=== PATIENT | male | born 1955 | race Caucasian/White ===

== ENCOUNTER 2017-05-22 14:57 | Inpatient (IN) | payer OTHER ==
[~2017-05-22] VITALS: Ht 175.3 cm; Wt 79.2 kg
[2017-05-22] VITALS (12 sets, daily range): BP systolic 89–168; BP diastolic 60–101
[2017-05-22] MEDS ORDERED: RT-ALBUTEROL/IPRATROPIUM 3 ML (DUONEB) VIAL ONE ×2 (15:07→19:25)
[2017-05-22] MEDS ORDERED: NO MEDS (15:20)
[2017-05-22 15:33] LABS: BASOPHILS # (AUTO) 0.1 10^3/uL (0.0-0.1); BASOPHILS % (AUTO) 2 % (0-10); EOSINOPHILS # (AUTO) 0.5 10^3/uL (0.0-0.3); EOSINOPHILS % (AUTO) 5 % (0-10); LYMPHOCYTES # (AUTO) 2.2 X 10^3 (1.0-4.0); LYMPHOCYTES % (AUTO) 24 % (12-44); MEAN CORPUSCULAR HEMOGLOBIN 33 PG (25-34); MEAN CORPUSCULAR HGB CONC 35 G/DL (32-36); MEAN CORPUSCULAR VOLUME 95 FL (80-99); MONOCYTES # (AUTO) 0.6 X 10^3 (0.0-1.0); MONOCYTES % (AUTO) 7 % (0-12); NEUTROPHILS # (AUTO) 5.6 X 10^3 (1.8-7.8); NEUTROPHILS % (AUTO) 63 % (42-75); PLATELET COUNT 305 10^3/uL (130-400); RED CELL DISTRIBUTION WIDTH 12.1 % (10.0-14.5)
--- NOTE | 2017-05-22 15:35 | ED Respiratory ---
General Stated Complaint: SOA Source: patient, family Exam Limitations: no limitations History of Present Illness Time seen by provider: 14:20 Initial Comments The patient presents at the immediate emergency room this afternoon at the insistence of his . He has been experiencing increasing dyspnea over the past several months. He has a remote history of smoking. He reports that he coughs up evil-appearing phlegm but no blood. He has not had fever, chills, sweats. 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 He gives no history of chest pain or palpitations. He has not been able to lie down to sleep for some time. He also reports that he has to stop to rest when walking from house to car or from bedroom to bathroom. Timing/Duration: changing over time Associated Symptoms: cough, shortness of breath, wheezing Allergies and Home Medications Allergies Coded Allergies: No Known Drug Allergies (Unverified , 05/22/17) Home Medications [No Meds] , (Reported) Constitutional: see HPI EENTM: no symptoms reported Respiratory: see HPI, cough, dyspnea on exertion, orthopnea, phlegm, short of breath, wheezing Cardiovascular: no symptoms reported Gastrointestinal: no symptoms reported Genitourinary: no symptoms reported Musculoskeletal: muscle weakness Skin: no symptoms reported Psychiatric/Neurological: No Symptoms Reported Hematologic/Lymphatic: No Symptoms Reported Immunological/Allergic: no symptoms reported Past Ryaqppx-Txatil-Jkdrnc Hx Patient Social History Recent Foreign Travel: No Contact w/Someone Who Travel: No Physical Exam Vital Signs Vital Sign - Last 12Hours 05/22/17 15:02 Temp 98.3 Pulse 98 Resp 28 B/P (MAP) 143/90 Pulse Ox 94 O2 Delivery Nasal Cannula O2 Flow Rate 4.00 Capillary Refill : General Appearance: moderate distress Eyes: Bilateral Eye Normal Inspection HEENT: normal ENT inspection Neck: full range of motion Respiratory: decreased breath sounds, accessory muscle use, wheezing, expiration (prolonged expiratory phase) Cardiovascular: normal peripheral pulses, regular rate, rhythm, no edema, no gallop, no JVD, no murmur Gastrointestinal: normal bowel sounds, non tender, soft, no organomegaly, no pulsatile mass Extremities: normal range of motion, non-tender, normal inspection, no pedal edema, no calf tenderness, normal capillary refill, pelvis stable 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, no motor/sensory deficits, alert, normal mood/affect, oriented x 3 Skin: normal color, warm/dry, cyanosis, cool, diaphoresis, damp Lymphatic: no adenopathy, axilla node tender (R), axilla node tender (L), inguinal node tender (R), inguinal node tender (L) Progress/Results/Core Measures Results/Orders Lab Results Laboratory Tests Test 05/22/17 15:25 Range/Units White Blood Count 9.0 4.3-11.0 10^3/uL Red Blood Count 4.50 4.35-5.85 10^6/uL Hemoglobin 14.9 13.3-17.7 G/DL Hematocrit 43 40-54 % Mean Corpuscular Volume 95 80-99 FL Mean Corpuscular Hemoglobin 33 25-34 PG Mean Corpuscular Hemoglobin Concent 35 32-36 G/DL Red Cell Distribution Width 12.1 10.0-14.5 % Platelet Count 305 130-400 10^3/uL Mean Platelet Volume 8.0 7.4-10.4 FL Neutrophils (%) (Auto) 63 42-75 % Lymphocytes (%) (Auto) 24 12-44 % Monocytes (%) (Auto) 7 0-12 % Eosinophils (%) (Auto) 5 0-10 % Basophils (%) (Auto) 2 0-10 % Neutrophils # (Auto) 5.6 1.8-7.8 X 10^3 Lymphocytes # (Auto) 2.2 1.0-4.0 X 10^3 Monocytes # (Auto) 0.6 0.0-1.0 X 10^3 Eosinophils # (Auto) 0.5 H 0.0-0.3 10^3/uL Basophils # (Auto) 0.1 0.0-0.1 10^3/uL Sodium Level 120 *L 135-145 MMOL/L Potassium Level 4.8 3.6-5.0 MMOL/L Chloride Level 82 L 98-107 MMOL/L Carbon Dioxide Level 29 21-32 MMOL/L Anion Gap 9 5-14 MMOL/L Blood Urea Nitrogen 4 L 7-18 MG/DL Creatinine 0.67 0.60-1.30 MG/DL Estimat Glomerular Filtration Rate > 60 BUN/Creatinine Ratio 6 Glucose Level 112 H 70-105 MG/DL Calcium Level 9.1 8.5-10.1 MG/DL Total Bilirubin 0.7 0.1-1.0 MG/DL Aspartate Amino Transf (AST/SGOT) 19 5-34 U/L Alanine Aminotransferase (ALT/SGPT) 14 0-55 U/L Alkaline Phosphatase 86 40-136 U/L Troponin I < 0.30 <0.30 NG/ML Total Protein 7.2 6.4-8.2 GM/DL Albumin 4.4 3.2-4.5 GM/DL My Orders Orders - NAZ RIVERA MD Albuterol/Ipra Inhalation Soln (Duoneb I (05/22/17 15:07) Cbc With Automated Diff (05/22/17 15:17) Comprehensive Metabolic Panel (05/22/17 15:17) Troponin I (05/22/17 15:17) Ua Culture If Indicated (05/22/17 15:17) Ekg Tracing (05/22/17 15:17) Chest 1 View, Ap/Pa Only (05/22/17 15:17) Albuterol/Ipra Inhalation Soln (Duoneb I (05/22/17 15:45) Svn Sm Volume Nebulizer Rt-Rfs (05/22/17 15:36) Medications Given in ED Current Medications Medications Dose Ordered Sig/Blanca Route Start Time Stop Time Status Last Admin Dose Admin Albuterol/ Ipratropium 3 ml STK-MED ONCE .ROUTE 05/22/17 15:07 05/22/17 15:14 DC 05/22/17 15:17 3 ML Vital Signs/I&O Vital Sign - Last 12Hours 05/22/17 05/22/17 15:02 15:17 Temp 98.3 Pulse 98 Resp 28 B/P (MAP) 143/90 Pulse Ox 94 O2 Delivery Nasal Cannula O2 Flow Rate 4.00 2.50 Departure Communication Progress Notes Laboratory returned and the sodium is noted be 120. Chest x-ray shows no pneumonia or lesions. [address] Madison and the patient will be admitted Impression Impression: Primary Impression: severe hypoxia Additional Impression: hyponatremia Disposition: ADMITTED INPATIENT Condition: Improved Admissions Decision to Admit Reason: Admit from ER (General) Decision to Admit/Date: May 22, 2017 Time/Decision to Admit Time: 17:05 Departure-Patient Inst. Referrals: NO,LOCAL PHYSICIAN (PCP/Family) Primary Care Physician NAZ RIVERA MD May 22, 2017 15:35
[2017-05-22] MEDS ORDERED: RT-ALBUTEROL/IPRATROPIUM 3 ML (DUONEB) VIAL INH ONE (15:45)
[2017-05-22 15:49] LABS: ALANINE AMINOTRANSFERASE 14 U/L (0-55); ALBUMIN 4.4 GM/DL (3.2-4.5); ANION GAP 9 MMOL/L (5-14); ASPARTATE AMINO TRANSFERASE 19 U/L (5-34); BILIRUBIN,TOTAL 0.7 MG/DL (0.1-1.0); BLOOD UREA NITROGEN 4 MG/DL (7-18); BUN/CREATININE RATIO 6; CALCIUM 9.1 MG/DL (8.5-10.1); CARBON DIOXIDE 29 MMOL/L (21-32); CHLORIDE 82 MMOL/L (98-107); CREATININE SERUM 0.67 MG/DL (0.60-1.30); GFR ESTIMATED > 60; GLUCOSE 112 MG/DL (70-105); POTASSIUM 4.8 MMOL/L (3.6-5.0); TOTAL PROTEIN 7.2 GM/DL (6.4-8.2)
--- NOTE | 2017-05-22 15:49 | Diagnostic Imaging Report ---
INDICATION: Dyspnea. Portable upright view of the chest is obtained. No previous studies available at this time for comparison. Heart size is at the upper limits normal. There is bilateral air trapping with scattered punctate calcifications likely due to granulomatous residua. No pneumothorax or focal consolidation is identified. There is no evidence of significant pleural fluid. IMPRESSION: Emphysema and granulomatous residua in the lungs. No acute abnormalities identified. Dictated by: Dictated on workstation # [id number]
[2017-05-22 15:53] LABS: SODIUM 120 MMOL/L (135-145)
[2017-05-22 15:55] LABS: TROPONIN I < 0.30 NG/ML (<0.30)
[2017-05-22 17:22] LABS: BILIRUBIN,URINE NEGATIVE (NEGATIVE); KETONES,URINE NEGATIVE (NEGATIVE); LEUKOCYTE ESTERASE ,URINE NEGATIVE (NEGATIVE); NITRITE,URINE NEGATIVE (NEGATIVE); PH,URINE 5 (5-9); PROTEIN,URINE NEGATIVE (NEGATIVE); UROBILINOGEN,URINE NORMAL (NORMAL)
[2017-05-22 17:35] LABS: WBC,URINE RARE /HPF
[2017-05-22] MEDS: NS IV 1000 ML 1,000 ML IV SCH (19:50)
[2017-05-22 20:55] LABS: BILIRUBIN,URINE NEGATIVE (NEGATIVE); KETONES,URINE NEGATIVE (NEGATIVE); LEUKOCYTE ESTERASE ,URINE NEGATIVE (NEGATIVE); NITRITE,URINE NEGATIVE (NEGATIVE); PH,URINE 6 (5-9); PROTEIN,URINE NEGATIVE (NEGATIVE); UROBILINOGEN,URINE NORMAL (NORMAL)
[2017-05-22 21:01] LABS: SQUAMOUS EPITHELIAL CELL,UR RARE /HPF
[2017-05-22] MEDS: RT-ALBUTEROL SULF 2.5 MG/3 ML PRE-MIX VIAL IH SCH (21:48)
[2017-05-22] MEDS: methylPREDNISolone 125 MG (Solu-MEDROL) VIAL IVP SCH (23:41)
[2017-05-23] VITALS (27 sets, daily range): BP systolic 96–163; BP diastolic 47–108
[2017-05-23] MEDS: RT-ALBUTEROL SULF 2.5 MG/3 ML PRE-MIX VIAL IH SCH ×13 (00:23→23:58)
[2017-05-23 04:38] LABS: ANION GAP 10 MMOL/L (5-14); BLOOD UREA NITROGEN 5 MG/DL (7-18); BUN/CREATININE RATIO 7; CALCIUM 9.2 MG/DL (8.5-10.1); CARBON DIOXIDE 29 MMOL/L (21-32); CHLORIDE 83 MMOL/L (98-107); CREATININE SERUM 0.71 MG/DL (0.60-1.30); GFR ESTIMATED > 60; GLUCOSE 143 MG/DL (70-105)
[2017-05-23 04:49] LABS: SODIUM 122 MMOL/L (135-145)
[2017-05-23] MEDS: NS IV 1000 ML 1,000 ML IV SCH ×2 (05:18→16:39)
[2017-05-23] MEDS: methylPREDNISolone 125 MG (Solu-MEDROL) VIAL IVP SCH ×5 (05:19→23:47)
--- NOTE | 2017-05-23 08:50 | History & Physical-Hospitalist ---
HPI History of Present Illness: HPI/Chief Complaint CC: Dyspnea w/hyponatremia HPI: This is a 61-year-old white male that hasn't seen a physician for many years but quit smoking 17 years ago that presents to the emergency room with severe shortness of breath and hypoxia of 74 percent. His found to have florid exacerbation of presumed COPD and was placed in ICU stepdown status placed on IV steroids and monitor closely. Chest x-ray showed a possible left parahilar abnormality which CT scan showed no evidence of any PE but parahilar abnormality is still indeterminate. Considering he is a previous smoker quit 17 years ago and hyponatremia of unknown etiology this certainly could be a small cell lung cancer presenting with severe exacerbation of COPD initial diagnosis. His BNP and troponin were both negative and Dr. Anthony we will see him in consultation. I ordered an ABG that revealed pH is 7.31 and CO2 of 68 so he definitely may require BiPAP in order to blow off CO2. Source: patient Exam Limitations: no limitations Date Seen 05/23/17 Time Seen by Provider: 08:00 Attending Physician Jessica Madison DO PCP No,Local Physician Referring Physician Date of Admission May 22, 2017 at 18:52 Home Medications & Allergies Home Medications Reviewed patient Home Medication Reconciliation Form Allergies Allergies Coded Allergies No Known Drug Allergies (Unverified05/22/17) Past Htjmkcr-Ulleux-Bnprir Hx Patient Social History Marrital Status: Employed/Student: employed Alcohol Use: Regular Use Recreational Drug Use: No Smoking Status: Never a Smoker Physical Abuse Screen: No Sexual Abuse: No Recent Foreign Travel: No Contact w/other who traveled: No Recent Hopitalizations: No Recent Infectious Disease Expo: No Seasonal Allergies Seasonal Allergies: No Surgeries HX Surgeries: Yes Surgeries: Orthopedic (left hand) Respiratory Hx Respiratory Disorders: No Cardiovascular Hx Cardiovascular Disorders: No Neurological Hx Neurological Disorders: No Genitourinary Hx Genitourinary Disorders: No Gastrointestinal Hx Gastrointestinal Disorders: No Musculoskeletal Hx Musculoskeletal Disorders: No Musculoskeletal Disorders: Fractures Endocrine Hx Endocrine Disorders: No HEENT HX ENT Disorders: No Loss of Vision: Denies Hearing Impairment: Denies Cancer Hx Cancer: No Psychosocial Hx Psychiatric Problems: No Blood Transfusions Adverse Reaction to a Blood Tr: No Reviewed Nursing Assessment Reviewed/Agree w Nursing PMH: Yes Family Medical History Family Hx: Cardiovascular disease 19 FATHER, Onset:Unknown Review of Systems Constitutional: see HPI EENTM: no symptoms reported Respiratory: dyspnea on exertion, short of breath, wheezing Gastrointestinal: no symptoms reported Genitourinary: no symptoms reported Musculoskeletal: no symptoms reported Skin: no symptoms reported Psychiatric/Neurological: No Symptoms Reported All Other Systems Reviewed Negative Unless Noted: Yes Physical Exam Physical Exam Vital Signs Vital Sign - Last 12Hours 05/22/17 05/22/17 15:02 19:33 Temp 98.3 Pulse 98 Resp 28 B/P (MAP) 143/90 Pulse Ox 94 O2 Delivery Nasal Cannula O2 Flow Rate 4.00 FiO2 32 Capillary Refill : Less Than 3 Seconds General Appearance: No Apparent Distress, WD/WN, Chronically ill Eyes: Bilateral Eye Normal Inspection, Bilateral Eye PERRL HEENT: PERRL/EOMI, Normal ENT Inspection, Pharynx Normal Neck: Full Range of Motion, Normal Inspection, Non Tender, Supple, Carotid Bruit Respiratory: Chest Non Tender, No Accessory Muscle Use, No Respiratory Distress , Crackles, Decreased Breath Sounds, Rales, Wheezing Cardiovascular: Regular Rate, Rhythm, No Edema, No Gallop, No JVD, No Murmur, Normal Peripheral Pulses Gastrointestinal: Normal Bowel Sounds, No Organomegaly, No Pulsatile Mass, Non Tender, Soft Back: Normal Inspection, No CVA Tenderness, No Vertebral Tenderness Extremity: Normal Capillary Refill, Normal Inspection, Normal Range of Motion, Non Tender, No Calf Tenderness, No Pedal Edema Neurologic/Psychiatric: Alert, Oriented x3, No Motor/Sensory Deficits, Normal Mood/Affect Skin: Normal Color, Warm/Dry Lymphatic: No Adenopathy Results Results/Procedures Lab Laboratory Tests 05/22/17 15:25 05/23/17 03:36 Assessment/Plan Admission Diagnosis Assessment: Severe dyspnea with hypoxemia on admission now with respiratory acidosis due to CO2 retention Left perihilar abnormality on chest x-ray and CT scan suspicious for small cell lung cancer Prior smoker quit 17 years ago Severe hyponatremia of uncertain etiology Assessment and Plan Plan: Moved to ICU for BiPAP to decrease CO2 retention IV steroids Nebulizer treatments Monitor closely Needs PET scan Fluid restriction Gentle IV fluid Cardiology evaluation Clinical Quality Measures DVT/VTE Risk/Contraindication: Risk Factor Score Per Nursin RFS Level Per Nursing on Admit: 1=Low/No VTE PPX JESSICA MADISON DO May 23, 2017 08:50
[2017-05-23] MEDS ORDERED: IOHEXOL 350 MG/ML 150 ML (OMNIPAQUE 350) VIAL IV ONE (09:00)
[2017-05-23] MEDS ORDERED: NS 100 ML (IVPB) BAG IV ONE (09:00)
[2017-05-23 09:45] LABS: ABG BASE EXCESS 6.8 MMOL/L (-2.5-2.5); ABG HCO3 33 MMOL/L (23-27); ABG OXYGEN SATURATION 97 % (94-100); ABG PCO2 68 MMHG (35-45); ABG PO2 89 MMHG (79-93); ABG TCO2 35.1 MMOL/L (21.0-31.0)
[2017-05-23 09:46] LABS: ALLENS TEST YES-POS; PATIENT TEMP 97.8
[2017-05-23 09:47] LABS: ABG PH 7.31 (7.37-7.43)
--- NOTE | 2017-05-23 10:37 | Diagnostic Imaging Report ---
PROCEDURE: CT angiography of the chest with contrast. TECHNIQUE: Multiple contiguous axial images were obtained through the chest after uneventful bolus administration of intravenous contrast. Reconstructed CTA MIP acquisitions were also performed. INDICATION: Hypoxia There are no previous CTA chest examinations available for comparison. The plain film examination of the chest performed earlier on 05/22/17 noted chronic pulmonary changes but failed to show any sign of an acute abnormality. On this study there is no defect within the pulmonary arteries to indicate pulmonary embolus. Aorta is not normally dilated and there is no sign of a dissection. The heart size is within normal limits but there are coronary calcifications evident. There are emphysematous changes involving both lungs, particularly the lung apices. Also, in the left infrahilar region there is a poorly defined parenchymal density measuring 1.5 x 1.9 CM. Even in retrospect this density cannot be identified on the plain film. This finding may be secondary to scar formation. The possibility that this is secondary to a neoplastic mass should also be considered. If previous CT exams are available they would be helpful for comparison. If there are no previous CT examinations, then PET/CT would be recommended for further study. If the PET/CT exam is not performed, then a short-term (three-month) followup CT chest exam should be obtained. There is no sign of failure, pneumonia or of a pleural effusion to indicate an acute abnormality. The sections through the upper abdomen failed to show any sign of an acute abnormality. The bone windows are unremarkable for a fracture or for a destructive lesion. IMPRESSION: 1. There are emphysematous changes involving both lungs but there is no sign of a pulmonary embolus or of a dissection. There is no evidence for failure or pneumonia either. 2. The irregular parenchymal density in the left perihilar region is of uncertain etiology. Considerations and recommendations as above. 3. The heart is not enlarged but there are coronary calcifications evident. Dictated by: Dictated on workstation # [id number]
[2017-05-23] MEDS: RT-BUDESONIDE NEBS 0.5 MG/2ML (PULMICORT) AMP INH SCH ×2 (12:27→18:04)
--- NOTE | 2017-05-23 13:37 | Consultation-Cardiology ---
HPI-Cardiology Cardiology Consultation: Date of Consultation 05/23/17 Time Seen by Provider: 13:15 Date of Admission 05-23-17 Attending Physician Jessica Vila DO Admitting Physician Karen,Local Physician Consulting Physician Chelsi Anthony MD, MA FACP [facility] HPI: Chief Complaint: Dyspnea Mr. Chery is a 61 year old male who is currently in ICU 1. He is currently on Bi -pap tx. His spouse is at the bedside. He reports increasing exertional dyspnea over the course of the last several months. He does report occ twinges of right sided chest discomfort which are not in r/t activity or emotional stress. They only last a few seconds. Theses have been present for several months. He reports productive cough of thick, yellow sputum which started a few months ago and has also become progressively worse. He does not report any LE edema. He does report bilat LE leg cramps which have been present for a few weeks. The do not occur with ambulation. No c/o palpitations. He does report 2 episodes of syncope within the last few months. They report the most recent episode was a month ago. He states he was up in the kitchen fixing coffee. He had a sudden onset of dizziness and the next thing he can recall he was lying on the kitchen floor with the coffee pot beside him. He believes he came to when he hit the floor. He does report fever and chills over night. No c/o n/v/ d. He reports his breathing does feel somewhat better today and his cough has improved. Review of Systems-Cardiology Review of Systems Constitutional: As described under HPI, No As described under HPI, No no symptoms reported, No chills, No fever, No lightheadedness Eyes: No blurred vision, No pain Ears/Nose/Throat: No As described under HPI, No no symptoms reported, No chronic hearing loss, No ear discharge, No ear pain, No nasal drainage, No ulcerations Respiratory: As described under HPI Cardiovascular: As described under HPI Gastrointestinal: No no symptoms reported, No abdomen distended, No abdominal pain, No blood streaked bowels, No constipation, No diarrhea, No nausea, No vomiting, No stool coloration changes Genitourinary: No As described under HPI, No burning, No dysuria, No discharge , No frequency, No flank pain, No hematuria, No urgency Skin: No rash, No skin related problems, No ulcerations Psychiatric/Neurological: No anxiety, No depression, No seizure, No focal weakness, No syncope Hematologic: No bleeding abnormalities All Other Systems Reviewed Negative Unless Noted: Yes [id number] Hx Patient Social History Marrital Status: Employed/Student: employed Alcohol Use: Regular Use Recreational Drug Use: No Smoking Status: Never a Smoker Recent Foreign Travel: No Recent Infectious Disease Expo: No Hospitalization with Isolation: Denies Physical Abuse Screen: No Sexual Abuse: No Past Medical History PMH As described under Assessment. Family Medical History Family Medical History: He reports his father has CAD. His first IN was in his late 30's. He has had a CABG several years ago with a recent re-do CABG. He reports his mother has CAD with h/o stent placement. Family History: Cardiovascular disease 19 FATHER, Onset:Unknown Allergies and Home Medications Allergies Coded Allergies: No Known Drug Allergies (Unverified , 05/22/17) Home Medications No Active Prescriptions or Reported Meds Physical Exam-Cardiology Physical Exam Vital Signs/I&O Vital Sign - Last 12Hours 05/23/17 05/23/17 05/23/17 05/23/17 05:10 05:12 06:55 07:00 Pulse 101 99 Resp 27 B/P (MAP) Pulse Ox 96 87 97 O2 Delivery Vapotherm Vapotherm Vapotherm O2 Flow Rate 55.00 15.00 25.00 25.00 FiO2 40 55 05/23/17 05/23/17 05/23/17 05/23/17 08:06 08:15 10:29 12:21 Temp 97.8 Pulse 98 104 Resp 22 16 B/P (MAP) 122/78 Pulse Ox 91 93 95 O2 Delivery Vapotherm Vapotherm High Flow N/C O2 Flow Rate 25.00 55.00 15.00 45.00 25.00 FiO2 55 05/23/17 05/23/17 05/23/17 05/23/17 12:30 12:30 12:45 13:00 Temp 97.6 98.0 Pulse 101 100 105 Resp 15 14 B/P (MAP) 115/78 106/74 Pulse Ox 94 94 92 O2 Delivery NIV Bilevel NIV Bilevel NIV Bilevel O2 Flow Rate 10.00 10.00 45.00 FiO2 45 05/23/17 05/23/17 05/23/1718/17 13:00 13:15 13:30 14:37 Pulse 105 96 101 96 Resp 12 24 24 23 B/P (MAP) 104/65 99/67 105/75 Pulse Ox 93 92 93 94 O2 Delivery NIV Bilevel NIV Bilevel NIV Bilevel O2 Flow Rate 45.00 45.00 45.00 45.00 Capillary Refill : Less Than 3 Seconds Constitutional: appears stated age, No apparent distress, well-developed, well- nourished HEENT: PERRL, No discharge, hearing is well preserved, oral hygience is good, No ulceration, No xanthelasmas are seen Neck: No carotid bruit, carotid pulses are 2 + bilaterally Respiratory: No accessory muscle use, No respiratory distress, other ( scattered rhonchi, crackles at the bases, prolonged expiratory phase) Cardiovascular: regular rate-rhythm, No JVD, S1 and S2, systolic murmur Gastrointestinal: No tender, soft, round, audible bowel sounds, No spleenomegaly Rectal: deferred Extremities: No clubbing, No cyanosis, No significant edema Neurologic/Psychiatric: alert, oriented x 3, power is 5/5 both on sides Skin: No rash, No ulcerations Lymphatic: no adenopathy, axilla node tender (R), axilla node tender (L), inguinal node tender (R), inguinal node tender (L) Data Review Labs Laboratory Tests 05/22/17 17:08: Urine Color YELLOW, Urine Clarity CLEAR, Urine pH 5, Urine Specific [place] 1.010L, Urine Protein NEGATIVE, Urine Glucose (UA) NEGATIVE, Urine Ketones NEGATIVE, Urine Nitrite NEGATIVE, Urine Bilirubin NEGATIVE, Urine Urobilinogen NORMAL, Urine Leukocyte Esterase NEGATIVE, Urine RBC (Auto) NEGATIVE, Urine RBC NONE, Urine WBC RARE, Urine Crystals NONE, Urine Bacteria NEGATIVE, Urine Casts NONE, Urine Mucus NEGATIVE, Urine Culture Indicated NO 05/22/17 20:30: Urine Color YELLOW, Urine Clarity CLEAR, Urine pH 6, Urine Specific [place] 1.010L, Urine Protein NEGATIVE, Urine Glucose (UA) NEGATIVE, Urine Ketones NEGATIVE, Urine Nitrite NEGATIVE, Urine Bilirubin NEGATIVE, Urine Urobilinogen NORMAL, Urine Leukocyte Esterase NEGATIVE, Urine RBC (Auto) NEGATIVE, Urine RBC NONE, Urine WBC NONE, Urine Crystals NONE, Urine Bacteria NONE, Urine Casts NONE , Urine Mucus NEGATIVE, Urine Culture Indicated NO, Urine Squamous Epithelial Cells RARE 05/23/17 03:36: Sodium Level 122*L, Potassium Level 5.0, Chloride Level 83L, Carbon Dioxide Level 29, Anion Gap 10, Blood Urea Nitrogen 5L, Creatinine 0.71, Estimat Glomerular Filtration Rate > 60, BUN/Creatinine Ratio 7, Glucose Level 143H, Calcium Level 9.2 05/23/17 09:00: Troponin I < 0.30, B-Type Natriuretic Peptide 43.8, Thyroid Stimulating Hormone (TSH) 0.61 05/23/17 09:40: Blood Gas Puncture Site RR, Blood Gas Patient Temperature 97.8, Arterial Blood pH 7.31*L, Arterial Blood Partial Pressure CO2 68H, Arterial Blood Partial Pressure O2 89, Arterial Blood HCO3 33H, Arterial Blood Total CO2 35.1H, Arterial Blood Oxygen Saturation 97, Arterial Blood Base Excess 6.8H, Saad Test YES-POS, Blood Gas Ventilator Setting NO, Blood Gas Inspired Oxygen 15 Radiology NAME: OZ CHERY [facility] REC#: [id number] PT STATUS: REG ER : 1955 PHYSICIAN: NAZ RIVERA MD ADMIT DATE: 05/22/17/ER Signed Date of Exam: 05/22/17 CHEST 1 VIEW, AP/PA ONLY INDICATION: Dyspnea. Portable upright view of the chest is obtained. No previous studies available at this time for comparison. Heart size is at the upper limits normal. There is bilateral air trapping with scattered punctate calcifications likely due to granulomatous residua. No pneumothorax or focal consolidation is identified. There is no evidence of significant pleural fluid. IMPRESSION: Emphysema and granulomatous residua in the lungs. No acute abnormalities identified. Dictated by: Dictated on workstation # [id number] Dict: 05/22/17 1543 Trans: 05/22/17 1641 Interpreted by: TASHA GREENE MD Electronically signed by: TASHA GREENE MD 05/22/17 1641 NAME: OZ CHERY [facility] REC#: [id number] PT STATUS: ADM IN : 1955 PHYSICIAN: JESSICA VILA DO ADMIT DATE: 05/22/17/ICU Draft Date of Exam:05/23/17 CT ANGIO CHEST W PROCEDURE: CT angiography of the chest with contrast. TECHNIQUE: Multiple contiguous axial images were obtained through the chest after uneventful bolus administration of intravenous contrast. Reconstructed CTA MIP acquisitions were also performed. INDICATION: Hypoxia There are no previous CTA chest examinations available for comparison. The plain film examination of the chest performed earlier on 05/22/17 noted chronic pulmonary changes but failed to show any sign of an acute abnormality. On this study there is no defect within the pulmonary arteries to indicate pulmonary embolus. Aorta is not normally dilated. There is no sign of a dissection. The heart size is within normal limits but there are coronary calcifications evident. There are emphysematous changes involving both lungs, particularly the lung apices. Also, in the left infrahilar region there is a poorly defined parenchymal density measuring 1.5 x 1.9 CM. Even in retrospect this density cannot be identified on the plain film. This finding may be secondary to scar formation. The possibility that this is secondary to a neoplastic mass should also be considered. If previous PET/CT exams are available they would be helpful for comparison. If there are no previous CT examinations, then PET/CT would be recommended for further study. If the PET/CT exam is not performed, then a short-term (three-month) followup CT chest exam should be obtained. There is no sign of failure, pneumonia or of a pleural effusion to indicate an acute abnormality. The sections through the upper abdomen failed to show any sign of an acute abnormality. The bone windows are unremarkable for a fracture or for a destructive lesion. IMPRESSION: 1. There are emphysematous changes involving both lungs but there is no sign of a pulmonary embolus or of a dissection. There is no evidence for failure or pneumonia either. 2. The irregular parenchymal density in the left perihilar region is of uncertain etiology. Considerations and recommendations as above. 3. The heart is not enlarged but there are coronary calcifications evident. Dictated on workstation # [id number] Dict: 05/23/17 1013 Trans: 05/23/17 1037 A/P-Cardiology Assessment/Admission Diagnosis Shortness of breath, probably primarily due to acute exacerbation of COPD No clinical evidence of decompensated CHF Echo of 05/23/17: LVEF 60-65%, mild diastolic dysfunction of LV, no significant valvular heart disease Syncopal episodes x 2 of undetermined etiology. Symptoms suggestive of postural hypotension/neurocardiogenic syncope Hyponatremia of undetermined etiology - medical services managing Coronary calcifications seen on CTA of the chest of 05-23-17 Acute exacerbation of COPD - management per medical services Irregular parenchymal density in the left perihilar region is of uncertain etiology; can not r/o neoplasm - per CTA of the chest on 05-23-17 - management per medical services Family h/o premature CAD (father was in his 30's) H/O tobaccoism - quits 17 years ago after a greater than 20 year smoking history Discussion and Recomendations Complex management. Dyspnea which is likely multifactorial. Acute exacerbation of COPD which management is with medical services. Irregular parenchymal density in the left perihilar region is of uncertain etiology which further w/u is with medical services. We advise echocardiogram to evaluate structure and LVEF. He has a family h/o premature CAD. Advise further cardiac w/u when condition is more stable. Syncopal episodes of undetermined etiology. Continue tele to evaluate for arrhythmia. Hyponatremia of undetermined etiology which is being managed by medical services. Continue current gentle fluid hydration. Monitor lab closely. Further recommendations will be based on his hospital course. We would like to thank the medical services for this consult. This consult is being scribed by Sherry Guillermo APRN on behalf of Dr. Anthony after discussion regarding plan of care. Clinical Quality Measures DVT/VTE Risk/Contraindication: Risk Factor Score Per Nursin RFS Level Per Nursing on Admit: 1=Low/No VTE PPX Physician Assessment Physician Assessment No cp at the time of this exam Lung: increase exp phase, exp rhonchi and wheezes Cor: reg Ext: no c/c/e A&R * As documented in our note above that I updated (italics) and as noted below * I explained to her the findings of his cardiac w/u today * Cardiac risk factor modification was discussed and advised * Monitor labs * Given CAD risk factors, we recommend cor risk stratification following recovery from current hospitalzation ELOISE GUILLERMO May 23, 2017 13:37 CHELSI ANTHONY MD [facility] May 23, 2017 16:44
[2017-05-24] VITALS (20 sets, daily range): BP systolic 95–143; BP diastolic 57–78
[2017-05-24] MEDS: RT-ALBUTEROL SULF 2.5 MG/3 ML PRE-MIX VIAL IH SCH ×7 (02:12→22:45)
[2017-05-24] MEDS: NS IV 1000 ML 1,000 ML IV SCH (02:30)
[2017-05-24 04:18] LABS: ABG BASE EXCESS 7.5 MMOL/L (-2.5-2.5); ABG HCO3 33 MMOL/L (23-27); ABG OXYGEN SATURATION 97 % (94-100); ABG PCO2 60 MMHG (35-45); ABG PH 7.36 (7.37-7.43); ABG PO2 85 MMHG (79-93); ABG TCO2 34.9 MMOL/L (21.0-31.0)
[2017-05-24 04:25] LABS: ALLENS TEST YES-POS; PATIENT TEMP 97.7
[2017-05-24 05:09] LABS: ALANINE AMINOTRANSFERASE 12 U/L (0-55); ALBUMIN 3.6 GM/DL (3.2-4.5); ANION GAP 6 MMOL/L (5-14); ASPARTATE AMINO TRANSFERASE 12 U/L (5-34); BILIRUBIN,TOTAL 0.3 MG/DL (0.1-1.0); BLOOD UREA NITROGEN 12 MG/DL (7-18); BUN/CREATININE RATIO 18; CALCIUM 8.7 MG/DL (8.5-10.1); CARBON DIOXIDE 31 MMOL/L (21-32); CHLORIDE 92 MMOL/L (98-107); CHOLESTEROL 146 MG/DL (< 200); CREATININE SERUM 0.66 MG/DL (0.60-1.30); DIRECT LDL 32 MG/DL (1-129); GFR ESTIMATED > 60; GLUCOSE 158 MG/DL (70-105); POTASSIUM 4.8 MMOL/L (3.6-5.0); SODIUM 129 MMOL/L (135-145); TRIGLYCERIDES 31 MG/DL (<150); VLDL CHOLESTEROL 6 MG/DL (5-40)
[2017-05-24] MEDS: methylPREDNISolone 125 MG (Solu-MEDROL) VIAL IVP SCH ×4 (06:28→23:01)
[2017-05-24] MEDS: RT-BUDESONIDE NEBS 0.5 MG/2ML (PULMICORT) AMP INH SCH ×2 (06:36→22:45)
[2017-05-24] MEDS ORDERED: RT-ALBUTEROL SULF 2.5 MG/3 ML PRE-MIX VIAL IH PRN (06:45)
--- NOTE | 2017-05-24 10:49 | Progress Note-Hospitalist ---
Subjective HPI/CC On Admission Date Seen by Provider: May 24, 2017 Time Seen by Provider: 09:15 CC: Dyspnea w/hyponatremia HPI: This is a 61-year-old white male that hasn't seen a physician for many years but quit smoking 17 years ago that presents to the emergency room with severe shortness of breath and hypoxia of 74 percent. His found to have florid exacerbation of presumed COPD and was placed in ICU stepdown status placed on IV steroids and monitor closely. Chest x-ray showed a possible left parahilar abnormality which CT scan showed no evidence of any PE but parahilar abnormality is still indeterminate. Considering he is a previous smoker quit 17 years ago and hyponatremia of unknown etiology this certainly could be a small cell lung cancer presenting with severe exacerbation of COPD initial diagnosis. His BNP and troponin were both negative and Dr. Anthony we will see him in consultation. I ordered an ABG that revealed pH is 7.31 and CO2 of 68 so he definitely may require BiPAP in order to blow off CO2. Subjective/Events-last exam patient is feeling much better than when he came in. He is on high flow by nasal cannula and was on CPAP overnight. He continues to have moderate CO2 retention. he notes that he has been short of breath with orthopnea for 2-3 months. Review of Systems Pulmonary: Dyspnea Objective Exam Vital Signs Vital Sign - Last 12Hours 05/22/17 05/22/17 15:02 19:33 Temp 98.3 Pulse 98 Resp 28 B/P (MAP) 143/90 Pulse Ox 94 O2 Delivery Nasal Cannula O2 Flow Rate 4.00 FiO2 32 Capillary Refill : Less Than 3 Seconds General Appearance: No Apparent Distress, WD/WN HEENT: Normal ENT Inspection Neck: Supple Respiratory: Crackles, Wheezing Cardiovascular: No Gallop, Tachycardia Gastrointestinal: Soft Rectal: Deferred Extremity: No Calf Tenderness Neurologic/Psychiatric: Alert, Oriented x3, No Motor/Sensory Deficits, Normal Mood/Affect Skin: Normal Color, Warm/Dry Results/Procedures Lab Laboratory Tests 05/24/17 03:05 Assessment/Plan Assessment and Plan Assess & Plan/Chief Complaint Severe dyspnea with hypoxemia on admission now with respiratory acidosis due to CO2 retention-improving on steroids. Left perihilar abnormality on chest x-ray and CT scan suspicious for small cell lung cancer Prior smoker quit 17 years ago Severe hyponatremia of uncertain etiology-we'll check urine for spot lites. Patient does give a history of drinking a lot of water. Will Hep-Lock his IV fluids DILIP POOLE MD May 24, 2017 10:49
--- NOTE | 2017-05-24 13:12 | Progress Note-Cardiology ---
Cardiology SOAP Progress Note Subjective: Breathing has improved. Denies cp or palp or syncope or ankle swelling Objective: I&O/Vital Signs Vital Sign - Last 12Hours 05/24/17 05/24/17 05/24/17 05/24/17 02:00 02:00 03:00 03:52 Pulse 84 87 87 91 Resp B/P (MAP) 101/67 112/68 Pulse Ox 92 91 94 95 O2 Delivery NIV Bilevel NIV Bilevel O2 Flow Rate 50.00 50.00 50.00 50.00 05/24/17 05/24/17 05/24/17 05/24/17 03:56 04:00 04:00 05:00 Temp 97.7 Pulse 84 82 Resp B/P (MAP) 108/73 108/77 Pulse Ox 94 93 95 O2 Delivery NIV Bilevel NIV Bilevel NIV Bilevel NIV Bilevel O2 Flow Rate 50.00 50.00 50.00 FiO2 50 05/24/17 05/24/17 05/24/17 05/24/17 06:00 06:23 06:32 06:47 Pulse 89 107 Resp 24 B/P (MAP) 114/66 Pulse Ox 95 93 93 91 O2 Delivery NIV Bilevel High Flow N/C High Flow N/C O2 Flow Rate 50.00 14.00 14.00 05/24/17 05/24/17 05/24/17 05/24/17 07:00 08:00 08:30 09:40 Temp 98.0 Pulse 100 101 Resp 28 B/P (MAP) 114/70 Pulse Ox 96 93 O2 Delivery High Flow N/C High Flow N/C High Flow N/C O2 Flow Rate 14.00 14.00 10.00 05/24/17 05/24/17 05/24/17 05/24/17 10:29 10:48 12:21 12:21 Temp 99.1 Pulse Ox 93 93 O2 Delivery High Flow N/C High Flow N/C High Flow N/C High Flow N/C O2 Flow Rate 10.00 8.00 14.00 8.00 Weight (Pounds): 156 Weight (Ounces): 6.0 Weight (Calculated Kilograms): 70.676391 Constitutional: appears stated age, No apparent distress, well-developed, well- nourished Respiratory: No accessory muscle use, No respiratory distress, other ( scattered rhonchi, crackles at the bases, prolonged expiratory phase) Cardiovascular: regular rate-rhythm, No JVD, S1 and S2, systolic murmur Gastrointestional: No tender, soft, round, audible bowel sounds, No spleenomegaly Extremities: No clubbing, No cyanosis, No significant edema Neurologic/Psychiatric: alert, oriented x 3, power is 5/5 both on sides Skin: No rash, No ulcerations Results/Procedures: Labs Laboratory Tests 05/24/17 03:05: Sodium Level 129L, Potassium Level 4.8, Chloride Level 92L, Carbon Dioxide Level 31, Anion Gap 6, Blood Urea Nitrogen 12, Creatinine 0.66, Estimat Glomerular Filtration Rate > 60, BUN/Creatinine Ratio 18, Glucose Level 158H, Calcium Level 8.7, Magnesium Level 2.0, Total Bilirubin 0.3, Aspartate Amino Transf (AST/SGOT) 12, Alanine Aminotransferase (ALT/SGPT) 12, Alkaline Phosphatase 63, Total Protein 6.0L, Albumin 3.6, Triglycerides Level 31, Cholesterol Level 146, LDL Cholesterol Direct 32, VLDL Cholesterol 6, HDL Cholesterol 93H 05/24/17 04:13: Blood Gas Puncture Site R RAD, Blood Gas Patient Temperature 97.7, Arterial Blood pH 7.36L, Arterial Blood Partial Pressure CO2 60H, Arterial Blood Partial Pressure O2 85, Arterial Blood HCO3 33H, Arterial Blood Total CO2 34.9H, Arterial Blood Oxygen Saturation 97, Arterial Blood Base Excess 7.5H, Saad Test YES-POS, Blood Gas Ventilator Setting NO, Blood Gas Inspired Oxygen 50% BIPAP A/P: Assessment: Shortness of breath, probably primarily due to acute exacerbation of COPD No clinical evidence of decompensated CHF Echo of 05/23/17: LVEF 60-65%, mild diastolic dysfunction of LV, no significant valvular heart disease Syncopal episodes x 2 of undetermined etiology. Symptoms suggestive of postural hypotension/neurocardiogenic syncope Hyponatremia of undetermined etiology - medical services managing Coronary calcifications seen on CTA of the chest of 05-23-17 Acute exacerbation of COPD - management per medical services Irregular parenchymal density in the left perihilar region is of uncertain etiology; can not r/o neoplasm - per CTA of the chest on 05-23-17 - management per medical services Family h/o premature CAD (father was in his 30's) H/O tobaccoism - quits 17 years ago after a greater than 20 year smoking history Plan: Continue current regimen Monitor labs I spoke with him and answered CV-related questions Ok for transfer to the floor, from cardiac standpoint RADHA RAMAN MD FACP [facility] May 24, 2017 13:12
[2017-05-24 15:12] LABS: POTASSIUM URINE RANDOM 54 MMOL/L (25-125)
[2017-05-25] VITALS: BP 120/76
[2017-05-25] MEDS: RT-ALBUTEROL SULF 2.5 MG/3 ML PRE-MIX VIAL IH SCH ×6 (02:28→22:35)
[2017-05-25 04:00] VITALS: BP 122/76
[2017-05-25] MEDS: methylPREDNISolone 125 MG (Solu-MEDROL) VIAL IVP SCH ×4 (05:11→23:22)
[2017-05-25 05:26] LABS: BASOPHILS % (AUTO) 0 % (0-10); EOSINOPHILS % (AUTO) 0 % (0-10); LYMPHOCYTES # (AUTO) 0.7 X 10^3 (1.0-4.0); LYMPHOCYTES % (AUTO) 6 % (12-44); MEAN CORPUSCULAR HEMOGLOBIN 34 PG (25-34); MEAN CORPUSCULAR HGB CONC 33 G/DL (32-36); MEAN CORPUSCULAR VOLUME 101 FL (80-99); MEAN PLATELET VOLUME 8.4 FL (7.4-10.4); MONOCYTES # (AUTO) 0.4 X 10^3 (0.0-1.0); MONOCYTES % (AUTO) 3 % (0-12); NEUTROPHILS # (AUTO) 10.2 X 10^3 (1.8-7.8); NEUTROPHILS % (AUTO) 91 % (42-75); PLATELET COUNT 303 10^3/uL (130-400); RED BLOOD COUNT 4.15 10^6/uL (4.35-5.85); RED CELL DISTRIBUTION WIDTH 12.8 % (10.0-14.5); WHITE BLOOD COUNT 11.3 10^3/uL (4.3-11.0)
[2017-05-25 05:59] LABS: BAND NEUTROPHILS 1 %; BASOPHILS % (MANUAL) 0 %; EOSINOPHILS % (MANUAL) 0 %; LYMPHOCYTES % (MANUAL) 4 %; NEUTROPHILS % (MANUAL) 93 %
[2017-05-25 06:00] LABS: ALANINE AMINOTRANSFERASE 15 U/L (0-55); ALBUMIN 3.5 GM/DL (3.2-4.5); ANION GAP 12 MMOL/L (5-14); ASPARTATE AMINO TRANSFERASE 13 U/L (5-34); BILIRUBIN,TOTAL 0.2 MG/DL (0.1-1.0); BLOOD UREA NITROGEN 16 MG/DL (7-18); BUN/CREATININE RATIO 24; CALCIUM 8.8 MG/DL (8.5-10.1); CARBON DIOXIDE 29 MMOL/L (21-32); CHLORIDE 92 MMOL/L (98-107); CREATININE SERUM 0.68 MG/DL (0.60-1.30); GFR ESTIMATED > 60; GLUCOSE 145 MG/DL (70-105); POTASSIUM 4.6 MMOL/L (3.6-5.0); SODIUM 133 MMOL/L (135-145); TOTAL PROTEIN 5.7 GM/DL (6.4-8.2)
[2017-05-25] MEDS: RT-BUDESONIDE NEBS 0.5 MG/2ML (PULMICORT) AMP INH SCH ×2 (06:56→19:59)
[2017-05-25 07:57] VITALS: BP 122/76
--- NOTE | 2017-05-25 11:29 | Progress Note-Hospitalist ---
Subjective HPI/CC On Admission Date Seen by Provider: May 25, 2017 Time Seen by Provider: 09:45 CC: Dyspnea w/hyponatremia HPI: This is a 61-year-old white male that hasn't seen a physician for many years but quit smoking 17 years ago that presents to the emergency room with severe shortness of breath and hypoxia of 74 percent. His found to have florid exacerbation of presumed COPD and was placed in ICU stepdown status placed on IV steroids and monitor closely. Chest x-ray showed a possible left parahilar abnormality which CT scan showed no evidence of any PE but parahilar abnormality is still indeterminate. Considering he is a previous smoker quit 17 years ago and hyponatremia of unknown etiology this certainly could be a small cell lung cancer presenting with severe exacerbation of COPD initial diagnosis. His BNP and troponin were both negative and Dr. Anthony we will see him in consultation. I ordered an ABG that revealed pH is 7.31 and CO2 of 68 so he definitely may require BiPAP in order to blow off CO2. Subjective/Events-last exam patient is feeling somewhat better and is down to 5 L nasal cannula. 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 I discussed with him the emphysema that he has. He does relate that a lot of his breathing problems started when he had a very heavy mold exposure 4-5 months ago. He will need pulmonary function tests and further evaluation and a bronchoscopy as there is still a question that he has a left hilar irregularity. Review of Systems Pulmonary: Dyspnea Objective Exam Vital Signs Vital Sign - Last 12Hours 05/22/17 05/22/17 15:02 19:33 Temp 98.3 Pulse 98 Resp 28 B/P (MAP) 143/90 Pulse Ox 94 O2 Delivery Nasal Cannula O2 Flow Rate 4.00 FiO2 32 Capillary Refill : Less Than 3 Seconds General Appearance: No Apparent Distress, WD/WN, Other (on O2) HEENT: Normal ENT Inspection Respiratory: Normal Breath Sounds, No Accessory Muscle Use, No Respiratory Distress, Crackles Cardiovascular: Regular Rate, Rhythm, No Gallop, No Murmur Gastrointestinal: Non Tender, Soft Results/Procedures Lab Laboratory Tests 05/25/17 05:10 Assessment/Plan Assessment and Plan Assess & Plan/Chief Complaint Severe dyspnea with hypoxemia on admission now with respiratory acidosis due to CO2 retention-improving on steroids. emphysema and COPD. Left perihilar abnormality on chest x-ray and CT scan suspicious for small cell lung cancer-Dr. Huber to see in the morning and consider bronchoscopy. Prior smoker quit 17 years ago Severe hyponatremia of uncertain etiology-urine showed inappropriate conservation of sodium. Currently he is almost back to normal. this patient will need a social work consult for the possibility that he will have to be on disability from this time on DILIP POOLE MD May 25, 2017 11:29
--- NOTE | 2017-05-25 12:30 | Progress Note-Cardiology ---
Cardiology SOAP Progress Note Subjective: Shortness of breath continues to improve slowly. No cp or palp or syncope Objective: I&O/Vital Signs Vital Sign - Last 12Hours 05/25/17 05/25/17 05/25/17 05/25/17 01:00 02:29 04:00 06:56 Temp 97.2 Pulse 91 88 Resp 20 B/P (MAP) 122/76 Pulse Ox 90 96 90 O2 Delivery High Flow N/C High Flow N/C High Flow N/C O2 Flow Rate 6.00 6.00 6.00 05/25/17 05/25/17 05/25/17 05/25/17 06:59 07:46 07:57 08:45 Temp 98.6 Pulse 108 95 Resp 20 B/P (MAP) 122/76 Pulse Ox 90 88 88 O2 Delivery High Flow N/C High Flow N/C High Flow N/C O2 Flow Rate 6.00 6.00 5.00 05/25/17 10:31 O2 Delivery Nasal Cannula O2 Flow Rate 2.50 Weight (Pounds): 168 Weight (Ounces): 6.0 Weight (Calculated Kilograms): 76.968622 Constitutional: appears stated age, No apparent distress, well-developed, well- nourished Respiratory: No accessory muscle use, No respiratory distress, other ( scattered rhonchi, crackles at the bases, prolonged expiratory phase) Cardiovascular: regular rate-rhythm, No JVD, S1 and S2, systolic murmur Gastrointestional: No tender, soft, round, audible bowel sounds, No spleenomegaly Extremities: No clubbing, No cyanosis, No significant edema Neurologic/Psychiatric: alert, oriented x 3, power is 5/5 both on sides Skin: No rash, No ulcerations Results/Procedures: Labs Laboratory Tests 05/24/17 14:45: Urine Random Sodium 52, Urine Random Potassium 54, Urine Random Chloride 114 05/25/17 05:10: White Blood Count 11.3H, Red Blood Count 4.15L, Hemoglobin 13.9, Hematocrit 42, Mean Corpuscular Volume 101H, Mean Corpuscular Hemoglobin 34, Mean Corpuscular Hemoglobin Concent 33, Red Cell Distribution Width 12.8, Platelet Count 303, Mean Platelet Volume 8.4, Neutrophils (%) (Auto) 91H, Lymphocytes (%) (Auto) 6L , Monocytes (%) (Auto) 3, Eosinophils (%) (Auto) 0, Basophils (%) (Auto) 0, Neutrophils # (Auto) 10.2H, Lymphocytes # (Auto) 0.7L, Monocytes # (Auto) 0.4, Eosinophils # (Auto) 0.0, Basophils # (Auto) 0.0, Neutrophils % (Manual) 93, Lymphocytes % (Manual) 4, Monocytes % (Manual) 2, Eosinophils % (Manual) 0, Basophils % (Manual) 0, Band Neutrophils 1, Blood Morphology Comment NORMAL, Sodium Level 133L, Potassium Level 4.6, Chloride Level 92L, Carbon Dioxide Level 29, Anion Gap 12, Blood Urea Nitrogen 16, Creatinine 0.68, Estimat Glomerular Filtration Rate > 60, BUN/Creatinine Ratio 24, Glucose Level 145H, Calcium Level 8.8, Magnesium Level 2.0, Total Bilirubin 0.2, Aspartate Amino Transf (AST/SGOT) 13, Alanine Aminotransferase (ALT/SGPT) 15, Alkaline Phosphatase 55, Total Protein 5.7L, Albumin 3.5 Laboratory Tests 05/24/17 03:05 05/25/17 05:10 A/P: Assessment: Shortness of breath, probably primarily due to acute exacerbation of COPD No clinical evidence of decompensated CHF Echo of 05/23/17: LVEF 60-65%, mild diastolic dysfunction of LV, no significant valvular heart disease Syncopal episodes x 2 of undetermined etiology. Symptoms suggestive of postural hypotension/neurocardiogenic syncope Hyponatremia of undetermined etiology - medical services managing Coronary calcifications seen on CTA of the chest of 05-23-17 Acute exacerbation of COPD - management per medical services Irregular parenchymal density in the left perihilar region is of uncertain etiology; can not r/o neoplasm - per CTA of the chest on 05-23-17 - management per medical services Family h/o premature CAD (father was in his 30's) H/O tobaccoism - quits 17 years ago after a greater than 20 year smoking history Plan: Continue current regimen Monitor labs RADAH RAMAN MD FACP [facility] CCDS May 25, 2017 12:30
[2017-05-25 12:46] VITALS: BP 124/76
[2017-05-25 16:00] VITALS: BP 128/58
[2017-05-25 19:51] VITALS: BP 134/74
[2017-05-26] VITALS (7 sets, daily range): BP systolic 121–134; BP diastolic 68–87
[2017-05-26] MEDS: RT-ALBUTEROL SULF 2.5 MG/3 ML PRE-MIX VIAL IH SCH ×6 (02:15→22:03)
[2017-05-26 05:46] LABS: MEAN PLATELET VOLUME 8.8 FL (7.4-10.4); RED BLOOD COUNT 4.46 10^6/uL (4.35-5.85); RED CELL DISTRIBUTION WIDTH 13.1 % (10.0-14.5); WHITE BLOOD COUNT 10.2 10^3/uL (4.3-11.0)
[2017-05-26] MEDS: methylPREDNISolone 125 MG (Solu-MEDROL) VIAL IVP SCH ×4 (05:56→23:32)
[2017-05-26] MEDS: RT-BUDESONIDE NEBS 0.5 MG/2ML (PULMICORT) AMP INH SCH ×2 (06:22→19:23)
[2017-05-26 06:55] LABS: ANION GAP 7 MMOL/L (5-14); BLOOD UREA NITROGEN 20 MG/DL (7-18); BUN/CREATININE RATIO 30; CALCIUM 8.5 MG/DL (8.5-10.1); CARBON DIOXIDE 34 MMOL/L (21-32); CHLORIDE 92 MMOL/L (98-107); CREATININE SERUM 0.66 MG/DL (0.60-1.30); GFR ESTIMATED > 60; GLUCOSE 138 MG/DL (70-105); POTASSIUM 4.9 MMOL/L (3.6-5.0); SODIUM 133 MMOL/L (135-145)
--- NOTE | 2017-05-26 08:35 | Progress Note-Cardiology ---
Cardiology SOAP Progress Note Subjective: Up ambulating in the room with oxygen on. Feels breathing has improved a great deal. No c/o CP, palpitations, syncope or near syncope. No LE edema. Objective: I&O/Vital Signs Vital Sign - Last 12Hours 05/26/17 05/26/17 05/26/17 05/26/17 04:00 06:25 07:00 07:38 Temp 96.9 97.6 Pulse 96 95 94 Resp 18 20 B/P (MAP) 125/73 122/76 Pulse Ox 91 90 90 O2 Delivery High Flow N/C High Flow N/C High Flow N/C O2 Flow Rate 6.00 5.50 6.00 05/26/17 05/26/17 05/26/17 05/26/17 09:16 09:30 10:07 12:45 Temp 97.5 Pulse 81 Resp 20 B/P (MAP) 124/87 Pulse Ox 90 92 92 O2 Delivery High Flow N/C High Flow N/C High Flow N/C O2 Flow Rate 6.00 6.00 6.50 6.00 Intake and Output 05/27/17 00:00 Intake Total 400 ml Balance 400 ml Weight (Pounds): 172 Weight (Ounces): 2.0 Weight (Calculated Kilograms): 78.143401 Constitutional: appears stated age, No apparent distress, well-developed, well- nourished Respiratory: No accessory muscle use, No respiratory distress, other ( scattered rhonchi, diminished bases, prolonged expiratory phase) Cardiovascular: regular rate-rhythm, No JVD, S1 and S2, systolic murmur Gastrointestional: No tender, soft, round, audible bowel sounds, No spleenomegaly Extremities: No clubbing, No cyanosis, No significant edema Neurologic/Psychiatric: alert, oriented x 3, power is 5/5 both on sides Skin: No rash, No ulcerations Results/Procedures: Labs Laboratory Tests 05/26/17 04:49: White Blood Count 10.2, Red Blood Count 4.46, Hemoglobin 14.7, Hematocrit 45, Mean Corpuscular Volume 102H, Mean Corpuscular Hemoglobin 33, Mean Corpuscular Hemoglobin Concent 33, Red Cell Distribution Width 13.1, Platelet Count 293, Mean Platelet Volume 8.8, Sodium Level 133L, Potassium Level 4.9, Chloride Level 92L, Carbon Dioxide Level 34H, Anion Gap 7, Blood Urea Nitrogen 20H, Creatinine 0.66, Estimat Glomerular Filtration Rate > 60, BUN/Creatinine Ratio 30, Glucose Level 138H, Calcium Level 8.5 A/P: Assessment: Shortness of breath, probably primarily due to acute exacerbation of COPD No clinical evidence of decompensated CHF Echo of 05/23/17: LVEF 60-65%, mild diastolic dysfunction of LV, no significant valvular heart disease Syncopal episodes x 2 of undetermined etiology. Symptoms suggestive of postural hypotension/neurocardiogenic syncope Hyponatremia of undetermined etiology - medical services managing Coronary calcifications seen on CTA of the chest of 05-23-17 Acute exacerbation of COPD - management per medical services Irregular parenchymal density in the left perihilar region is of uncertain etiology; can not r/o neoplasm - per CTA of the chest on 05-23-17 - management per medical services Family h/o premature CAD (father was in his 30's) H/O tobaccoism - quits 17 years ago after a greater than 20 year smoking history Plan: Continue current regimen Monitor labs Advise further cardiac work up as an out pt d/t risk factors as listed above Physician Assessment Physician Assessment Lungs: good bilat air entry Cor: reg Ext: no c/c/e A&R * As documented in our note above that I updated (italics) and as noted below * I again advised complete avoidance of tobacco use * Outpatient f/u advised ELOISE BECKER [employer] May 26, 2017 08:35 RADHA RAMAN MD FACP [facility] CCDS May 26, 2017 14:23
--- NOTE | 2017-05-26 14:45 | Progress Note-Hospitalist ---
Standard Progress Note Progress Notes/Assess & Plan Date Seen 05/26/17 Time Seen by Provider: 14:42 Diagnosis Assessment: Severe dyspnea with hypoxemia on admission now with respiratory acidosis due to CO2 retention Left perihilar abnormality on chest x-ray and CT scan suspicious for small cell lung cancer Prior smoker quit 17 years ago Severe hyponatremia of uncertain etiology Assess & Plan/Chief Complaint The patient is a 61-year-old white male known to me after his presentation in the emergency room last week. He had a history of a long-term increasing shortness of breath punctuated by a short exacerbation leading to his trip to the emergency room. He reports that he feels considerably better at this time. CT angiography done last Friday suggested left perihilar thickening or mass effect. This would be of particular concern as he had a sodium of 120 at presentation and a small cell carcinoma with the inappropriate ADH syndrome would be a real consideration here. Physical exam shows him to be comfortable at rest with oxygen in place. Lungs show distant breath sounds but no wheezing or rhonchi. CV is regular. Extremities show no pedal edema. Impression: Severe hypoxia. 2.suggestion of left perihilar mass. Plan: The patient is to see Dr. Huber today. A PET CT was suggested because of the mass effect. The patient has had home O2 ordered. enrollment services vice president also states that application for disability would be appropriate as well. Labs Laboratory Tests 05/25/17 05:10 05/26/17 04:49 NAZ RVIERA MD May 26, 2017 14:45
[2017-05-27] MEDS: RT-ALBUTEROL SULF 2.5 MG/3 ML PRE-MIX VIAL IH SCH ×6 (02:45→22:26)
[2017-05-27] MEDS: methylPREDNISolone 125 MG (Solu-MEDROL) VIAL IVP SCH ×4 (05:21→23:58)
[2017-05-27] MEDS: RT-BUDESONIDE NEBS 0.5 MG/2ML (PULMICORT) AMP INH SCH ×2 (07:05→22:26)
[2017-05-27 08:05] VITALS: BP 145/87
--- NOTE | 2017-05-27 08:54 | Progress Note-Cardiology ---
Cardiology SOAP Progress Note Subjective: Sitting up in bed. Feels breathing is doing good today. No c/o CP, palpitations, LE edema, syncope or near syncope. Objective: I&O/Vital Signs Vital Sign - Last 12Hours 05/26/17 05/27/17 05/27/17 05/27/17 23:35 02:47 04:03 07:08 Temp 96.6 Pulse 91 88 Resp 18 18 B/P (MAP) 123/74 Pulse Ox 93 93 94 90 O2 Delivery High Flow N/C High Flow N/C High Flow N/C High Flow N/C O2 Flow Rate 6.00 6.50 6.00 6.00 05/27/17 05/27/17 08:05 08:35 Temp 97.8 Pulse 92 Resp 18 B/P (MAP) 145/87 Pulse Ox 91 91 O2 Delivery High Flow N/C High Flow N/C O2 Flow Rate 6.00 6.00 Weight (Pounds): 172 Weight (Ounces): 8.0 Weight (Calculated Kilograms): 78.635125 Constitutional: appears stated age, No apparent distress, well-developed, well- nourished Respiratory: No accessory muscle use, No respiratory distress, other ( scattered rhonchi, diminished bases, prolonged expiratory phase) Cardiovascular: regular rate-rhythm, No JVD, S1 and S2, systolic murmur Gastrointestional: No tender, soft, round, audible bowel sounds, No spleenomegaly Extremities: No clubbing, No cyanosis, No significant edema Neurologic/Psychiatric: alert, oriented x 3, power is 5/5 both on sides Skin: No rash, No ulcerations Results/Procedures: Labs A/P: Assessment: Shortness of breath, probably primarily due to acute exacerbation of COPD No clinical evidence of decompensated CHF Echo of 05/23/17: LVEF 60-65%, mild diastolic dysfunction of LV, no significant valvular heart disease Syncopal episodes x 2 of undetermined etiology. Symptoms suggestive of postural hypotension/neurocardiogenic syncope Hyponatremia of undetermined etiology - medical services managing Coronary calcifications seen on CTA of the chest of 05-23-17 Acute exacerbation of COPD - management per medical services Irregular parenchymal density in the left perihilar region is of uncertain etiology; can not r/o neoplasm - per CTA of the chest on 8-18-17 - management per medical services Family h/o premature CAD (father was in his 30's) H/O tobaccoism - quits 17 years ago after a greater than 20 year smoking history Plan: Continue current regimen Monitor labs Advise further cardiac work up as an out pt d/t risk factors as listed above ELOISE BECKER May 27, 2017 08:54
[2017-05-27 16:30] VITALS: BP 159/90
--- NOTE | 2017-05-27 16:48 | Progress Note-Hospitalist ---
Standard Progress Note Progress Notes/Assess & Plan Date Seen 05/27/17 Time Seen by Provider: 16:45 Diagnosis Assessment: Severe dyspnea with hypoxemia on admission now with respiratory acidosis due to CO2 retention Left perihilar abnormality on chest x-ray and CT scan suspicious for small cell lung cancer Prior smoker quit 17 years ago Severe hyponatremia of uncertain etiology Assess & Plan/Chief Complaint After considerable hurdles were cleared, PET scan was achieved. Results are pending. The patient reports that he is comfortable. He is able to get to the bathroom and back with oxygen and a long supply tube. Physical exam: Color is good. Lungs show very distant breath sounds. CV is regular. Abdomen is soft. Extremities show no pedal edema. Impression: Severe hypoxia. 2.left perihilar x-ray abnormality. 3.Hyponatremia Labs Laboratory Tests 05/26/17 04:49 NAZ RIVERA MD May 27, 2017 16:48
[2017-05-27] MEDS ORDERED: LORazepam 0.5 MG (ATIVAN) TABLET PO NR (17:00)
[2017-05-27 18:54] VITALS: BP 159/90
[2017-05-27] MEDS: CATHETER FLUSH 10 ML SYR IV PRN (23:58)
[2017-05-27 23:59] VITALS: BP 121/73
[2017-05-28] MEDS: RT-ALBUTEROL SULF 2.5 MG/3 ML PRE-MIX VIAL IH SCH ×3 (02:12→10:23)
[2017-05-28] MEDS: CATHETER FLUSH 10 ML SYR IV PRN (05:21)
[2017-05-28] MEDS: methylPREDNISolone 125 MG (Solu-MEDROL) VIAL IVP SCH ×2 (05:21→11:57)
[2017-05-28 06:28] LABS: ANION GAP 8 MMOL/L (5-14); BLOOD UREA NITROGEN 25 MG/DL (7-18); BUN/CREATININE RATIO 35; CALCIUM 8.7 MG/DL (8.5-10.1); CARBON DIOXIDE 33 MMOL/L (21-32); CHLORIDE 92 MMOL/L (98-107); CREATININE SERUM 0.71 MG/DL (0.60-1.30); GFR ESTIMATED > 60; GLUCOSE 132 MG/DL (70-105); POTASSIUM 4.9 MMOL/L (3.6-5.0); SODIUM 133 MMOL/L (135-145)
[2017-05-28] MEDS: RT-BUDESONIDE NEBS 0.5 MG/2ML (PULMICORT) AMP INH SCH (07:04)
[2017-05-28 08:00] VITALS: BP 129/74
[2017-05-28] MEDS ORDERED: LORazepam 0.5 MG (ATIVAN) TABLET PO PRN (08:45)
--- NOTE | 2017-05-28 09:09 | Diagnostic Imaging Report ---
PET/CT. INDICATION: Lung mass. TECHNIQUE: PET/CT imaging was obtained from the base of the skull through the pelvis after the administration of 14.45 mCi of F-[address] imaging was utilized for localization and attenuation correction purposes. The low energy CT utilized for attenuation correction is not considered to be of high enough spatial resolution to allow in and of itself a separate anatomical analysis. The recent CTA chest exam performed on 05/23/2017, noted a poorly defined parenchymal density in the left infrahilar region measuring 1.5 x 1.9 cm. It was unclear whether this was related to scar formation or whether there was a neoplastic process present in this region. On this exam there is no abnormal hypermetabolic activity in this portion of the lung to suggest that area is neoplastic in nature; however, in the interval since the previous exam considerable atelectasis/infiltrate has developed in the left lung base. There is also a small amount of pleural fluid present in this area. There is also a small amount of atelectasis/infiltrate now present in the right lung base. The upper lungs are clear. The emphysematous changes seen involving both lungs on the previous CT chest exam are again visualized. There is no other hypermetabolic activity to suggest the presence of neoplasm. The CT images do show that the bladder is not well distended and that the bladder wall is thickened. The thickened appearance of the bladder wall is probably secondary to incomplete distention as opposed to cystitis. Clinical followup is recommended however. The intracranial contents, where visualized, are unremarkable. IMPRESSION: 1. There is no abnormal hypermetabolic activity in the left infrahilar region to correspond to the abnormal parenchymal density seen on the recent CTA chest exam. Most likely that finding was secondary to scar formation/chronic atelectasis. 2. There is no other hypermetabolic activity noted to indicate the presence of neoplasm either. 3. The appearance of the chest has worsened since the recent CTA chest exam as there is now a prominent area of pneumonia/atelectasis and some fluid in the left lower lobe. Mild right lower lobe pneumonia/atelectasis is noted as well. 4. The thickened appearance of the wall of the bladder is more likely due to incomplete distention than to cystitis. Even so, clinical followup is recommended. 5. These results were called to Dr. Jessica Madison. Dictated by: Dictated on workstation # [id number]
--- NOTE | 2017-05-28 14:17 | Progress Note-Hospitalist ---
Standard Progress Note Progress Notes/Assess & Plan Date Seen 05/28/17 Time Seen by Provider: 14:14 Diagnosis Assessment: Severe dyspnea with hypoxemia on admission now with respiratory acidosis due to CO2 retention Left perihilar abnormality on chest x-ray and CT scan suspicious for small cell lung cancer Prior smoker quit 17 years ago Severe hyponatremia of uncertain etiology Assess & Plan/Chief Complaint The patient had a PET scan yesterday which is reported as no uptake and therefore less likelihood of malignancy. The patient is up and about his room on oxygen. He is anxious to go home. Arrangements have been made for delivery of home oxygen. Physical exam: He was standing in the hallway outside his door when I arrived. He speaks in full sentences. Lungs show crackles in the bases particularly on the left. CV was regular with a rate of about 100. Ankles showed no edema. Impression 1.bibasilar pulmonary process. 2.severe hypoxia with high flow O2 requirements. Plan: Discharge. See discharge sequence for medications and plans. Labs Laboratory Tests 05/28/17 05:13 NAZ RIVERA MD May 28, 2017 14:17
[2017-05-28] MEDS ORDERED: ALBU2.5V4 IH (14:20)
[2017-05-28] MEDS ORDERED: BUDE0.5A INH (14:20)
[2017-05-28] MEDS ORDERED: LORA0.5T PO (14:20)
--- NOTE | 2017-05-28 14:22 | Discharge Instructions ---
Discharge Instructions Patient Instructions Patient Instructions: Medications and treatments as on the list. Make appointment with [facility] to establish health care. Keep appointments arranged for you for social security disability. Appointment for Dr. Huber next week. [facility] to [facility]: Declining condition Activity & Diet Discharge Diet: No Restrictions Activity as Tolerated: Yes NAZ RIVERA MD May 28, 2017 14:22
--- NOTE | 2017-06-18 15:55 | Discharge Summary-Hospitalist ---
Diagnosis/Chief Complaint Date of Admission May 22, 2017 at 18:52 Date of Discharge May 28, 2017 at 15:10 Discharge Date: May 28, 2017 Admission Diagnosis Assessment: Severe dyspnea with hypoxemia on admission now with respiratory acidosis due to CO2 retention Left perihilar abnormality on chest x-ray and CT scan suspicious for small cell lung cancer Prior smoker quit 17 years ago Severe hyponatremia of uncertain etiology Discharge Diagnosis 1.severe hypoxia with impending respiratory failure. 2.COPD. 3.hypo-natremia. 4.bibasilar pulmonary process, pneumonia/pneumonitis. Discharge Summary Discharge Physical Examination Allergies: Coded Allergies: No Known Drug Allergies (Unverified , 05/22/17) Hospital Course The patient was a 61-year-old white male who presented to the emergency room on the date of admission at the insistence of his . He had been experiencing increasing dyspnea over a period of several months. He had a remote history of smoking. He reported that the 2 days prior to admission he had had a marked decrease in performance. He had not had fever, chills, sweats but had been coughing up a goodly phlegm beginning the day prior to admission. 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 His added that to that was with great difficulty and he confided that the loss had been giving him the easiest jobs. He had no present a history of heart disease. He stated that he had not been able to lie down to sleep for some time. In addition he had to stop to rest when walking from has to car or bedroom to bathroom. He was seen by respiratory therapy and placed on BiPAP. Chest x-ray showed a left perihilar abnormality and especially because of his past smoking history and hyponatremia a CT scan was done with the concern for small cell lung cancer. Ultimately a PET scan was done and showed no uptake and therefore decrease the likelihood of malignancy. He improved with the pulmonary measures and prophylactic antibiotics. By 823 it was clear that he was going to require home oxygen and arrangements were made for this he required high flow oxygen and special attention was devoted to home delivery. His prognosis is guarded. See the discharge sequence for medications and activities. Discharge Home Medications: Active Scripts Active Budesonide 0.5 Mg/2 Ml Ampul.neb 0.5 Mg INH RTBID Lorazepam 0.5 Mg Tablet 0.5 Mg PO TID PRN Albuterol Sulfate 2.5 Mg/3 Ml Vial.neb 2.5 Mg IH [id number] Instructions to patient/family Please see electronic discharge instructions given to patient. Clinical Quality Measures DVT/VTE Risk/Contraindication: Risk Factor Score Per Nursin RFS Level Per Nursing on Admit: 1=Low/No VTE PPX NAZ RIVERA MD Jun 18, 2017 15:55
== END 2017-05-28 15:10 | disposition home or self-care (01) | DRG 191 ==
LOC: EDUNIT# 14:57 → ER 14:59 → ICU 18:52 → 4TH 05-24 18:56
PROVIDERS: ADMIT Internal Medicine; ATTEND Internal Medicine
DX: J44.1 Chronic obstructive pulmonary disease with (acute) exacerbation (principal); E87.1 Hypo-osmolality and hyponatremia; E87.2 Acidosis; R91.1 Solitary pulmonary nodule; R09.02 Hypoxemia; R55 Syncope and collapse; Z87.891 Personal history of nicotine dependence; Z82.49 Family history of ischemic heart disease and other diseases of the circulatory system
CPT/HCPCS: 36415; 71010; 71275; 78815; 80048; 80053; 80061; 81000; 82436; 82805; 82962; 83735; 83880; 84133; 84300; 84443; 84484; 85007; 85025; 85027; 93005; 93306; 94640; 94660; 94760; 94761

== ENCOUNTER → 2017-06-17 | Outpatient (CLI) | payer OTHER ==
[~2017-06-17] VITALS: Ht 172.7 cm; Wt 78.9 kg
[~2017-06-17] MED LIST: ALBU2.5V4 IH; BUDE0.5A INH; CATHETER FLUSH 10 ML SYR IV PRN; LORA0.5T PO; NO MEDS; REGADENOSON 0.4 MG/5 ML SYR (LEXISCAN) IV ONE
[2017-06-17 12:21] VITALS: BP 120/77
[2017-06-17 13:18] LABS: ANION GAP 9 MMOL/L (5-14); BLOOD UREA NITROGEN 9 MG/DL (7-18); BUN/CREATININE RATIO 13; CALCIUM 9.2 MG/DL (8.5-10.1); CARBON DIOXIDE 28 MMOL/L (21-32); CHLORIDE 99 MMOL/L (98-107); CREATININE SERUM 0.72 MG/DL (0.60-1.30); GFR ESTIMATED > 60; GLUCOSE 124 MG/DL (70-105); SODIUM 136 MMOL/L (135-145)
== END ==
LOC: CARD 10:03
PROVIDERS: ATTEND Nurse Practitioner Family
DX: R55 Syncope and collapse (principal); R06.09 Other forms of dyspnea; I25.10 Atherosclerotic heart disease of native coronary artery without angina pectoris; Z87.891 Personal history of nicotine dependence
CPT/HCPCS: 36415; 78452; 80048; 83735; 83880; 93017

== ENCOUNTER → 2017-06-20 | Outpatient (CLI) | payer MEDICAID, OTHER ==
[~2017-06-20] MED LIST changes: -CATHETER FLUSH 10 ML SYR IV PRN; -REGADENOSON 0.4 MG/5 ML SYR (LEXISCAN) IV ONE; +RT-ALBUTEROL SULF 2.5 MG/3 ML PRE-MIX VIAL IH ONE
== END ==
LOC: RT 12:54
PROVIDERS: ATTEND Nurse Practitioner Family
DX: J45.909 Unspecified asthma, uncomplicated (principal); J44.9 Chronic obstructive pulmonary disease, unspecified; Z87.891 Personal history of nicotine dependence; R09.02 Hypoxemia; R06.00 Dyspnea, unspecified
CPT/HCPCS: 94060; 94640; 94726; 94729

== ENCOUNTER 2017-10-07 16:03 | Emergency (ER) | payer MEDICAID ==
[~2017-10-07] VITALS: Ht 175.3 cm; Wt 77.1 kg
[~2017-10-07 16:03] MED LIST changes: -RT-ALBUTEROL SULF 2.5 MG/3 ML PRE-MIX VIAL IH ONE
[2017-10-07] MEDS ORDERED: DEXAMETHASONE PF 10 MG/ML (DECADRON) VIAL IM STA (16:35)
[2017-10-07] MEDS ORDERED: RT-ALBUTEROL/IPRATROPIUM 3 ML (DUONEB) VIAL INH ONE (16:45)
[2017-10-07] MEDS ORDERED: DEXAMETHASONE PF 10 MG/ML (DECADRON) VIAL INH STA (16:51)
--- NOTE | 2017-10-07 17:12 | ED Respiratory ---
General Chief Complaint: Respiratory Problems Stated Complaint: SOB Nursing Triage Note: TO ROOM WITH 02 TANK REPORTS FOR 2 WEEKS HAS BEEN SOA FOR 2 WEEKS. NO DISTRESS NOTED ON ADMIT. BREATH SMELLS OF ETOH LIKE SMELL WHEN ASKED HE REPORTS THAT HE HAD 4 [employer] [employer]. History of Present Illness Time seen by provider: 16:30 Initial Comments 62-year-old male reports over the last 2 weeks she's had increased SOA. He has COPD and is on oxygen at all times at home. He denies any fevers, he did receive a and influenza vaccine. He reports increased sputum production, yellow and white in color. He has an appointment tomorrow with his resort keeper. He has not seen his primary care provider in several weeks. Timing/Duration: intermittent Severity: mild Prior Episodes/Possible Cause: frequent episodes Modifying Factors: Improves With Albuterol Inhaler, Improves With Albuterol Nebulizer Associated Symptoms: cough, lightheadedness, shortness of breath Allergies and Home Medications Allergies Coded Allergies: No Known Drug Allergies (Unverified , 05/22/17) Home Medications Albuterol Sulfate 2.5 Mg/3 Ml Vial.neb, 2.5 MG IH RTQ4HR, #180 Prescribed by: NAZ RIVERA on 05/28/17 1420 Azithromycin 500 Mg Tablet, 500 MG PO DAILY for 5 Days, #5 Ref 0 Prescribed by: MATILDA BARRETT on 10/07/17 1737 Budesonide 0.5 Mg/2 Ml Ampul.neb, 0.5 MG INH RTBID, #60 Prescribed by: NAZ RIVERA on 05/28/17 1420 Lorazepam 0.5 Mg Tablet, 0.5 MG PO TID PRN for ANXIETY, #90 Prescribed by: NAZ RIVERA on 05/28/17 1420 Prednisone 10 Mg Tab.ds.pk, 10 MG PO UD, #1 Prescribed by: MATILDA BARRETT on 10/07/17 1737 Constitutional: no symptoms reported, see HPI Respiratory: see HPI, cough, dyspnea on exertion, phlegm, short of breath, wheezing All Other Systems Reviewed Negative Unless Noted: Yes Past Vxjptya-Ntibzt-Fuejpy Hx Patient Social History Alcohol Use: Occasionally Uses Number of Drinks Today: AA Alcohol Beverage of Choice: Beer Recreational Drug Use: No Smoking Status: Never a Smoker Recent Foreign Travel: No Contact w/Someone Who Travel: No Recent Infectious Disease Expo: No Recent Hopitalizations: No Immunizations Up To Date Tetanus Booster (TDap): Unknown Seasonal Allergies Seasonal Allergies: No Surgeries History of Surgeries: Yes (rt wrist-) Surgeries: Orthopedic Respiratory History of Respiratory Disorde: No Respiratory Disorders: Asthma Currently Using CPAP: No Currently Using BIPAP: No Cardiovascular History of Cardiac Disorders: No Neurological History of Neurological Disord: No Genitourinary History of Genitourinary Disor: No Gastrointestinal History of Gastrointestinal Di: No Musculoskeletal History of Musculoskeletal Dis: No (fracture rt wrist with surg repair ) Musculoskeletal Disorders: Fractures Endocrine History of Endocrine Disorders: No HEENT History of HEENT Disorders: No Loss of Vision: Denies Hearing Impairment: Denies Cancer History of Cancer: No Psychosocial History of Psychiatric Problem: No Integumentary History of Skin or Integumenta: No Blood Transfusions History of Blood Disorders: No Adverse Reaction to a Blood Tr: No Reviewed Nursing Assessment Reviewed/Agree w Nursing PMH: Yes Family Medical History Family Medial History: Cardiovascular disease 19 FATHER, Onset:Unknown Physical Exam Vital Signs Vital Sign - Last 12Hours 10/07/17 10/07/17 16:11 17:00 Temp 98.2 Pulse 74 Resp 18 B/P (MAP) 143/83 (103) Pulse Ox 97 O2 Delivery Nasal Cannula O2 Flow Rate 4.00 Capillary Refill : Less Than 3 Seconds General Appearance: WD/WN, no apparent distress Eyes: Bilateral Eye Normal Inspection, Bilateral Eye PERRL, Bilateral Eye EOMI HEENT: PERRL/EOMI, normal ENT inspection, TMs normal, pharynx normal Neck: non-tender, full range of motion, supple, normal inspection Respiratory: chest non-tender, no respiratory distress, decreased breath sounds , wheezing Cardiovascular: normal peripheral pulses, regular rate, rhythm, no edema, no murmur Gastrointestinal: normal bowel sounds, non tender, soft Neurologic/Psychiatric: no motor/sensory deficits, alert, normal mood/affect, oriented x 3 Skin: normal color, warm/dry Lymphatic: no adenopathy Progress/Results/Core Measures Suspected Sepsis Recent Fever Within 48 Hours: No Infection Criteria Present: None New/Unexplained Altered Menta: No Sepsis Screen: No Definite Risk Sepsis Diagnosis: SIRS Temperature:98.2 Pulse: 74 Respiratory Rate: 18 Blood Pressure 143 /83 Mean: 103 Results/Orders My Orders Orders - NENA,MATILDA BAR ROLLER Albuterol/Ipra Inhalation Soln (Duoneb I (10/07/17 16:45) Svn Sm Volume Nebulizer Rt-Rfs (10/07/17 16:31) Rt Request For Service (10/07/17 16:32) Dexamethasone Pf Injection (Decadron Pf (10/07/17 16:35) Dexamethasone Pf Injection (Decadron Pf (10/07/17 16:51) Chest Pa/Lat (2 View) (10/07/17 17:12) Medications Given in ED Current Medications Medications Dose Ordered Sig/Blanca Route Start Time Stop Time Status Last Admin Dose Admin Albuterol/ Ipratropium 3 ml ONCE ONCE INH 10/07/17 16:45 10/07/17 16:46 DC 10/07/17 17:00 3 ML Vital Signs/I&O Vital Sign - Last 12Hours 10/07/17 10/07/17 16:11 17:00 Temp 98.2 Pulse 74 Resp 18 B/P (MAP) 143/83 (103) Pulse Ox 97 O2 Delivery Nasal Cannula Nasal Cannula O2 Flow Rate 4.00 Capillary Refill : Less Than 3 Seconds Blood Pressure Mean: 103 Progress Note : Time: 16:30 Progress Note Initial evaluation completed, recommended breathing treatment, and reevaluation. 1700 RT here 1730 improved air movement with slight wheezing after treatment. Discharge planning and return precautions reviewed with patient, all questions answered. Diagnostic Imaging Diagonstic Imaging: Xray Plain Films/CT/US/NM/MRI: chest Comments NAME: [facility] REC#: [id number] PT STATUS: REG ER : 1955 PHYSICIAN: MATILDA BARRETT ADMIT DATE: 10/07/17/ER Draft Date of Exam:10/07/17 CHEST PA/LAT (2 VIEW) INDICATION: Short of breath for several weeks. FINDINGS: PA and lateral chest shows the heart size and vascularity to be normal. There is obstructive airway disease with no mass or infiltrate seen. There is no pleural effusion. IMPRESSION: COPD. No acute abnormality is seen. There is no change from 05/22/2017. Dictated on workstation # [id number] Dict: 10/07/17 1727 Trans: 10/07/17 1729 [id number] Interpreted by: XOCHILT BOOKER MD Electronically signed by: Reviewed: Reviewed by Me Departure Impression Impression: Primary Impression: COPD with acute exacerbation Disposition: HOME, SELF-CARE Condition: Improved Departure-Patient Inst. Decision time for Depature: 17:30 Referrals: ANIAS SMITH MD (PCP/Family) Primary Care Physician Patient Instructions: Cough, Adult (DC), Exacerbation of COPD (DC) Add. Discharge Instructions: Continue to use her albuterol nebulizer every 4 hours. Keep appointment with her resort keeper for tomorrow. Increase water intake. Take prednisone dose pack as prescribed. Return to emergency department if difficulty breathing, even greater than 101 or new problems. All discharge instructions reviewed with patient and/or family. Voiced understanding. Scripts Prednisone (Prednisone) 10 Mg Tab.ds.pk 10 MG PO UD, #1 PKG Prov: MATILDA BARRETT 10/07/17 Azithromycin (Azithromycin) 500 Mg Tablet 500 MG PO DAILY for 5 Days, #5 TAB 0 Refills Prov: MATILDA BARRETT 10/07/17 Copy Copies To 1: ANISA SMITH MD Copies To 2: SIMONE TATE AMY ARNP Oct 07, 2017 17:12
--- NOTE | 2017-10-07 17:29 | Diagnostic Imaging Report ---
INDICATION: Short of breath for several weeks. FINDINGS: PA and lateral chest shows the heart size and vascularity to be normal. There is obstructive airway disease with no mass or infiltrate seen. There is no pleural effusion. IMPRESSION: COPD. No acute abnormality is seen. There is no change from 05/22/2017. Dictated by: Dictated on workstation # [id number]
[2017-10-07] MEDS ORDERED: PRED10TA22 PO (17:37)
[2017-10-07] MEDS ORDERED: AZIT500T5 PO (17:37)
[2017-10-07 17:39] VITALS: BP 125/89
== END 2017-10-07 17:43 | disposition home or self-care (01) ==
LOC: EDUNIT# 16:03 → ER 16:04
DX: J44.1 Chronic obstructive pulmonary disease with (acute) exacerbation (principal); Z87.81 Personal history of (healed) traumatic fracture; Z99.81 Dependence on supplemental oxygen
CPT/HCPCS: 71046; 94640; 99282

== ENCOUNTER → 2017-10-20 | Outpatient (CLI) | payer MEDICAID, OTHER ==
[~2017-10-20] MED LIST changes: +AZIT500T5 PO; +PRED10TA22 PO; +RT-ALBUTEROL SULF 2.5 MG/3 ML PRE-MIX VIAL INH ONE
== END ==
LOC: RT 11:36
PROVIDERS: ATTEND Surgery
DX: Z02.71 Encounter for disability determination (principal)
CPT/HCPCS: 94060; 94729

== ENCOUNTER → 2017-11-13 | Outpatient (CLI) | payer MEDICAID ==
[~2017-11-13] MED LIST changes: -RT-ALBUTEROL SULF 2.5 MG/3 ML PRE-MIX VIAL INH ONE
--- NOTE | 2017-11-13 12:29 | Diagnostic Imaging Report ---
INDICATION: Asthma, sleep disorder, tobacco abuse. COMPARISON: 10/07/2017 FINDINGS: Frontal and lateral views of the chest demonstrate slight hyperinflation probably COPD. The heart is prominent without pulmonary edema. There is no pneumothorax, effusion or infiltrate. Osseous structures are age-appropriate. IMPRESSION: COPD without infiltrate. No interval change. Dictated by: Dictated on workstation # [id number]
== END ==
LOC: RAD 10:17
PROVIDERS: ATTEND Nurse Practitioner Family
DX: J44.9 Chronic obstructive pulmonary disease, unspecified (principal); G47.9 Sleep disorder, unspecified; F17.200 Nicotine dependence, unspecified, uncomplicated
CPT/HCPCS: 71046

== ENCOUNTER → 2018-06-15 | Outpatient (CLI) | payer MEDICAID ==
[~2018-06-15] MED LIST changes: +ALBU1.25 IH; +ASPI-586 PO; +CETI10TA17 PO; +FLUT9.9S NSEACH; +MONT10TA24 PO; +RT-ALBUINH IH
--- NOTE | 2018-06-15 10:16 | Diagnostic Imaging Report ---
PROCEDURE: CT chest without contrast. TECHNIQUE: Multiple contiguous axial images were obtained through the chest without the use of intravenous contrast. INDICATION: COPD, followup. Comparison is made with prior CT chest from 05/23/2017. Comparison is also made with PET/CT from 05/27/2017. No axillary lymphadenopathy is detected. Hilar and mediastinal evaluation is limited without intravenous contrast. There are calcified lymph nodes in the shahzad and mediastinum bilaterally consistent with prior granulomatous exposure. There are coronary arterial calcifications. No pericardial or pleural fluid is detected. Emphysematous changes throughout both lungs again noted. There has been development of an area of consolidation versus mass in the left lower lobe measuring approximately 3.8 x 3.3 cm. Minimal surrounding infiltrate is seen. There are calcified granulomas bilaterally. No other new parenchymal opacity is seen. Upper abdomen is unremarkable. IMPRESSION: Development of an area of parenchymal consolidation/mass in the left lower lobe when compared with prior study from one year earlier. Either a short interval CT followup after a course of therapy or a PET/CT would be recommended for further evaluation. Dictated by: Dictated on workstation # [id number]
== END ==
LOC: RAD 08:50
PROVIDERS: ATTEND Nurse Practitioner Family
DX: J44.9 Chronic obstructive pulmonary disease, unspecified (principal); Z87.891 Personal history of nicotine dependence; J45.909 Unspecified asthma, uncomplicated
CPT/HCPCS: 71250

== ENCOUNTER 2018-06-17 06:12 | Outpatient (CLI) | payer MEDICAID ==
[~2018-06-17] VITALS: Ht 172.7 cm; Wt 72.6 kg
[~2018-06-17 06:12] MED LIST changes: -ALBU1.25 IH; -ASPI-586 PO; -CETI10TA17 PO; -FLUT9.9S NSEACH; -MONT10TA24 PO; -RT-ALBUINH IH
[2018-06-17] MEDS ORDERED: RT-ALBUINH IH (11:08)
[2018-06-17] MEDS ORDERED: MONT10TA24 PO (11:08)
[2018-06-17] MEDS ORDERED: FLUT9.9S NSEACH (11:08)
[2018-06-17] MEDS ORDERED: ASPI-586 PO (11:08)
[2018-06-17] MEDS ORDERED: CETI10TA17 PO (11:08)
[2018-06-17] MEDS ORDERED: ALBU1.25 IH (11:08)
== END 2018-06-17 11:09 | disposition home or self-care (01) ==
LOC: PREOP 06:12
PROVIDERS: ATTEND Internal Medicine Critical Care Medicine
DX: Z01.818 Encounter for other preprocedural examination (principal)

== ENCOUNTER 2018-06-18 07:07 | Day surgery (SDC) | payer MEDICAID ==
[~2018-06-18] VITALS: Ht 172.7 cm; Wt 72.6 kg
[~2018-06-18 07:07] MED LIST changes: +ALBU1.25 IH; +ASPI-586 PO; +CETI10TA17 PO; +FLUT9.9S NSEACH; +MONT10TA24 PO; +RT-ALBUINH IH
[2018-06-18] MEDS ORDERED: LIDOCAINE JELLY 2% (XYLOCAINE) 30 ML TUBE TOP ONE (07:08)
[2018-06-18] MEDS ORDERED: LIDOCAINE PF 2% 5 ML (XYLOCAINE) VIAL INJ ONE (07:08)
[2018-06-18] MEDS ORDERED: LIDOCAINE PF 1% 5 ML SYRINGE (ANLIKER/BAILEY ONLY) INJ ONE (07:08)
[2018-06-18] MEDS ORDERED: NS IV 500 ML 500 ML IV PRN (07:12)
[2018-06-18] MEDS ORDERED: MIDAZOLAM 2 MG/2 ML (VERSED) VIAL IVP ONE (07:15)
[2018-06-18] MEDS ORDERED: fentaNYL INJECTION 100 MCG/2 ML AMP IVP ONE (07:15)
[2018-06-18] MEDS ORDERED: NS IV 500 ML 500 ML ONE (07:16)
--- NOTE | 2018-06-18 07:27 | Pulmonary Procedures ---
Pulmonary Procedures Date of Procedure Date of Service: Jun 18, 2018 Bronch Bronchoscopy with bronchoalveolar lavage (BAL), transbronchial washes and, percepta brush of mainstem courtney, transbronchial brushesx 2. using fluoroscopy Preop DX Lung Mass LLL Postop DX: same (No endobronchial lesion noted) Complications: none After informed consent obtained and formal time out pt was sedated using Fentanyl and Versed. Bronchoscope was advanced through the nare and vocal cords. 1% lidocaine was used to anesthetize vocal cords, epiglottis, courtney, and left/right main stem bronchus. An anatomical tour was undertaken down to the segmental bronchi bilaterally. No endobronchial lesions noted. bronchoalveolar lavage (BAL), transbronchial washes LLL and, percepta brush of mainstem courtney, transbronchial brushesx 2 of LLL using fluoroscopy Pt tolerated procedure well. No complications noted. Stat CXR is pending. SIMONE TATE DO Jun 18, 2018 07:27
[2018-06-18 07:28] VITALS: BP 135/97
--- NOTE | 2018-06-18 07:28 | Pre-Op Note & Conscious Sedat ---
Pre-Operative Progress Note H&P Reviewed The H&P was reviewed, patient examined and no changes noted. Date H&P Reviewed: Jun 18, 2018 Time H&P Reviewed: 07:28 Conscious Sedation Pre-Proced Time Reviewed: ASA Class: 3 Airway Mallampati Classification: ([place] appropriate class) I. II. III, IV Lungs Heart ASA score ASA 1: a normal healthy patient ASA 2: a patient with a mild systemic disease (mid diabetes, controlled hypertension, obesity ASA 3: a patient with a severe systemic disease that limits activity (angina , COPD, prior Myocardial infarction) ASA 4: a patient with an incapacitating disease that is a constant threat to life (CHF, renal failure) ASA 5: a moribund patient not expected to survive 24 hrs. (ruptured aneurysm) ASA 6: a declared brain patient whose organs are being harvested. For emergent operations, add the letter E after the classification Grade 3 Sedation Plan: Analgesia, Amnesia, Plan communicated to team members, Discussed options with patient/fam, Discussed risks with patient/fam Note The patient is an appropriate candidate to undergo the planned procedure, sedation, and anesthesia. The patient immediately re-assessed prior to indication. SIMONE TATE DO Jun 18, 2018 07:28
--- NOTE | 2018-06-18 07:28 | Progress Note-Pre Operative ---
Pre-Operative Progress Note H&P Reviewed The H&P was reviewed, patient examined and no changes noted. Date Seen by Provider: Jun 18, 2018 Time Seen by Provider: 07:27 Date H&P Reviewed: Jun 18, 2018 Time H&P Reviewed: 07:27 Pre-Operative Diagnosis: SIMONE Awan DO Jun 18, 2018 07:28
[2018-06-18] MEDS ORDERED: MIDAZOLAM 2 MG/2 ML (VERSED) VIAL ONE ×3 (07:35)
[2018-06-18] MEDS ORDERED: fentaNYL INJECTION 100 MCG/2 ML AMP ONE ×2 (07:35)
[2018-06-18 08:35] VITALS: BP 99/65
--- NOTE | 2018-06-18 09:02 | Diagnostic Imaging Report ---
INDICATION: Post bronchoscopic assessment Portable supine image of the chest is obtained. There is air trapping, bilaterally without evidence of pneumothorax. There is increased parenchymal density seen within the left lower lobe which corresponds to lesion noted on recent thoracic CT. There has been mild increase in prominence of left hilum. No significant pleural fluid is detected. Calcified granulomas are seen in both lungs. IMPRESSION: Parenchymal density in the left lower lobe corresponds to finding on recent CT scan and correlation with bronchoscopic findings would be useful. Increasing density in the left hilum may be related to adenopathy. Dictated by: Dictated on workstation # [id number]
[2018-06-18 09:10] VITALS: BP 123/90
[2018-06-18 09:18] VITALS: BP 123/90
--- NOTE | 2018-06-18 13:46 | Diagnostic Imaging Report ---
EXAM: Single intraoperative fluoroscopy views obtained during bronchoscopy by Dr. Huber. FINDINGS: Bronchoscope visualized over the left lung base. 56 seconds of fluoroscopy time was used. IMPRESSION: Intraoperative fluoroscopy used per Dr. Huber for bronchoscopy. Dictated by: Dictated on workstation # [id number]
== END 2018-06-18 09:20 | disposition home or self-care (01) ==
LOC: ENDO 07:07
PROVIDERS: ATTEND Internal Medicine Critical Care Medicine
DX: R91.8 Other nonspecific abnormal finding of lung field (principal); R09.02 Hypoxemia; J43.9 Emphysema, unspecified; J45.909 Unspecified asthma, uncomplicated; G47.10 Hypersomnia, unspecified; Z87.891 Personal history of nicotine dependence; Z79.82 Long term (current) use of aspirin
CPT/HCPCS: 71045; 87070; 87101; 87116; 87205; 88112; 88305; 88312

== ENCOUNTER → 2018-06-25 | Outpatient (CLI) | payer MEDICAID ==
--- NOTE | 2018-06-25 17:21 | Diagnostic Imaging Report ---
CLINICAL INDICATION: Patient with COPD and abnormal CT scan of the lung. EXAM: Chest x-ray, PA and lateral views. COMPARISON: Portable chest x-ray dated 06/18/2018. CT scan of the chest without contrast dated 06/15/2018. FINDINGS: Again seen mass-like opacity in the left perihilar region. There is interval increased airspace opacity in the left lower lung field region extending to the periphery. There is interval development of a small left pleural effusion. There is no pneumothorax. The right lung is clear. Pulmonary vasculature is cardiac silhouette are within normal limits. There are degenerative spurs involving the thoracic spine. IMPRESSION: 1: Again seen mass-like opacity in the left mid lung field. Neoplasm should be excluded. 2: Interval development of airspace opacity involving the left lower lobe concerning for infiltrate. There is also development of a small left pleural effusion. Dictated by: Dictated on workstation # [id number]
== END ==
LOC: RAD 13:51
PROVIDERS: ATTEND Nurse Practitioner Family
DX: J43.8 Other emphysema (principal); R91.8 Other nonspecific abnormal finding of lung field; J90 Pleural effusion, not elsewhere classified
CPT/HCPCS: 71046

== ENCOUNTER → 2018-08-10 | Outpatient (CLI) | payer MEDICAID ==
--- NOTE | 2018-08-10 10:36 | Diagnostic Imaging Report ---
PROCEDURE: CT chest without contrast. TECHNIQUE: Multiple contiguous axial images were obtained through the chest without the use of intravenous contrast. INDICATION: Shortness of breath and productive cough. COMPARISON: Comparison is made with the recent CT of the chest from 06/15/2018. FINDINGS: No axillary lymphadenopathy is seen. A lymph node in the upper mediastinum adjacent to the left innominate vein and SVC appear slightly larger at 11 mm compared with 9 mm on prior. There are calcified mediastinal and hilar lymph nodes consistent with prior granulomatous exposure. Coronary arterial calcifications are present. No pericardial or pleural fluid is identified. Parenchymal evaluation also shows some calcified nodules in both lungs consistent with granulomas. There are emphysematous changes in both lungs. There is a masslike density in the left lower lobe measuring approximately 4.8 x 3.4 cm compared with 3.3 x 3.8 cm. This does have some surrounding infiltrate present. This has not shown any improvement and is highly suspicious for a lung neoplasm. There is some postobstructive pneumonitis in the left lower lobe more inferiorly. No other suspicious masses are seen. Upper abdomen is unremarkable. IMPRESSION: 1. Somewhat spiculated mass in the left lower lobe appears increased in size since 06/15/2018 and remains suspicious for lung neoplasm. Results were discussed with Dr. Huber prior to this dictation. Dictated by: Dictated on workstation # [id number]
== END ==
LOC: RAD 09:45
PROVIDERS: ATTEND Nurse Practitioner Family
DX: J44.9 Chronic obstructive pulmonary disease, unspecified (principal); Z87.891 Personal history of nicotine dependence
CPT/HCPCS: 71250

== ENCOUNTER 2018-08-14 07:00 | Outpatient (CLI) | payer MEDICAID ==
[2018-08-14] VITALS (11 sets, daily range): BP systolic 100–131; BP diastolic 65–92
[~2018-08-14] VITALS: Ht 175.3 cm; Wt 74.8 kg
[2018-08-14 07:40] LABS: HEMOGLOBIN 13.9 G/DL (13.3-17.7); MEAN PLATELET VOLUME 8.9 FL (7.4-10.4); RED BLOOD COUNT 4.18 10^6/uL (4.35-5.85); RED CELL DISTRIBUTION WIDTH 13.3 % (10.0-14.5); WHITE BLOOD COUNT 7.6 10^3/uL (4.3-11.0)
[2018-08-14 07:51] LABS: PROTHROMBIN TIME PATIENT 12.6 SEC (12.2-14.7)
[2018-08-14] MEDS ORDERED: NS IV 1000 ML 1,000 ML IV STA (08:07)
[2018-08-14] MEDS ORDERED: NS IV 1000 ML 1,000 ML ONE (08:11)
--- NOTE | 2018-08-14 08:14 | Pre-Op Note & Conscious Sedat ---
Pre-Operative Progress Note H&P Reviewed The H&P was reviewed, patient examined and no changes noted. Date H&P Reviewed: Aug 14, 2018 Time H&P Reviewed: 08:00 Pre-Op Diagnosis: Lung mass Conscious Sedation Pre-Proced Time 08:00 ASA Score 2 For ASA 3 and 4: Consider anesthesia and medical clearance. Also, for patients with a history of failed moderate sedation consider anesthesia. Airway Lungs Heart ASA score ASA 1: a normal healthy patient ASA 2: a patient with a mild systemic disease (mid diabetes, controlled hypertension, obesity ASA 3: a patient with a severe systemic disease that limits activity (angina , COPD, prior Myocardial infarction) ASA 4: a patient with an incapacitating disease that is a constant threat to life (CHF, renal failure) ASA 5: a moribund patient not expected to survive 24 hrs. (ruptured aneurysm) ASA 6: a declared brain patient whose organs are being harvested. For emergent operations, add the letter E after the classification Mallampati Classification Grade 2 Sedation Plan Analgesia, Amnesia, Plan communicated to team members, Discussed options with patient/fam, Discussed risks with patient/fam The patient is an appropriate candidate to undergo the planned procedure, sedation, and anesthesia. The patient immediately re-assessed prior to indication. APRIL QUIÑONES MD Aug 14, 2018 08:14
[2018-08-14] MEDS ORDERED: LIDOCAINE 1% INJ 20 ML 20 ML VIAL INJ ONE (08:15)
[2018-08-14] MEDS ORDERED: MIDAZOLAM 2 MG/2 ML (VERSED) VIAL IVP ONE (08:15)
[2018-08-14] MEDS ORDERED: fentaNYL INJECTION 100 MCG/2 ML AMP IVP ONE (08:15)
[2018-08-14] MEDS ORDERED: HYDROcodone/APAP 5 MG/325 MG (LORTAB) TAB PO PRN (09:45)
--- NOTE | 2018-08-14 09:51 | Diagnostic Imaging Report ---
INDICATION: Left lung mass. Patient presents for CT-guided biopsy. After informed written consent was obtained, the patient was brought to the CT suite and placed on table in the left side down decubitus position. Axial imaging through the chest was performed to evaluate appropriate entry site. Left posterior thorax was then prepped and draped in usual sterile fashion. Small amount of 1% lidocaine was utilized for local anesthesia. A 20-gauge coaxial Temno needle was advanced into the mass in the posterior left lower lobe. A total of 4 core biopsies were obtained. The needle was removed during injection of a blood patch. Hemostasis obtained using manual compression. Followup imaging is without contacting feature. No pneumothorax is seen. IMPRESSION: CT-guided left lung biopsy, as described. Pathology results are currently pending. Dictated by: Dictated on workstation # [id number]
--- NOTE | 2018-08-14 12:12 | Diagnostic Imaging Report ---
INDICATION: Left lung biopsy. TIME OF EXAM: 11:04 AM Correlation is made with prior study from 06/25/2018. FINDINGS: Left lower lobe mass is present. There is some surrounding infiltrate noted consistent with some mild Perilesional hemorrhage and injected blood patch. No pneumothorax is seen. No effusion is identified. IMPRESSION: No evidence of pneumothorax, status post left lung biopsy. Dictated by: Dictated on workstation # [id number]
== END 2018-08-14 12:35 | disposition home or self-care (01) ==
LOC: SDC 07:00
PROVIDERS: ATTEND Nurse Practitioner Family
DX: C34.32 Malignant neoplasm of lower lobe, left bronchus or lung (principal); R09.02 Hypoxemia; G47.10 Hypersomnia, unspecified; J43.8 Other emphysema; R06.09 Other forms of dyspnea; J45.909 Unspecified asthma, uncomplicated; Z87.891 Personal history of nicotine dependence
CPT/HCPCS: 36415; 71045; 77012; 85027; 85610; 85730; 88305; 88344

== ENCOUNTER → 2018-09-07 | Outpatient (CLI) | payer MEDICAID ==
--- NOTE | 2018-09-07 13:40 | Diagnostic Imaging Report ---
INDICATION: Lung mass. COPD. Asthma. COMPARISON: 08/14/2018. FINDINGS: Frontal and lateral radiographic views of the chest were obtained and again demonstrate masslike opacity within the posterior margins of the left lower lobe. Radiographically, it appears stable in size. There is also some stable patchy alveolar opacity more inferiorly also within the left lower lobe. There is no large effusion or pneumothorax on either side. Cardiac silhouette and pulmonary vasculature are within normal limits. Bony structures show no gross acute Abnormalities. IMPRESSION: 1. Stable masslike opacity in the left lower lobe. Correlation with previous biopsy results is recommended. 2. Stable patchy opacities more inferiorly within the left lower lung, which may be on the basis of postobstructive pneumonia. Dictated by: Dictated on workstation # [id number]
== END ==
LOC: RAD 10:12
PROVIDERS: ATTEND Nurse Practitioner Family
DX: C80.1 Malignant (primary) neoplasm, unspecified (principal); J44.9 Chronic obstructive pulmonary disease, unspecified; G47.10 Hypersomnia, unspecified; R91.8 Other nonspecific abnormal finding of lung field; Z87.891 Personal history of nicotine dependence
CPT/HCPCS: 71046; 87070; 87205

== ENCOUNTER 2018-09-14 13:03 | Outpatient (RCR) | payer MEDICAID | END 2018-10-19 10:03 | disposition home or self-care (01) | LOC: ONC 13:03 | PROVIDERS: ATTEND Internal Medicine Hematology & Oncology | DX: C34.32 Malignant neoplasm of lower lobe, left bronchus or lung (principal); J43.8 Other emphysema; Z87.891 Personal history of nicotine dependence | CPT/HCPCS: 99214 ==

== ENCOUNTER → 2018-10-13 | Outpatient (CLI) | payer MEDICAID ==
--- NOTE | 2018-10-13 13:24 | Diagnostic Imaging Report ---
INDICATION: Fnv-dzled-kles lung carcinoma, initial staging. TECHNIQUE: Serum blood glucose level at the time of injection is 92 mg/dL. Patient was administered 11.5 mCi of F-18 FDG intravenously, administered in the right antecubital location and PET imaging from the top of the skull through the mid thighs was performed. In addition, noncontrast CT was performed for attenuation correction and anatomic correlation. COMPARISON: Correlation is made with recent CT chest from 08/10/2018 as well as prior PET/CT from 05/27/2017. FINDINGS: There is symmetric activity throughout the brain. Soft tissues of the neck are unremarkable. There is a hypermetabolic focus in the upper right paratracheal location, correlating with an enlarged lymph node. This lymph node measures approximately 18 mm in diameter compared with [address] This demonstrates an SUV max of approximately 8.2. Hypermetabolic node more inferiorly in the right paratracheal location is also seen with an SUV max of 4.6. This lymph node measures 16 mm. There are also some hypermetabolic nodes in the subcarinal location extending towards the left hilum. Left hilar node demonstrates SUV max of approximately 6.0. The right hilum is unremarkable. There is hypermetabolic mass involving the left lower lobe, corresponding to spiculated mass noted on recent CT. This demonstrates SUV max of approximately 12.6. No other hypermetabolic foci within the chest are identified. Imaging through the abdomen demonstrates physiologic activity within the GI and systems. IMPRESSION: Hypermetabolic mass in the left lower lobe, consistent with primary lung neoplasm. There are hypermetabolic lymph nodes in the mediastinum and left hilum, consistent with metastatic lesions. These findings are all new when compared with prior PET/CT from 05/27/2017. Dictated by: Dictated on workstation # [id number]
== END ==
LOC: RAD 09:28
PROVIDERS: ATTEND Nurse Practitioner Family
DX: C34.90 Malignant neoplasm of unspecified part of unspecified bronchus or lung (principal); J44.9 Chronic obstructive pulmonary disease, unspecified; G47.10 Hypersomnia, unspecified; Z87.891 Personal history of nicotine dependence

== ENCOUNTER → 2018-10-23 | Outpatient (CLI) | payer MEDICAID ==
[~2018-10-23] MED LIST changes: +GADOBUTROL 7.5 MMOL/7.5 ML (GADAVIST) VIAL IV ONE
--- NOTE | 2018-10-23 10:06 | Diagnostic Imaging Report ---
PROCEDURE: MR imaging of the brain with and without contrast. TECHNIQUE: Multiplanar, multisequence MR imaging of the brain was performed with and without contrast. INDICATION: Recent diagnosis of lung cancer. Study is performed to evaluate for metastatic disease. Ventricles and sulci are within normal for patient's age. There is no evidence of restricted diffusion to indicate an infarct. Mars-white matter signal intensities are unremarkable. No cerebral or cerebellar mass identified. There is no evidence of abnormal mass effect or shift of midline structures. No abnormal contrast enhancement is identified. Probable mucous retention cyst or polyp is noted in the left maxillary antrum. IMPRESSION: No evidence of acute intracranial abnormality or metastatic disease. Dictated by: Dictated on workstation # [id number]
== END ==
LOC: RAD 08:44
PROVIDERS: ATTEND Internal Medicine Hematology & Oncology
DX: C34.90 Malignant neoplasm of unspecified part of unspecified bronchus or lung (principal); R51 Headache
CPT/HCPCS: 70553

== ENCOUNTER → 2018-10-28 | Outpatient (CLI) | payer MEDICAID ==
[~2018-10-28] MED LIST changes: -GADOBUTROL 7.5 MMOL/7.5 ML (GADAVIST) VIAL IV ONE; +RT-ALBUTEROL SULF 2.5 MG/3 ML PRE-MIX VIAL INH ONE
== END ==
LOC: RT 09:25
PROVIDERS: ATTEND Nurse Practitioner Family
DX: R09.02 Hypoxemia (principal); J44.9 Chronic obstructive pulmonary disease, unspecified; J45.909 Unspecified asthma, uncomplicated; R06.02 Shortness of breath; R91.8 Other nonspecific abnormal finding of lung field; G47.10 Hypersomnia, unspecified; C80.1 Malignant (primary) neoplasm, unspecified; Z87.891 Personal history of nicotine dependence
CPT/HCPCS: 94060; 94726; 94729

== ENCOUNTER 2018-11-17 14:37 | Outpatient (CLI) | payer MEDICAID ==
[~2018-11-17] VITALS: Ht 175.3 cm; Wt 74.8 kg
[~2018-11-17 14:37] MED LIST changes: -RT-ALBUTEROL SULF 2.5 MG/3 ML PRE-MIX VIAL INH ONE
[2018-11-17] MEDS ORDERED: HYDR-3812 PO (14:50)
--- NOTE | 2018-11-19 13:54 | Anesthesia-General Post-Op ---
MAC Patient Condition Mental Status/LOC: Same as Preop Cardiovascular: Satisfactory Nausea/Vomiting: Absent Respiratory: Satisfactory Pain: Controlled Complications: Absent Post Op Complications Complications None Follow Up Care/Instructions Patient Instructions None needed. Anesthesiology Discharge Order Discharge Order Patient is doing well, no complaints, stable vital signs, no apparent adverse anesthesia problems. No complications reported per nursing. JOSELIN JOYCE CRNA Nov 19, 2018 13:54
== END 2018-11-17 14:58 | disposition home or self-care (01) ==
LOC: PREOP 14:37
PROVIDERS: ATTEND Surgery
DX: Z01.818 Encounter for other preprocedural examination (principal)

== ENCOUNTER 2018-11-19 06:32 | Day surgery (SDC) | payer MEDICAID ==
[~2018-11-19] VITALS: Ht 175.3 cm; Wt 74.8 kg
[~2018-11-19 06:32] MED LIST changes: +HYDR-3812 PO
[2018-11-19] MEDS ORDERED: LACTATED RINGERS 1,000 ML IV PRN (07:02)
[2018-11-19 07:11] VITALS: BP 111/75
[2018-11-19] MEDS ORDERED: ceFAZolin 2 GM IV Premixed 50 ML IV ONE (07:15)
[2018-11-19] MEDS ORDERED: PROPOFOL INJECTION 50 ML IV ONE ×2 (07:26→08:32)
[2018-11-19] MEDS ORDERED: ceFAZolin 2 GM IV Premixed 50 ML ONE (07:28)
[2018-11-19] MEDS ORDERED: CATHETER FLUSH 10 ML SYR IV PRN (07:45)
--- NOTE | 2018-11-19 08:01 | Progress Note-Pre Operative ---
Pre-Operative Progress Note H&P Reviewed The H&P was reviewed, patient examined and no changes noted. Date Seen by Provider: Nov 19, 2018 Time Seen by Provider: 08:01 Date H&P Reviewed: Nov 19, 2018 Time H&P Reviewed: 08:01 Pre-Operative Diagnosis: lung cancer KRISTINE SHARP DO Nov 19, 2018 08:01
[2018-11-19] MEDS ORDERED: BUP/EPI 0.5% 1:200,000 (SENSORCAINE) 30 ML VIAL ONE (08:14)
[2018-11-19] MEDS ORDERED: LIDOCAINE 1% INJ 20 ML 20 ML VIAL ONE (08:14)
[2018-11-19] MEDS ORDERED: 0.9% SODIUM CHLORIDE PF INJ 20 ML VIAL ONE (08:15)
[2018-11-19] MEDS ORDERED: HEParin (CENTRAL IV FLUSH) 500 UNIT/5 ML SYR ONE (08:15)
[2018-11-19] MEDS ORDERED: MIDAZOLAM 2 MG/2 ML (VERSED) VIAL ONE (08:32)
[2018-11-19] MEDS ORDERED: ONDANSETRON 4 MG/2 ML (SDV) Z0FRAN ONE (08:32)
[2018-11-19] MEDS ORDERED: MEPERIDINE (DEMEROL) INJ 50 MG/ML IVP ONE (09:45)
[2018-11-19] MEDS ORDERED: morphine INJ 10 MG/ML 1ML (SYR OR VIAL) IVP ONE (09:45)
[2018-11-19] MEDS ORDERED: ONDANSETRON 4 MG/2 ML (SDV) Z0FRAN IVP PRN (09:45)
--- NOTE | 2018-11-19 09:47 | Progress Note-Post Operative ---
Post-Operative Progess Note Surgeon (s)/Labor Trainer (s) Surgeon KRISTINE SHARP DO Labor Trainer: NA Pre-Operative Diagnosis lung cancer Post-Operative Diagnosis [facility] Procedure & Operative Findings Date of Procedure 11/19/18 Procedure Performed/Findings RIGHT ij U/S GUIDED PORT PLACEMENT Anesthesia Type MAC C LOCAL Estimated Blood Loss Estimated blood loss (mL): MIN Specimens/Packing Specimens Removed NA KRISTINE SHARP DO Nov 19, 2018 09:47
--- NOTE | 2018-11-19 09:49 | Discharge Inst-Simple/Standard ---
Discharge Inst-Standard Patient Instructions/Follow Up Plan of Care/Instructions/FU: 2 WEEKS ARON Activity as Tolerated: No Discharge Diet: Regular Diet Other Inst to Patient Follow up Appt: Make appointment for 2 week. Instructions: No lifting greater than 10 pounds. No strenuous activity. May shower in 24 hours, no tub bath or soaking. Use incentive spirometer at home as directed. No Smoking Skin/Wound Care: May remove bandages in 24 hours. You have special glue over incision it will fall off on its own. Symptoms to Report: Appetite Changes, Extremity Discoloration, Numbness/Tingling, Swelling Increased , Bleeding Excessive, Eyesight Changes, Pain Increased, Urine Color Change, Constipation(Persistent), Fever over 101 degree F, Pain/Pressure in chest, Urinating Difficulty, Cough Up/Vomit Blood, Heart Beat Irreg/Pounding, Pain/ Pressure in jaw, Vaginal Bleeding Increase, Cramps in feet or legs, Lightheadedness, Pain/Pressure in shoulder, Diarrhea(Persistent), Memory Changes Suddenly, Questions/Concerns, Weight gain consecutive days, Dizziness/ Fainting, Nausea/Vomiting, Shortness of Breath, Weight gain over 2 pounds If questions or concerns contact your physician Or seek help at emergency department. KRISTINE SHARP DO Nov 19, 2018 09:49
[2018-11-19 10:15] VITALS: BP 105/70
--- NOTE | 2018-11-19 10:17 | Diagnostic Imaging Report ---
INDICATION: Port placement. Time of exam: 9:56 AM Correlation is made with prior chest from 09/07/2018. Right chest wall port has tip overlying the SVC. No pneumothorax is seen. Increasing opacity over the left mid and lower lung field is noted. There is a small left effusion as well. IMPRESSION: 1. Right port placement. No pneumothorax is seen. 2. Worsening parenchymal consolidation and pleural fluid on the left when compared with exam from 09/07/2018. Dictated by: Dictated on workstation # [id number]
[2018-11-19 10:45] VITALS: BP 99/57
[2018-11-19 10:55] VITALS: BP 99/57
--- NOTE | 2018-11-19 12:02 | OPERATIVE REPORT ---
DATE OF SERVICE: 11/19/2018 PREOPERATIVE DIAGNOSIS: Lung cancer. POSTOPERATIVE DIAGNOSIS: Lung cancer. PROCEDURE: Right internal jugular ultrasound-guided port placement. SURGEON: Kristine Escobar DO ANESTHESIA: MAC with local. ESTIMATED BLOOD LOSS: Minimal. COMPLICATIONS: None. INDICATIONS: The patient is a 63-year-old male recently diagnosed with adenocarcinoma of the lung. The patient understands risks and benefits of procedure and wished to proceed with procedure. Consent was signed on the chart. DESCRIPTION OF PROCEDURE: The patient was taken to the operating suite, was prepped and draped in sterile fashion. Surgical pause was performed. Using ultrasound, the right internal jugular vein was isolated. Local anesthetic was infiltrated into the area and under direct visualization of the ultrasound. The micro access needle was inserted into the vein. Dark nonpulsatile blood was withdrawn. Micro access wire was inserted and the needle was removed. This was all under guidance of the ultrasound. Fluoroscopy assured proper placement. A 11 blade scalpel was used to make a skin incision at the insertion point. A dilator sheath was then advanced over the wire and the wire and the dilator were removed. The regular wire was then inserted into the sheath and the sheath was then removed. The wire was secured. Local anesthetic was used to infiltrate around the neck and to the right chest for pocket creation. A 15 blade scalpel was used to make a skin incision over the right chest and a pocket was created using cautery and blunt dissection. At this point, the dilator sheath was then advanced over the guidewire and the dilator was removed. This was all performed under fluoroscopy. The Groshong catheter was inserted through the sheath and the sheath was removed. The catheter was then tunneled from the insertion point down to the pocket was created on the right chest. Fluoroscopy was used to cut the catheter to length and the port was attached to the catheter, which was then placed within the pocket. The port was then accessed and flushed first with saline and then heparin without any difficulty. The subcutaneous tissues of the incision were closed using 3-0 Vicryl. The area was then washed and dried and Skin Affix was placed over the incisions. The patient tolerated the procedure well without any complications, taken to recovery room in stable condition. Chest x-ray pending. Job ID: [id number] DocumentID: [id number] Dictated Date: 11/19/2018 09:58:07 Truck Safety Inspector Date: 11/19/2018 12:01:56 Dictated By: KRISTINE ESCOBAR DO
--- NOTE | 2018-11-19 12:46 | Diagnostic Imaging Report ---
INDICATION: Fluoroscopy for Groshong catheter placement. Fluoroscopy was provided for Dr. Escobar during Groshong catheter placement. 21 seconds of fluoroscopy was utilized. Image over the chest shows a right-sided chest wall port. IMPRESSION: Fluoroscopy for Groshong catheter placement. Dictated by: Dictated on workstation # [id number]
== END 2018-11-19 10:55 | disposition home or self-care (01) ==
LOC: SDC 06:32
PROVIDERS: ATTEND Surgery
DX: C34.32 Malignant neoplasm of lower lobe, left bronchus or lung (principal); J43.9 Emphysema, unspecified; I25.10 Atherosclerotic heart disease of native coronary artery without angina pectoris; G47.10 Hypersomnia, unspecified; K21.9 Gastro-esophageal reflux disease without esophagitis; Z87.891 Personal history of nicotine dependence; Z79.82 Long term (current) use of aspirin; Z79.899 Other long term (current) drug therapy
CPT/HCPCS: 71045; 87081

== ENCOUNTER 2018-12-25 08:46 | Inpatient (IN) | payer MEDICAID ==
[~2018-12-25] VITALS: Ht 172.7 cm; Wt 62.5 kg
[2018-12-25] VITALS (12 sets, daily range): BP systolic 97–119; BP diastolic 61–86
[2018-12-25] MEDS ORDERED: CEFEPIME INJECTION 1,000 MG in WATER (STERILE) FOR INJECTION 10 ML IV ONE (09:00)
[2018-12-25] MEDS ORDERED: RT-ALBUTEROL/IPRATROPIUM 3 ML (DUONEB) VIAL INH ONE (09:00)
--- NOTE | 2018-12-25 09:08 | ED Respiratory ---
General Stated Complaint: SOA Source: patient Exam Limitations: no limitations (LAISHA AGRAWAL) History of Present Illness Date Seen by Provider: Dec 25, 2018 Time Seen by Provider: 08:48 Initial Comments Patient presents to ER by private conveyance with his and son and chief complaint he has lung cancer and for the past 2 days he's been having worsening shortness of breath, clear productive sputum and cough. No fevers and his ' s been checking routinely. Not having any pain just shortness of breath. He uses 2 L by nasal cannula at baseline he does not wear BiPAP or CPAP. He is not having nausea chills, vomiting, diarrhea, constipation. He does use inhaled DuoNeb and albuterol about 3 or 4 times a day. He drinks about 6 beer a day on average but his last drink was about 3 days ago. He has no history of DTs or withdrawal seizures. (LAISHA AGRAWAL) Allergies and Home Medications Allergies Coded Allergies: No Known Drug Allergies (Unverified , 05/22/17) Home Medications Albuterol Sulfate 1 Puff Puff, 2 PUFF IH QID, (Reported) Albuterol Sulfate 1.25 Mg/3 Ml Vial.neb, 1.25 MG IH Q4H PRN for SHORTNESS OF BREATH, (Reported) Aspirin 81 Mg Tablet.dr, 81 MG PO DAILY, (Reported) Cetirizine HCl 10 Mg Tablet, 10 MG PO DAILY, (Reported) Fluticasone Propionate 9.9 Ml Sharon.susp, 1 SPRAY NSEACH DAILY, (Reported) Hydrocodone/Acetaminophen 1 Each Tablet, 1 TAB PO Q4-6HR, (Reported) Montelukast Sodium 10 Mg Tablet, 10 MG PO HS, (Reported) Patient Home Medication List Home Medication List Reviewed: Yes (LAISHA AGRAWAL) Review of Systems Review of Systems Constitutional: No chills, No fever; malaise EENTM: No ear discharge, No hearing loss, No ear pain Respiratory: cough, phlegm, short of breath, wheezing Cardiovascular: No chest pain, No edema, No Hx of Intervention, No palpitations , No syncope, No vascular heart diseas Gastrointestinal: No abdominal pain, No constipation, No diarrhea, No nausea, No vomiting Genitourinary: No discharge, No dysuria Musculoskeletal: No back pain, No joint pain Skin: No pruritus, No rash Psychiatric/Neurological: Denies Headache, Denies Numbness (LAISHA AGRAWAL) Past Stsgnvx-Gwnsou-Klrbsh Hx Patient Social History Alcohol Use: Occasionally Uses Alcohol Beverage of Choice: Beer (6/day) Recreational Drug Use: No Smoking Status: Former Smoker Type Used: Cigarettes Former Smoker, Quit: Jun 17, 2002 2nd Hand Smoke Exposure: No Recent Foreign Travel: No Contact w/Someone Who Travel: No Recent Hopitalizations: No (LAISHA AGRAWAL) Immunizations Up To Date Tetanus Booster (TDap): Unknown (LAISHA AGRAWAL) Seasonal Allergies Seasonal Allergies: No (LAISHA AGRAWAL) Past Medical History Surgeries: Yes (rt wrist-) Orthopedic Respiratory: Yes (wears oxygen prn, lung cancer) Asthma, COPD, Emphysema Currently Using CPAP: No Currently Using BIPAP: No Cardiac: No Neurological: No Reproductive Disorders: No Sexually Transmitted Disease: No HIV/AIDS: No Genitourinary: No Gastrointestinal: No Musculoskeletal: No (fracture rt wrist with surg repair ) Fractures Endocrine: No HEENT: No Loss of Vision: Denies Hearing Impairment: Denies Cancer: Yes Lung Psychosocial: No Integumentary: No Blood Disorders: No Adverse Reaction/Blood Tranf: No (LAISHA AGRAWAL) Family Medical History Cardiovascular disease 19 FATHER, Onset:Unknown Physical Exam Vital Signs - First Documented 12/25/18 08:46 Temp 97.0 Pulse 120 Resp 22 B/P (MAP) 130/89 (103) Pulse Ox 94 O2 Delivery OxyMask O2 Flow Rate 6.00 (CARLOS CHAMBERLAIN APRN) Capillary Refill : (LAISHA AGRAWAL) Height: 5'9.00" Weight: 165lbs. 0.0oz. 74.141421lp; 24.4 BMI Method:Stated General Appearance: moderate distress, thin Eyes: Bilateral Eye Normal Inspection, Bilateral Eye PERRL, Bilateral Eye EOMI HEENT: PERRL/EOMI, normal ENT inspection; No pharynx normal (oropharynx is dry) Respiratory: chest non-tender, respiratory distress (moderate), decreased breath sounds, accessory muscle use (mild to moderate), wheezing Cardiovascular: normal peripheral pulses, regular rate, rhythm, no edema, tachycardia Gastrointestinal: non tender, soft Extremities: normal range of motion, non-tender, normal inspection, no pedal edema, normal capillary refill Neurologic/Psychiatric: ssis ssrs developer II-XII nml as tested, no motor/sensory deficits, alert, normal mood/affect, oriented x 3 Skin: normal color, warm/dry (LAISHA AGRAWAL) Focused Exam Lactate Level 12/25/18 09:10: Lactic Acid Level 1.12 (CARLOS CHAMBERLAIN APRN) Lactic Acid Level Laboratory Tests Test 12/25/18 09:10 Lactic Acid Level 1.12 MMOL/L (0.50-2.00) (CARLOS CHAMBERLAIN APRN) Procedures/Interventions Chest Tube : Chest Tube Position: Left Chest Tube Location: Lateral Chest Size of Ugandan Tube (cm): 28 Chest Tube Procedure: betadine prep, sterile drapes applied, sterile dressing applied Anesthesia: 1% Lidocaine Volume Anesthetic (ccs): 12 Dooley of Air Piatt: No Number of Attempts: 1 Tube Drainage: see nurses notes Tube Sutured to Skin: Yes Post Procedure CXR?: Yes Progress Skin cleansed with ChloraPrep. The skin overlying the fifth intercostal space anterior axillary line was anesthetized with 12 mL of 1% lidocaine without epinephrine. 1.5-2 cm incision was then made anterior to posterior orientation. Tissues were dissected down to the pleura. Pleura was punctured and there was an immediate dooley of serosanguineous fluid about 250 mL. Chest tube was inserted then using a 28 Ugandan chest tube angled posterior and superior. The incision was then sutured tightly closed around the chest tube and the chest tube sutured to the skin. Covered with petroleum gauze at the insertion site, then gauze 4 x 4 and foam tape. Initially had [id number] cc of fluid drained in the atrium as it overflowed the atrium and a second atrium had to be attached. Vitals remain stable, patient tolerated very well and immediate improvement in subjective ventilation. (CARLOS CHAMBERLAIN APRN) Progress/Results/Core Measures Suspected Sepsis SIRS Temperature: Pulse: Respiratory Rate: Laboratory Tests 12/25/18 09:10: White Blood Count 5.9 Blood Pressure / Mean: 12/25/18 09:10: Lactic Acid Level 1.12 Laboratory Tests 12/25/18 09:10: Creatinine 0.64, INR Comment 1.0, Platelet Count 233, Total Bilirubin 0.5 (LAISHA AGRAWAL) Results/Orders Lab Results Laboratory Tests Test 12/25/18 09:02 12/25/18 09:10 Range/Units Blood Gas Puncture Site LT RAD Blood Gas Patient Temperature 97.0 Arterial Blood pH 7.36 L 7.37-7.43 Arterial Blood Partial Pressure CO2 69 H 35-45 MMHG Arterial Blood Partial Pressure O2 115 H 79-93 MMHG Arterial Blood HCO3 38 H 23-27 MMOL/L Arterial Blood Total CO2 40.6 H 21.0-31.0 MMOL/L Arterial Blood Oxygen Saturation 98 94-100 % Arterial Blood Base Excess 12.3 H -2.5-2.5 MMOL/L Saad Test YES-POS Blood Gas Ventilator Setting NO Blood Gas Inspired Oxygen 6L White Blood Count 5.9 4.3-11.0 10^3/uL Red Blood Count 3.95 L 4.35-5.85 10^6/uL Hemoglobin 12.6 L 13.3-17.7 G/DL Hematocrit 39 L 40-54 % Mean Corpuscular Volume 99 80-99 FL Mean Corpuscular Hemoglobin 32 25-34 PG Mean Corpuscular Hemoglobin Concent 32 32-36 G/DL Red Cell Distribution Width 12.6 10.0-14.5 % Platelet Count 233 130-400 10^3/uL Mean Platelet Volume 8.7 7.4-10.4 FL Neutrophils (%) (Auto) 88 H 42-75 % Lymphocytes (%) (Auto) 4 L 12-44 % Monocytes (%) (Auto) 7 0-12 % Eosinophils (%) (Auto) 0 0-10 % Basophils (%) (Auto) 0 0-10 % Neutrophils # (Auto) 5.2 1.8-7.8 X 10^3 Lymphocytes # (Auto) 0.2 L 1.0-4.0 X 10^3 Monocytes # (Auto) 0.4 0.0-1.0 X 10^3 Eosinophils # (Auto) 0.0 0.0-0.3 10^3/uL Basophils # (Auto) 0.0 0.0-0.1 10^3/uL Neutrophils % (Manual) 95 % Lymphocytes % (Manual) 4 % Monocytes % (Manual) 1 % Eosinophils % (Manual) 0 % Basophils % (Manual) 0 % Band Neutrophils 0 % Blood Morphology Comment NORMAL Prothrombin Time 13.5 12.2-14.7 SEC INR Comment 1.0 0.8-1.4 Activated Partial Thromboplast Time 31 24-35 SEC D-Dimer 12.38 H 0.00-0.49 UG/ML Sodium Level 133 L 135-145 MMOL/L Potassium Level 4.9 3.6-5.0 MMOL/L Chloride Level 88 L 98-107 MMOL/L Carbon Dioxide Level 36 H 21-32 MMOL/L Anion Gap 9 5-14 MMOL/L Blood Urea Nitrogen 9 7-18 MG/DL Creatinine 0.64 0.60-1.30 MG/DL Estimat Glomerular Filtration Rate > 60 BUN/Creatinine Ratio 14 Glucose Level 127 H 70-105 MG/DL Lactic Acid Level 1.12 0.50-2.00 MMOL/L Calcium Level 9.0 8.5-10.1 MG/DL Corrected Calcium 9.3 8.5-10.1 MG/DL Total Bilirubin 0.5 0.1-1.0 MG/DL Aspartate Amino Transf (AST/SGOT) 15 5-34 U/L Alanine Aminotransferase (ALT/SGPT) 13 0-55 U/L Alkaline Phosphatase 86 40-136 U/L Troponin I < 0.028 <0.028 NG/ML Total Protein 6.4 6.4-8.2 GM/DL Albumin 3.6 3.2-4.5 GM/DL (CARLOS CHAMBERLAIN APRN) Micro Results Microbiology 12/25/18 Influenza Types A,B Antigen (KYLE) - Final, Complete (CARLOS CHAMBERLAIN APRN) Medications Given in ED Current Medications Medications Dose Ordered Sig/Blanca Route Start Time Stop Time Status Last Admin Dose Admin Albuterol/ Ipratropium 3 ml ONCE ONCE INH 12/25/18 09:00 12/25/18 09:01 DC 12/25/18 09:11 3 ML Cefepime HCl 1000 mg/Sterile Water 10 ml @ 200 mls/hr ONCE ONCE IV 12/25/18 09:00 12/25/18 09:02 DC 12/25/18 10:27 200 MLS/HR Fentanyl Citrate 100 mcg ONCE ONCE IVP 12/25/18 11:00 12/25/18 11:01 DC 12/25/18 11:00 100 MCG Iohexol 150 ml ONCE ONCE IV 12/25/18 09:15 12/25/18 09:16 DC 12/25/18 10:21 125 ML (CARLOS CHAMBERLAIN [employer]) Vital Signs/I&O 12/25/18 12/25/18 12/25/18 08:46 08:46 09:11 Temp 97.0 Pulse 120 Resp 22 B/P (MAP) 130/89 (103) Pulse Ox 94 58 99 O2 Delivery OxyMask Nasal Cannula OxyMask O2 Flow Rate 6.00 6.00 (CARLOS CHAMBERLAIN APRN) Vital Signs/I&O Capillary Refill : (LAISHA AGRAWAL) Progress Note : Time: 09:09 Progress Note Septic workup, CT angiogram if the d-dimer is positive for PE versus pneumonia. Give him a bolus of fluids 20 mm/kg, DuoNeb and get an ABG. (LAISHA AGRAWAL) ECG Initial ECG Impression Date: Dec 25, 2018 Initial ECG Impression Time: 09:06 Initial ECG Rate: 118 Initial ECG Rhythm: S.Tach Initial ECG Intervals: Normal Initial ECG Impression: Normal Comment Mild respiratory artifact but no ST elevation or depression. Sinus tachycardia. (LAISHA AGRAWAL) Diagnostic Imaging Diagonstic Imaging: Xray Plain Films/CT/US/NM/MRI: chest (1v) Reviewed: Reviewed by Me Diagonstic Imaging: CT (angiogram) Plain Films/CT/US/NM/MRI: chest Comments Left pleural effusion causing mediastinal shift. No PE seen. Reviewed: Reviewed by Me (LAISHA AGRAWAL) Transfer of Care Transfer of Care Time: 12:02 Care transferred to: Dr Jung (LAISHA AGRAWAL) Departure Communication (Admissions) Time/Spoke to Admitting Phy: 11:30 Dr. Pascual accept the patient. She would like him on med telemetry. Continue antibiotics and consult pulmonology. Time/Spoke to Consulting Phy: 11:[address] Huber and he agrees the patient probably stable for the floor and agrees with antibiotics. He will see the patient today. (LAISHA AGRAWAL) Impression Primary Impression: Lung cancer Qualified Codes: C34.92 - Malignant neoplasm of unspecified part of left bronchus or lung Additional Impressions: Pleural effusion due to another disorder Respiratory failure with hypoxia and hypercapnia Qualified Codes: J96.21 - Acute and chronic respiratory failure with hypoxia; J96.22 - Acute and chronic respiratory failure with hypercapnia Disposition: ADMITTED INPATIENT Condition: Stable Admissions Decision to Admit Reason: Admit from ER (General) Decision to Admit/Date: Dec 25, 2018 Time/Decision to Admit Time: 11:30 (LAISHA AGRAWAL) Departure-Patient Inst. Referrals: NO,LOCAL PHYSICIAN (PCP/Family) Primary Care Physician LAISHA AGRAWAL Dec 25, 2018 09:08 CARLOS CHAMBERLAIN APRN Dec 25, 2018 11:47
[2018-12-25 09:14] LABS: ABG BASE EXCESS 12.3 MMOL/L (-2.5-2.5); ABG OXYGEN SATURATION 98 % (94-100); ABG PCO2 69 MMHG (35-45); ABG PH 7.36 (7.37-7.43); ABG PO2 115 MMHG (79-93); ABG TCO2 40.6 MMOL/L (21.0-31.0)
[2018-12-25] MEDS ORDERED: IOHEXOL 350 MG/ML 150 ML (OMNIPAQUE 350) VIAL IV ONE (09:15)
[2018-12-25] MEDS ORDERED: HOLD METFORMIN - RECEIVED CONTRAST 20 ML VIAL IV SCH (09:15)
[2018-12-25] MEDS ORDERED: CATHETER FLUSH 10 ML SYR IV PRN ×2 (09:15→13:30)
[2018-12-25 09:16] LABS: ALLENS TEST YES-POS; INSPIRED O2 6L; VENTILATOR NO
--- NOTE | 2018-12-25 09:19 | NUR ---
patient takes Albuterol SVN and MDI at home; patient states he also has Breo but does not use it due to it gives him a headache. Patient has lung cancer; COPD; Asthma No surgery in the last 2 weeks patient quit smoking 16 yrs ago patient uses 3 L O2 at home continously
[2018-12-25 09:25] LABS: BASOPHILS % (AUTO) 0 % (0-10); EOSINOPHILS % (AUTO) 0 % (0-10); HEMATOCRIT 39 % (40-54); HEMOGLOBIN 12.6 G/DL (13.3-17.7); LYMPHOCYTES # (AUTO) 0.2 X 10^3 (1.0-4.0); LYMPHOCYTES % (AUTO) 4 % (12-44); MEAN CORPUSCULAR HEMOGLOBIN 32 PG (25-34); MEAN CORPUSCULAR HGB CONC 32 G/DL (32-36); MEAN CORPUSCULAR VOLUME 99 FL (80-99); MEAN PLATELET VOLUME 8.7 FL (7.4-10.4); MONOCYTES # (AUTO) 0.4 X 10^3 (0.0-1.0); MONOCYTES % (AUTO) 7 % (0-12); NEUTROPHILS # (AUTO) 5.2 X 10^3 (1.8-7.8); NEUTROPHILS % (AUTO) 88 % (42-75); PLATELET COUNT 233 10^3/uL (130-400); RED CELL DISTRIBUTION WIDTH 12.6 % (10.0-14.5); WHITE BLOOD COUNT 5.9 10^3/uL (4.3-11.0)
[2018-12-25 09:43] LABS: ALANINE AMINOTRANSFERASE 13 U/L (0-55); ALBUMIN 3.6 GM/DL (3.2-4.5); ALKALINE PHOSPHATASE 86 U/L (40-136); BILIRUBIN,TOTAL 0.5 MG/DL (0.1-1.0); BUN/CREATININE RATIO 14; CARBON DIOXIDE 36 MMOL/L (21-32); CHLORIDE 88 MMOL/L (98-107); CREATININE SERUM 0.64 MG/DL (0.60-1.30); GFR ESTIMATED > 60; GLUCOSE 127 MG/DL (70-105); POTASSIUM 4.9 MMOL/L (3.6-5.0); SODIUM 133 MMOL/L (135-145); TOTAL PROTEIN 6.4 GM/DL (6.4-8.2)
[2018-12-25 09:49] LABS: BAND NEUTROPHILS 0 %; EOSINOPHILS % (MANUAL) 0 %; LYMPHOCYTES % (MANUAL) 4 %; MONOCYTES % (MANUAL) 1 %; NEUTROPHILS % (MANUAL) 95 %
[2018-12-25 09:50] LABS: BASOPHILS % (MANUAL) 0 %; FIBRIN DEGRADATION PRODUCTS 12.38 UG/ML (0.00-0.49); PROTHROMBIN TIME PATIENT 13.5 SEC (12.2-14.7); RBC MORPH NORMAL
[2018-12-25] MEDS: NS IV 1000 ML 1,000 ML IV SCH ×2 (10:03→21:00)
--- NOTE | 2018-12-25 10:34 | NUR ---
RT CALLED TO PLACE PATIENT ON BI PAP
--- NOTE | 2018-12-25 10:57 | Diagnostic Imaging Report ---
PROCEDURE: CT angiography of the chest with contrast. TECHNIQUE: Multiple contiguous axial images were obtained through the chest after uneventful bolus administration of intravenous contrast. 2D reconstructed CTA MIP acquisitions were also performed. Auto Exposure Controls were utilized during the CT exam to meet ALARA standards for radiation dose reduction. INDICATION: Respiratory distress. FINDINGS: The PET/CT exam performed on 10/13/2018 noted a hypermetabolic mass involving the left lower lobe consistent with a primary lung neoplasm. There are also hypermetabolic nodes in the mediastinum and left hilum. The chest exam performed on 11/19/2018 revealed that there was greater involvement of the left lung base by pneumonia/atelectasis and fluid than noted on the PET/CT exam. On the unix consultant from this study, there is now complete opacification of the left thorax. The axial images do show that most of the left lung is collapsed and that there is a large left pleural effusion present. The large volume of fluid in the left thorax has resulted in slight shift to the heart and mediastinum to the right. There is also now 2.7 x 4.1 CM subcarinal mass. 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 The heart itself is stable in size. The aorta is not abnormally dilated and there is no sign of dissection. There is no defect within the pulmonary arteries to indicate pulmonary embolus. There are emphysematous changes involving the right lung but the right lung is generally clear. As noted on the prior plain film chest exam of 11/19/2018, there is a Port-A-Cath in place on the right. The tip of the catheter is in the distal internal jugular vein. There is a 8.0 x 14.3 CM area of low density adjacent to the tip of the catheter. This does suggest thrombus formation. The thyroid gland is generally unremarkable. The sections through the upper abdomen fail to show any sign of an acute abnormality. There is diminished density in the left lobe of liver, but this is felt to be artifactual in nature. The bone windows show no evidence for fracture or for destructive lesion. There are several healed rib fractures on the left. IMPRESSION: 1. The appearance of the chest has worsened since the prior study as there is now opacification of the left hemithorax. Most of the left lung has collapsed about the left hilum and there is a large left pleural effusion present. The heart and mediastinal structures are also slightly shifted to the right. 2. There is no acute abnormality identified otherwise. In particular, there is no sign of a pulmonary embolus or dissection. 3. The tip of the central venous catheter on the right is in the distal internal jugular vein. There is thrombus formation about the tip of the catheter. 4. These results were discussed with Dr. Luis Alberto Carbajal. Dictated by: Dictated on workstation # [id number]
[2018-12-25] MEDS ORDERED: fentaNYL INJECTION 100 MCG/2 ML AMP IVP ONE ×3 (11:00→12:15)
--- NOTE | 2018-12-25 11:00 | NUR ---
CONSENT SIGINED FOR CHEST TUBE PLACEMENT. 1107 PROCEDURE STARTED. 1114 FENTANYL 100MCG GIVEN IV 1116 CHEST TUBE PLACED APX 2000 CC OF MICKI FLUID RETURNED. 1130 ATRIUM CHANGED 1131 PCXR DONE 1139 SAO2 DOWN TO 90% DR NOTIFED OXY MASK UP TO 6L PER OXY MASK 1140 REMAINS AT 90% RT CALLED TO PLACE ON VAPOR THERM PER DR"S ORDER.
[2018-12-25] MEDS ORDERED: LIDOCAINE 1% INJ 20 ML 20 ML VIAL ONE (11:03)
[2018-12-25] MEDS ORDERED: KETOROLAC 30 MG/ML VIAL IVP ONE (11:45)
--- NOTE | 2018-12-25 11:47 | Diagnostic Imaging Report ---
EXAMINATION: Portable erect AP chest obtained at 1132h. INDICATION: Respiratory distress The CT chest exam performed earlier today noted a large left pleural effusion. In the interval since the prior exam a left-sided chest tube has been inserted. The tip of the tube overlies the left apex. The left upper lung does seem better aerated but there is still near-complete opacification of the left midlung and left lung base. The right lung is still generally clear. The heart is stable in size. The mediastinum is not widened. The osseous structures are intact. The central venous catheter on the right seen previously on 11/19/2018 has been retracted and is now coiled on itself. Clinical followup regarding the function of the catheter is recommended. IMPRESSION: 1. The appearance of the chest has improved following the insertion of the left-sided chest tube as the left lung does seem better aerated. There is still considerable residual atelectasis/infiltrate and fluid involving the left lung base however 2. The Port-A-Cath on the right is coiled on itself and the function of the catheter may be compromised. Clinical followup is recommended. These results were discussed with Dr. Carbajal. Dictated by: Dictated on workstation # [id number]
--- NOTE | 2018-12-25 12:17 | NUR ---
RT HERE WILL PLACE ON BI PAP INSTEAD.
--- NOTE | 2018-12-25 12:25 | NUR ---
CALLED HOUSE SUP TO HAVE BED CHANGE
--- NOTE | 2018-12-25 12:27 | NUR ---
PLACED ON BI PAP SAO2 IMPROVED Joyce CHAMBERLAIN APRN TALKED WITH DR RODARTE ABOUT CHANGE IN CONDITON. WILL TRANSFER TO ICU INSTEAD
--- NOTE | 2018-12-25 12:33 | NUR ---
ICU WILL CALL BACK FOR REPORT.
[2018-12-25] MEDS ORDERED: fentaNYL INJECTION 100 MCG/2 ML AMP IV PRN (13:30)
[2018-12-25] MEDS ORDERED: ACETAMINOPHEN 325 MG TABLET PO PRN (13:30)
[2018-12-25] MEDS: CATHETER FLUSH 10 ML SYR IV SCH ×2 (14:18→21:34)
[2018-12-25] MEDS ORDERED: RT-ALBUTEROL/IPRATROPIUM 3 ML (DUONEB) VIAL INH PRN (14:45)
[2018-12-25] MEDS ORDERED: FLU QUADRIvalent (5+ YOA) 2018-2019 (AFLURIA) 0.5 ML IM ONE (15:30)
[2018-12-25] MEDS: HYDROcodone/APAP 5 MG/325 MG (LORTAB) TAB PO PRN ×2 (16:00→21:34)
--- NOTE | 2018-12-25 17:55 | Pulmonary Consultation ---
History of Present Illness History of Present Illness Date of Consultation 12/25/18 17:55 Time Seen by Provider: 05:09 Date of Admission History of Present Illness 63yo with hx of metastatic stage 4 lung cancer (nonsmall cell) presented to ED secondary to worsening SOB x 1 wk. PT was found to have large left pleural effusion with opacification of left lung. ED placed large bore chest tube to evacuate pleural fluid. CXR did show improvement after chest tube. Allergies and Home Medications Allergies Coded Allergies: No Known Drug Allergies (Unverified , 05/22/17) Home Medications Albuterol Sulfate 1 Puff Puff, 2 PUFF IH QID PRN for SHORTNESS OF BREATH, ( Reported) Albuterol Sulfate 2.5 Mg/3 Ml Vial.neb, 2.5 MG NEB Q4H PRN for SHORTNESS OF BREATH, (Reported) Aspirin 81 Mg Tablet.dr, 81 MG PO DAILY, (Reported) Cetirizine HCl 10 Mg Tablet, 10 MG PO DAILY PRN for ALLERGIES, (Reported) Fluticasone Propionate 16 Gm [place].susp, 1 SPRAY NS DAILY PRN for CONGESTION, ( Reported) Hydrocodone/Acetaminophen 1 Each Tablet, 2 TAB PO Q6H PRN for PAIN-MODERATE, ( Reported) Montelukast Sodium 10 Mg Tablet, 10 MG PO HS PRN for ALLERGIES, (Reported) Ondansetron HCl 8 Mg Tablet, 8 MG PO TID PRN for NAUSEA/VOMITING-1ST LINE, ( Reported) Pantoprazole Sodium 40 Mg Tablet.dr, 40 MG PO DAILY PRN for INDIGESTION, ( Reported) Polyethylene Glycol 3350 238 Gm Powder, 17 GM PO DAILY PRN for CONSTIPATION-2ND LINE, (Reported) Prednisone 10 Mg Tab, 0 PO UD Take 6 tabs(60mg)daily, decrease by 1 tab(10mg) every other day. Prescribed by: MARCELINO BRAMBILA on 01/05/19 0643 Past Qkzqvge-Jqekqt-Zmihfl Hx Patient Social History Alcohol Use: Occasionally Uses Number of Drinks Today: AA Alcohol Beverage of Choice: Beer Recreational Drug Use: No Smoking Status: Former Smoker Type Used: Cigarettes Former Smoker, Quit: Jun 17, 2002 2nd Hand Smoke Exposure: No Recent Foreign Travel: No Contact w/Someone Who Travel: No Recent Infectious Disease Expo: No Recent Hopitalizations: No Immunizations Up To Date Tetanus Booster (TDap): Unknown Seasonal Allergies Seasonal Allergies: No Past Medical History Surgeries: Yes (rt wrist-) Orthopedic Respiratory: Yes (wears oxygen prn, lung cancer) Asthma, COPD, Emphysema Currently Using CPAP: No Currently Using BIPAP: No Cardiac: No Neurological: No Reproductive Disorders: No Sexually Transmitted Disease: No HIV/AIDS: No Genitourinary: No Gastrointestinal: No Musculoskeletal: No (fracture rt wrist with surg repair ) Fractures Endocrine: No HEENT: No Loss of Vision: Denies Hearing Impairment: Denies Cancer: Yes Lung Psychosocial: No Integumentary: No Blood Disorders: No Adverse Reaction/Blood Tranf: No Family Medical History Cardiovascular disease 19 FATHER, Onset:Unknown Review of Systems Time Seen by Provider: 14:20 Sepsis Event Evaluation Height, Weight, BMI Height: 5'8.00" Weight: 137lbs. 3.0oz. 62.190380ch; 20.9 BMI Method:Stated Exam Exam Vital Signs Date Time Temp Pulse Resp B/P (MAP) Pulse Ox O2 Delivery O2 Flow Rate FiO2 12/25/18 17:00 106 32 98/63 (75) 96 High Flow N/C 6.00 12/25/18 16:00 93 High Flow N/C 6.00 12/25/18 16:00 120 17 97/69 (78) 91 High Flow N/C 6.00 12/25/18 15:56 98.9 12/25/18 15:00 115 17 92 High Flow N/C 6.00 12/25/18 14:35 High Flow N/C 6.00 12/25/18 14:25 102 96 12/25/18 14:25 95 High Flow N/C 6.00 12/25/18 14:00 107 13 115/86 (96) NIV Bilevel 50.00 12/25/18 13:15 101 119/83 (95) 97 NIV Bilevel 50.00 12/25/18 13:00 98.6 12/25/18 13:00 115 12/25/18 13:00 NIV Bilevel 50 12/25/18 12:30 104 18 103/61 (75) 96 NIV Bilevel 12/25/18 12:30 106 13 94 12/25/18 09:11 99 OxyMask 6.00 12/25/18 08:46 97.0 120 22 130/89 (103) 58 Nasal Cannula 12/25/18 08:46 94 OxyMask 6.00 Height & Weight Height: 5'8.00" Weight: 137lbs. 3.0oz. 62.884080ef; 20.9 BMI Method:Stated General Appearance: Anxious, Mild Distress HEENT: PERRL/EOMI, Normal ENT Inspection, Pharynx Normal Neck: Full Range of Motion, Non Tender, Supple Respiratory: Chest Non Tender, No Accessory Muscle Use, No Respiratory Distress , Crackles, Decreased Breath Sounds Cardiovascular: Regular Rate, Rhythm, No Edema, No Gallop Capillary Refill: Less Than 3 Seconds Gastrointestinal: non tender, soft Extremity: Normal Capillary Refill, Normal Inspection Neurologic/Psychiatric: Alert Skin: Normal Color, Warm/Dry Results Lab Laboratory Tests 12/25/18 09:10 Assessment/Plan Assessment/Plan Metastatic Adenocarcinoma stage III -- at last staging Large left pleural effusion probably metastatic -Send pleural fluid for cytology -Chest tube left -Pt will probably need Pleurx catheter 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
[2018-12-25] MEDS ORDERED: methylPREDNISolone 40 MG/ML (Solu-MEDROL) VIAL ONE (18:14)
[2018-12-25] MEDS: CEFEPIME 2,000 MG/SWFI 20 ML IV PUSH IV SCH ×2 (18:20)
[2018-12-25] MEDS: RT-ALBUTEROL/IPRATROPIUM 3 ML (DUONEB) VIAL INH SCH ×2 (18:42→22:19)
[2018-12-25] MEDS: KETOROLAC 15 MG/ML VIAL IV PRN (19:38)
[2018-12-25] MEDS: fentaNYL INJECTION 100 MCG/2 ML AMP IV PRN ×3 (19:39→23:55)
[2018-12-25] MEDS ORDERED: CEFEPIME 2,000 MG/SWFI 20 ML IV PUSH IV SCH ×2 (21:00)
[2018-12-25] MEDS: methylPREDNISolone 40 MG/ML (Solu-MEDROL) VIAL IV SCH (23:55)
[2018-12-26] VITALS (23 sets, daily range): BP systolic 90–119; BP diastolic 48–85
[2018-12-26] MEDS ORDERED: methylPREDNISolone 40 MG/ML (Solu-MEDROL) VIAL IV SCH
[2018-12-26] MEDS: RT-ALBUTEROL/IPRATROPIUM 3 ML (DUONEB) VIAL INH SCH ×6 (02:05→21:14)
[2018-12-26] MEDS: fentaNYL INJECTION 100 MCG/2 ML AMP IV PRN ×6 (02:06→22:30)
[2018-12-26] MEDS: HYDROcodone/APAP 5 MG/325 MG (LORTAB) TAB PO PRN ×4 (03:44→22:31)
[2018-12-26 03:56] LABS: BASOPHILS % (AUTO) 0 % (0-10); EOSINOPHILS % (AUTO) 0 % (0-10); HEMATOCRIT 38 % (40-54); HEMOGLOBIN 12.5 G/DL (13.3-17.7); LYMPHOCYTES # (AUTO) 0.1 X 10^3 (1.0-4.0); LYMPHOCYTES % (AUTO) 3 % (12-44); MEAN CORPUSCULAR HEMOGLOBIN 31 PG (25-34); MEAN CORPUSCULAR HGB CONC 33 G/DL (32-36); MEAN CORPUSCULAR VOLUME 97 FL (80-99); MONOCYTES # (AUTO) 0.1 X 10^3 (0.0-1.0); MONOCYTES % (AUTO) 2 % (0-12); NEUTROPHILS # (AUTO) 4.4 X 10^3 (1.8-7.8); NEUTROPHILS % (AUTO) 95 % (42-75); PLATELET COUNT 210 10^3/uL (130-400); RED CELL DISTRIBUTION WIDTH 12.3 % (10.0-14.5); WHITE BLOOD COUNT 4.7 10^3/uL (4.3-11.0)
[2018-12-26 04:11] LABS: BUN/CREATININE RATIO 19; CALCIUM 8.5 MG/DL (8.5-10.1); CARBON DIOXIDE 32 MMOL/L (21-32); CHLORIDE 93 MMOL/L (98-107); CREATININE SERUM 0.57 MG/DL (0.60-1.30); GFR ESTIMATED > 60; GLUCOSE 168 MG/DL (70-105); MAGNESIUM 1.7 MG/DL (1.8-2.4); PHOSPHORUS 3.6 MG/DL (2.3-4.7); POTASSIUM 4.8 MMOL/L (3.6-5.0); SODIUM 131 MMOL/L (135-145)
[2018-12-26] MEDS ORDERED: KCL 20 MEQ TAB (K-DUR) PO SCH (06:00)
[2018-12-26] MEDS ORDERED: POTASSIUM CL 10MEQ/50ML IVPB 50 ML IV SCH (06:00)
[2018-12-26] MEDS ORDERED: MAGNESIUM 1 GM/100 ML IVPB 100 ML IV SCH (06:00)
--- NOTE | 2018-12-26 06:05 | Pulmonary Progress Note ---
Subjective Time Seen by a Provider: 05:25 Subjective/Events-last exam PT feels improved since chest tube placement. Sepsis Event Evaluation Height, Weight, BMI Height: 5'8.00" Weight: 137lbs. 3.0oz. 62.847533ep; 20.9 BMI Method:Stated Focused Exam Lactate Level 12/25/18 09:10: Lactic Acid Level 1.12 Exam Exam Vital Signs Date Time Temp Pulse Resp B/P (MAP) Pulse Ox O2 Delivery O2 Flow Rate FiO2 12/26/18 05:00 98 24 92/61 (71) 98 High Flow N/C 6.00 12/26/18 04:00 100 25 107/70 (82) 97 High Flow N/C 6.00 12/26/18 03:00 98 21 111/66 (81) 97 High Flow N/C 6.00 12/26/18 02:05 95 High Flow N/C 6.00 12/26/18 02:00 94 23 99/68 (78) 97 High Flow N/C 6.00 12/26/18 01:00 97 12/26/18 01:00 93 23 101/64 (76) 100 High Flow N/C 6.00 12/26/18 00:00 101 26 103/68 (80) 96 High Flow N/C 6.00 12/25/18 23:00 96 23 106/68 (81) 97 High Flow N/C 6.00 12/25/18 22:19 95 High Flow N/C 6.00 12/25/18 22:00 96 29 104/63 (77) 100 High Flow N/C 6.00 12/25/18 21:00 102 20 114/72 (86) 94 High Flow N/C 6.00 12/25/18 20:00 92 High Flow N/C 6.00 12/25/18 20:00 108 16 101/64 (76) 98 High Flow N/C 6.00 12/25/18 19:00 114 12/25/18 19:00 112 16 102/79 (87) 95 High Flow N/C 6.00 12/25/18 18:43 96 High Flow N/C 6.00 12/25/18 18:00 111 17 108/70 (83) 93 High Flow N/C 6.00 12/25/18 17:00 106 32 98/63 (75) 96 High Flow N/C 6.00 12/25/18 16:00 93 High Flow N/C 6.00 12/25/18 16:00 120 17 97/69 (78) 91 High Flow N/C 6.00 12/25/18 15:56 98.9 12/25/18 15:00 115 17 92 High Flow N/C 6.00 12/25/18 14:35 High Flow N/C 6.00 12/25/18 14:25 102 96 12/25/18 14:25 95 High Flow N/C 6.00 12/25/18 14:00 107 13 115/86 (96) NIV Bilevel 50.00 12/25/18 13:15 101 119/83 (95) 97 NIV Bilevel 50.00 12/25/18 13:00 98.6 12/25/18 13:00 115 12/25/18 13:00 NIV Bilevel 50 12/25/18 12:30 104 18 103/61 (75) 96 NIV Bilevel 12/25/18 12:30 106 13 94 12/25/18 09:11 99 OxyMask 6.00 12/25/18 08:46 97.0 120 22 130/89 (103) 58 Nasal Cannula 12/25/18 08:46 94 OxyMask 6.00 I & O 12/26/18 07:00 Intake Total 1240 ml Output Total 2990 ml Balance -1750 ml Height & Weight Height: 5'8.00" Weight: 137lbs. 3.0oz. 62.601040tc; 20.9 BMI Method:Stated General Appearance: WD/WN, Mild Distress HEENT: PERRL/EOMI, Normal ENT Inspection, Pharynx Normal Neck: Full Range of Motion, Normal Inspection, Non Tender Respiratory: Crackles, Decreased Breath Sounds (left > Right ) Cardiovascular: Regular Rate, Rhythm Capillary Refill: Less Than 3 Seconds Gastrointestinal: non tender, soft Extremity: Normal Capillary Refill, Normal Inspection, No Pedal Edema Neurologic/Psychiatric: Alert, Oriented x3 Skin: Normal Color, Warm/Dry Lymphatic: No Adenopathy Results Lab Laboratory Tests 12/25/18 09:10 12/26/18 03:25 Assessment/Plan Assessment/Plan Metastatic Adenocarcinoma stage III -- at last staging Large left pleural effusion probably metastatic -Send pleural fluid for cytology -Chest tube left -Pt will probably need Pleurx catheter 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
[2018-12-26] MEDS ORDERED: MAGNESIUM 1 GM/100 ML IVPB 200 ML IV ONE (06:21)
[2018-12-26] MEDS: MAGNESIUM 1 GM/100 ML IVPB 100 ML IV SCH ×2 (06:32→08:19)
[2018-12-26] MEDS: CEFEPIME 2,000 MG/SWFI 20 ML IV PUSH IV SCH ×4 (06:33→18:58)
[2018-12-26] MEDS: methylPREDNISolone 40 MG/ML (Solu-MEDROL) VIAL IV SCH ×3 (06:33→18:58)
[2018-12-26] MEDS: CATHETER FLUSH 10 ML SYR IV SCH ×2 (06:33→15:16)
--- NOTE | 2018-12-26 08:43 | Diagnostic Imaging Report ---
Portable erect AP chest at 341 hours. INDICATION: Respiratory distress. FINDINGS: The appearance of the chest has worsened since the prior exam of 12/25/2018 as the left hemithorax is now nearly completely opacified by atelectasis/infiltrate and fluid. Only the left apex remains aerated. The left-sided chest tube noted on the prior study is again evident. There is no sign of pneumothorax. Heart is obscured. The right lung is generally clear. There is now small nodular density overlying the right lung base. I suspect that this is the right nipple. The coiled Port-A-Cath line on the right seen previously is again evident. The osseous structures are intact. IMPRESSION: The appearance of the chest has worsened since the prior study as there is now near-complete opacification of the left thorax by atelectasis/infiltrate and fluid. A followup study would be recommended for continued evaluation. Dictated by: Dictated on workstation # [id number]
--- NOTE | 2018-12-26 09:30 | History & Physicial (CHS) ---
HPI History of Present Illness: 63-year-old male [facility] with shortness of breath and obvious difficulty breathing. He is with known lung cancer diagnosed within the last few years. He does admit that over the past 2 days his breathing has been came significantly more difficult. He also has a productive cough of clear sputum. He uses 2 L of oxygen by nasal cannula at home. Does also have albuterol and DuoNeb at home which he takes 3-4 times. He denies any nausea, vomiting, diarrhea or fevers. Source: patient Exam Limitations: clinical condition Date seen by provider: Dec 26, 2018 Time Seen by Provider: 06:40 Attending Physician Claribel Pascual MD PCP No,Local Physician Consult Date of Admission Dec 25, 2018 at 12:04 Home Medications Home Medications Reviewed patient Home Medication Reconciliation performed by pharmacy medication reconciliations building energy retrofit technician and/or nursing. Patients Allergies have been reviewed. Allergies Coded Allergies: No Known Drug Allergies (Unverified , 05/22/17) QLB-Tdbpiy-Iyefsu Hx Patient Social History Alcohol Use: Occasionally Uses Recreational Drug Use: No Smoking Status: Former Smoker Type Used: Cigarettes 2nd Hand Smoke Exposure: No Recent Foreign Travel: No Contact w/other who traveled: No Recent Hopitalizations: No Recent Infectious Disease Expo: No Immunizations Up To Date Tetanus Booster (TDap): Unknown Family Medical History Family History: Cardiovascular disease 19 FATHER, Onset:Unknown Review of Systems (CHC) Constitutional: see HPI Reviewed Test Results Reviewed Test Results Lab Laboratory Tests Test 12/26/18 03:25 Range/Units White Blood Count 4.7 4.3-11.0 10^3/uL Red Blood Count 3.98 L 4.35-5.85 10^6/uL Hemoglobin 12.5 L 13.3-17.7 G/DL Hematocrit 38 L 40-54 % Mean Corpuscular Volume 97 80-99 FL Mean Corpuscular Hemoglobin 31 25-34 PG Mean Corpuscular Hemoglobin Concent 33 32-36 G/DL Red Cell Distribution Width 12.3 10.0-14.5 % Platelet Count 210 130-400 10^3/uL Mean Platelet Volume 9.0 7.4-10.4 FL Neutrophils (%) (Auto) 95 H 42-75 % Lymphocytes (%) (Auto) 3 L 12-44 % Monocytes (%) (Auto) 2 0-12 % Eosinophils (%) (Auto) 0 0-10 % Basophils (%) (Auto) 0 0-10 % Neutrophils # (Auto) 4.4 1.8-7.8 X 10^3 Lymphocytes # (Auto) 0.1 L 1.0-4.0 X 10^3 Monocytes # (Auto) 0.1 0.0-1.0 X 10^3 Eosinophils # (Auto) 0.0 0.0-0.3 10^3/uL Basophils # (Auto) 0.0 0.0-0.1 10^3/uL Sodium Level 131 L 135-145 MMOL/L Potassium Level 4.8 3.6-5.0 MMOL/L Chloride Level 93 L 98-107 MMOL/L Carbon Dioxide Level 32 21-32 MMOL/L Anion Gap 6 5-14 MMOL/L Blood Urea Nitrogen 11 7-18 MG/DL Creatinine 0.57 L 0.60-1.30 MG/DL Estimat Glomerular Filtration Rate > 60 BUN/Creatinine Ratio 19 Glucose Level 168 H 70-105 MG/DL Calcium Level 8.5 8.5-10.1 MG/DL Phosphorus Level 3.6 2.3-4.7 MG/DL Magnesium Level 1.7 L 1.8-2.4 MG/DL Radiology NAME: OZ VALLE [facility] REC#: [id number] PT STATUS: ADM IN : 1955 PHYSICIAN: LUIS ALBERTO CARBAJAL MD ADMIT DATE: 12/25/18/ICU Signed Date of Exam: 12/25/18 CT ANGIO CHEST W PROCEDURE: CT angiography of the chest with contrast. TECHNIQUE: Multiple contiguous axial images were obtained through the chest after uneventful bolus administration of intravenous contrast. 2D reconstructed CTA MIP acquisitions were also performed. Auto Exposure Controls were utilized during the CT exam to meet ALARA standards for radiation dose reduction. INDICATION: Respiratory distress. FINDINGS: The PET/CT exam performed on 10/13/2018 noted a hypermetabolic mass involving the left lower lobe consistent with a primary lung neoplasm. There are also hypermetabolic nodes in the mediastinum and left hilum. The chest exam performed on 11/19/2018 revealed that there was greater involvement of the left lung base by pneumonia/atelectasis and fluid than noted on the PET/CT exam. On the linux system administrator from this study, there is now complete opacification of the left thorax. The axial images do show that most of the left lung is collapsed and that there is a large left pleural effusion present. The large volume of fluid in the left thorax has resulted in slight shift to the heart and mediastinum to the right. There is also now 2.7 x 4.1 CM subcarinal mass. 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 The heart itself is stable in size. The aorta is not abnormally dilated and there is no sign of dissection. There is no defect within the pulmonary arteries to indicate pulmonary embolus. There are emphysematous changes involving the right lung but the right lung is generally clear. As noted on the prior plain film chest exam of 11/19/2018, there is a Port-A-Cath in place on the right. The tip of the catheter is in the distal internal jugular vein. There is a 8.0 x 14.3 CM area of low density adjacent to the tip of the catheter. This does suggest thrombus formation. The thyroid gland is generally unremarkable. The sections through the upper abdomen fail to show any sign of an acute abnormality. There is diminished density in the left lobe of liver, but this is felt to be artifactual in nature. The bone windows show no evidence for fracture or for destructive lesion. There are several healed rib fractures on the left. IMPRESSION: 1. The appearance of the chest has worsened since the prior study as there is now opacification of the left hemithorax. Most of the left lung has collapsed about the left hilum and there is a large left pleural effusion present. The heart and mediastinal structures are also slightly shifted to the right. 2. There is no acute abnormality identified otherwise. In particular, there is no sign of a pulmonary embolus or dissection. 3. The tip of the central venous catheter on the right is in the distal internal jugular vein. There is thrombus formation about the tip of the catheter. 4. These results were discussed with Dr. Luis Alberto Carbajal. Dictated by: Dictated on workstation # [id number] Dict: 12/25/18 1038 Trans: 12/25/18 1658 Interpreted by: DEMOND HAILE MD Electronically signed by: DEMOND HAILE MD 12/25/18 1658 NAME: OZ VALLE [facility] REC#: [id number] PT STATUS: ADM IN : 1955 PHYSICIAN: LUIS ALBERTO CARBAJAL MD ADMIT DATE: 12/25/18/ICU Signed Date of Exam: 12/25/18 CHEST 1 VIEW, AP/PA ONLY EXAMINATION: Portable erect AP chest obtained at 1132h. INDICATION: Respiratory distress The CT chest exam performed earlier today noted a large left pleural effusion. In the interval since the prior exam a left-sided chest tube has been inserted. The tip of the tube overlies the left apex. The left upper lung does seem better aerated but there is still near-complete opacification of the left midlung and left lung base. The right lung is still generally clear. The heart is stable in size. The mediastinum is not widened. The osseous structures are intact. The central venous catheter on the right seen previously on 11/19/2018 has been retracted and is now coiled on itself. Clinical followup regarding the function of the catheter is recommended. IMPRESSION: 1. The appearance of the chest has improved following the insertion of the left-sided chest tube as the left lung does seem better aerated. There is still considerable residual atelectasis/infiltrate and fluid involving the left lung base however 2. The Port-A-Cath on the right is coiled on itself and the function of the catheter may be compromised. Clinical followup is recommended. These results were discussed with Dr. Carbajal. Dictated by: Dictated on workstation # [id number] Dict: 12/25/18 1138 Trans: 12/25/18 1654 Interpreted by: DEMOND HAILE MD Electronically signed by: DEMOND HAILE MD 12/25/18 1654 Physical Exam-(CHC) Physical Exam Vital Signs VS - Last 72 Hours, by Label 12/25/18 12/25/18 12/25/18 12/25/18 08:46 08:46 09:11 12:30 Temp 97.0 Pulse 120 106 Resp 22 13 B/P (MAP) 130/89 (103) Pulse Ox 94 58 99 94 O2 Delivery OxyMask Nasal Cannula OxyMask O2 Flow Rate 6.00 6.00 12/25/18 12/25/18 12/25/1812/25/19 12:30 13:00 13:00 13:00 Temp 98.6 Pulse 104 115 Resp 18 B/P (MAP) 103/61 (75) Pulse Ox 96 O2 Delivery NIV Bilevel NIV Bilevel FiO2 50 12/25/18 12/25/18 12/25/18 12/25/18 13:15 14:00 14:25 14:25 Pulse 101 107 102 Resp 13 B/P (MAP) 119/83 (95) 115/86 (96) Pulse Ox 97 95 96 O2 Delivery NIV Bilevel NIV Bilevel High Flow N/C O2 Flow Rate 50.00 50.00 6.00 12/25/18 12/25/18 12/25/18 12/25/18 14:35 15:00 15:56 16:00 Temp 98.9 Pulse 115 120 Resp 17 17 B/P (MAP) 97/69 (78) Pulse Ox 92 91 O2 Delivery High Flow N/C High Flow N/C High Flow N/C O2 Flow Rate 6.00 6.00 6.00 12/25/18 12/25/18 12/25/18 12/25/18 16:00 17:00 18:00 18:43 Pulse 106 111 Resp 32 17 B/P (MAP) 98/63 (75) 108/70 (83) Pulse Ox 93 96 93 96 O2 Delivery High Flow N/C High Flow N/C High Flow N/C High Flow N/C O2 Flow Rate 6.00 6.00 6.00 6.00 12/25/18 12/25/18 12/25/18 12/25/18 19:00 19:00 20:00 20:00 Pulse 112 114 108 Resp 16 16 B/P (MAP) 102/79 (87) 101/64 (76) Pulse Ox 95 98 92 O2 Delivery High Flow N/C High Flow N/C High Flow N/C O2 Flow Rate 6.00 6.00 6.00 12/25/18 12/25/18 12/25/18 12/25/18 20:00 21:00 22:00 22:19 Temp 97.8 Pulse 102 96 Resp 20 29 B/P (MAP) 114/72 (86) 104/63 (77) Pulse Ox 94 100 95 O2 Delivery High Flow N/C High Flow N/C High Flow N/C O2 Flow Rate 6.00 6.00 6.00 12/25/18 12/26/18 12/26/18 12/26/18 23:00 00:00 00:00 00:00 Temp 96.9 Pulse 96 101 Resp 23 26 B/P (MAP) 106/68 (81) 103/68 (80) Pulse Ox 97 92 96 O2 Delivery High Flow N/C High Flow N/C High Flow N/C O2 Flow Rate 6.00 6.00 6.00 12/26/18 12/26/18 12/26/18 12/26/18 01:00 01:00 02:00 02:05 Pulse 93 97 94 Resp 23 B/P (MAP) 101/64 (76) 99/68 (78) Pulse Ox 100 97 95 O2 Delivery High Flow N/C High Flow N/C High Flow N/C O2 Flow Rate 6.00 6.00 6.00 12/26/18 12/26/18 12/26/18 12/26/18 03:00 04:00 04:00 04:00 Temp 98.0 Pulse 98 100 Resp 25 B/P (MAP) 111/66 (81) 107/70 (82) Pulse Ox 97 92 97 O2 Delivery High Flow N/C High Flow N/C High Flow N/C O2 Flow Rate 6.00 6.00 6.00 12/26/18 12/26/18 12/26/18 12/26/18 05:00 05:35 06:00 07:00 Pulse 98 92 108 Resp 24 20 B/P (MAP) 92/61 (71) 113/71 (85) Pulse Ox 98 97 O2 Delivery High Flow N/C High Flow N/C High Flow N/C O2 Flow Rate 6.00 4.00 4.00 12/26/18 12/26/18 12/26/18 07:15 07:44 07:48 Temp 97.8 Pulse Ox 92 94 O2 Delivery High Flow N/C High Flow N/C O2 Flow Rate 4.00 4.00 Capillary Refill : Less Than 3 Seconds General Appearance: no apparent distress Eyes: Bilateral Eye Normal Inspection HEENT: pharynx normal Respiratory: lungs clear (On the right side), decreased breath sounds (On the left) Cardiovascular: regular rate, rhythm Gastrointestinal: soft Rectal: deferred Extremities: no pedal edema, normal capillary refill Assessment/Plan Assessment/Plan Admission Dx 1. Pleural effusion on the left most likely due to number 2 2. Lung cancer 3. Respiratory failure secondary to number 1 4. Oxygen dependency Admission Status: Inpatient Order (span 2 midnights) Reason for Inpatient Admission: Further drainage of fluid from the left pleural cavity Assessment & Plan 1. Pleural effusion on the left most likely due to number 2 -Chest tube placed in ED -Dr. Huber monitoring the pleural effusion - on cefepime 2. Lung cancer 3. Respiratory failure secondary to number 1 -Supplemental oxygen for now -Albuterol breathing treatments 4. Oxygen dependency Clinical Quality Measures DVT/VTE Risk/Contraindication: Risk Factor Score Per Nursin RFS Level Per Nursing on Admit: 4+=Very High ANTONI AUSTIN MD Dec 26, 2018 09:30
[2018-12-26 11:49] LABS: BASOPHILS % (AUTO) 0 % (0-10); EOSINOPHILS % (AUTO) 0 % (0-10); HEMATOCRIT 36 % (40-54); HEMOGLOBIN 11.9 G/DL (13.3-17.7); LYMPHOCYTES # (AUTO) 0.2 X 10^3 (1.0-4.0); LYMPHOCYTES % (AUTO) 2 % (12-44); MEAN CORPUSCULAR HEMOGLOBIN 32 PG (25-34); MEAN CORPUSCULAR HGB CONC 33 G/DL (32-36); MEAN CORPUSCULAR VOLUME 96 FL (80-99); MEAN PLATELET VOLUME 9.5 FL (7.4-10.4); MONOCYTES # (AUTO) 0.2 X 10^3 (0.0-1.0); MONOCYTES % (AUTO) 3 % (0-12); NEUTROPHILS # (AUTO) 6.1 X 10^3 (1.8-7.8); NEUTROPHILS % (AUTO) 95 % (42-75); PLATELET COUNT 237 10^3/uL (130-400); RED CELL DISTRIBUTION WIDTH 12.3 % (10.0-14.5); WHITE BLOOD COUNT 6.4 10^3/uL (4.3-11.0)
[2018-12-26 12:04] LABS: PROTHROMBIN TIME PATIENT 13.8 SEC (12.2-14.7)
[2018-12-26] MEDS: HEParin 1000 UNIT/ML BOLUS (FULL THERAPY) IV PRN (12:17)
[2018-12-26] MEDS: HEParin DRIP 25000 UNIT/500ML (FULL THERAPY) IV SCH (12:18)
--- NOTE | 2018-12-26 15:44 | CONSULTATION REPORT ---
DATE OF SERVICE: 12/26/2018 The patient is admitted to ICU bed 5. IMPRESSION: 1. A 63-year-old male with adenocarcinoma of the left lower lobe, stage III and unresectable. The patient is currently on combined chemoradiation which was started 3 weeks ago. 2. Admitted to the hospital with fairly rapid onset shortness of breath and found to have large left pleural effusion requiring chest tube placement. 3. Intravascular thrombus at the catheter tip. 4. History of chronic obstructive pulmonary disease secondary to tobacco use in the past. RECOMMENDATIONS: 1. Agree with chest tube drainage of pleural effusion. The patient still has significant effusion and may need repositioning of the chest tube for complete drainage. 2. Start the patient on heparin protocol because of intravascular thrombus and risk of pulmonary embolism. 3. Send the pleural fluid for cytology and if this is positive, we will change the staging and further treatment recommendations. 4. Continue rest of management as you are doing. 5. I will follow the patient with you in the absence of Dr. Sandoval. BRIEF HISTORY OF PRESENT ILLNESS: The patient is a 63-year-old male presented to the emergency room with increasing shortness of breath since the last 1 week. He was diagnosed with a nonsmall cell lung cancer, adenocarcinoma subtype in late 2017. He had stage IIIC disease with mediastinal lymphadenopathy and unresectable. He was started on combined chemoradiation on 11/30/2018 and has been tolerating the treatments so far. He presented to the emergency room with approximately one-week history of increasing shortness of breath and was found to have whiteout of left lung with a large pleural effusion and shift of mediastinum to the right. He had a chest tube placed in the emergency room with drainage of more than 2 liters of fluid immediately with improvement in symptoms. He was admitted to the ICU for further management. Medical oncology consultation was requested for concurrent care. PAST MEDICAL HISTORY: Significant for left lower lobe adenocarcinoma diagnosed in 08/[address]-guided needle biopsy as mentioned above. He has a history of COPD diagnosed a few years ago. He has been on outpatient management. He was on supplemental oxygen because of hypoxemia. He has history of allergic rhinitis and probable asthma. Probably, he also has obstructive sleep apnea. No other major medical problems. PAST SURGICAL HISTORY: Include orthopedic surgery and amputation of digit. FAMILY HISTORY: Unremarkable except for hypertension and coronary artery disease in his parents. No significant malignancies in the family that the patient knows of. SOCIAL HISTORY: The patient is and lives in [place], [place], significant tobacco use in the past, but quit approximately 20 years ago. Uses alcohol daily, mostly a few beer. He has not used this regularly since starting on chemotherapy and radiation. Denied any other recreational drug use. PHYSICAL EXAMINATION: GENERAL: Showed elderly male, well developed and nourished, awake and oriented and does not appear in any acute distress. VITAL SIGNS: The patient is afebrile with pulse rate of 105, respirations 29, blood pressure 100/70 and oxygen saturation of 94% on 4 liters of oxygen by nasal cannula. HEENT: Normocephalic with slight thinning of hair, extraocular muscles intact, conjunctivae pink, oral mucosa are moist. NECK: Supple, with no JVD. No cervical, supraclavicular or axillary lymphadenopathy palpable. CHEST: Symmetrical with a right-sided port present. Left-sided chest tube was present draining serosanguineous fluid. LUNGS: With diminished to absent breath sounds in the left lung ames. Right lung was fairly clear without any wheezes or rales. HEART: Regular in rate and rhythm and borderline tachycardic. No murmurs or gallops heard. ABDOMEN: Soft, nontender with no hepatosplenomegaly or other masses palpable. EXTREMITIES: Showed no edema. NEUROLOGIC: Showed no focal motor deficits. LABORATORY DATA: CBC done today showed WBC of 4.7, hemoglobin 12.5, platelet count 210,000 with neutrophil count 4.4 and lymphocyte count 0.1. BMP showed sodium level of 131, BUN was 11 and creatinine 0.57 with GFR more than 60 mL per minute. Nonfasting glucose was 168. Protime was 13.5 with INR of 1.0 and the D-dimer elevated at 12.38. CT angiogram of the thorax done in the emergency room showed complete opacification of the left hemithorax with the most of the left lung collapsed with a large left pleural effusion. The heart and mediastinal structures are slightly shifted to the right. The tip of the central venous catheter is in the right distal internal jugular vein with a thrombus formation about the tip of the catheter. No sign of pulmonary embolus. Thank you for allowing me to participate in this patient's care. I will follow the patient with you and make appropriate recommendations. Job ID: [id number] DocumentID: [id number] Dictated Date: 12/26/2018 11:46:29 Non Cdl Driver Date: 12/26/2018 15:44:13 Dictated By: MARIELA TARANGO MD
[2018-12-26] MEDS: KETOROLAC 15 MG/ML VIAL IV PRN (19:12)
[2018-12-27] VITALS (12 sets, daily range): BP systolic 92–129; BP diastolic 65–81
[2018-12-27] MEDS: RT-ALBUTEROL/IPRATROPIUM 3 ML (DUONEB) VIAL INH SCH ×4 (01:14→21:37)
[2018-12-27 01:26] LABS: BASOPHILS % (AUTO) 0 % (0-10); EOSINOPHILS % (AUTO) 0 % (0-10); HEMATOCRIT 31 % (40-54); HEMOGLOBIN 10.6 G/DL (13.3-17.7); LYMPHOCYTES # (AUTO) 0.4 X 10^3 (1.0-4.0); LYMPHOCYTES % (AUTO) 5 % (12-44); MEAN CORPUSCULAR HEMOGLOBIN 32 PG (25-34); MEAN CORPUSCULAR HGB CONC 34 G/DL (32-36); MEAN CORPUSCULAR VOLUME 95 FL (80-99); MEAN PLATELET VOLUME 8.3 FL (7.4-10.4); MONOCYTES # (AUTO) 0.6 X 10^3 (0.0-1.0); MONOCYTES % (AUTO) 7 % (0-12); NEUTROPHILS # (AUTO) 7.4 X 10^3 (1.8-7.8); NEUTROPHILS % (AUTO) 88 % (42-75); PLATELET COUNT 224 10^3/uL (130-400); RED CELL DISTRIBUTION WIDTH 12.4 % (10.0-14.5); WHITE BLOOD COUNT 8.5 10^3/uL (4.3-11.0)
[2018-12-27 01:44] LABS: BUN/CREATININE RATIO 28; CALCIUM 8.1 MG/DL (8.5-10.1); CARBON DIOXIDE 31 MMOL/L (21-32); CHLORIDE 92 MMOL/L (98-107); CREATININE SERUM 0.58 MG/DL (0.60-1.30); GFR ESTIMATED > 60; GLUCOSE 128 MG/DL (70-105); MAGNESIUM 1.9 MG/DL (1.8-2.4); PHOSPHORUS 3.5 MG/DL (2.3-4.7); POTASSIUM 4.4 MMOL/L (3.6-5.0); SODIUM 131 MMOL/L (135-145)
[2018-12-27] MEDS: methylPREDNISolone 40 MG/ML (Solu-MEDROL) VIAL IV SCH ×5 (02:18→23:12)
[2018-12-27] MEDS: fentaNYL INJECTION 100 MCG/2 ML AMP IV PRN (02:19)
[2018-12-27] MEDS: CATHETER FLUSH 10 ML SYR IV SCH ×4 (02:24→22:10)
--- NOTE | 2018-12-27 05:33 | Pulmonary Progress Note ---
Subjective Time Seen by a Provider: 05:34 Subjective/Events-last exam SOB is improved. Sepsis Event Evaluation Height, Weight, BMI Height: 5'8.00" Weight: 137lbs. 3.0oz. [id number]; 20.9 BMI Method:Stated Focused Exam Lactate Level 12/25/18 09:10: Lactic Acid Level 1.12 Exam Exam Vital Signs Date Time Temp Pulse Resp B/P (MAP) Pulse Ox O2 Delivery O2 Flow Rate FiO2 12/27/18 05:00 94 25 129/67 (87) 98 OxyMask 3.00 12/27/18 04:00 87 27 116/78 (91) 96 OxyMask 3.00 12/27/18 04:00 95 OxyMask 4.00 12/27/18 03:00 96 25 92/65 (74) 99 OxyMask 3.00 12/27/18 02:00 98 25 110/76 (87) 99 OxyMask 3.00 12/27/18 01:15 OxyMask 3.00 12/27/18 01:14 99 OxyMask 4.00 12/27/18 01:00 92 12/27/18 01:00 93 24 105/73 (84) 99 OxyMask 4.00 12/27/18 00:00 93 OxyMask 4.00 12/27/18 00:00 98 27 100/66 (77) 100 OxyMask 4.00 12/26/18 23:00 106 28 102/63 (76) 99 OxyMask 4.00 12/26/18 22:00 112 25 102/62 (75) 99 OxyMask 4.00 12/26/18 21:14 95 OxyMask 4.00 12/26/18 21:00 111 16 102/60 (74) 91 OxyMask 4.00 12/26/18 20:00 94 OxyMask 4.00 12/26/18 20:00 114 26 119/72 (88) 95 OxyMask 4.00 12/26/18 19:00 106 25 114/70 (85) 99 OxyMask 4.00 12/26/18 19:00 112 12/26/18 18:57 93 OxyMask 4.00 12/26/18 18:00 105 27 109/70 (83) 97 OxyMask 4.00 12/26/18 17:00 108 31 97/64 (75) 96 OxyMask 4.00 12/26/18 16:00 110 28 96/74 (81) 95 OxyMask 4.00 12/26/18 16:00 94 OxyMask 4.00 12/26/18 15:00 103 27 108/61 (77) 95 OxyMask 4.00 12/26/18 14:21 95 High Flow N/C 4.00 12/26/18 14:00 103 24 104/64 (77) 99 OxyMask 4.00 12/26/18 13:00 115 21 114/76 (89) 94 OxyMask 4.00 12/26/18 12:58 117 12/26/18 12:46 94 High Flow N/C 4.00 12/26/18 12:00 107 35 96 OxyMask 4.00 12/26/18 11:00 108 28 100/71 (81) 94 OxyMask 4.00 12/26/18 10:08 93 High Flow N/C 4.00 12/26/18 10:00 105 29 100/70 (80) 94 High Flow N/C 4.00 12/26/18 09:00 102 15 90/48 (62) 96 High Flow N/C 4.00 12/26/18 08:00 114 54 118/85 (96) 96 High Flow N/C 4.00 12/26/18 07:48 94 High Flow N/C 4.00 12/26/18 07:44 97.8 12/26/18 07:15 92 High Flow N/C 4.00 12/26/18 07:00 108 12/26/18 07:00 112 24 109/73 (85) 94 High Flow N/C 4.00 12/26/18 06:00 92 20 113/71 (85) 97 High Flow N/C 4.00 12/26/18 05:35 High Flow N/C 4.00 I & O 12/27/18 07:00 Intake Total 1050 ml Output Total 2575 ml Balance -1525 ml Height & Weight Height: 5'8.00" Weight: 137lbs. 3.0oz. 62.829996oo; 20.9 BMI Method:Stated General Appearance: WD/WN, Mild Distress HEENT: PERRL/EOMI, Normal ENT Inspection, Pharynx Normal Neck: Full Range of Motion, Normal Inspection, Non Tender Respiratory: Crackles, Decreased Breath Sounds (left > Right ) Cardiovascular: Regular Rate, Rhythm Capillary Refill: Less Than 3 Seconds Gastrointestinal: non tender, soft Extremity: Normal Capillary Refill, Normal Inspection, No Pedal Edema Neurologic/Psychiatric: Alert, Oriented x3 Skin: Normal Color, Warm/Dry Lymphatic: No Adenopathy Results Lab Laboratory Tests 12/25/18 09:10 12/26/18 03:25 12/26/18 11:12 12/27/18 01:20 Assessment/Plan Assessment/Plan Metastatic Adenocarcinoma stage III -- at last staging Large left pleural effusion probably metastatic -Send pleural fluid for cytology -Chest tube left -Pt will probably need Pleurx catheter 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
[2018-12-27] MEDS: CEFEPIME 2,000 MG/SWFI 20 ML IV PUSH IV SCH ×4 (07:48→18:20)
[2018-12-27] MEDS: HYDROcodone/APAP 5 MG/325 MG (LORTAB) TAB PO PRN ×3 (08:05→23:11)
--- NOTE | 2018-12-27 09:40 | Progress Note (SOAP) ---
Subjective Subjective/Events-last exam Patient was resting comfortably this morning. He does have oxygen on by mask. He states the NC to bothers him during his sleep. He is breathing much better. Review of Systems Date Seen by Provider: Dec 27, 2018 Time Seen by Provider: 06:45 Focused Exam Lactate Level 12/25/18 09:10: Lactic Acid Level 1.12 Objective Exam Last Set of Vital Signs Vital Signs Date Time Temp Pulse Resp B/P (MAP) Pulse Ox O2 Delivery O2 Flow Rate FiO2 12/27/18 08:00 114 22 115/76 (89) 95 OxyMask 3.00 12/27/18 04:00 98.2 12/25/18 13:00 50 Capillary Refill : Less Than 3 Seconds I&O Intake and Output 12/27/18 00:00 Intake Total 1200 ml Output Total 5165 ml Balance -3965 ml Intake Oral 1000 ml IV Total 200 ml Output Urine Total 1175 ml Chest Tube Drainage Total 3990 ml General: No Acute Distress Lungs: Clear to Auscultation, Other (Decreased breath sounds on the left) Heart: Regular Rate Extremities: No Edema Neuro: Normal Speech Results/Procedures Lab Laboratory Tests 12/26/18 11:12: White Blood Count 6.4, Red Blood Count 3.78L, Hemoglobin 11.9L, Hematocrit 36L, Mean Corpuscular Volume 96, Mean Corpuscular Hemoglobin 32, Mean Corpuscular Hemoglobin Concent 33, Red Cell Distribution Width 12.3, Platelet Count 237, Mean Platelet Volume 9.5, Neutrophils (%) (Auto) 95H, Lymphocytes (%) (Auto) 2L , Monocytes (%) (Auto) 3, Eosinophils (%) (Auto) 0, Basophils (%) (Auto) 0, Neutrophils # (Auto) 6.1, Lymphocytes # (Auto) 0.2L, Monocytes # (Auto) 0.2, Eosinophils # (Auto) 0.0, Basophils # (Auto) 0.0, Prothrombin Time 13.8, INR Comment 1.0, Activated Partial Thromboplast Time 29 12/26/18 18:13: Activated Partial Thromboplast Time 42H 12/27/18 01:20: White Blood Count 8.5, Red Blood Count 3.32L, Hemoglobin 10.6L, Hematocrit 31L, Mean Corpuscular Volume 95, Mean Corpuscular Hemoglobin 32, Mean Corpuscular Hemoglobin Concent 34, Red Cell Distribution Width 12.4, Platelet Count 224, Mean Platelet Volume 8.3, Neutrophils (%) (Auto) 88H, Lymphocytes (%) (Auto) 5L , Monocytes (%) (Auto) 7, Eosinophils (%) (Auto) 0, Basophils (%) (Auto) 0, Neutrophils # (Auto) 7.4, Lymphocytes # (Auto) 0.4L, Monocytes # (Auto) 0.6, Eosinophils # (Auto) 0.0, Basophils # (Auto) 0.0, Activated Partial Thromboplast Time 54H, Sodium Level 131L, Potassium Level 4.4, Chloride Level 92L, Carbon Dioxide Level 31, Anion Gap 8, Blood Urea Nitrogen 16, Creatinine 0.58L, Estimat Glomerular Filtration Rate > 60, BUN/Creatinine Ratio 28, Glucose Level 128H, Calcium Level 8.1L, Phosphorus Level 3.5, Magnesium Level 1.9 12/27/18 08:14: Activated Partial Thromboplast Time 57H Microbiology 12/25/18 Blood Culture - Preliminary, Resulted No growth 12/25/18 Influenza Types A,B Antigen (KYLE) - Final, Complete Radiology NAME: OZ VALLE [facility] REC#: [id number] PT STATUS: ADM IN : 1955 PHYSICIAN: LUIS ALBERTO CARBAJAL MD ADMIT DATE: 12/25/18/ICU Signed Date of Exam: 12/25/18 CT ANGIO CHEST W PROCEDURE: CT angiography of the chest with contrast. TECHNIQUE: Multiple contiguous axial images were obtained through the chest after uneventful bolus administration of intravenous contrast. 2D reconstructed CTA MIP acquisitions were also performed. Auto Exposure Controls were utilized during the CT exam to meet ALARA standards for radiation dose reduction. INDICATION: Respiratory distress. FINDINGS: The PET/CT exam performed on 10/13/2018 noted a hypermetabolic mass involving the left lower lobe consistent with a primary lung neoplasm. There are also hypermetabolic nodes in the mediastinum and left hilum. The chest exam performed on 11/19/2018 revealed that there was greater involvement of the left lung base by pneumonia/atelectasis and fluid than noted on the PET/CT exam. On the toll line mechanic from this study, there is now complete opacification of the left thorax. The axial images do show that most of the left lung is collapsed and that there is a large left pleural effusion present. The large volume of fluid in the left thorax has resulted in slight shift to the heart and mediastinum to the right. There is also now 2.7 x 4.1 CM subcarinal mass. 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 The heart itself is stable in size. The aorta is not abnormally dilated and there is no sign of dissection. There is no defect within the pulmonary arteries to indicate pulmonary embolus. There are emphysematous changes involving the right lung but the right lung is generally clear. As noted on the prior plain film chest exam of 11/19/2018, there is a Port-A-Cath in place on the right. The tip of the catheter is in the distal internal jugular vein. There is a 8.0 x 14.3 CM area of low density adjacent to the tip of the catheter. This does suggest thrombus formation. The thyroid gland is generally unremarkable. The sections through the upper abdomen fail to show any sign of an acute abnormality. There is diminished density in the left lobe of liver, but this is felt to be artifactual in nature. The bone windows show no evidence for fracture or for destructive lesion. There are several healed rib fractures on the left. IMPRESSION: 1. The appearance of the chest has worsened since the prior study as there is now opacification of the left hemithorax. Most of the left lung has collapsed about the left hilum and there is a large left pleural effusion present. The heart and mediastinal structures are also slightly shifted to the right. 2. There is no acute abnormality identified otherwise. In particular, there is no sign of a pulmonary embolus or dissection. 3. The tip of the central venous catheter on the right is in the distal internal jugular vein. There is thrombus formation about the tip of the catheter. 4. These results were discussed with Dr. Luis Alberto Carbajal. Dictated by: Dictated on workstation # [id number] Dict: 12/25/18 1038 Trans: 12/25/181657 Interpreted by: DEMOND HAILE MD Electronically signed by: DEMOND HAILE MD 12/25/181657 NAME: OZ VALLE [facility] REC#: [id number] PT STATUS: ADM IN : 1955 PHYSICIAN: LUIS ALBERTO CARBAJAL MD ADMIT DATE: 12/25/18/ICU Signed Date of Exam: 12/25/18 CHEST 1 VIEW, AP/PA ONLY EXAMINATION: Portable erect AP chest obtained at 1132h. INDICATION: Respiratory distress The CT chest exam performed earlier today noted a large left pleural effusion. In the interval since the prior exam a left-sided chest tube has been inserted. The tip of the tube overlies the left apex. The left upper lung does seem better aerated but there is still near-complete opacification of the left midlung and left lung base. The right lung is still generally clear. The heart is stable in size. The mediastinum is not widened. The osseous structures are intact. The central venous catheter on the right seen previously on 11/19/2018 has been retracted and is now coiled on itself. Clinical followup regarding the function of the catheter is recommended. IMPRESSION: 1. The appearance of the chest has improved following the insertion of the left-sided chest tube as the left lung does seem better aerated. There is still considerable residual atelectasis/infiltrate and fluid involving the left lung base however 2. The Port-A-Cath on the right is coiled on itself and the function of the catheter may be compromised. Clinical followup is recommended. These results were discussed with Dr. Carbajal. Dictated by: Dictated on workstation # [id number] Dict: 12/25/18 1138 Trans: 12/25/18 1654 Interpreted by: DEMOND HAILE MD Electronically signed by: DEMOND HAILE MD 12/25/18 1654 Assessment/Plan Assessment/Plan Assessment & Plan 1. Pleural effusion on the left most likely due to number 2 -Chest tube placed in ED -Dr. Huber monitoring the pleural effusion -Patient on cefepime 12/27 -Chest x-ray today reveals improvement in the apical area regarding fluid -Chest tube is still in place 2. Lung cancer 3. Respiratory failure secondary to number 1 -Supplemental oxygen for now -Albuterol breathing treatments 12/27 -Receiving supplemental oxygen and albuterol treatments showing signs of improvement 4. Oxygen dependency Clinical Quality Measures DVT/VTE Risk/Contraindication: Risk Factor Score Per Nursin RFS Level Per Nursing on Admit: 4+=Very High ANTONI AUSTIN MD Dec 27, 2018 09:40
--- NOTE | 2018-12-27 10:23 | Progress Note-Standard ---
Standard Progress Note Progress Notes/Assess & Plan Date Seen by a Provider: Dec 27, 2018 Time Seen by a Provider: 10:18 Progress/Assessment & Plan 63-year-old male with stage III C adenocarcinoma of the left lower lobe with mediastinal, subcarinal and right paratracheal lymphadenopathy, who is undergoing combined chemoradiation with weekly carboplatinum and paclitaxel regimen as well as daily radiation therapy since her last 4 weeks. Patient admitted to the hospital with the worsening shortness of breath of weeks duration and found to have significant left pleural effusion and whiteout of lungs. Status post chest tube placement with the significant drainage. His breathing is better today but complained of leakage around the chest tube site. CT angiogram also showed thrombus at the tip of his catheter without evidence of PE. He was started on heparin protocol. No evidence of bleeding. Chest x- ray today showed better aeration of left upper lung. We will await cytology from the pleural fluid. If this is malignant, it will change the stage and treatment recommendations. We will follow patient with you. Focused Exam Lactate Level 12/25/18 09:10: Lactic Acid Level 1.12 MARIELA TARANGO Dec 27, 2018 10:23
--- NOTE | 2018-12-27 11:03 | Diagnostic Imaging Report ---
INDICATION: Shortness of breath, chest tube. COMPARISON: 12/26/2018 FINDINGS: Single view of the chest demonstrates improved aeration of the left upper lobe. Chest tube is stable. The Port-A-Cath position is unchanged. There is no pneumothorax. The heart remains prominent with central vascular congestion. IMPRESSION: Slightly improved aeration left upper lobe. There is continued infiltrate and opacification of left base. Dictated by: Dictated on workstation # [id number]
--- NOTE | 2018-12-27 12:00 | NUR ---
REPORT CALLED TO MATILDA 4TH FLOOR RN AT THIS TIME.
[2018-12-27] MEDS: morphine INJ 4 MG/ML 1 ML (VIAL/SYRINGE) IVP PRN ×2 (12:32→18:33)
--- NOTE | 2018-12-27 12:39 | NUR ---
PATIENT TRANSPORTED TO ROOM 427 AT THIS TIME. CHEST TUBE CLAMPED DURING TRANSPORT. UPON ARRIVAL, THIS NURSE CONNECTED PATIENT BACK UP TO SUCTION PER PREVIOUS ORDERS. PATIENT PERSONAL BELONGINGS SENT. MATILDA HAN IN ROOM AT THIS TIME.
[2018-12-27] MEDS ORDERED: WATER (STERILE) FOR INJECTION 20 ML ONE (18:12)
[2018-12-27] MEDS ORDERED: CEFEPIME 2 GM (MAXIPIME) VIAL ONE (18:12)
[2018-12-27] MEDS: KETOROLAC 15 MG/ML VIAL IV PRN (21:02)
[2018-12-27] MEDS: HEParin DRIP 25000 UNIT/500ML (FULL THERAPY) IV SCH (23:15)
[2018-12-28 00:10] VITALS: BP 121/77
[2018-12-28] MEDS: RT-ALBUTEROL/IPRATROPIUM 3 ML (DUONEB) VIAL INH SCH ×4 (02:53→19:46)
[2018-12-28 03:50] VITALS: BP 105/70
[2018-12-28 04:10] LABS: BASOPHILS % (AUTO) 0 % (0-10); EOSINOPHILS % (AUTO) 0 % (0-10); HEMATOCRIT 35 % (40-54); HEMOGLOBIN 11.7 G/DL (13.3-17.7); LYMPHOCYTES # (AUTO) 0.2 X 10^3 (1.0-4.0); LYMPHOCYTES % (AUTO) 4 % (12-44); MEAN CORPUSCULAR HEMOGLOBIN 32 PG (25-34); MEAN CORPUSCULAR HGB CONC 33 G/DL (32-36); MEAN CORPUSCULAR VOLUME 95 FL (80-99); MONOCYTES # (AUTO) 0.2 X 10^3 (0.0-1.0); MONOCYTES % (AUTO) 3 % (0-12); NEUTROPHILS # (AUTO) 5.2 X 10^3 (1.8-7.8); NEUTROPHILS % (AUTO) 93 % (42-75); PLATELET COUNT 242 10^3/uL (130-400); RED CELL DISTRIBUTION WIDTH 12.6 % (10.0-14.5); WHITE BLOOD COUNT 5.6 10^3/uL (4.3-11.0)
[2018-12-28 04:28] LABS: BUN/CREATININE RATIO 26; CALCIUM 8.6 MG/DL (8.5-10.1); CARBON DIOXIDE 30 MMOL/L (21-32); CHLORIDE 94 MMOL/L (98-107); CREATININE SERUM 0.61 MG/DL (0.60-1.30); GFR ESTIMATED > 60; GLUCOSE 142 MG/DL (70-105); MAGNESIUM 1.8 MG/DL (1.8-2.4); PHOSPHORUS 4.1 MG/DL (2.3-4.7); POTASSIUM 4.8 MMOL/L (3.6-5.0); SODIUM 133 MMOL/L (135-145)
[2018-12-28] MEDS ORDERED: CEFEPIME 2 GM (MAXIPIME) VIAL ONE ×2 (05:26→19:01)
[2018-12-28] MEDS ORDERED: WATER (STERILE) FOR INJECTION 20 ML ONE ×2 (05:26→19:01)
[2018-12-28] MEDS: methylPREDNISolone 40 MG/ML (Solu-MEDROL) VIAL IV SCH (05:44)
[2018-12-28] MEDS: CEFEPIME 2,000 MG/SWFI 20 ML IV PUSH IV SCH ×4 (05:44→19:00)
[2018-12-28] MEDS: CATHETER FLUSH 10 ML SYR IV SCH ×3 (05:45→20:02)
[2018-12-28] MEDS: HYDROcodone/APAP 5 MG/325 MG (LORTAB) TAB PO PRN ×3 (05:51→20:05)
--- NOTE | 2018-12-28 06:43 | Pulmonary Progress Note ---
Subjective Time Seen by a Provider: 06:40 Subjective/Events-last exam CXR is improving Sepsis Event Evaluation Height, Weight, BMI Height: 5'8.00" Weight: 137lbs. 1.6oz. 62.410468eg; 20.9 BMI Method:Stated Focused Exam Lactate Level 12/25/18 09:10: Lactic Acid Level 1.12 Exam Exam Vital Signs Date Time Temp Pulse Resp B/P (MAP) Pulse Ox O2 Delivery O2 Flow Rate FiO2 12/28/18 03:50 98.2 93 18 105/70 (82) 94 Nasal Cannula 4.00 12/28/18 02:53 91 Nasal Cannula 4.00 12/28/18 00:10 98.6 97 18 121/77 (92) 95 Nasal Cannula 4.00 12/27/18 21:40 88 Nasal Cannula 4.00 12/27/18 20:00 Nasal Cannula 4.00 12/27/18 19:15 99.0 105 20 127/80 (96) 95 Nasal Cannula 3.00 12/27/18 16:14 98.8 108 18 118/74 (89) 94 Nasal Cannula 3.00 12/27/18 13:21 101 96 12/27/18 13:09 97.7 101 20 124/81 (95) 95 OxyMask 3.00 12/27/18 12:00 95 OxyMask 4.00 12/27/18 11:02 92 OxyMask 3.00 12/27/18 08:00 114 22 115/76 (89) 95 OxyMask 3.00 12/27/18 08:00 95 OxyMask 4.00 12/27/18 07:00 106 26 126/68 (87) 98 OxyMask 3.00 12/27/18 07:00 107 I & O 12/28/18 07:00 Intake Total 1820 ml Output Total 3150 ml Balance -1330 ml Height & Weight Height: 5'8.00" Weight: 137lbs. 1.6oz. 62.597870uu; 20.9 BMI Method:Stated General Appearance: No Apparent Distress, WD/WN, Anxious HEENT: PERRL/EOMI, Normal ENT Inspection, Pharynx Normal Neck: Full Range of Motion, Normal Inspection, Non Tender Respiratory: Crackles, Decreased Breath Sounds (left > Right ) Cardiovascular: Regular Rate, Rhythm Capillary Refill: Less Than 3 Seconds Gastrointestinal: non tender, soft Extremity: Normal Capillary Refill, Normal Inspection, No Pedal Edema Neurologic/Psychiatric: Alert, Oriented x3 Skin: Normal Color, Warm/Dry Lymphatic: No Adenopathy Results Lab Laboratory Tests 12/26/18 11:12 12/27/18 01:20 12/28/18 04:00 Assessment/Plan Assessment/Plan Metastatic Adenocarcinoma stage III -- at last staging Large left pleural effusion probably metastatic -Await pleural fluid for cytology -Chest tube left -Pt will probably need Pleurx catheter. Will consult Dr. Escobar for possible Pleurx Cath. 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
[2018-12-28 08:00] VITALS: BP 119/73
[2018-12-28] MEDS: morphine INJ 4 MG/ML 1 ML (VIAL/SYRINGE) IVP PRN ×3 (09:25→23:07)
--- NOTE | 2018-12-28 10:01 | Progress Note-Hospitalist ---
Subjective HPI/CC On Admission Date Seen by Provider: Dec 28, 2018 Time Seen by Provider: 09:45 Subjective/Events-last exam Pt is doing well Left chest tube draining fluid Needs a BM so ordered Lactulose and Senna Pain is controlled Overall doing well Objective Exam Vital Signs Vital Signs Date Time Temp Pulse Resp B/P (MAP) Pulse Ox O2 Delivery O2 Flow Rate FiO2 12/28/18 19:48 91 Nasal Cannula 4.00 12/28/18 16:01 99.2 99 20 120/72 (88) 12/25/18 13:00 50 Capillary Refill : Less Than 3 Seconds General Appearance: No Apparent Distress, WD/WN, Anxious HEENT: PERRL/EOMI, Normal ENT Inspection, Pharynx Normal Neck: Full Range of Motion, Normal Inspection, Non Tender Respiratory: Crackles, Decreased Breath Sounds (left > Right ) Cardiovascular: Regular Rate, Rhythm Extremity: Normal Capillary Refill, Normal Inspection, No Pedal Edema Neurologic/Psychiatric: Alert, Oriented x3 Skin: Normal Color, Warm/Dry Lymphatic: No Adenopathy Results/Procedures Lab Laboratory Tests 12/28/18 04:00 Patient resulted labs reviewed. Assessment/Plan Assessment and Plan Assess & Plan/Chief Complaint Assessment: Left pleural effusion requiring chest tube Lung cancer O2 dependency COPD Constipation Plan: O2 Nebs Effusion management BM regimen Diagnosis/Problems Diagnosis/Problems (1) Pleural effusion due to another disorder Status: Acute (2) Respiratory failure with hypoxia and hypercapnia Status: Acute Qualifiers: Chronicity: acute on chronic Qualified Codes: J96.21 - Acute and chronic respiratory failure with hypoxia; J96.22 - Acute and chronic respiratory failure with hypercapnia (3) Lung cancer Qualifiers: Laterality: left Lung location: unspecified part of lung Qualified Codes : C34.92 - Malignant neoplasm of unspecified part of left bronchus or lung (4) Abnormal CT scan of lung Clinical Quality Measures DVT/VTE Risk/Contraindication: Risk Factor Score Per Nursin RFS Level Per Nursing on Admit: 4+=Very High VEL VILA DO Dec 28, 2018 10:01
--- NOTE | 2018-12-28 10:18 | Diagnostic Imaging Report ---
INDICATION: Dyspnea. TECHNIQUE: Single view chest at 3:17 AM. CORRELATION STUDY: 12/27/2018. FINDINGS: A right IJ [id number] catheter is again demonstrated with a significant amount of redundancy and looping above the level of the clavicle at the base of the neck. Tip positioning is unchanged. Left-sided thoracostomy tube remains in place. Consolidation through the left lung, particularly at the mid and lower portion, persists but overall improved aeration to the left lung. Subcutaneous gas over the left chest. Right lung is hyperinflated. Heart size is enlarged and mediastinum is prominent. IMPRESSION: Consolidation through a large portion of the left lung but overall appears somewhat improved in aeration from one day earlier. Dictated by: Dictated on workstation # [id number]
[2018-12-28] MEDS: LACTULOSE SYRUP 10GM/15ML (ENULOSE) 30ML UDC PO SCH ×2 (11:07→20:01)
[2018-12-28] MEDS: SENNA W/DOCUSATE (SENOKOT S) TABLET PO SCH ×2 (11:08→20:01)
[2018-12-28] MEDS ORDERED: PANT40TA3 PO (12:05)
[2018-12-28] MEDS ORDERED: POLY238P32 PO (12:05)
[2018-12-28] MEDS ORDERED: ONDA8TAB12 PO (12:05)
[2018-12-28] MEDS ORDERED: ALBU2.5V4 NEB (12:05)
[2018-12-28] MEDS ORDERED: FLUT16SP22 NS (12:05)
[2018-12-28] MEDS ORDERED: NON-FORMULARY MEDICATION 1 EA EA (Ondansetron HCl 8 MG) PO PRN (13:15)
[2018-12-28] MEDS ORDERED: NON-FORMULARY MEDICATION 1 EA EA (Cetirizine HCl 10 MG) PO PRN (13:15)
[2018-12-28] MEDS ORDERED: POLYETHYLENE GLYCOL 17 GM PO PRN (13:15)
[2018-12-28] MEDS ORDERED: PANTOPRAZOLE 40 MG (PROTONIX) TAB PO PRN (13:15)
[2018-12-28] MEDS ORDERED: FLUTICASONE NASAL SPRAY (FLONASE) 16 GM BTL NS PRN (13:15)
[2018-12-28] MEDS ORDERED: MONTELUKAST 10 MG (SINGULAIR) TAB PO PRN (13:15)
[2018-12-28] MEDS ORDERED: NON-FORMULARY MEDICATION 1 EA EA (Hydrocodone/Acetaminophen (Hydrocodone-Acetamin 5-325 mg PO PRN (13:15)
[2018-12-28] MEDS ORDERED: LORATADINE (CLARITIN) 10 MG TAB PO PRN (13:45)
[2018-12-28] MEDS ORDERED: POLYETHYLENE GLYCOL 17 GM (MIRALAX) PACK PO PRN (13:45)
[2018-12-28] MEDS ORDERED: ONDANSETRON 8 MG (ZOFRAN) ORAL DISSOLVE TAB PO PRN (13:45)
[2018-12-28] MEDS: HEParin DRIP 25000 UNIT/500ML (FULL THERAPY) IV SCH (13:49)
--- NOTE | 2018-12-28 14:15 | NUR ---
Pastoral care visit.
--- NOTE | 2018-12-28 15:20 | NUR ---
Report received from Tara HAN, will continue to monitor.
[2018-12-28 16:01] VITALS: BP 120/72
--- NOTE | 2018-12-28 19:55 | Consultation ---
History of Present Illness History of Present Illness Patient Consulted On(nicole/time) 12/28/18 19:49 Date Seen by Provider: Dec 28, 2018 Time Seen by Provider: 12:35 History of Present Illness consult requested by dr. power for possible pleur-x catheter placement. patient is a 63 year old male with left adenocarcioma of lung. He was having increasing shortness of breath and discomfort when evaluated in the emergency department. He state his left chest was full of fluid and they placed a chest tube fore drainage. Patient states his breathing has improved. He is on heparin drip for thrombus at tip of port catheter was is has changed position from when it was placed. Patient states he has been improving since. He has no other complaints at this time. Allergies and Home Medications Allergies Coded Allergies: No Known Drug Allergies (Unverified , 05/22/17) Home Medications Albuterol Sulfate 1 Puff Puff, 2 PUFF IH QID PRN for SHORTNESS OF BREATH, ( Reported) Albuterol Sulfate 2.5 Mg/3 Ml Vial.neb, 2.5 MG NEB Q4H PRN for SHORTNESS OF BREATH, (Reported) Aspirin 81 Mg Tablet.dr, 81 MG PO DAILY, (Reported) Cetirizine HCl 10 Mg Tablet, 10 MG PO DAILY PRN for ALLERGIES, (Reported) Fluticasone Propionate 16 Gm [place].susp, 1 SPRAY NS DAILY PRN for CONGESTION, ( Reported) Hydrocodone/Acetaminophen 1 Each Tablet, 2 TAB PO Q6H PRN for PAIN-MODERATE, ( Reported) Montelukast Sodium 10 Mg Tablet, 10 MG PO HS PRN for ALLERGIES, (Reported) Ondansetron HCl 8 Mg Tablet, 8 MG PO TID PRN for NAUSEA/VOMITING-1ST LINE, ( Reported) Pantoprazole Sodium 40 Mg Tablet.dr, 40 MG PO DAILY PRN for INDIGESTION, ( Reported) Polyethylene Glycol 3350 238 Gm Powder, 17 GM PO DAILY PRN for CONSTIPATION-2ND LINE, (Reported) Patient Home Medication List Home Medication List Reviewed: Yes Past Rzdbkfj-Gbwvqh-Ssbypf Hx Patient Social History Alcohol Use: Occasionally Uses Number of Drinks Today: AA Recreational Drug Use: No Smoking Status: Former Smoker Former Smoker, Quit: Jun 17, 2002 Type Used: Cigarettes 2nd Hand Smoke Exposure: No Recent Foreign Travel: No Contact w/Someone Who Travel: No Recent Infectious Disease Expo: No Recent Hopitalizations: No Immunizations Up To Date Tetanus Booster (TDap): Unknown Seasonal Allergies Seasonal Allergies: No Surgeries History of Surgeries: Yes (rt wrist-, port placement) Surgeries: Orthopedic Respiratory History of Respiratory Disorde: Yes (wears oxygen prn, lung cancer) Respiratory Disorders: Asthma, COPD, Emphysema Cardiovascular History of Cardiac Disorders: No Neurological History of Neurological Disord: No Reproductive System Hx Reproductive Disorders: No Sexually Transmitted Disease: No HIV/AIDS: No Genitourinary History of Genitourinary Disor: No Gastrointestinal History of Gastrointestinal Di: No Musculoskeletal History of Musculoskeletal Dis: No (fracture rt wrist with surg repair ) Musculoskeletal Disorders: Fractures Endocrine History of Endocrine Disorders: No HEENT History of HEENT Disorders: No Loss of Vision: Denies Hearing Impairment: Denies Cancer History of Cancer: Yes Cancer: Lung Psychosocial History of Psychiatric Problem: No Integumentary History of Skin or Integumenta: No Blood Transfusions History of Blood Disorders: No Adverse Reaction to a Blood Tr: No Family Medical History Significant Family History: No Pertinent Family Hx Family Medial History: Cardiovascular disease 19 FATHER, Onset:Unknown Review of Systems-General Constitutional: no symptoms reported EENTM: no symptoms reported Respiratory: see HPI Cardiovascular: no symptoms reported Gastrointestinal: no symptoms reported Genitourinary: no symptoms reported Musculoskeletal: no symptoms reported Skin: no symptoms reported Psychiatric/Neurological: No Symptoms Reported Physical Exam-General Problems Physical Exam Vital Signs Vital Signs - First Documented 12/25/18 12/25/18 08:46 13:00 Temp 97.0 Pulse 120 Resp 22 B/P (MAP) 130/89 (103) Pulse Ox 94 O2 Delivery OxyMask O2 Flow Rate 6.00 FiO2 50 Capillary Refill : Less Than 3 Seconds General Appearance: no apparent distress HEENT: PERRL/EOMI Neck: full range of motion, supple Respiratory: chest non-tender (left sided chest tube, air leak present), no respiratory distress Cardiovascular: regular rate, rhythm Gastrointestinal: non tender, soft, no organomegaly Rectal: deferred Back: no CVA tenderness Extremities: non-tender, normal inspection 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, no motor/sensory deficits, alert, normal mood/affect, oriented x 3 Skin: normal color, warm/dry Lymphatic: no adenopathy Data Review Labs Laboratory Tests 12/27/18 21:56: Activated Partial Thromboplast Time 75H 12/28/18 04:00: Activated Partial Thromboplast Time 83H, White Blood Count 5.6, Red Blood Count 3.72L, Hemoglobin 11.7L, Hematocrit 35L, Mean Corpuscular Volume 95, Mean Corpuscular Hemoglobin 32, Mean Corpuscular Hemoglobin Concent 33, Red Cell Distribution Width 12.6, Platelet Count 242, Mean Platelet Volume 9.0, Neutrophils (%) (Auto) 93H, Lymphocytes (%) (Auto) 4L, Monocytes (%) (Auto) 3, Eosinophils (%) (Auto) 0, Basophils (%) (Auto) 0, Neutrophils # (Auto) 5.2, Lymphocytes # (Auto) 0.2L, Monocytes # (Auto) 0.2, Eosinophils # (Auto) 0.0, Basophils # (Auto) 0.0, Sodium Level 133L, Potassium Level 4.8, Chloride Level 94L, Carbon Dioxide Level 30, Anion Gap 9, Blood Urea Nitrogen 16, Creatinine 0.61, Estimat Glomerular Filtration Rate > 60, BUN/Creatinine Ratio 26, Glucose Level 142H, Calcium Level 8.6, Phosphorus Level 4.1, Magnesium Level 1.8 Microbiology 12/25/18 Blood Culture - Preliminary, Resulted No growth 12/25/18 Influenza Types A,B Antigen (KYLE) - Final, Complete Assessment/Plan Assessment/Plan Assessment/Plan left lung adenocarcinoma left pleural effusion thrombus at tip of port catheter patient has chest tube in place at this time. we did discuss pleur-x catheter but not wanting yet. i would also wait until chest tube removed and had recurrence of pleural effusion. patient on heparin drip for thrombus catheter has changed position on chest x ray, monitor may need to try to be re- positioned by IR or Cardiology will follow Clinical Quality Measures DVT/VTE Risk/Contraindication: Risk Factor Score Per Nursin RFS Level Per Nursing on Admit: 4+=Very High KRISTINE SHARP DO Dec 28, 2018 19:55
[2018-12-28 20:00] VITALS: BP 130/74
[2018-12-29 00:43] VITALS: BP 112/67
[2018-12-29] MEDS: HYDROcodone/APAP 5 MG/325 MG (LORTAB) TAB PO PRN ×4 (02:32→21:38)
[2018-12-29] MEDS: RT-ALBUTEROL/IPRATROPIUM 3 ML (DUONEB) VIAL INH SCH ×4 (03:05→22:43)
[2018-12-29 04:00] VITALS: BP 107/69
[2018-12-29] MEDS: HEParin DRIP 25000 UNIT/500ML (FULL THERAPY) IV SCH ×2 (04:42→19:18)
[2018-12-29] MEDS: CATHETER FLUSH 10 ML SYR IV SCH ×3 (04:43→22:31)
[2018-12-29] MEDS: morphine INJ 4 MG/ML 1 ML (VIAL/SYRINGE) IVP PRN (04:43)
[2018-12-29 04:49] LABS: BASOPHILS % (AUTO) 0 % (0-10); EOSINOPHILS # (AUTO) 0.1 10^3/uL (0.0-0.3); EOSINOPHILS % (AUTO) 1 % (0-10); HEMATOCRIT 36 % (40-54); HEMOGLOBIN 11.7 G/DL (13.3-17.7); LYMPHOCYTES # (AUTO) 0.5 X 10^3 (1.0-4.0); LYMPHOCYTES % (AUTO) 9 % (12-44); MEAN CORPUSCULAR HEMOGLOBIN 32 PG (25-34); MEAN CORPUSCULAR HGB CONC 33 G/DL (32-36); MEAN CORPUSCULAR VOLUME 96 FL (80-99); MEAN PLATELET VOLUME 8.8 FL (7.4-10.4); MONOCYTES # (AUTO) 0.5 X 10^3 (0.0-1.0); MONOCYTES % (AUTO) 9 % (0-12); NEUTROPHILS # (AUTO) 4.7 X 10^3 (1.8-7.8); NEUTROPHILS % (AUTO) 81 % (42-75); PLATELET COUNT 253 10^3/uL (130-400); RED CELL DISTRIBUTION WIDTH 13.3 % (10.0-14.5); WHITE BLOOD COUNT 5.8 10^3/uL (4.3-11.0)
[2018-12-29 05:08] LABS: BUN/CREATININE RATIO 19; CALCIUM 8.1 MG/DL (8.5-10.1); CARBON DIOXIDE 31 MMOL/L (21-32); CHLORIDE 94 MMOL/L (98-107); CREATININE SERUM 0.58 MG/DL (0.60-1.30); GFR ESTIMATED > 60; GLUCOSE 94 MG/DL (70-105); MAGNESIUM 1.7 MG/DL (1.8-2.4); PHOSPHORUS 2.9 MG/DL (2.3-4.7); POTASSIUM 3.8 MMOL/L (3.6-5.0); SODIUM 132 MMOL/L (135-145)
[2018-12-29] MEDS: CEFEPIME 2,000 MG/SWFI 20 ML IV PUSH IV SCH ×4 (05:39→17:32)
[2018-12-29] MEDS: predniSONE 20 MG TAB PO SCH (06:04)
--- NOTE | 2018-12-29 07:12 | Pulmonary Progress Note ---
Subjective Time Seen by a Provider: 07:11 Subjective/Events-last exam SOB nonproductive cough. Sepsis Event Evaluation Height, Weight, BMI Height: 5'8.00" Weight: 136lbs. 11.2oz. 62.264005pg; 20.9 BMI Method:Stated Exam Exam Vital Signs Date Time Temp Pulse Resp B/P (MAP) Pulse Ox O2 Delivery O2 Flow Rate FiO2 12/29/18 04:00 98.5 90 22 107/69 (82) 95 Nasal Cannula 4.00 12/29/18 03:06 92 Nasal Cannula 4.00 12/29/18 00:43 98.4 100 20 112/67 (82) 92 Nasal Cannula 4.00 12/28/18 20:00 98.7 106 20 130/74 (92) 95 Nasal Cannula 4.00 12/28/18 20:00 Nasal Cannula 4.00 12/28/18 19:48 91 Nasal Cannula 4.00 12/28/18 16:01 99.2 99 20 120/72 (88) 95 Nasal Cannula 3.00 12/28/18 15:24 92 Nasal Cannula 4.00 12/28/18 08:00 95 OxyMask 4.00 12/28/18 08:00 98.7 100 20 119/73 (88) 90 Nasal Cannula 4.00 I & O 12/29/18 07:00 Intake Total 3630 ml Output Total 3190 ml Balance 440 ml Height & Weight Height: 5'8.00" Weight: 136lbs. 11.2oz. 62.135569ul; 20.9 BMI Method:Stated General Appearance: No Apparent Distress, WD/WN, Anxious HEENT: PERRL/EOMI, Normal ENT Inspection, Pharynx Normal Neck: Full Range of Motion, Normal Inspection, Non Tender Respiratory: Crackles, Decreased Breath Sounds (left > Right ) Cardiovascular: Regular Rate, Rhythm Capillary Refill: Less Than 3 Seconds Gastrointestinal: non tender, soft, no organomegaly Extremity: Normal Capillary Refill, Normal Inspection, No Pedal Edema Neurologic/Psychiatric: Alert, Oriented x3 Skin: Normal Color, Warm/Dry Lymphatic: No Adenopathy Results Lab Laboratory Tests 12/28/18 04:00 12/29/18 04:10 12/29/18 04:20 Assessment/Plan Assessment/Plan Metastatic Adenocarcinoma stage III -- at last staging Large left pleural effusion probably metastatic -Await pleural fluid for cytology -Chest tube left -Dr. Escobar consulted for possible Pleurx cath. 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
[2018-12-29 08:00] VITALS: BP 111/68
[2018-12-29] MEDS: LACTULOSE SYRUP 10GM/15ML (ENULOSE) 30ML UDC PO SCH ×2 (08:28→21:39)
[2018-12-29] MEDS: SENNA W/DOCUSATE (SENOKOT S) TABLET PO SCH ×2 (08:33→21:39)
[2018-12-29] MEDS: ASPIRIN E.C. 81 MG (ECOTRIN) TAB PO SCH (08:33)
[2018-12-29] MEDS: MAGNESIUM 1 GM/100 ML IVPB 100 ML IV SCH ×2 (08:33→09:24)
[2018-12-29] MEDS ORDERED: NON-FORMULARY MEDICATION 1 EA EA (Aspirin (Aspir 81) 81 MG) PO SCH (09:00)
--- NOTE | 2018-12-29 10:09 | Progress Note-Hospitalist ---
Subjective HPI/CC On Admission Date Seen by Provider: Dec 29, 2018 Time Seen by Provider: 09:15 Subjective/Events-last exam Had a large bowel movement so he is right on track and maintained on MiraLax like he does at home. Left chest tube causes pain but otherwise is doing well. Awaiting for the chest tube drainage to decrease, unsure if they insert a pleurx catheter. Denies any other significant problems. Review of Systems General: Fatigue Objective Exam Vital Signs Vital Signs Date Time Temp Pulse Resp B/P (MAP) Pulse Ox O2 Delivery O2 Flow Rate FiO2 12/29/18 16:00 99.4 98 20 109/66 (80) 95 Nasal Cannula 4.00 12/25/18 13:00 50 Capillary Refill : Less Than 3 Seconds General Appearance: No Apparent Distress, WD/WN, Anxious HEENT: PERRL/EOMI, Normal ENT Inspection, Pharynx Normal Neck: Full Range of Motion, Normal Inspection, Non Tender Respiratory: Crackles, Decreased Breath Sounds (left > Right ) Cardiovascular: Regular Rate, Rhythm Extremity: Normal Capillary Refill, Normal Inspection, No Pedal Edema Neurologic/Psychiatric: Alert, Oriented x3 Skin: Normal Color, Warm/Dry Lymphatic: No Adenopathy Results/Procedures Lab Laboratory Tests 12/29/18 04:10 12/29/18 04:20 Patient resulted labs reviewed. Assessment/Plan Assessment and Plan Assess & Plan/Chief Complaint Assessment: Left pleural effusion requiring chest tube Lung cancer O2 dependency COPD Constipation Plan: O2 Nebs Effusion management BM regimen as scheduled at home Diagnosis/Problems Diagnosis/Problems (1) Pleural effusion due to another disorder Status: Acute (2) Respiratory failure with hypoxia and hypercapnia Status: Acute Qualifiers: Chronicity: acute on chronic Qualified Codes: J96.21 - Acute and chronic respiratory failure with hypoxia; J96.22 - Acute and chronic respiratory failure with hypercapnia (3) Lung cancer Qualifiers: Laterality: left Lung location: unspecified part of lung Qualified Codes : C34.92 - Malignant neoplasm of unspecified part of left bronchus or lung (4) Abnormal CT scan of lung Clinical Quality Measures DVT/VTE Risk/Contraindication: Risk Factor Score Per Nursin RFS Level Per Nursing on Admit: 4+=Very High VEL VILA DO Dec 29, 2018 10:09
[2018-12-29] MEDS: KETOROLAC 15 MG/ML VIAL IV PRN (10:34)
[2018-12-29 12:00] VITALS: BP 103/56
--- NOTE | 2018-12-29 13:05 | Diagnostic Imaging Report ---
CLINICAL INDICATION: Patient with dyspnea. EXAM: Portable chest x-ray, upright view. COMPARISONS: Portable chest x-ray, upright view dated 12/28/2018. FINDINGS: Stable chest tube overlying the left upper hemithorax region. There is slight progression of consolidation involving the left mid lung field and left lung base. There is suspected left pleural effusion. There is no pneumothorax seen. Right lung is stable and clear. Cardiac silhouette is partially obscured but stable. There is no pulmonary vascular congestion. Again seen [id number] overlying the right chest, stable in position. IMPRESSION: 1: There is slight progression of consolidation involving the left mid lung field and left lung base. A superimposed pleural effusion may also be present in the left lung base. 2: Stable left chest tube with no pneumothorax. 3: The remainder of this exam shows no significant interval change compared to the prior study of comparison. Dictated by: Dictated on workstation # [id number]
--- NOTE | 2018-12-29 14:20 | NUR ---
Pastoral care visit.
[2018-12-29 16:00] VITALS: BP 109/66
--- NOTE | 2018-12-29 18:59 | Progress Note-Standard ---
Standard Progress Note Progress Notes/Assess & Plan Date Seen by a Provider: Dec 29, 2018 Time Seen by a Provider: 18:56 Progress/Assessment & Plan 63-year-old male with stage III C adenocarcinoma of the left lower lobe with mediastinal, subcarinal and right paratracheal lymphadenopathy, who is undergoing combined chemoradiation with weekly carboplatinum and paclitaxel regimen as well as daily radiation therapy since last 4 weeks. Patient admitted to the hospital with the worsening shortness of breath of a weeks duration and found to have significant left pleural effusion and whiteout of left lung. Status post chest tube placement with significant drainage. His breathing is better today. CT angiogram also showed thrombus at the tip of his catheter without evidence of PE. He was started on heparin protocol. No evidence of bleeding. Chest x-ray today showed similar effusion/consolidation in the left lower lung ames. Patient still having significant output from chest tube. Cytology report from the pleural fluid pending. If this is malignant, it will change the stage and treatment recommendations. We will follow patient with you. MARIELA TARANGO Dec 29, 2018 18:58
--- NOTE | 2018-12-29 20:18 | Progress Note ---
Subjective Date Seen by a Provider: Dec 29, 2018 Time Seen by a Provider: 07:10 Subjective/Events-last exam Patient still with chest tube. Small air leak. Patient no new changes or complaints. Denies n/v fever sweats chills or chest pain. Objective Exam Vital Signs Date Time Temp Pulse Resp B/P (MAP) Pulse Ox O2 Delivery O2 Flow Rate FiO2 12/29/18 16:00 99.4 98 20 109/66 (80) 95 Nasal Cannula 4.00 12/29/18 12:00 98.3 99 20 103/56 (72) 95 Nasal Cannula 4.00 12/29/18 10:03 91 Nasal Cannula 4.00 12/29/18 08:33 Nasal Cannula 4.00 12/29/18 08:00 98.3 88 20 111/68 (82) 92 Nasal Cannula 4.00 12/29/18 04:00 98.5 90 22 107/69 (82) 95 Nasal Cannula 4.00 12/29/18 03:06 92 Nasal Cannula 4.00 12/29/18 00:43 98.4 100 20 112/67 (82) 92 Nasal Cannula 4.00 I & O 12/29/18 07:00 Intake Total 3630 ml Output Total 3190 ml Balance 440 ml Capillary Refill : Less Than 3 Seconds General Appearance: No Apparent Distress, WD/WN, Anxious HEENT: PERRL/EOMI, Normal ENT Inspection, Pharynx Normal Neck: Full Range of Motion, Normal Inspection, Non Tender Respiratory: Chest Non Tender, Crackles, Decreased Breath Sounds (left > Right ) Cardiovascular: Regular Rate, Rhythm Gastrointestinal: non tender, soft, no organomegaly Extremity: Normal Capillary Refill, Normal Inspection, No Pedal Edema Neurologic/Psychiatric: Alert, Oriented x3 Skin: Normal Color, Warm/Dry Lymphatic: No Adenopathy Results Lab Laboratory Tests 12/29/18 04:10: White Blood Count 5.8, Red Blood Count 3.69L, Hemoglobin 11.7L, Hematocrit 36L, Mean Corpuscular Volume 96, Mean Corpuscular Hemoglobin 32, Mean Corpuscular Hemoglobin Concent 33, Red Cell Distribution Width 13.3, Platelet Count 253, Mean Platelet Volume 8.8, Neutrophils (%) (Auto) 81H, Lymphocytes (%) (Auto) 9L , Monocytes (%) (Auto) 9, Eosinophils (%) (Auto) 1, Basophils (%) (Auto) 0, Neutrophils # (Auto) 4.7, Lymphocytes # (Auto) 0.5L, Monocytes # (Auto) 0.5, Eosinophils # (Auto) 0.1, Basophils # (Auto) 0.0, Activated Partial Thromboplast Time 73H 12/29/18 04:20: Sodium Level 132L, Potassium Level 3.8, Chloride Level 94L, Carbon Dioxide Level 31, Anion Gap 7, Blood Urea Nitrogen 11, Creatinine 0.58L, Estimat Glomerular Filtration Rate > 60, BUN/Creatinine Ratio 19, Glucose Level 94, Calcium Level 8.1L, Phosphorus Level 2.9, Magnesium Level 1.7L Microbiology 12/25/18 Blood Culture - Preliminary, Resulted No growth 12/25/18 Influenza Types A,B Antigen (KYLE) - Final, Complete Assessment/Plan Assessment/Plan Assessment/Plan left lung adenocarcinoma left pleural effusion thrombus at tip of port catheter patient has left chest tube in place at this time. we did discuss pleur-x catheter but not wanting yet. i would also wait until chest tube removed and had recurrence of pleural effusion. patient on heparin drip for thrombus catheter has changed position on chest x ray, monitor may need to try to be re- positioned by IR or Cardiology awaiting cytology of fluid will follow Clinical Quality Measures DVT/VTE Risk/Contraindication: Risk Factor Score Per Nursin RFS Level Per Nursing on Admit: 4+=Very High KRISTINE SHARP DO Dec 29, 2018 20:18
[2018-12-30 00:34] VITALS: BP 110/65
[2018-12-30] MEDS: morphine INJ 4 MG/ML 1 ML (VIAL/SYRINGE) IVP PRN ×4 (01:46→18:30)
[2018-12-30] MEDS: RT-ALBUTEROL/IPRATROPIUM 3 ML (DUONEB) VIAL INH SCH ×4 (02:55→20:22)
[2018-12-30] MEDS: HYDROcodone/APAP 5 MG/325 MG (LORTAB) TAB PO PRN ×4 (04:03→21:33)
[2018-12-30 04:35] LABS: BASOPHILS % (AUTO) 0 % (0-10); EOSINOPHILS # (AUTO) 0.1 10^3/uL (0.0-0.3); EOSINOPHILS % (AUTO) 1 % (0-10); HEMATOCRIT 34 % (40-54); HEMOGLOBIN 10.9 G/DL (13.3-17.7); LYMPHOCYTES # (AUTO) 0.5 X 10^3 (1.0-4.0); LYMPHOCYTES % (AUTO) 10 % (12-44); MEAN CORPUSCULAR HEMOGLOBIN 31 PG (25-34); MEAN CORPUSCULAR HGB CONC 32 G/DL (32-36); MEAN CORPUSCULAR VOLUME 96 FL (80-99); MONOCYTES # (AUTO) 0.7 X 10^3 (0.0-1.0); MONOCYTES % (AUTO) 17 % (0-12); NEUTROPHILS # (AUTO) 3.1 X 10^3 (1.8-7.8); NEUTROPHILS % (AUTO) 71 % (42-75); PLATELET COUNT 207 10^3/uL (130-400); WHITE BLOOD COUNT 4.4 10^3/uL (4.3-11.0)
[2018-12-30 04:57] LABS: ALANINE AMINOTRANSFERASE 18 U/L (0-55); ALBUMIN 2.8 GM/DL (3.2-4.5); ALKALINE PHOSPHATASE 58 U/L (40-136); BILIRUBIN,TOTAL 0.3 MG/DL (0.1-1.0); BUN/CREATININE RATIO 21; CALCIUM 8.1 MG/DL (8.5-10.1); CARBON DIOXIDE 33 MMOL/L (21-32); CHLORIDE 93 MMOL/L (98-107); CREATININE SERUM 0.62 MG/DL (0.60-1.30); GFR ESTIMATED > 60; GLUCOSE 112 MG/DL (70-105); MAGNESIUM 1.8 MG/DL (1.8-2.4); POTASSIUM 4.5 MMOL/L (3.6-5.0); SODIUM 134 MMOL/L (135-145); TOTAL PROTEIN 4.8 GM/DL (6.4-8.2)
[2018-12-30] MEDS: predniSONE 20 MG TAB PO SCH (06:12)
[2018-12-30] MEDS: CATHETER FLUSH 10 ML SYR IV SCH ×3 (06:13→19:12)
[2018-12-30] MEDS: CEFEPIME 2,000 MG/SWFI 20 ML IV PUSH IV SCH ×4 (06:13→18:22)
--- NOTE | 2018-12-30 06:15 | NUR ---
DE-ACCESSED PTS PORT AND RE-ACCESSED THIS AM WITH POWER PORT 19G. HEPARIN STOPPED FOR 8 MINUTES WHILE DRESSING CHANGED. IMMEDIATELY RESTARTED HEPARIN DRIP AFTER DRESSING CHANGE.
--- NOTE | 2018-12-30 06:53 | Pulmonary Progress Note ---
Subjective Time Seen by a Provider: 06:53 Subjective/Events-last exam Chest tube still in place. Sepsis Event Evaluation Height, Weight, BMI Height: 5'8.00" Weight: 137lbs. 11.2oz. 62.970439kn; 20.9 BMI Method:Stated Exam Exam Vital Signs Date Time Temp Pulse Resp B/P (MAP) Pulse Ox O2 Delivery O2 Flow Rate FiO2 12/30/18 02:55 92 High Flow N/C 4.00 12/30/18 00:34 97.8 96 20 110/65 (80) 95 Nasal Cannula 4.00 12/29/18 22:43 90 High Flow N/C 4.00 12/29/18 20:00 Nasal Cannula 4.00 12/29/18 16:00 99.4 98 20 109/66 (80) 95 Nasal Cannula 4.00 12/29/18 12:00 98.3 99 20 103/56 (72) 95 Nasal Cannula 4.00 12/29/18 10:03 91 Nasal Cannula 4.00 12/29/18 08:33 Nasal Cannula 4.00 12/29/18 08:00 98.3 88 20 111/68 (82) 92 Nasal Cannula 4.00 I & O 12/30/18 07:00 Intake Total 3660 ml Output Total 2930 ml Balance 730 ml Height & Weight Height: 5'8.00" Weight: 137lbs. 11.2oz. 62.585561mo; 20.9 BMI Method:Stated General Appearance: No Apparent Distress, WD/WN, Anxious HEENT: PERRL/EOMI, Normal ENT Inspection, Pharynx Normal Neck: Full Range of Motion, Normal Inspection, Non Tender Respiratory: Crackles, Decreased Breath Sounds (left > Right ) Cardiovascular: Regular Rate, Rhythm Capillary Refill: Less Than 3 Seconds Gastrointestinal: non tender, soft, no organomegaly Extremity: Normal Capillary Refill, Normal Inspection, No Pedal Edema Neurologic/Psychiatric: Alert, Oriented x3 Skin: Normal Color, Warm/Dry Lymphatic: No Adenopathy Results Lab Laboratory Tests 12/29/18 04:10 12/29/18 04:20 12/30/18 04:05 Assessment/Plan Assessment/Plan Metastatic Adenocarcinoma stage III -- at last staging Large left pleural effusion probably metastatic -Await pleural fluid for cytology -Chest tube left -- Chest tube out put over the last 24hours is 180cc. Ideally we would wait until chest tube drainage is <100cc/24 hours. I am not sure this is going to happen. This is most likely a malignant effusion. Cytology is still pending. Pt will probably need Pleurx cath. -Dr. Escobar consulted for possible Pleurx cath. 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
[2018-12-30 08:00] VITALS: BP 111/68
--- NOTE | 2018-12-30 08:12 | Diagnostic Imaging Report ---
INDICATION: Dyspnea. TECHNIQUE: Frontal view of the chest. COMPARISON: 12/29/2018 FINDINGS: Airspace opacities are seen throughout the left midlung and left lung base. The cardiac silhouette is obscured, but appear stable in size. There is central vascular congestion. Mildly increased opacities are developing at the right lung base. No pneumothorax is seen. The right-sided Port-A-Cath tip projects over the right innominate vein. This appears stable since the previous exam. There is a persistent left pleural effusion. No right effusion is seen. IMPRESSION: 1. Stable left pleural effusion with left lung airspace opacities. Minimally increased right basilar airspace opacities, may represent atelectasis or developing infiltrate. 2. Central vascular congestion. Dictated by: Dictated on workstation # [id number]
[2018-12-30] MEDS: LACTULOSE SYRUP 10GM/15ML (ENULOSE) 30ML UDC PO SCH ×2 (08:22→19:13)
[2018-12-30] MEDS: ASPIRIN E.C. 81 MG (ECOTRIN) TAB PO SCH (08:22)
[2018-12-30] MEDS: SENNA W/DOCUSATE (SENOKOT S) TABLET PO SCH ×2 (08:22→19:12)
[2018-12-30] MEDS: HEParin DRIP 25000 UNIT/500ML (FULL THERAPY) IV SCH (09:58)
[2018-12-30 10:20] VITALS: BP 111/68
--- NOTE | 2018-12-30 10:27 | Progress Note-Hospitalist ---
Subjective HPI/CC On Admission Date Seen by Provider: Dec 30, 2018 Time Seen by Provider: 10:00 Subjective/Events-last exam Pt doing well with chest tube on the left side Drainage is still too much to discontinue Pleurx catheter may be required Bowels are moving well Pain is controlled Review of Systems General: Fatigue Objective Exam Vital Signs Vital Signs Date Time Temp Pulse Resp B/P (MAP) Pulse Ox O2 Delivery O2 Flow Rate FiO2 12/30/18 20:22 93 Nasal Cannula 4.00 12/30/18 15:51 98.0 98 21 132/81 (98) 12/25/18 13:00 50 Capillary Refill : Less Than 3 Seconds General Appearance: No Apparent Distress, WD/WN, Anxious HEENT: PERRL/EOMI, Normal ENT Inspection, Pharynx Normal Neck: Full Range of Motion, Normal Inspection, Non Tender Respiratory: Crackles, Decreased Breath Sounds (left > Right ) Cardiovascular: Regular Rate, Rhythm Extremity: Normal Capillary Refill, Normal Inspection, No Pedal Edema Neurologic/Psychiatric: Alert, Oriented x3 Skin: Normal Color, Warm/Dry Lymphatic: No Adenopathy Results/Procedures Lab Laboratory Tests 12/30/18 04:05 Patient resulted labs reviewed. Assessment/Plan Assessment and Plan Assess & Plan/Chief Complaint Assessment: Left pleural effusion requiring chest tube Lung cancer O2 dependency COPD Constipation Plan: O2 Nebs Effusion management BM regimen as scheduled at home Diagnosis/Problems Diagnosis/Problems (1) Pleural effusion due to another disorder Status: Acute (2) Respiratory failure with hypoxia and hypercapnia Status: Acute Qualifiers: Chronicity: acute on chronic Qualified Codes: J96.21 - Acute and chronic respiratory failure with hypoxia; J96.22 - Acute and chronic respiratory failure with hypercapnia (3) Lung cancer Qualifiers: Laterality: left Lung location: unspecified part of lung Qualified Codes : C34.92 - Malignant neoplasm of unspecified part of left bronchus or lung (4) Abnormal CT scan of lung Clinical Quality Measures DVT/VTE Risk/Contraindication: Risk Factor Score Per Nursin RFS Level Per Nursing on Admit: 4+=Very High VEL VILA DO Dec 30, 2018 10:27
[2018-12-30] MEDS: methylPREDNISolone 40 MG/ML (Solu-MEDROL) VIAL IV SCH ×2 (11:22→18:22)
--- NOTE | 2018-12-30 15:39 | Diagnostic Imaging Report ---
INDICATION: Left chest tube clamped. TIME OF EXAM: 01:59 p.m. Correlation is made with prior study earlier the same day. FINDINGS: Right chest wall port has tip overlying the SVC. Left chest tube remains in place. No pneumothorax is seen. Left basilar infiltrate persists. Right lung is clear. IMPRESSION: No evidence of pneumothorax. Dictated by: Dictated on workstation # [id number]
[2018-12-30 15:51] VITALS: BP 132/81
--- NOTE | 2018-12-30 17:02 | Diagnostic Imaging Report ---
INDICATION: Left chest tube follow-up, tube was clamped. Frontal chest obtained at 11:14 a.m. and is compared with 12/30/2018 at 04:06 a.m. Left-sided chest tube remains in place. There is no pneumothorax. Cardiomegaly is noted with unchanged left basilar infiltrate and left pleural fluid. Port-A-Cath on the right side is unchanged. IMPRESSION: Cardiomegaly with unchanged left basilar infiltrate and left pleural effusion. Left-sided chest tube is unchanged. There is no pneumothorax. Dictated by: Dictated on workstation # [id number]
--- NOTE | 2018-12-30 21:49 | Progress Note ---
Subjective Date Seen by a Provider: Dec 30, 2018 Time Seen by a Provider: 07:50 Subjective/Events-last exam Patient with no new complaints. Patient with left chest tube. Still with drainage. Denies n/v fever sweats chills or significant shortness of breath. Awaiting cytology. Objective Exam Vital Signs Date Time Temp Pulse Resp B/P (MAP) Pulse Ox O2 Delivery O2 Flow Rate FiO2 12/30/18 20:22 93 Nasal Cannula 4.00 12/30/18 20:13 Nasal Cannula 4.00 12/30/18 16:11 94 Nasal Cannula 4.00 12/30/18 15:51 98.0 98 21 132/81 (98) 98 Nasal Cannula 4.00 12/30/18 10:20 93 Nasal Cannula 4.00 12/30/18 10:20 102 93 12/30/18 08:23 Nasal Cannula 4.00 12/30/18 08:00 98.3 88 20 111/68 (82) 92 Nasal Cannula 4.00 12/30/18 02:55 92 High Flow N/C 4.00 12/30/18 00:34 97.8 96 20 110/65 (80) 95 Nasal Cannula 4.00 12/29/18 22:43 90 High Flow N/C 4.00 I & O 12/30/18 07:00 Intake Total 3660 ml Output Total 3080 ml Balance 580 ml Capillary Refill : Less Than 3 Seconds General Appearance: No Apparent Distress, WD/WN, Anxious HEENT: PERRL/EOMI, Normal ENT Inspection, Pharynx Normal Neck: Full Range of Motion, Normal Inspection, Non Tender Respiratory: Crackles, Decreased Breath Sounds (left > Right ) Cardiovascular: Regular Rate, Rhythm Gastrointestinal: non tender, soft, no organomegaly Extremity: Normal Capillary Refill, Normal Inspection, No Pedal Edema Neurologic/Psychiatric: Alert, Oriented x3 Skin: Normal Color, Warm/Dry Lymphatic: No Adenopathy Results Lab Laboratory Tests 12/30/18 04:05: White Blood Count 4.4, Red Blood Count 3.51L, Hemoglobin 10.9L, Hematocrit 34L, Mean Corpuscular Volume 96, Mean Corpuscular Hemoglobin 31, Mean Corpuscular Hemoglobin Concent 32, Red Cell Distribution Width 13.0, Platelet Count 207, Mean Platelet Volume 9.0, Neutrophils (%) (Auto) 71, Lymphocytes (%) (Auto) 10L , Monocytes (%) (Auto) 17H, Eosinophils (%) (Auto) 1, Basophils (%) (Auto) 0, Neutrophils # (Auto) 3.1, Lymphocytes # (Auto) 0.5L, Monocytes # (Auto) 0.7, Eosinophils # (Auto) 0.1, Basophils # (Auto) 0.0, Activated Partial Thromboplast Time 81H, Sodium Level 134L, Potassium Level 4.5, Chloride Level 93L, Carbon Dioxide Level 33H, Anion Gap 8, Blood Urea Nitrogen 13, Creatinine 0.62, Estimat Glomerular Filtration Rate > 60, BUN/Creatinine Ratio 21, Glucose Level 112H, Calcium Level 8.1L, Corrected Calcium 9.1, Phosphorus Level 3.0, Magnesium Level 1.8, Total Bilirubin 0.3, Aspartate Amino Transf (AST/SGOT) 12, Alanine Aminotransferase (ALT/SGPT) 18, Alkaline Phosphatase 58, B-Type Natriuretic Peptide 30.1, Total Protein 4.8L, Albumin 2.8L Microbiology 12/25/18 Blood Culture - Final, Complete No growth 12/25/18 Influenza Types A,B Antigen (KYLE) - Final, Complete Assessment/Plan Assessment/Plan Assessment/Plan left lung adenocarcinoma left pleural effusion thrombus at tip of port catheter patient has left chest tube in place at this time. we did discuss pleur-x catheter I discussed with Dr. Huber and patient will likely need pleur-x catheter. will see if re-occurence of left pleural effusion with chest tube clamped. patient on heparin drip for thrombus, if need to place pleur-x catheter would like this to be off for procedure. awaiting cytology of fluid will follow and plan likely for pleurx catheter in near future. all questions answered. Clinical Quality Measures DVT/VTE Risk/Contraindication: Risk Factor Score Per Nursin RFS Level Per Nursing on Admit: 4+=Very High KRISTINE SHARP DO Dec 30, 2018 21:49
[2018-12-31] VITALS: BP 116/70
[2018-12-31] MEDS: methylPREDNISolone 40 MG/ML (Solu-MEDROL) VIAL IV SCH ×4 (00:05→17:35)
[2018-12-31] MEDS: morphine INJ 4 MG/ML 1 ML (VIAL/SYRINGE) IVP PRN ×4 (00:05→18:07)
[2018-12-31] MEDS: HEParin DRIP 25000 UNIT/500ML (FULL THERAPY) IV SCH ×2 (00:05→14:23)
[2018-12-31] MEDS: RT-ALBUTEROL/IPRATROPIUM 3 ML (DUONEB) VIAL INH SCH ×4 (03:17→20:35)
[2018-12-31] MEDS: HYDROcodone/APAP 5 MG/325 MG (LORTAB) TAB PO PRN ×4 (05:15→22:03)
[2018-12-31] MEDS: CATHETER FLUSH 10 ML SYR IV SCH ×3 (05:15→20:10)
[2018-12-31] MEDS: CEFEPIME 2,000 MG/SWFI 20 ML IV PUSH IV SCH ×4 (06:10→17:36)
[2018-12-31 06:20] LABS: BASOPHILS % (AUTO) 0 % (0-10); EOSINOPHILS % (AUTO) 0 % (0-10); HEMATOCRIT 35 % (40-54); HEMOGLOBIN 11.3 G/DL (13.3-17.7); LYMPHOCYTES # (AUTO) 0.3 X 10^3 (1.0-4.0); LYMPHOCYTES % (AUTO) 4 % (12-44); MEAN CORPUSCULAR HEMOGLOBIN 31 PG (25-34); MEAN CORPUSCULAR HGB CONC 32 G/DL (32-36); MEAN CORPUSCULAR VOLUME 96 FL (80-99); MEAN PLATELET VOLUME 8.6 FL (7.4-10.4); MONOCYTES # (AUTO) 0.3 X 10^3 (0.0-1.0); MONOCYTES % (AUTO) 5 % (0-12); NEUTROPHILS # (AUTO) 5.1 X 10^3 (1.8-7.8); NEUTROPHILS % (AUTO) 90 % (42-75); PLATELET COUNT 286 10^3/uL (130-400); RED CELL DISTRIBUTION WIDTH 13.2 % (10.0-14.5); WHITE BLOOD COUNT 5.7 10^3/uL (4.3-11.0)
[2018-12-31 06:39] LABS: BUN/CREATININE RATIO 18; CALCIUM 8.9 MG/DL (8.5-10.1); CARBON DIOXIDE 31 MMOL/L (21-32); CHLORIDE 94 MMOL/L (98-107); CREATININE SERUM 0.61 MG/DL (0.60-1.30); GFR ESTIMATED > 60; GLUCOSE 136 MG/DL (70-105); PHOSPHORUS 3.9 MG/DL (2.3-4.7); POTASSIUM 4.4 MMOL/L (3.6-5.0); SODIUM 133 MMOL/L (135-145)
[2018-12-31] MEDS: HEParin 1000 UNIT/ML BOLUS (FULL THERAPY) IV PRN (07:15)
--- NOTE | 2018-12-31 07:54 | Pulmonary Progress Note ---
Subjective Time Seen by a Provider: 07:11 Subjective/Events-last exam persistent SOB. Sepsis Event Evaluation Height, Weight, BMI Height: 5'8.00" Weight: 137lbs. 11.2oz. 62.843166aq; 20.9 BMI Method:Stated Exam Exam Vital Signs Date Time Temp Pulse Resp B/P (MAP) Pulse Ox O2 Delivery O2 Flow Rate FiO2 12/31/18 03:18 91 Nasal Cannula 4.00 12/31/18 00:00 98.6 102 24 116/70 (85) 94 High Flow N/C 4.00 12/30/18 20:22 93 Nasal Cannula 4.00 12/30/18 20:13 Nasal Cannula 4.00 12/30/18 16:11 94 Nasal Cannula 4.00 12/30/18 15:51 98.0 98 21 132/81 (98) 98 Nasal Cannula 4.00 12/30/18 10:20 93 Nasal Cannula 4.00 12/30/18 10:20 102 93 12/30/18 08:23 Nasal Cannula 4.00 12/30/18 08:00 98.3 88 20 111/68 (82) 92 Nasal Cannula 4.00 I & O 12/31/18 07:00 Intake Total 2050 ml Output Total 3985 ml Balance -1935 ml Height & Weight Height: 5'8.00" Weight: 137lbs. 11.2oz. 62.239860yf; 20.9 BMI Method:Stated General Appearance: No Apparent Distress, WD/WN, Anxious HEENT: PERRL/EOMI, Normal ENT Inspection, Pharynx Normal Neck: Full Range of Motion, Normal Inspection, Non Tender Respiratory: Crackles, Decreased Breath Sounds (left > Right ) Cardiovascular: Regular Rate, Rhythm Capillary Refill: Less Than 3 Seconds Gastrointestinal: non tender, soft, no organomegaly Extremity: Normal Capillary Refill, Normal Inspection, No Pedal Edema Neurologic/Psychiatric: Alert, Oriented x3 Skin: Normal Color, Warm/Dry Lymphatic: No Adenopathy Results Lab Laboratory Tests 12/30/18 04:05 12/31/18 06:10 Assessment/Plan Assessment/Plan Metastatic Adenocarcinoma stage III -- at last staging Large left pleural effusion probably metastatic -Await pleural fluid for cytology -Chest tube left -- Chest tube out put over the last 24hours is 180cc. Ideally we would wait until chest tube drainage is <100cc/24 hours. I am not sure this is going to happen. This is most likely a malignant effusion. Cytology is still pending. Pt will probably need Pleurx cath. -Dr. Escobar consulted for possible Pleurx cath. 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
[2018-12-31 08:00] VITALS: BP 146/90
[2018-12-31] MEDS: ASPIRIN E.C. 81 MG (ECOTRIN) TAB PO SCH (08:10)
[2018-12-31] MEDS: SENNA W/DOCUSATE (SENOKOT S) TABLET PO SCH ×2 (08:10→20:10)
[2018-12-31] MEDS: LACTULOSE SYRUP 10GM/15ML (ENULOSE) 30ML UDC PO SCH ×2 (08:10→20:10)
--- NOTE | 2018-12-31 08:21 | Diagnostic Imaging Report ---
INDICATION: Dyspnea. Upright portable AP view of the chest is obtained. Comparison is made study of one day earlier. FINDINGS: Left thoracostomy tube remains in place without evidence of pneumothorax. There is near complete opacification of lower half of the left hemithorax similar to previous study. There is also mild increase in right basilar atelectasis. No pneumothorax is seen. Right anterior chest wall port and catheter have a similar appearance. IMPRESSION: Unchanged opacification lower half left hemithorax without evidence of pneumothorax. There has been mild increase in right basilar atelectasis. Dictated by: Dictated on workstation # [id number]
--- NOTE | 2018-12-31 08:43 | Progress Note ---
Subjective Date Seen by a Provider: Dec 31, 2018 Time Seen by a Provider: 08:39 Subjective/Events-last exam chest tube clamped. minimal shortness of breath. No new complaints. Denies n/v fever sweats chills shortness of breath or chest pain. Objective Exam Vital Signs Date Time Temp Pulse Resp B/P (MAP) Pulse Ox O2 Delivery O2 Flow Rate FiO2 12/31/18 08:23 95 Nasal Cannula 4.00 12/31/18 08:15 Nasal Cannula 4.00 12/31/18 03:18 91 Nasal Cannula 4.00 12/31/18 00:00 98.6 102 24 116/70 (85) 94 High Flow N/C 4.00 12/30/18 20:22 93 Nasal Cannula 4.00 12/30/18 20:13 Nasal Cannula 4.00 12/30/18 16:11 94 Nasal Cannula 4.00 12/30/18 15:51 98.0 98 21 132/81 (98) 98 Nasal Cannula 4.00 12/30/18 10:20 93 Nasal Cannula 4.00 12/30/18 10:20 102 93 I & O 12/31/18 07:00 Intake Total 2050 ml Output Total 3985 ml Balance -1935 ml Capillary Refill : Less Than 3 Seconds General Appearance: No Apparent Distress, WD/WN HEENT: PERRL/EOMI, Normal ENT Inspection, Pharynx Normal Neck: Full Range of Motion, Normal Inspection, Non Tender Respiratory: Crackles, Decreased Breath Sounds (left > Right ) Cardiovascular: Regular Rate, Rhythm Gastrointestinal: non tender, soft, no organomegaly Extremity: Normal Capillary Refill, Normal Inspection, No Pedal Edema Neurologic/Psychiatric: Alert, Oriented x3 Skin: Normal Color, Warm/Dry Lymphatic: No Adenopathy Results Lab Laboratory Tests 12/31/18 06:10: White Blood Count 5.7, Red Blood Count 3.65L, Hemoglobin 11.3L, Hematocrit 35L, Mean Corpuscular Volume 96, Mean Corpuscular Hemoglobin 31, Mean Corpuscular Hemoglobin Concent 32, Red Cell Distribution Width 13.2, Platelet Count 286, Mean Platelet Volume 8.6, Neutrophils (%) (Auto) 90H, Lymphocytes (%) (Auto) 4L , Monocytes (%) (Auto) 5, Eosinophils (%) (Auto) 0, Basophils (%) (Auto) 0, Neutrophils # (Auto) 5.1, Lymphocytes # (Auto) 0.3L, Monocytes # (Auto) 0.3, Eosinophils # (Auto) 0.0, Basophils # (Auto) 0.0, Activated Partial Thromboplast Time 67H, Sodium Level 133L, Potassium Level 4.4, Chloride Level 94L, Carbon Dioxide Level 31, Anion Gap 8, Blood Urea Nitrogen 11, Creatinine 0.61, Estimat Glomerular Filtration Rate > 60, BUN/Creatinine Ratio 18, Glucose Level 136H, Calcium Level 8.9, Phosphorus Level 3.9, Magnesium Level 2.0 Microbiology 12/25/18 Blood Culture - Final, Complete No growth 12/25/18 Influenza Types A,B Antigen (KYLE) - Final, Complete Assessment/Plan Assessment/Plan Assessment/Plan left lung adenocarcinoma left pleural effusion thrombus at tip of port catheter patient has left chest tube in place at this time. we did discuss pleur-x catheter I discussed with Dr. Huber and patient will likely need pleur-x catheter. will see if re-occurence of left pleural effusion with chest tube clamped. patient on heparin drip for thrombus, if need to place pleur-x catheter would like this to be off for procedure. awaiting cytology of fluid will follow and plan likely for pleurx catheter in near future possibly Friday all questions answered. Keep chest tube clamped unless significant shortness of breath Clinical Quality Measures DVT/VTE Risk/Contraindication: Risk Factor Score Per Nursin RFS Level Per Nursing on Admit: 4+=Very High KRISTINE SAHRP DO Dec 31, 2018 08:43
--- NOTE | 2018-12-31 10:37 | Progress Note-Hospitalist ---
Subjective HPI/CC On Admission Date Seen by Provider: Dec 31, 2018 Time Seen by Provider: 09:30 Subjective/Events-last exam Patient doing well Pleuritic's catheter on Friday Chest tube is clamped Steroids started and now breathing better Overall improved Review of Systems General: Fatigue Pulmonary: Dyspnea Objective Exam Vital Signs Vital Signs Date Time Temp Pulse Resp B/P (MAP) Pulse Ox O2 Delivery O2 Flow Rate FiO2 12/31/18 08:23 95 Nasal Cannula 4.00 12/31/18 08:00 98.6 106 22 146/90 (108) 12/25/18 13:00 50 Capillary Refill : Less Than 3 Seconds General Appearance: No Apparent Distress, WD/WN HEENT: PERRL/EOMI, Normal ENT Inspection, Pharynx Normal Neck: Full Range of Motion, Normal Inspection, Non Tender Respiratory: Crackles, Decreased Breath Sounds (left > Right ) Cardiovascular: Regular Rate, Rhythm Extremity: Normal Capillary Refill, Normal Inspection, No Pedal Edema Neurologic/Psychiatric: Alert, Oriented x3 Skin: Normal Color, Warm/Dry Lymphatic: No Adenopathy Results/Procedures Lab Laboratory Tests 12/31/18 06:10 Patient resulted labs reviewed. Assessment/Plan Assessment and Plan Assess & Plan/Chief Complaint Assessment: Left pleural effusion requiring chest tube Lung cancer O2 dependency COPD Constipation Plan: O2 Nebs Effusion management BM regimen as scheduled at home Diagnosis/Problems Diagnosis/Problems (1) Pleural effusion due to another disorder Status: Acute (2) Respiratory failure with hypoxia and hypercapnia Status: Acute Qualifiers: Chronicity: acute on chronic Qualified Codes: J96.21 - Acute and chronic respiratory failure with hypoxia; J96.22 - Acute and chronic respiratory failure with hypercapnia (3) Lung cancer Qualifiers: Laterality: left Lung location: unspecified part of lung Qualified Codes : C34.92 - Malignant neoplasm of unspecified part of left bronchus or lung (4) Abnormal CT scan of lung Clinical Quality Measures DVT/VTE Risk/Contraindication: Risk Factor Score Per Nursin RFS Level Per Nursing on Admit: 4+=Very High VEL VILA DO Dec 31, 2018 10:37
[2018-12-31 16:00] VITALS: BP 131/79
--- NOTE | 2018-12-31 18:19 | Progress Note-Standard ---
Standard Progress Note Progress Notes/Assess & Plan Date Seen by a Provider: Dec 31, 2018 Time Seen by a Provider: 18:14 Progress/Assessment & Plan 63-year-old male with stage III C adenocarcinoma of the left lower lobe with mediastinal, subcarinal and right paratracheal lymphadenopathy, who is undergoing combined chemoradiation with weekly carboplatinum and paclitaxel regimen as well as daily radiation therapy since last 4 weeks. Patient admitted to the hospital with the worsening shortness of breath of a weeks duration and found to have significant left pleural effusion and whiteout of left lung. Status post chest tube placement with significant drainage. His breathing is better and stable. He continues to have a fair amount of drainage through the chest tube intermittently mostly while lying down. Plan is to replace the chest tube with the Pleurx catheter on Friday. CT angiogram also showed thrombus at the tip of his catheter without evidence of PE. He is on heparin protocol. No evidence of bleeding. Cytology report from the pleural fluid showed malignant cells consistent with adenocarcinoma. This makes it metastatic adenocarcinoma of the lung. Patient would benefit from next Gen sequencing of the cancer cells from the pleural fluid to guide therapy. Once the Pleurx catheter is placed, I would recommend starting him on oral anticoagulation and discontinuing the heparin. Dr. Barnes covering this weekend. MARIELA TARANGO Dec 31, 2018 18:19
[2018-12-31 23:59] VITALS: BP 109/60
[2019-01-01] MEDS: methylPREDNISolone 40 MG/ML (Solu-MEDROL) VIAL IV SCH ×4 (00:04→19:01)
[2019-01-01] MEDS: morphine INJ 4 MG/ML 1 ML (VIAL/SYRINGE) IVP PRN ×4 (01:11→19:01)
[2019-01-01] MEDS: RT-ALBUTEROL/IPRATROPIUM 3 ML (DUONEB) VIAL INH SCH ×4 (03:11→21:24)
[2019-01-01] MEDS: HYDROcodone/APAP 5 MG/325 MG (LORTAB) TAB PO PRN ×4 (04:05→22:38)
[2019-01-01] MEDS: HEParin DRIP 25000 UNIT/500ML (FULL THERAPY) IV SCH ×2 (04:25→18:02)
[2019-01-01] MEDS: CEFEPIME 2,000 MG/SWFI 20 ML IV PUSH IV SCH ×2 (06:02)
[2019-01-01] MEDS: CATHETER FLUSH 10 ML SYR IV SCH ×3 (06:02→21:19)
[2019-01-01 06:22] LABS: BASOPHILS % (AUTO) 0 % (0-10); EOSINOPHILS % (AUTO) 0 % (0-10); HEMATOCRIT 33 % (40-54); HEMOGLOBIN 10.9 G/DL (13.3-17.7); LYMPHOCYTES # (AUTO) 0.3 X 10^3 (1.0-4.0); LYMPHOCYTES % (AUTO) 4 % (12-44); MEAN CORPUSCULAR HEMOGLOBIN 31 PG (25-34); MEAN CORPUSCULAR HGB CONC 33 G/DL (32-36); MEAN CORPUSCULAR VOLUME 95 FL (80-99); MEAN PLATELET VOLUME 9.2 FL (7.4-10.4); MONOCYTES # (AUTO) 0.5 X 10^3 (0.0-1.0); MONOCYTES % (AUTO) 7 % (0-12); NEUTROPHILS % (AUTO) 89 % (42-75); PLATELET COUNT 261 10^3/uL (130-400); RED CELL DISTRIBUTION WIDTH 13.4 % (10.0-14.5); WHITE BLOOD COUNT 6.8 10^3/uL (4.3-11.0)
[2019-01-01 06:39] LABS: BUN/CREATININE RATIO 16; CALCIUM 8.4 MG/DL (8.5-10.1); CARBON DIOXIDE 28 MMOL/L (21-32); CHLORIDE 95 MMOL/L (98-107); CREATININE SERUM 0.57 MG/DL (0.60-1.30); GFR ESTIMATED > 60; GLUCOSE 133 MG/DL (70-105); MAGNESIUM 1.9 MG/DL (1.8-2.4); PHOSPHORUS 4.2 MG/DL (2.3-4.7); POTASSIUM 4.5 MMOL/L (3.6-5.0); SODIUM 133 MMOL/L (135-145)
[2019-01-01] MEDS: ASPIRIN E.C. 81 MG (ECOTRIN) TAB PO SCH (07:55)
[2019-01-01] MEDS: LACTULOSE SYRUP 10GM/15ML (ENULOSE) 30ML UDC PO SCH ×2 (07:58→20:17)
[2019-01-01] MEDS: SENNA W/DOCUSATE (SENOKOT S) TABLET PO SCH ×2 (07:58→20:17)
[2019-01-01 08:00] VITALS: BP 138/78
--- NOTE | 2019-01-01 08:06 | Diagnostic Imaging Report ---
EXAMINATION: Single frontal view of the chest. INDICATION: Dyspnea. Followup of chest tube. COMPARISON: Multiple priors, most recent performed on 12/31/2018. FINDINGS: Right chest tube remains in place, unchanged in position. Accessed right Port-A-Cath is also unchanged in position. No significant change in airspace consolidation involving the left mid and lower lung. There is mild right basilar atelectasis. The cardiomediastinal silhouette is unchanged. No pneumothorax is identified. No acute osseous abnormality. IMPRESSION: No significant change in marked consolidation in the left mid and lower lung. Left chest tube remains in place. Unchanged mild right basilar atelectasis. Dictated by: Dictated on workstation # [id number]
--- NOTE | 2019-01-01 08:10 | Pulmonary Progress Note ---
Subjective Time Seen by a Provider: 08:13 Subjective/Events-last exam Pt still has SOB however stable. Sepsis Event Evaluation Height, Weight, BMI Height: 5'8.00" Weight: 137lbs. 11.2oz. 62.726235up; 20.9 BMI Method:Stated Exam Exam Vital Signs Date Time Temp Pulse Resp B/P (MAP) Pulse Ox O2 Delivery O2 Flow Rate FiO2 01/01/19 07:20 92 Nasal Cannula 4.00 01/01/19 03:11 91 Nasal Cannula 4.00 12/31/18 23:59 98.8 98 20 109/60 (76) 92 Nasal Cannula 4.00 12/31/18 20:35 92 Nasal Cannula 4.00 12/31/18 20:00 Nasal Cannula 4.00 12/31/18 16:00 99.2 110 22 131/79 (96) 96 Nasal Cannula 4.00 12/31/18 14:25 97 Nasal Cannula 4.00 12/31/18 08:23 95 Nasal Cannula 4.00 12/31/18 08:15 Nasal Cannula 4.00 I & O 01/01/19 07:00 Intake Total 2540 ml Output Total 4200 ml Balance -1660 ml Height & Weight Height: 5'8.00" Weight: 137lbs. 11.2oz. 62.698955xk; 20.9 BMI Method:Stated General Appearance: No Apparent Distress, WD/WN HEENT: PERRL/EOMI, Normal ENT Inspection, Pharynx Normal Neck: Full Range of Motion, Normal Inspection, Non Tender Respiratory: Crackles, Decreased Breath Sounds Cardiovascular: Regular Rate, Rhythm Capillary Refill: Less Than 3 Seconds Gastrointestinal: non tender, soft, no organomegaly Extremity: Normal Capillary Refill, Normal Inspection, No Pedal Edema Neurologic/Psychiatric: Alert, Oriented x3 Skin: Normal Color, Warm/Dry Lymphatic: No Adenopathy Results Lab Laboratory Tests 12/31/18 06:10 01/01/19 06:03 Assessment/Plan Assessment/Plan Metastatic Adenocarcinoma with malignant pleural effusion -pleural fluid cytology is positive -- Adenocarcinoma -Probable pleurx cath on friday Large left pleural effusion probably metastatic -Chest tube left -- tube is clamped currently -Dr. Escobar consulted for possible Pleurx cath. 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
--- NOTE | 2019-01-01 09:24 | Progress Note-Hospitalist ---
Subjective HPI/CC On Admission Date Seen by Provider: Jan 01, 2019 Time Seen by Provider: 09:45 Subjective/Events-last exam Patient doing well Left leg is swollen but he has been ambulatory but will obtain venous Doppler ultrasound to check for DVT Bowels are moving Pleurx catheter on Friday Chest tube doing well clamped. Review of Systems General: Fatigue Objective Exam Vital Signs Vital Signs Date Time Temp Pulse Resp B/P (MAP) Pulse Ox O2 Delivery O2 Flow Rate FiO2 01/01/19 07:20 92 Nasal Cannula 4.00 12/31/18 23:59 98.8 98 20 109/60 (76) Capillary Refill : Less Than 3 Seconds General Appearance: No Apparent Distress, WD/WN HEENT: PERRL/EOMI, Normal ENT Inspection, Pharynx Normal Neck: Full Range of Motion, Normal Inspection, Non Tender Respiratory: Crackles, Decreased Breath Sounds Cardiovascular: Regular Rate, Rhythm Extremity: Normal Capillary Refill, Normal Inspection, No Pedal Edema Neurologic/Psychiatric: Alert, Oriented x3 Skin: Normal Color, Warm/Dry Lymphatic: No Adenopathy Results/Procedures Lab Laboratory Tests 01/01/19 06:03 Patient resulted labs reviewed. Assessment/Plan Assessment and Plan Assess & Plan/Chief Complaint Assessment: Left pleural effusion requiring chest tube Lung cancer O2 dependency COPD Constipation Left lower extremity edema obtaining venous Doppler ultrasound to rule out DVT due to neoplastic process increase risk for DVT Plan: O2 Nebs Effusion management BM regimen as scheduled at home Obtain venous Doppler ultrasound Diagnosis/Problems Diagnosis/Problems (1) Pleural effusion due to another disorder Status: Acute (2) Respiratory failure with hypoxia and hypercapnia Status: Acute Qualifiers: Chronicity: acute on chronic Qualified Codes: J96.21 - Acute and chronic respiratory failure with hypoxia; J96.22 - Acute and chronic respiratory failure with hypercapnia (3) Lung cancer Qualifiers: Laterality: left Lung location: unspecified part of lung Qualified Codes : C34.92 - Malignant neoplasm of unspecified part of left bronchus or lung (4) Abnormal CT scan of lung Clinical Quality Measures DVT/VTE Risk/Contraindication: Risk Factor Score Per Nursin RFS Level Per Nursing on Admit: 4+=Very High VEL VILA DO Jan 01, 2019 09:24
--- NOTE | 2019-01-01 11:36 | Diagnostic Imaging Report ---
CLINICAL INDICATION: Patient with left leg swelling. COMPARISON: None. PROCEDURE: Real-time left lower extremity venous Doppler duplex evaluation was performed from the inguinal region through the popliteal fossa. The calf venous structures are also evaluated. FINDINGS: The deep venous system is well visualized and easily compressible. There is no evidence of deep venous thrombosis, valvular incompetence, or significant collateral circulation. There is soft tissue edema noted involving the left lower extremity. IMPRESSION: There is no ultrasound Doppler evidence of deep venous thrombosis in the left lower extremity. Dictated by: Dictated on workstation # [id number]
[2019-01-01 16:00] VITALS: BP 132/76
--- NOTE | 2019-01-01 18:10 | Progress Note ---
Subjective Date Seen by a Provider: Jan 01, 2019 Time Seen by a Provider: 07:35 Subjective/Events-last exam Patient with no new complaints. Breathing same as last couple days. Chest tube left chest. Chest x ray reviewed and no significant change. Tolerating diet. Denies n/v fever sweats chills shortness of breath or chest pain at this time. Objective Exam Vital Signs Date Time Temp Pulse Resp B/P (MAP) Pulse Ox O2 Delivery O2 Flow Rate FiO2 01/01/19 16:00 98.9 107 20 132/76 (94) 95 Nasal Cannula 4.00 01/01/19 08:00 99.6 109 20 138/78 (98) 94 Nasal Cannula 4.00 01/01/19 07:20 92 Nasal Cannula 4.00 01/01/19 03:11 91 Nasal Cannula 4.00 12/31/18 23:59 98.8 98 20 109/60 (76) 92 Nasal Cannula 4.00 12/31/18 20:35 92 Nasal Cannula 4.00 12/31/18 20:00 Nasal Cannula 4.00 I & O 01/01/19 07:00 Intake Total 2540 ml Output Total 4200 ml Balance -1660 ml Capillary Refill : Less Than 3 Seconds General Appearance: No Apparent Distress, WD/WN HEENT: PERRL/EOMI, Normal ENT Inspection, Pharynx Normal Neck: Full Range of Motion, Normal Inspection, Non Tender Respiratory: Crackles, Decreased Breath Sounds Cardiovascular: Regular Rate, Rhythm Gastrointestinal: non tender, soft, no organomegaly Extremity: Normal Capillary Refill, Normal Inspection, No Pedal Edema Neurologic/Psychiatric: Alert, Oriented x3 Skin: Normal Color, Warm/Dry Lymphatic: No Adenopathy Results Lab Laboratory Tests 12/31/18 19:01: Activated Partial Thromboplast Time 68H 01/01/19 06:03: White Blood Count 6.8, Red Blood Count 3.49L, Hemoglobin 10.9L, Hematocrit 33L, Mean Corpuscular Volume 95, Mean Corpuscular Hemoglobin 31, Mean Corpuscular Hemoglobin Concent 33, Red Cell Distribution Width 13.4, Platelet Count 261, Mean Platelet Volume 9.2, Neutrophils (%) (Auto) 89H, Lymphocytes (%) (Auto) 4L , Monocytes (%) (Auto) 7, Eosinophils (%) (Auto) 0, Basophils (%) (Auto) 0, Neutrophils # (Auto) 6.0, Lymphocytes # (Auto) 0.3L, Monocytes # (Auto) 0.5, Eosinophils # (Auto) 0.0, Basophils # (Auto) 0.0, Sodium Level 133L, Potassium Level 4.5, Chloride Level 95L, Carbon Dioxide Level 28, Anion Gap 10, Blood Urea Nitrogen 9, Creatinine 0.57L, Estimat Glomerular Filtration Rate > 60, BUN/ Creatinine Ratio 16, Glucose Level 133H, Calcium Level 8.4L, Phosphorus Level 4.2, Magnesium Level 1.9 01/01/19 07:15: Activated Partial Thromboplast Time 91H Microbiology 12/25/18 Blood Culture - Final, Complete No growth 12/25/18 Influenza Types A,B Antigen (KYLE) - Final, Complete Assessment/Plan Assessment/Plan Assessment/Plan left lung adenocarcinoma left pleural effusion thrombus at tip of port catheter malignant pleural effusion patient has left chest tube in place at this time. we did discuss pleur-x catheter malignant left pleural effusion with chest tube clamped, we discussed placement of PLeur-x catheter and will plan for friday. patient on heparin drip for thrombus, if need to place pleur-x catheter would like this to be off for procedure 6 hours. awaiting cytology of fluid will follow and plan likely for pleurx catheter Friday all questions answered. Keep chest tube clamped unless significant shortness of breath Clinical Quality Measures DVT/VTE Risk/Contraindication: Risk Factor Score Per Nursin RFS Level Per Nursing on Admit: 4+=Very High KRISTINE SHARP DO Jan 01, 2019 18:10
[2019-01-02] MEDS: methylPREDNISolone 40 MG/ML (Solu-MEDROL) VIAL IV SCH ×5 (00:07→23:27)
[2019-01-02] MEDS: morphine INJ 4 MG/ML 1 ML (VIAL/SYRINGE) IVP PRN ×4 (00:09→20:06)
[2019-01-02 00:25] VITALS: BP 132/80
[2019-01-02] MEDS: RT-ALBUTEROL/IPRATROPIUM 3 ML (DUONEB) VIAL INH SCH ×4 (03:07→19:31)
[2019-01-02 05:05] LABS: BASOPHILS % (AUTO) 0 % (0-10); EOSINOPHILS % (AUTO) 0 % (0-10); HEMATOCRIT 36 % (40-54); HEMOGLOBIN 11.8 G/DL (13.3-17.7); LYMPHOCYTES # (AUTO) 0.3 X 10^3 (1.0-4.0); LYMPHOCYTES % (AUTO) 3 % (12-44); MEAN CORPUSCULAR HGB CONC 33 G/DL (32-36); MEAN CORPUSCULAR VOLUME 96 FL (80-99); MEAN PLATELET VOLUME 8.7 FL (7.4-10.4); MONOCYTES # (AUTO) 0.4 X 10^3 (0.0-1.0); MONOCYTES % (AUTO) 4 % (0-12); NEUTROPHILS # (AUTO) 7.7 X 10^3 (1.8-7.8); NEUTROPHILS % (AUTO) 92 % (42-75); PLATELET COUNT 331 10^3/uL (130-400); RED CELL DISTRIBUTION WIDTH 14.1 % (10.0-14.5); WHITE BLOOD COUNT 8.4 10^3/uL (4.3-11.0)
[2019-01-02 05:06] LABS: MEAN CORPUSCULAR HEMOGLOBIN 31 PG (25-34)
[2019-01-02] MEDS: HYDROcodone/APAP 5 MG/325 MG (LORTAB) TAB PO PRN ×4 (05:15→23:27)
[2019-01-02] MEDS: CATHETER FLUSH 10 ML SYR IV SCH ×3 (05:16→20:06)
[2019-01-02 05:21] LABS: BUN/CREATININE RATIO 18; CALCIUM 9.1 MG/DL (8.5-10.1); CARBON DIOXIDE 31 MMOL/L (21-32); CHLORIDE 95 MMOL/L (98-107); CREATININE SERUM 0.67 MG/DL (0.60-1.30); GFR ESTIMATED > 60; GLUCOSE 135 MG/DL (70-105); MAGNESIUM 2.2 MG/DL (1.8-2.4); PHOSPHORUS 4.6 MG/DL (2.3-4.7); POTASSIUM 4.9 MMOL/L (3.6-5.0); SODIUM 135 MMOL/L (135-145)
--- NOTE | 2019-01-02 07:13 | Pulmonary Progress Note ---
Subjective Time Seen by a Provider: 07:12 Subjective/Events-last exam No complications noted. Sepsis Event Evaluation Height, Weight, BMI Height: 5'8.00" Weight: 137lbs. 11.2oz. 62.821727bs; 20.9 BMI Method:Stated Exam Exam Vital Signs Date Time Temp Pulse Resp B/P (MAP) Pulse Ox O2 Delivery O2 Flow Rate FiO2 01/02/19 03:07 91 Nasal Cannula 4.00 01/02/19 00:25 98.5 99 20 132/80 (97) 97 Nasal Cannula 4.00 01/01/19 21:25 91 Nasal Cannula 4.00 01/01/19 20:00 Nasal Cannula 4.00 01/01/19 16:00 98.9 107 20 132/76 (94) 95 Nasal Cannula 4.00 01/01/19 08:30 Nasal Cannula 4.00 01/01/19 08:00 99.6 109 20 138/78 (98) 94 Nasal Cannula 4.00 01/01/19 07:20 92 Nasal Cannula 4.00 I & O 01/02/19 07:00 Intake Total 2640 ml Output Total 4425 ml Balance -1785 ml Height & Weight Height: 5'8.00" Weight: 137lbs. 11.2oz. 62.138526jj; 20.9 BMI Method:Stated General Appearance: WD/WN, Mild Distress HEENT: PERRL/EOMI, Normal ENT Inspection, Pharynx Normal Neck: Full Range of Motion, Normal Inspection, Non Tender Respiratory: Crackles, Decreased Breath Sounds (left > Right ) Cardiovascular: Regular Rate, Rhythm Capillary Refill: Less Than 3 Seconds Gastrointestinal: non tender, soft Extremity: Normal Capillary Refill, Normal Inspection, No Pedal Edema Neurologic/Psychiatric: Alert, Oriented x3 Skin: Normal Color, Warm/Dry Lymphatic: No Adenopathy Results Lab Laboratory Tests 01/01/19 06:03 01/02/19 04:45 Assessment/Plan Assessment/Plan Metastatic Adenocarcinoma with malignant pleural effusion -pleural fluid cytology is positive -- Adenocarcinoma -Probable pleurx cath on friday Large left pleural effusion probably metastatic -Chest tube left -- tube is clamped currently -Dr. Escobar consulted for possible Pleurx cath. 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
[2019-01-02] MEDS: HEParin DRIP 25000 UNIT/500ML (FULL THERAPY) IV SCH ×2 (07:58→21:45)
[2019-01-02 08:00] VITALS: BP 136/80
[2019-01-02] MEDS: LACTULOSE SYRUP 10GM/15ML (ENULOSE) 30ML UDC PO SCH ×2 (08:41→20:05)
[2019-01-02] MEDS: SENNA W/DOCUSATE (SENOKOT S) TABLET PO SCH ×2 (08:41→20:05)
[2019-01-02] MEDS: ASPIRIN E.C. 81 MG (ECOTRIN) TAB PO SCH (08:41)
--- NOTE | 2019-01-02 10:57 | Diagnostic Imaging Report ---
INDICATION: Shortness of breath. Chest tube. Comparison is made to the prior study from the previous day. FINDINGS: Positioning of the patient's left-sided chest tube unchanged. There is no left-sided pneumothorax evident. There is some persistent consolidation within the effusion at the left lung base. There is a small degree of subcutaneous emphysema within the left lateral chest wall. Right lung demonstrates minimal atelectasis. Heart size and mediastinal contours are stable. The central pulmonary vascularity is unremarkable. Right-sided port appears unchanged in position. IMPRESSION: 1. Stable appearance of the chest. Left-sided chest tube is stable in position without pneumothorax. There is persistent left base consolidation and left pleural collection. There is some minimal right base atelectasis. The central pulmonary vascularity appears appropriate. Dictated by: Dictated on workstation # [id number]
--- NOTE | 2019-01-02 12:38 | Progress Note-Hospitalist ---
Subjective HPI/CC On Admission Date Seen by Provider: Jan 02, 2019 Time Seen by Provider: 11:30 Subjective/Events-last exam No concerns from the patient Family visiting him today Denies pain Left leg USG yesterday negative for DVT Review of Systems General: Fatigue Objective Exam Vital Signs Vital Signs Date Time Temp Pulse Resp B/P (MAP) Pulse Ox O2 Delivery O2 Flow Rate FiO2 01/02/19 08:22 93 Nasal Cannula 4.00 01/02/19 08:00 98.6 102 20 136/80 (98) Capillary Refill : Less Than 3 Seconds General Appearance: WD/WN, Mild Distress HEENT: PERRL/EOMI, Normal ENT Inspection, Pharynx Normal Neck: Full Range of Motion, Normal Inspection, Non Tender Respiratory: Crackles, Decreased Breath Sounds (left > Right ) Cardiovascular: Regular Rate, Rhythm Extremity: Normal Capillary Refill, Normal Inspection, No Pedal Edema Neurologic/Psychiatric: Alert, Oriented x3 Skin: Normal Color, Warm/Dry Lymphatic: No Adenopathy Results/Procedures Lab Laboratory Tests 01/02/19 04:45 Patient resulted labs reviewed. Assessment/Plan Assessment and Plan Assess & Plan/Chief Complaint Assessment: Left pleural effusion requiring chest tube Lung cancer O2 dependency COPD Constipation Left lower extremity edema negative for DVT on USG Plan: O2 Nebs Effusion management BM regimen as scheduled at home Diagnosis/Problems Diagnosis/Problems (1) Pleural effusion due to another disorder Status: Acute (2) Respiratory failure with hypoxia and hypercapnia Status: Acute Qualifiers: Chronicity: acute on chronic Qualified Codes: J96.21 - Acute and chronic respiratory failure with hypoxia; J96.22 - Acute and chronic respiratory failure with hypercapnia (3) Lung cancer Qualifiers: Laterality: left Lung location: unspecified part of lung Qualified Codes : C34.92 - Malignant neoplasm of unspecified part of left bronchus or lung (4) Abnormal CT scan of lung Clinical Quality Measures DVT/VTE Risk/Contraindication: Risk Factor Score Per Nursin RFS Level Per Nursing on Admit: 4+=Very High VEL VILA DO Jan 02, 2019 12:38
--- NOTE | 2019-01-02 15:57 | Progress Note ---
Subjective Date Seen by a Provider: Jan 02, 2019 Time Seen by a Provider: 08:35 Subjective/Events-last exam patient states is doing well. No new complaints. Patient's breathing without any significant change. Chest tube left chest which is clamped. On heparin drip for thrombus. Patient planning on Pleurx catheter Friday. Objective Exam Vital Signs Date Time Temp Pulse Resp B/P (MAP) Pulse Ox O2 Delivery O2 Flow Rate FiO2 01/02/19 15:26 96 Nasal Cannula 4.00 01/02/19 08:22 93 Nasal Cannula 4.00 01/02/19 08:00 98.6 102 20 136/80 (98) 94 Nasal Cannula 5.00 01/02/19 08:00 Nasal Cannula 4.00 01/02/19 03:07 91 Nasal Cannula 4.00 01/02/19 00:25 98.5 99 20 132/80 (97) 97 Nasal Cannula 4.00 01/01/19 21:25 91 Nasal Cannula 4.00 01/01/19 20:00 Nasal Cannula 4.00 01/01/19 16:00 98.9 107 20 132/76 (94) 95 Nasal Cannula 4.00 I & O 01/02/19 07:00 Intake Total 2640 ml Output Total 4425 ml Balance -1785 ml Capillary Refill : Less Than 3 Seconds General Appearance: WD/WN, Mild Distress HEENT: PERRL/EOMI, Normal ENT Inspection, Pharynx Normal Neck: Full Range of Motion, Normal Inspection, Non Tender Respiratory: Chest Non Tender, Crackles, Decreased Breath Sounds (left > Right ) Cardiovascular: Regular Rate, Rhythm Gastrointestinal: non tender, soft Extremity: Normal Capillary Refill, Normal Inspection, No Pedal Edema Neurologic/Psychiatric: Alert, Oriented x3 Skin: Normal Color, Warm/Dry Lymphatic: No Adenopathy Results Lab Laboratory Tests 01/02/19 04:45: White Blood Count 8.4, Red Blood Count 3.75L, Hemoglobin 11.8L, Hematocrit 36L, Mean Corpuscular Volume 96, Mean Corpuscular Hemoglobin 31, Mean Corpuscular Hemoglobin Concent 33, Red Cell Distribution Width 14.1, Platelet Count 331, Mean Platelet Volume 8.7, Neutrophils (%) (Auto) 92H, Lymphocytes (%) (Auto) 3L , Monocytes (%) (Auto) 4, Eosinophils (%) (Auto) 0, Basophils (%) (Auto) 0, Neutrophils # (Auto) 7.7, Lymphocytes # (Auto) 0.3L, Monocytes # (Auto) 0.4, Eosinophils # (Auto) 0.0, Basophils # (Auto) 0.0, Sodium Level 135, Potassium Level 4.9, Chloride Level 95L, Carbon Dioxide Level 31, Anion Gap 9, Blood Urea Nitrogen 12, Creatinine 0.67, Estimat Glomerular Filtration Rate > 60, BUN/ Creatinine Ratio 18, Glucose Level 135H, Calcium Level 9.1, Phosphorus Level 4.6 , Magnesium Level 2.2 01/02/19 07:50: Activated Partial Thromboplast Time 97H Microbiology 12/25/18 Blood Culture - Final, Complete No growth 12/25/18 Influenza Types A,B Antigen (KYLE) - Final, Complete Assessment/Plan Assessment/Plan Assessment/Plan left lung adenocarcinoma left pleural effusion thrombus at tip of port catheter malignant pleural effusion patient has left chest tube in place at this time. we did discuss pleur-x catheter malignant left pleural effusion with chest tube clamped, we discussed placement of PLeur-x catheter and will plan for friday. patient on heparin drip for thrombus, if need to place pleur-x catheter would like this to be off for procedure 6 hours. will follow and plan likely for pleurx catheter Friday all questions answered. Keep chest tube clamped unless significant shortness of breath Clinical Quality Measures DVT/VTE Risk/Contraindication: Risk Factor Score Per Nursin RFS Level Per Nursing on Admit: 4+=Very High KRISTINE SHARP DO Jan 02, 2019 15:57
[2019-01-02 15:58] VITALS: BP 131/78
[2019-01-02 16:37] VITALS: BP 136/80
[2019-01-02 23:42] VITALS: BP 129/76
[2019-01-03] MEDS: morphine INJ 4 MG/ML 1 ML (VIAL/SYRINGE) IVP PRN ×4 (03:03→20:20)
[2019-01-03 03:55] LABS: BASOPHILS % (AUTO) 0 % (0-10); EOSINOPHILS % (AUTO) 0 % (0-10); HEMATOCRIT 34 % (40-54); LYMPHOCYTES # (AUTO) 0.3 X 10^3 (1.0-4.0); LYMPHOCYTES % (AUTO) 3 % (12-44); MEAN CORPUSCULAR HEMOGLOBIN 32 PG (25-34); MEAN CORPUSCULAR HGB CONC 33 G/DL (32-36); MEAN CORPUSCULAR VOLUME 97 FL (80-99); MEAN PLATELET VOLUME 9.1 FL (7.4-10.4); MONOCYTES # (AUTO) 0.5 X 10^3 (0.0-1.0); MONOCYTES % (AUTO) 5 % (0-12); NEUTROPHILS # (AUTO) 9.4 X 10^3 (1.8-7.8); NEUTROPHILS % (AUTO) 91 % (42-75); PLATELET COUNT 290 10^3/uL (130-400); WHITE BLOOD COUNT 10.3 10^3/uL (4.3-11.0)
[2019-01-03 04:22] LABS: BUN/CREATININE RATIO 24; CALCIUM 8.5 MG/DL (8.5-10.1); CARBON DIOXIDE 29 MMOL/L (21-32); CHLORIDE 95 MMOL/L (98-107); CREATININE SERUM 0.58 MG/DL (0.60-1.30); GFR ESTIMATED > 60; GLUCOSE 136 MG/DL (70-105); MAGNESIUM 1.9 MG/DL (1.8-2.4); PHOSPHORUS 4.4 MG/DL (2.3-4.7); POTASSIUM 4.6 MMOL/L (3.6-5.0); SODIUM 135 MMOL/L (135-145)
[2019-01-03] MEDS: CATHETER FLUSH 10 ML SYR IV SCH ×3 (05:29→20:20)
[2019-01-03] MEDS: HYDROcodone/APAP 5 MG/325 MG (LORTAB) TAB PO PRN ×4 (05:29→23:59)
[2019-01-03] MEDS: methylPREDNISolone 40 MG/ML (Solu-MEDROL) VIAL IV SCH ×4 (05:29→23:59)
[2019-01-03 05:52] LABS: EOSINOPHILS % (MANUAL) 1 %; LYMPHOCYTES % (MANUAL) 3 %; MONOCYTES % (MANUAL) 4 %; NEUTROPHILS % (MANUAL) 92 %
[2019-01-03] MEDS: RT-ALBUTEROL/IPRATROPIUM 3 ML (DUONEB) VIAL INH SCH ×4 (07:16→19:10)
[2019-01-03 08:00] VITALS: BP 133/84
--- NOTE | 2019-01-03 08:30 | NUR ---
MS 2MG IV FOR PAIN IN BACK.
[2019-01-03] MEDS: LACTULOSE SYRUP 10GM/15ML (ENULOSE) 30ML UDC PO SCH ×2 (08:41→20:20)
[2019-01-03] MEDS: SENNA W/DOCUSATE (SENOKOT S) TABLET PO SCH ×2 (08:41→20:20)
[2019-01-03] MEDS: ASPIRIN E.C. 81 MG (ECOTRIN) TAB PO SCH (08:41)
--- NOTE | 2019-01-03 09:00 | NUR ---
ADD ON TO OR FAXED FOR OR TOMORROW.
--- NOTE | 2019-01-03 09:30 | NUR ---
NASAL MRSA SWAB DONE AND TO LAB.
--- NOTE | 2019-01-03 09:45 | NUR ---
CHEST TUBE DRESSING SATURATED WITH YELLOW DRAINAGE. CHANGED.
--- NOTE | 2019-01-03 10:36 | Diagnostic Imaging Report ---
INDICATION: Chest tube, dyspnea. TECHNIQUE: Single view chest 5:42 AM. CORRELATION STUDY: 01/02/2019 FINDINGS: Right IJ Eiyczf-s-Eogb catheter is again demonstrated and have a significant loop above the level of the chest. Positioning is unchanged. Left-sided thoracostomy tube is stable. Subcutaneous gas left chest. No appreciable pneumothorax. Consolidation with likely atelectasis and infiltrate of the left lung base stable. Right lung with minimal basilar atelectasis. IMPRESSION: 1. Left-sided chest tube remains in place. Combination of consolidation with effusion left lung base stable. Dictated by: Dictated on workstation # [id number]
--- NOTE | 2019-01-03 11:20 | NUR ---
LORTAB 2 PO FOR BACKPAIN.
[2019-01-03] MEDS: HEParin DRIP 25000 UNIT/500ML (FULL THERAPY) IV SCH (11:23)
--- NOTE | 2019-01-03 11:29 | Progress Note ---
Subjective Date Seen by a Provider: Jan 03, 2019 Time Seen by a Provider: 11:19 Subjective/Events-last exam Patient slightly more short of breath today. No other complaints. Denies n/v fever sweats chills or chest pain. Tolerating diet. Objective Exam Vital Signs Date Time Temp Pulse Resp B/P (MAP) Pulse Ox O2 Delivery O2 Flow Rate FiO2 01/03/19 10:59 95 Nasal Cannula 3.00 01/03/19 08:00 98.0 102 18 133/84 (100) 94 Nasal Cannula 3.00 01/03/19 07:16 93 Nasal Cannula 4.00 01/02/19 23:42 98.8 104 18 129/76 (93) 96 Nasal Cannula 4.00 01/02/19 20:00 Nasal Cannula 4.00 01/02/19 19:31 91 Nasal Cannula 3.00 01/02/19 16:37 109 96 36 01/02/19 15:58 98.1 99 18 131/78 (95) 94 Nasal Cannula 4.00 01/02/19 15:26 96 Nasal Cannula 4.00 I & O 01/03/19 07:00 Intake Total 4020 ml Output Total 3950 ml Balance 70 ml Capillary Refill : Less Than 3 Seconds General Appearance: No Apparent Distress, WD/WN HEENT: PERRL/EOMI, Normal ENT Inspection, Pharynx Normal Neck: Full Range of Motion, Normal Inspection, Non Tender Respiratory: Chest Non Tender, Crackles, Decreased Breath Sounds (left > Right ) Cardiovascular: Regular Rate, Rhythm Gastrointestinal: non tender, soft Extremity: Normal Capillary Refill, Normal Inspection, No Pedal Edema Neurologic/Psychiatric: Alert, Oriented x3 Skin: Normal Color, Warm/Dry Lymphatic: No Adenopathy Results Lab Laboratory Tests 01/03/19 03:35: White Blood Count 10.3, Red Blood Count 3.49L, Hemoglobin 11.0L, Hematocrit 34L , Mean Corpuscular Volume 97, Mean Corpuscular Hemoglobin 32, Mean Corpuscular Hemoglobin Concent 33, Red Cell Distribution Width 14.0, Platelet Count 290, Mean Platelet Volume 9.1, Neutrophils (%) (Auto) 91H, Lymphocytes (%) (Auto) 3L , Monocytes (%) (Auto) 5, Eosinophils (%) (Auto) 0, Basophils (%) (Auto) 0, Neutrophils # (Auto) 9.4H, Lymphocytes # (Auto) 0.3L, Monocytes # (Auto) 0.5, Eosinophils # (Auto) 0.0, Basophils # (Auto) 0.0, Neutrophils % (Manual) 92, Lymphocytes % (Manual) 3, Monocytes % (Manual) 4, Eosinophils % (Manual) 1, Sodium Level 135, Potassium Level 4.6, Chloride Level 95L, Carbon Dioxide Level 29, Anion Gap 11, Blood Urea Nitrogen 14, Creatinine 0.58L, Estimat Glomerular Filtration Rate > 60, BUN/Creatinine Ratio 24, Glucose Level 136H, Calcium Level 8.5, Phosphorus Level 4.4, Magnesium Level 1.9 01/03/19 08:05: Activated Partial Thromboplast Time 85H Microbiology 12/25/18 Blood Culture - Final, Complete No growth 12/25/18 Influenza Types A,B Antigen (KYEL) - Final, Complete Assessment/Plan Assessment/Plan Assessment/Plan left lung adenocarcinoma left pleural effusion thrombus at tip of port catheter malignant pleural effusion patient has left chest tube in place at this time. malignant left pleural effusion with chest tube clamped, we discussed placement of PLeur-x catheter and will plan for friday, he understands risks and benefits. patient on heparin drip for thrombus, to be off for procedure 6 hours. will follow and plan likely for pleurx catheter Friday all questions answered. Keep chest tube clamped notify if any issues Clinical Quality Measures DVT/VTE Risk/Contraindication: Risk Factor Score Per Nursin RFS Level Per Nursing on Admit: 4+=Very High KRISTINE SHARP DO Jan 03, 2019 11:29
--- NOTE | 2019-01-03 13:18 | Progress Note-Hospitalist ---
Subjective HPI/CC On Admission Date Seen by Provider: Jan 03, 2019 Time Seen by Provider: 12:15 Subjective/Events-last exam Patient doing well but short of breath since the chest tube was clamped in preparation for catheter tomorrow Moving around as much as he can Denies any other significant issues Review of Systems Pulmonary: Dyspnea Objective Exam Vital Signs Vital Signs Date Time Temp Pulse Resp B/P (MAP) Pulse Ox O2 Delivery O2 Flow Rate FiO2 01/03/19 10:59 95 Nasal Cannula 3.00 01/03/19 08:00 98.0 102 18 133/84 (100) 01/02/19 16:37 36 Capillary Refill : Less Than 3 Seconds General Appearance: No Apparent Distress, WD/WN HEENT: PERRL/EOMI, Normal ENT Inspection, Pharynx Normal Neck: Full Range of Motion, Normal Inspection, Non Tender Respiratory: Chest Non Tender, Crackles, Decreased Breath Sounds (left > Right ), Wheezing Cardiovascular: Regular Rate, Rhythm Extremity: Normal Capillary Refill, Normal Inspection, No Pedal Edema Neurologic/Psychiatric: Alert, Oriented x3 Skin: Normal Color, Warm/Dry Lymphatic: No Adenopathy Results/Procedures Lab Laboratory Tests 01/03/19 03:35 Patient resulted labs reviewed. Assessment/Plan Assessment and Plan Assess & Plan/Chief Complaint Assessment: Left pleural effusion requiring chest tube Lung cancer O2 dependency COPD Constipation Left lower extremity edema negative for DVT on USG Plan: O2 Nebs Effusion management BM regimen as scheduled at home Catheter tomorrow Diagnosis/Problems Diagnosis/Problems (1) Pleural effusion due to another disorder Status: Acute (2) Respiratory failure with hypoxia and hypercapnia Status: Acute Qualifiers: Chronicity: acute on chronic Qualified Codes: J96.21 - Acute and chronic respiratory failure with hypoxia; J96.22 - Acute and chronic respiratory failure with hypercapnia (3) Lung cancer Qualifiers: Laterality: left Lung location: unspecified part of lung Qualified Codes : C34.92 - Malignant neoplasm of unspecified part of left bronchus or lung (4) Abnormal CT scan of lung Status: Chronic Clinical Quality Measures DVT/VTE Risk/Contraindication: Risk Factor Score Per Nursin RFS Level Per Nursing on Admit: 4+=Very High VEL VILA DO Jan 03, 2019 13:18
--- NOTE | 2019-01-03 14:00 | NUR ---
MS 2MG IV FOR BACKPAIN.
[2019-01-03 15:46] VITALS: BP 90/54
[2019-01-03 23:37] VITALS: BP 120/76
[2019-01-04] MEDS: HEParin DRIP 25000 UNIT/500ML (FULL THERAPY) IV SCH (01:01)
[2019-01-04] MEDS: morphine INJ 4 MG/ML 1 ML (VIAL/SYRINGE) IVP PRN ×2 (02:43→08:39)
[2019-01-04 04:53] LABS: BASOPHILS % (AUTO) 0 % (0-10); EOSINOPHILS % (AUTO) 0 % (0-10); HEMATOCRIT 35 % (40-54); HEMOGLOBIN 11.3 G/DL (13.3-17.7); LYMPHOCYTES # (AUTO) 0.3 X 10^3 (1.0-4.0); LYMPHOCYTES % (AUTO) 3 % (12-44); MEAN CORPUSCULAR HEMOGLOBIN 32 PG (25-34); MEAN CORPUSCULAR HGB CONC 32 G/DL (32-36); MEAN CORPUSCULAR VOLUME 98 FL (80-99); MEAN PLATELET VOLUME 8.8 FL (7.4-10.4); MONOCYTES # (AUTO) 0.5 X 10^3 (0.0-1.0); MONOCYTES % (AUTO) 5 % (0-12); NEUTROPHILS # (AUTO) 9.2 X 10^3 (1.8-7.8); NEUTROPHILS % (AUTO) 92 % (42-75); PLATELET COUNT 313 10^3/uL (130-400); RED CELL DISTRIBUTION WIDTH 14.6 % (10.0-14.5)
[2019-01-04 05:14] LABS: BUN/CREATININE RATIO 24; CALCIUM 8.7 MG/DL (8.5-10.1); CARBON DIOXIDE 28 MMOL/L (21-32); CHLORIDE 95 MMOL/L (98-107); CREATININE SERUM 0.63 MG/DL (0.60-1.30); GFR ESTIMATED > 60; GLUCOSE 137 MG/DL (70-105); PHOSPHORUS 4.7 MG/DL (2.3-4.7); POTASSIUM 4.5 MMOL/L (3.6-5.0); SODIUM 134 MMOL/L (135-145)
[2019-01-04] MEDS: HYDROcodone/APAP 5 MG/325 MG (LORTAB) TAB PO PRN ×2 (06:02→17:37)
[2019-01-04] MEDS: CATHETER FLUSH 10 ML SYR IV SCH ×3 (06:03→20:20)
[2019-01-04] MEDS: methylPREDNISolone 40 MG/ML (Solu-MEDROL) VIAL IV SCH ×3 (06:03→17:35)
[2019-01-04] MEDS: ASPIRIN E.C. 81 MG (ECOTRIN) TAB PO SCH (07:20)
[2019-01-04] MEDS: LACTULOSE SYRUP 10GM/15ML (ENULOSE) 30ML UDC PO SCH ×2 (07:21→21:06)
[2019-01-04] MEDS: SENNA W/DOCUSATE (SENOKOT S) TABLET PO SCH ×2 (07:21→21:07)
--- NOTE | 2019-01-04 07:44 | Pulmonary Progress Note ---
Subjective Time Seen by a Provider: 07:43 Subjective/Events-last exam Probable Pleurex cath today. Sepsis Event Evaluation Height, Weight, BMI Height: 5'8.00" Weight: 137lbs. 11.2oz. 62.211934ro; 20.9 BMI Method:Stated Exam Exam Vital Signs Date Time Temp Pulse Resp B/P (MAP) Pulse Ox O2 Delivery O2 Flow Rate FiO2 01/04/19 07:24 Nasal Cannula 3.00 01/03/19 23:37 98.2 107 16 120/76 (91) 96 Nasal Cannula 3.00 01/03/19 20:00 Nasal Cannula 3.00 01/03/19 19:10 90 Nasal Cannula 3.00 01/03/19 15:46 97.3 110 16 90/54 (66) Nasal Cannula 4.00 01/03/19 15:03 92 Nasal Cannula 3.00 01/03/19 10:59 95 Nasal Cannula 3.00 01/03/19 08:00 98.0 102 18 133/84 (100) 94 Nasal Cannula 3.00 01/03/19 08:00 Nasal Cannula 3.00 I & O 01/04/19 07:00 Intake Total 3200 ml Output Total 4900 ml Balance -1700 ml Height & Weight Height: 5'8.00" Weight: 137lbs. 11.2oz. 62.261101ed; 20.9 BMI Method:Stated General Appearance: No Apparent Distress, WD/WN HEENT: PERRL/EOMI, Normal ENT Inspection, Pharynx Normal Neck: Full Range of Motion, Normal Inspection, Non Tender Respiratory: Chest Non Tender, Crackles, Decreased Breath Sounds (left > Right ), Wheezing Cardiovascular: Regular Rate, Rhythm Capillary Refill: Less Than 3 Seconds Gastrointestinal: non tender, soft Extremity: Normal Capillary Refill, Normal Inspection, No Pedal Edema Neurologic/Psychiatric: Alert, Oriented x3 Skin: Normal Color, Warm/Dry Lymphatic: No Adenopathy Results Lab Laboratory Tests 01/03/19 03:35 01/04/19 04:35 Assessment/Plan Assessment/Plan Metastatic Adenocarcinoma with malignant pleural effusion -pleural fluid cytology is positive -- Adenocarcinoma -Probable pleurx cath today Large left pleural effusion probably metastatic -Chest tube left -- tube is clamped currently -Dr. Escobar consulted for possible Pleurx cath. 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
[2019-01-04] MEDS: RT-ALBUTEROL/IPRATROPIUM 3 ML (DUONEB) VIAL INH SCH ×4 (07:53→19:55)
[2019-01-04 08:00] VITALS: BP 142/86
--- NOTE | 2019-01-04 08:28 | Diagnostic Imaging Report ---
INDICATION: Chest tube. TECHNIQUE: Single view chest 5:42 AM. CORRELATION STUDY: 01/03/2019 FINDINGS: Left-sided chest tube remains in place without appreciable pneumothorax. Combination of effusion along with consolidation in the left lower lung field stable. Right lung mildly hyperinflated. May be trace right pleural effusion. Heart size enlarged. Vasculature stable. Right IJ Lhfrum-[id number]-[id number] catheter with looping of the catheter above the clavicle unchanged. IMPRESSION: 1. Combination of effusion along with consolidation left lung base along with a left-sided chest tube overall stable. Dictated by: Dictated on workstation # [id number]
--- NOTE | 2019-01-04 12:23 | Progress Note (SOAP) ---
Subjective Subjective/Events-last exam Afebrile, denies concerns. Planning for pleurex drain today. Review of Systems Date Seen by Provider: Jan 04, 2019 Time Seen by Provider: 10:50 Objective Exam Last Set of Vital Signs Vital Signs Date Time Temp Pulse Resp B/P (MAP) Pulse Ox O2 Delivery O2 Flow Rate FiO2 01/04/19 08:00 98.5 93 20 142/86 (104) 97 Nasal Cannula 4.00 01/02/19 16:37 36 Capillary Refill : Less Than 3 SecondsLess Than 3 Seconds I&O Intake and Output 01/04/19 00:00 Intake Total 3300 ml Output Total 5100 ml Balance -1800 ml Intake Oral 2800 ml IV Total 500 ml Output Urine Total 5100 ml General: Alert, No Acute Distress Lungs: Other (absent air movement left base) Heart: Regular Rate Neuro: Normal Speech Psych/Mental Status: Mental Status NL Results/Procedures Lab Laboratory Tests 01/04/19 04:35: White Blood Count 10.0, Red Blood Count 3.58L, Hemoglobin 11.3L, Hematocrit 35L , Mean Corpuscular Volume 98, Mean Corpuscular Hemoglobin 32, Mean Corpuscular Hemoglobin Concent 32, Red Cell Distribution Width 14.6H, Platelet Count 313, Mean Platelet Volume 8.8, Neutrophils (%) (Auto) 92H, Lymphocytes (%) (Auto) 3L , Monocytes (%) (Auto) 5, Eosinophils (%) (Auto) 0, Basophils (%) (Auto) 0, Neutrophils # (Auto) 9.2H, Lymphocytes # (Auto) 0.3L, Monocytes # (Auto) 0.5, Eosinophils # (Auto) 0.0, Basophils # (Auto) 0.0, Activated Partial Thromboplast Time 109H, Sodium Level 134L, Potassium Level 4.5, Chloride Level 95L, Carbon Dioxide Level 28, Anion Gap 11, Blood Urea Nitrogen 15, Creatinine 0.63, Estimat Glomerular Filtration Rate > 60, BUN/Creatinine Ratio 24, Glucose Level 137H, Calcium Level 8.7, Phosphorus Level 4.7, Magnesium Level 2.0 Microbiology 12/25/18 Blood Culture - Final, Complete No growth 12/25/18 Influenza Types A,B Antigen (KYLE) - Final, Complete Radiology NAME: OZ VALLE [facility] REC#: [id number] PT STATUS: ADM IN : 1955 PHYSICIAN: LUIS ALBERTO CARBAJAL MD ADMIT DATE: 12/25/18/ICU Signed Date of Exam: 12/25/18 CT ANGIO CHEST W PROCEDURE: CT angiography of the chest with contrast. TECHNIQUE: Multiple contiguous axial images were obtained through the chest after uneventful bolus administration of intravenous contrast. 2D reconstructed CTA MIP acquisitions were also performed. Auto Exposure Controls were utilized during the CT exam to meet ALARA standards for radiation dose reduction. INDICATION: Respiratory distress. FINDINGS: The PET/CT exam performed on 10/13/2018 noted a hypermetabolic mass involving the left lower lobe consistent with a primary lung neoplasm. There are also hypermetabolic nodes in the mediastinum and left hilum. The chest exam performed on 11/19/2018 revealed that there was greater involvement of the left lung base by pneumonia/atelectasis and fluid than noted on the PET/CT exam. On the production planner from this study, there is now complete opacification of the left thorax. The axial images do show that most of the left lung is collapsed and that there is a large left pleural effusion present. The large volume of fluid in the left thorax has resulted in slight shift to the heart and mediastinum to the right. There is also now 2.7 x 4.1 CM subcarinal mass. 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 The heart itself is stable in size. The aorta is not abnormally dilated and there is no sign of dissection. There is no defect within the pulmonary arteries to indicate pulmonary embolus. There are emphysematous changes involving the right lung but the right lung is generally clear. As noted on the prior plain film chest exam of 11/19/2018, there is a Port-A-Cath in place on the right. The tip of the catheter is in the distal internal jugular vein. There is a 8.0 x 14.3 CM area of low density adjacent to the tip of the catheter. This does suggest thrombus formation. The thyroid gland is generally unremarkable. The sections through the upper abdomen fail to show any sign of an acute abnormality. There is diminished density in the left lobe of liver, but this is felt to be artifactual in nature. The bone windows show no evidence for fracture or for destructive lesion. There are several healed rib fractures on the left. IMPRESSION: 1. The appearance of the chest has worsened since the prior study as there is now opacification of the left hemithorax. Most of the left lung has collapsed about the left hilum and there is a large left pleural effusion present. The heart and mediastinal structures are also slightly shifted to the right. 2. There is no acute abnormality identified otherwise. In particular, there is no sign of a pulmonary embolus or dissection. 3. The tip of the central venous catheter on the right is in the distal internal jugular vein. There is thrombus formation about the tip of the catheter. 4. These results were discussed with Dr. Luis Alberto Carbajal. Dictated by: Dictated on workstation # [id number] Dict: 12/25/18 1038 Trans: 12/25/181657 Interpreted by: DEMOND HAILE MD Electronically signed by: DEMOND HAILE MD 12/25/181657 NAME: OZ VALLE [facility] REC#: [id number] PT STATUS: ADM IN : 1955 PHYSICIAN: LUIS ALBERTO CARBAJAL MD ADMIT DATE: 12/25/18/ICU Signed Date of Exam: 12/25/18 CHEST 1 VIEW, AP/PA ONLY EXAMINATION: Portable erect AP chest obtained at 1132h. INDICATION: Respiratory distress The CT chest exam performed earlier today noted a large left pleural effusion. In the interval since the prior exam a left-sided chest tube has been inserted. The tip of the tube overlies the left apex. The left upper lung does seem better aerated but there is still near-complete opacification of the left midlung and left lung base. The right lung is still generally clear. The heart is stable in size. The mediastinum is not widened. The osseous structures are intact. The central venous catheter on the right seen previously on 11/19/2018 has been retracted and is now coiled on itself. Clinical followup regarding the function of the catheter is recommended. IMPRESSION: 1. The appearance of the chest has improved following the insertion of the left-sided chest tube as the left lung does seem better aerated. There is still considerable residual atelectasis/infiltrate and fluid involving the left lung base however 2. The Port-A-Cath on the right is coiled on itself and the function of the catheter may be compromised. Clinical followup is recommended. These results were discussed with Dr. Carbajal. Dictated by: Dictated on workstation # [id number] Dict: 12/25/18 1138 Trans: 12/25/18 1654 Interpreted by: DEMOND HAILE MD Electronically signed by: DEMOND HAILE MD 12/25/18 4824 Assessment/Plan Assessment/Plan (1) Malignant pleural effusion Status: Acute Assessment & Plan: Severe, requiring chest tube. Plan for pleurex catheter today. (2) Thrombosis due to central venous access device Status: Acute Assessment & Plan: On heparin, per Oncology convert to oral after pleurex. Qualifiers: Qualified Codes: T82.868A - Thrombosis due to vascular prosthetic devices, implants and grafts, initial encounter (3) Lung cancer Status: Chronic Assessment & Plan: Oncology consulted, appreciate recommendations. Qualifiers: Qualified Codes: C34.92 - Malignant neoplasm of unspecified part of left bronchus or lung (4) COPD exacerbation Status: Acute Assessment & Plan: Pulmonology consulted, appreciate recommendations. On solumedrol IV 40 mg q6 currently. (5) DVT prophylaxis Status: Acute Assessment & Plan: On treatment for catheter tip thrombus Clinical Quality Measures DVT/VTE Risk/Contraindication: Risk Factor Score Per Nursin RFS Level Per Nursing on Admit: 4+=Very High MARCELINO BRAMBILA MD Jan 04, 2019 12:23
--- NOTE | 2019-01-04 12:50 | NUR ---
TO OR PER BED.
[2019-01-04] MEDS ORDERED: fentaNYL INJECTION 100 MCG/2 ML AMP ONE (13:10)
[2019-01-04] MEDS ORDERED: MIDAZOLAM 2 MG/2 ML (VERSED) VIAL ONE (13:10)
[2019-01-04] MEDS ORDERED: proPOfol 200 MG/20 ML (DIPRIVAN) VIAL IV ONE (13:10)
[2019-01-04] MEDS ORDERED: LACTATED RINGERS 1,000 ML IV SCH (13:15)
[2019-01-04] MEDS ORDERED: morphine INJ 10 MG/ML 1ML (SYR OR VIAL) ONE (13:59)
[2019-01-04] MEDS ORDERED: morphine INJ 10 MG/ML 1ML (SYR OR VIAL) IVP ONE (14:00)
[2019-01-04] MEDS ORDERED: ONDANSETRON 4 MG/2 ML (SDV) Z0FRAN IVP PRN (14:00)
[2019-01-04] MEDS ORDERED: MEPERIDINE (DEMEROL) INJ 50 MG/ML IVP ONE (14:00)
--- NOTE | 2019-01-04 14:35 | NUR ---
REC'D PER BED FROM PAR. ALERT AND ORIENTED. SEE ASSESSMENT. DR. SHARP NOTIFIED OF NEED FOR POST OP ORDERS. ORDERS REC'D. HEPARIN DISCONTINUED. DR. BRAMBILA NOTIFIED OF NEED FOR PO ANTICOAG ORDERS. ADVISED TO CALL [facility] ADVERTISING INSERTER. [facility] NOTIFIED OF NEED FOR PO ANTICOAG ORDERS. MESSAGE LEFT WITH NURSE TO GIVE TO DR. MEDINA. NOTFIED THAT HEPARIN HAD BEEN STOPPED AND ANTICOAG ORDERS NEEDED FOR TODAY.
--- NOTE | 2019-01-04 14:41 | Anesthesia-General Post-Op ---
MAC Patient Condition Mental Status/LOC: Same as Preop Cardiovascular: Satisfactory Nausea/Vomiting: Absent Respiratory: Satisfactory Pain: Controlled Complications: Absent Post Op Complications Complications None Follow Up Care/Instructions Patient Instructions None needed. Anesthesiology Discharge Order Discharge Order Patient is doing well, no complaints, stable vital signs, no apparent adverse anesthesia problems. No complications reported per nursing. MATHEW GARRISON CRNA Jan 04, 2019 14:41
--- NOTE | 2019-01-04 14:47 | Diagnostic Imaging Report ---
INDICATION: PleurX catheter placement. TIME OF EXAM: 2:26 p.m. COMPARISON: Correlation is made with prior study earlier same day. FINDINGS: Right chest wall port has tip overlying the SVC. The port continues to have some looping in the lower neck, likely in the lower right IJ. Left-sided PleurX catheter is now seen overlying the left hemithorax. Left basilar infiltrate and pleural fluid persist. There is no pneumothorax identified. IMPRESSION: Left PleurX catheter placement. There continues to be some left basilar fluid and infiltrate present. No pneumothorax is identified. Dictated by: Dictated on workstation # [id number]
[2019-01-04 16:43] VITALS: BP 132/75
--- NOTE | 2019-01-04 16:54 | Oncology Progress Note ---
Subjective Time Seen by a Provider: 16:54 Subjective/Events-last exam Pt is feeling much better today and ready to go home tomorrow. Pluerax drain catheter was placed today. Pt has home O2. His pleural effusion fluid showed malignancy cells which will be sent for genetic tests for mismatch repair protein and other mutations for targeted cancer treatment. He is not stage IV and radiation treatment is stopped. Data Review Labs Laboratory Tests 01/04/19 04:35 Laboratory Tests 01/02/19 04:45: Red Blood Count 3.75L, Hemoglobin 11.8L, Hematocrit 36L, Neutrophils (%) (Auto) 92H, Lymphocytes (%) (Auto) 3L, Lymphocytes # (Auto) 0.3L, Chloride Level 95L, Glucose Level 135H 01/02/19 07:50: Activated Partial Thromboplast Time 97H 01/03/19 03:35: Red Blood Count 3.49L, Hemoglobin 11.0L, Hematocrit 34L, Neutrophils (%) (Auto) 91H, Lymphocytes (%) (Auto) 3L, Lymphocytes # (Auto) 0.3L, Chloride Level 95L, Glucose Level 136H, Neutrophils # (Auto) 9.4H, Creatinine 0.58L 01/03/19 08:05: Activated Partial Thromboplast Time 85H 01/04/19 04:35: Red Blood Count 3.58L, Hemoglobin 11.3L, Hematocrit 35L, Red Cell Distribution Width 14.6H, Neutrophils (%) (Auto) 92H, Lymphocytes (%) (Auto) 3L, Neutrophils # (Auto) 9.2H, Lymphocytes # (Auto) 0.3L, Activated Partial Thromboplast Time 109H, Sodium Level 134L, Chloride Level 95L, Glucose Level 137H Physical Exam Vital Signs Vital Signs - First Documented 12/29/18 01/02/19 00:43 16:37 Temp 98.4 Pulse 100 Resp 20 B/P (MAP) 112/67 (82) Pulse Ox 92 O2 Delivery Nasal Cannula O2 Flow Rate 4.00 FiO2 36 Capillary Refill : Less Than 3 SecondsLess Than 3 Seconds Height, Weight, BMI Height: 5'8.00" Weight: 137lbs. 11.2oz. 62.069738qh; 20.9 BMI Method:Stated General Appearance: No Apparent Distress HEENT: PERRL/EOMI Respiratory: No Accessory Muscle Use, No Respiratory Distress Cardiovascular: Regular Rate, Rhythm, No JVD Extremity: Non Tender, No Pedal Edema Neurologic/Psychiatric: Alert, Oriented x3 Impression & Plan Impression & Plan A/P 1. Port catheter tip coiled and thrombosis at the catheter tip, s/p Heparin gtt treatment. I do not believe that he will benefit from further oral anticoagulation treatment. He is on baby ASA 81mg. I told him to continue it at home. 2. 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 Symptoms improved. Pt is ready to go home tomorrow after he and his family learned how to use the catheter. I will see him next Friday for f/u at cancer center. Please call cancer center tomorrow to set up f/u appointment with Dr Medina. 3. Pt has home O2. 4. Pt may need home health to help for the catheter when going home. Clinical Quality Measures DVT/VTE Risk/Contraindication: Risk Factor Score Per Nursin RFS Level Per Nursing on Admit: 4+=Very High CARRINGTON MEDINA MD Jan 04, 2019 16:54
--- NOTE | 2019-01-04 17:40 | NUR ---
LORTAB 2 PO FOR GENERAL DISCOMFORT. PLEUR X SITE CLEAR.
--- NOTE | 2019-01-04 18:02 | NUR ---
SPOKE WITH DR. MEDINA REGARDING DR. SHARP'S REQUEST FOR ORAL ANTICOAGULANT. DR. MEDINA STATED SHE WANTED NO ANTICOAG EXCEPT ASA 81MG DAILY WHICH PT IS ALREADY ON. DR. SHARP NOTIFIED.
--- NOTE | 2019-01-04 18:04 | NUR ---
DR. SHARP ALSO NOTIFIED OF NEED FOR [employer] PAPERWORK TO BE COMPLETED.
--- NOTE | 2019-01-04 20:31 | Progress Note ---
Subjective Date Seen by a Provider: Jan 04, 2019 Time Seen by a Provider: 08:00 Subjective/Events-last exam Doing okay. No new complaints. Breathing same as yesterday. Denies n/v fever sweats chills shortness of breath or chest pain. Objective Exam Vital Signs Date Time Temp Pulse Resp B/P (MAP) Pulse Ox O2 Delivery O2 Flow Rate FiO2 01/04/19 19:55 89 Nasal Cannula 3.00 01/04/19 19:40 Nasal Cannula 3.00 01/04/19 16:43 98.2 92 18 132/75 (94) 92 High Flow N/C 4.00 01/04/19 15:33 93 3.00 01/04/19 14:10 24 95 01/04/19 14:00 24 95 01/04/19 13:55 24 95 3 01/04/19 08:00 98.5 93 20 142/86 (104) 97 Nasal Cannula 4.00 01/04/19 07:53 92 3.00 01/04/19 07:24 Nasal Cannula 3.00 01/03/19 23:37 98.2 107 16 120/76 (91) 96 Nasal Cannula 3.00 I & O 01/04/19 07:00 Intake Total 3200 ml Output Total 4900 ml Balance -1700 ml Capillary Refill : Less Than 3 SecondsLess Than 3 Seconds General Appearance: No Apparent Distress HEENT: PERRL/EOMI Neck: Full Range of Motion, Normal Inspection, Non Tender Respiratory: No Accessory Muscle Use, No Respiratory Distress Cardiovascular: Regular Rate, Rhythm, No JVD Gastrointestinal: non tender, soft Extremity: Non Tender, No Pedal Edema Neurologic/Psychiatric: Alert, Oriented x3 Skin: Normal Color, Warm/Dry Lymphatic: No Adenopathy Results Lab Laboratory Tests 01/04/19 04:35: White Blood Count 10.0, Red Blood Count 3.58L, Hemoglobin 11.3L, Hematocrit 35L , Mean Corpuscular Volume 98, Mean Corpuscular Hemoglobin 32, Mean Corpuscular Hemoglobin Concent 32, Red Cell Distribution Width 14.6H, Platelet Count 313, Mean Platelet Volume 8.8, Neutrophils (%) (Auto) 92H, Lymphocytes (%) (Auto) 3L , Monocytes (%) (Auto) 5, Eosinophils (%) (Auto) 0, Basophils (%) (Auto) 0, Neutrophils # (Auto) 9.2H, Lymphocytes # (Auto) 0.3L, Monocytes # (Auto) 0.5, Eosinophils # (Auto) 0.0, Basophils # (Auto) 0.0, Activated Partial Thromboplast Time 109H, Sodium Level 134L, Potassium Level 4.5, Chloride Level 95L, Carbon Dioxide Level 28, Anion Gap 11, Blood Urea Nitrogen 15, Creatinine 0.63, Estimat Glomerular Filtration Rate > 60, BUN/Creatinine Ratio 24, Glucose Level 137H, Calcium Level 8.7, Phosphorus Level 4.7, Magnesium Level 2.0 Microbiology 12/25/18 Blood Culture - Final, Complete No growth 01/03/19 MRSA Screen - Final, Complete MRSA not isolated Assessment/Plan Assessment/Plan Assessment/Plan left lung adenocarcinoma left pleural effusion thrombus at tip of port catheter malignant pleural effusion patient has left chest tube in place at this time. malignant left pleural effusion with chest tube clamped, we discussed placement of PLeur-x catheter and will plan for today, he understands risks and benefits. patient on heparin drip for thrombus, off for procedure 6 hours. will follow and plan for pleurx catheter later today Clinical Quality Measures DVT/VTE Risk/Contraindication: Risk Factor Score Per Nursin RFS Level Per Nursing on Admit: 4+=Very High KRISTINE SHARP DO Jan 04, 2019 20:31
[2019-01-05] MEDS: methylPREDNISolone 40 MG/ML (Solu-MEDROL) VIAL IV SCH ×2 (00:04→05:42)
[2019-01-05] MEDS: HYDROcodone/APAP 5 MG/325 MG (LORTAB) TAB PO PRN ×4 (00:04→12:59)
[2019-01-05 00:06] VITALS: BP 124/73
[2019-01-05 04:56] LABS: BASOPHILS % (AUTO) 0 % (0-10); EOSINOPHILS % (AUTO) 0 % (0-10); HEMATOCRIT 36 % (40-54); HEMOGLOBIN 11.7 G/DL (13.3-17.7); LYMPHOCYTES # (AUTO) 0.3 X 10^3 (1.0-4.0); LYMPHOCYTES % (AUTO) 3 % (12-44); MEAN CORPUSCULAR HEMOGLOBIN 31 PG (25-34); MEAN CORPUSCULAR HGB CONC 33 G/DL (32-36); MEAN CORPUSCULAR VOLUME 97 FL (80-99); MEAN PLATELET VOLUME 8.4 FL (7.4-10.4); MONOCYTES # (AUTO) 0.7 X 10^3 (0.0-1.0); MONOCYTES % (AUTO) 7 % (0-12); NEUTROPHILS # (AUTO) 9.4 X 10^3 (1.8-7.8); NEUTROPHILS % (AUTO) 91 % (42-75); PLATELET COUNT 288 10^3/uL (130-400); RED CELL DISTRIBUTION WIDTH 14.5 % (10.0-14.5); WHITE BLOOD COUNT 10.4 10^3/uL (4.3-11.0)
[2019-01-05 05:14] LABS: BUN/CREATININE RATIO 26; CALCIUM 8.4 MG/DL (8.5-10.1); CARBON DIOXIDE 31 MMOL/L (21-32); CHLORIDE 95 MMOL/L (98-107); CREATININE SERUM 0.58 MG/DL (0.60-1.30); GFR ESTIMATED > 60; GLUCOSE 135 MG/DL (70-105); MAGNESIUM 2.5 MG/DL (1.8-2.4); PHOSPHORUS 4.9 MG/DL (2.3-4.7); POTASSIUM 4.7 MMOL/L (3.6-5.0); SODIUM 135 MMOL/L (135-145)
[2019-01-05] MEDS ORDERED: PRD10T PO (06:43)
[2019-01-05] MEDS: RT-ALBUTEROL/IPRATROPIUM 3 ML (DUONEB) VIAL INH SCH ×2 (07:35→11:27)
--- NOTE | 2019-01-05 07:36 | Pulmonary Progress Note ---
Subjective Time Seen by a Provider: 07:32 Subjective/Events-last exam PT feels improved. No complications noted. Sepsis Event Evaluation Height, Weight, BMI Height: 5'8.00" Weight: 137lbs. 11.2oz. 62.988509nj; 20.9 BMI Method:Stated Exam Exam Vital Signs Date Time Temp Pulse Resp B/P (MAP) Pulse Ox O2 Delivery O2 Flow Rate FiO2 01/05/19 00:06 98.3 95 18 124/73 (90) 95 High Flow N/C 4.00 01/04/19 19:55 89 Nasal Cannula 3.00 01/04/19 19:40 Nasal Cannula 3.00 01/04/19 16:43 98.2 92 18 132/75 (94) 92 High Flow N/C 4.00 01/04/19 15:33 93 3.00 01/04/19 14:10 24 95 01/04/19 14:00 24 95 01/04/19 13:55 24 95 3 01/04/19 08:00 98.5 93 20 142/86 (104) 97 Nasal Cannula 4.00 01/04/19 07:53 92 3.00 I & O 01/05/19 07:00 Intake Total 4570 ml Output Total 3950 ml Balance 620 ml Height & Weight Height: 5'8.00" Weight: 137lbs. 11.2oz. 62.684734pi; 20.9 BMI Method:Stated General Appearance: WD/WN, Mild Distress HEENT: PERRL/EOMI, Normal ENT Inspection, Pharynx Normal Neck: Full Range of Motion, Normal Inspection, Non Tender Respiratory: Crackles, Decreased Breath Sounds (left > Right ) Cardiovascular: Regular Rate, Rhythm Capillary Refill: Less Than 3 Seconds Gastrointestinal: non tender, soft Extremity: Normal Capillary Refill, Normal Inspection, No Pedal Edema Neurologic/Psychiatric: Alert, Oriented x3 Skin: Normal Color, Warm/Dry Lymphatic: No Adenopathy Results Lab Laboratory Tests 01/04/19 04:35 01/05/19 04:40 Assessment/Plan Assessment/Plan Metastatic Adenocarcinoma with malignant pleural effusion -pleural fluid cytology is positive -- Adenocarcinoma -s/p pleurx cath Large left pleural effusion probably metastatic -Chest tube left -- tube is clamped currently -Dr. Escobar consulted for possible Pleurx cath. 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 I will f/u with him in 2 wks as out pt. SIMONE TATE DO Jan 05, 2019 07:36
[2019-01-05] MEDS: CATHETER FLUSH 10 ML SYR IV SCH ×2 (07:38→14:12)
[2019-01-05 08:00] VITALS: BP 127/74
[2019-01-05] MEDS: ASPIRIN E.C. 81 MG (ECOTRIN) TAB PO SCH (08:15)
[2019-01-05] MEDS: SENNA W/DOCUSATE (SENOKOT S) TABLET PO SCH (08:15)
[2019-01-05] MEDS: LACTULOSE SYRUP 10GM/15ML (ENULOSE) 30ML UDC PO SCH (08:15)
--- NOTE | 2019-01-05 09:34 | NUR ---
Recommending pt have Home Health care upon discharge to ensure he is able to obtain Pleurex catheter supplies and continued teaching Pt was agreeable to short-term home health.
--- NOTE | 2019-01-05 09:39 | Diagnostic Imaging Report ---
Indication: Pleurx catheter placement. Findings: There's cardiomegaly. There is a left basilar infiltrate and left pleural effusion. Pleurx catheter seen in the left chest. [id number] catheter overlies the right hemithorax is somewhat looped in the internal jugular vein. Impression: Left base infiltrate and left pleural effusion. Cardiomegaly. Tube placement as described. Dictated by: Dictated on workstation # [id number]
--- NOTE | 2019-01-05 10:00 | NUR ---
Pleurx teaching done with pt. Went over how to order supplies and often asked question. Watched video reference how to subassembly supervisor Pleurx drainage kit and importance of keeping everything as sterile as possible. Pt reports no questions at this time. Pt is agreeable to [facility] for short term. Advised pt that C with review procedure for drainage again with him. Advised pt to contact me if he has any further needs.
--- NOTE | 2019-01-05 12:39 | Discharge Summary ---
Diagnosis/Chief Complaint Date of Admission Dec 25, 2018 at 12:04 Date of Discharge January 05, 2019 Admission Diagnosis Admission Diagnosis Pleural effusion Discharge Diagnosis See discharge diagnoses Problems/Diagnosis: (1) Malignant pleural effusion Assessment & Plan: Severe, requiring chest tube. Pleurex catheter today placed day prior to discharge. 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 Qualifiers: Qualified Codes: T82.868A - Thrombosis due to vascular prosthetic devices, implants and grafts, initial encounter Status: Acute (3) Lung cancer Assessment & Plan: Oncology consulted, appreciate recommendations. Will follow up for chemo continuation after d/c. Qualifiers: Qualified Codes: C34.92 - Malignant neoplasm of unspecified part of left bronchus or lung Status: Chronic (4) COPD exacerbation Assessment & Plan: Pulmonology consulted, appreciate recommendations. On solumedrol IV 40 mg q6 currently. Discharged with oral prednisone taper. Status: Acute Chief Complaint/HPI Chief Complaint/HPI 63-year-old male [facility] to [facility] on [facility], 2018 with shortness of breath and obvious difficulty breathing. He is with known lung cancer diagnosed within the last few years. He does admit that over the past 2 days his breathing has been came significantly more difficult. He also has a productive cough of clear sputum. He uses 2 L of oxygen by nasal cannula at home. Does also have albuterol and DuoNeb at home which he takes 3-4 times. He denies any nausea, vomiting, diarrhea or fevers. Discharge Summary-Simple/Stand Consultations Discharge Physical Examination Allergies: Coded Allergies: No Known Drug Allergies (Unverified , 05/22/17) Vitals & I&Os Vital Sign - Last 12Hours Date Time Temp Pulse Resp B/P (MAP) Pulse Ox O2 Delivery O2 Flow Rate FiO2 01/05/19 11:27 93 Nasal Cannula 3.00 01/05/19 08:00 99.0 103 18 127/74 (91) 01/02/19 16:37 36 Intake and Output 01/05/19 00:00 Intake Total 2370 ml Output Total 1730 ml Balance 640 ml General Appearance: Alert, No Acute Distress Respiratory: Other (decreased air movement left) Cardiovascular: Regular Rate, No Murmurs Hospital Course See final discharge diagnosis. Labs Laboratory Tests Test 01/04/19 04:35 01/05/19 04:40 Range/Units White Blood Count 10.0 10.4 4.3-11.0 10^3/uL Red Blood Count 3.58 L 3.73 L 4.35-5.85 10^6/uL Hemoglobin 11.3 L 11.7 L 13.3-17.7 G/DL Hematocrit 35 L 36 L 40-54 % Mean Corpuscular Volume 98 97 80-99 FL Mean Corpuscular Hemoglobin 32 31 25-34 PG Mean Corpuscular Hemoglobin Concent 32 33 32-36 G/DL Red Cell Distribution Width 14.6 H 14.5 10.0-14.5 % Platelet Count 313 288 130-400 10^3/uL Mean Platelet Volume 8.8 8.4 7.4-10.4 FL Neutrophils (%) (Auto) 92 H 91 H 42-75 % Lymphocytes (%) (Auto) 3 L 3 L 12-44 % Monocytes (%) (Auto) 5 7 0-12 % Eosinophils (%) (Auto) 0 0 0-10 % Basophils (%) (Auto) 0 0 0-10 % Neutrophils # (Auto) 9.2 H 9.4 H 1.8-7.8 X 10^3 Lymphocytes # (Auto) 0.3 L 0.3 L 1.0-4.0 X 10^3 Monocytes # (Auto) 0.5 0.7 0.0-1.0 X 10^3 Eosinophils # (Auto) 0.0 0.0 0.0-0.3 10^3/uL Basophils # (Auto) 0.0 0.0 0.0-0.1 10^3/uL Activated Partial Thromboplast Time 109 H 24-35 SEC Sodium Level 134 L 135 135-145 MMOL/L Potassium Level 4.5 4.7 3.6-5.0 MMOL/L Chloride Level 95 L 95 L 98-107 MMOL/L Carbon Dioxide Level 28 31 21-32 MMOL/L Anion Gap 11 9 5-14 MMOL/L Blood Urea Nitrogen 15 15 7-18 MG/DL Creatinine 0.63 0.58 L 0.60-1.30 MG/DL Estimat Glomerular Filtration Rate > 60 > 60 BUN/Creatinine Ratio 24 26 Glucose Level 137 H 135 H 70-105 MG/DL Calcium Level 8.7 8.4 L 8.5-10.1 MG/DL Phosphorus Level 4.7 4.9 H 2.3-4.7 MG/DL Magnesium Level 2.0 2.5 H 1.8-2.4 MG/DL Radiology Reviewed NAME: OZ VALLE JR [facility] REC#: [id number] PT STATUS: ADM IN : 1955 PHYSICIAN: LUIS ALBERTO CARBAJAL MD ADMIT DATE: 12/25/18/ICU Signed Date of Exam: 12/25/18 CT ANGIO CHEST W PROCEDURE: CT angiography of the chest with contrast. TECHNIQUE: Multiple contiguous axial images were obtained through the chest after uneventful bolus administration of intravenous contrast. 2D reconstructed CTA MIP acquisitions were also performed. Auto Exposure Controls were utilized during the CT exam to meet ALARA standards for radiation dose reduction. INDICATION: Respiratory distress. FINDINGS: The PET/CT exam performed on 10/13/2018 noted a hypermetabolic mass involving the left lower lobe consistent with a primary lung neoplasm. There are also hypermetabolic nodes in the mediastinum and left hilum. The chest exam performed on 11/19/2018 revealed that there was greater involvement of the left lung base by pneumonia/atelectasis and fluid than noted on the PET/CT exam. On the farmworker rice from this study, there is now complete opacification of the left thorax. The axial images do show that most of the left lung is collapsed and that there is a large left pleural effusion present. The large volume of fluid in the left thorax has resulted in slight shift to the heart and mediastinum to the right. There is also now 2.7 x 4.1 CM subcarinal mass. 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 The heart itself is stable in size. The aorta is not abnormally dilated and there is no sign of dissection. There is no defect within the pulmonary arteries to indicate pulmonary embolus. There are emphysematous changes involving the right lung but the right lung is generally clear. As noted on the prior plain film chest exam of 11/19/2018, there is a Port-A-Cath in place on the right. The tip of the catheter is in the distal internal jugular vein. There is a 8.0 x 14.3 CM area of low density adjacent to the tip of the catheter. This does suggest thrombus formation. The thyroid gland is generally unremarkable. The sections through the upper abdomen fail to show any sign of an acute abnormality. There is diminished density in the left lobe of liver, but this is felt to be artifactual in nature. The bone windows show no evidence for fracture or for destructive lesion. There are several healed rib fractures on the left. IMPRESSION: 1. The appearance of the chest has worsened since the prior study as there is now opacification of the left hemithorax. Most of the left lung has collapsed about the left hilum and there is a large left pleural effusion present. The heart and mediastinal structures are also slightly shifted to the right. 2. There is no acute abnormality identified otherwise. In particular, there is no sign of a pulmonary embolus or dissection. 3. The tip of the central venous catheter on the right is in the distal internal jugular vein. There is thrombus formation about the tip of the catheter. 4. These results were discussed with Dr. Luis Alberto Carbajal. Dictated by: Dictated on workstation # [id number] Dict: 12/25/18 1038 Trans: 12/25/181657 Interpreted by: DEMOND HAILE MD Electronically signed by: DEMOND HAILE MD 12/25/188 NAME: OZ VALLE [facility] REC#: [id number] PT STATUS: ADM IN : 1955 PHYSICIAN: LUIS ALBERTO CARBAJAL MD ADMIT DATE: 12/25/18/ICU Signed Date of Exam: 12/25/18 CHEST 1 VIEW, AP/PA ONLY EXAMINATION: Portable erect AP chest obtained at 1132h. INDICATION: Respiratory distress The CT chest exam performed earlier today noted a large left pleural effusion. In the interval since the prior exam a left-sided chest tube has been inserted. The tip of the tube overlies the left apex. The left upper lung does seem better aerated but there is still near-complete opacification of the left midlung and left lung base. The right lung is still generally clear. The heart is stable in size. The mediastinum is not widened. The osseous structures are intact. The central venous catheter on the right seen previously on 11/19/2018 has been retracted and is now coiled on itself. Clinical followup regarding the function of the catheter is recommended. IMPRESSION: 1. The appearance of the chest has improved following the insertion of the left-sided chest tube as the left lung does seem better aerated. There is still considerable residual atelectasis/infiltrate and fluid involving the left lung base however 2. The Port-A-Cath on the right is coiled on itself and the function of the catheter may be compromised. Clinical followup is recommended. These results were discussed with Dr. Carbajal. Dictated by: Dictated on workstation # [id number] Dict: 12/25/18 1138 Trans: 12/25/18 1654 Interpreted by: DEMOND HAILE MD Electronically signed by: DEMOND HAILE MD 12/25/18 1654 Discharge Instructions to patient/family Please see electronic discharge instructions given to patient. Discharge Medications Reviewed and agree with Discharge Medication list on patient's Discharge Instruction sheet Clinical Quality Measures DVT/VTE Risk/Contraindication: Risk Factor Score Per Nursin RFS Level Per Nursing on Admit: 4+=Very High MARCELINO BRAMBILA MD Jan 05, 2019 12:39
--- NOTE | 2019-01-05 12:42 | D/C HH Face to Face Order ---
D/C Face to Face Orders Instructions for Patient Via [facility], Patient Instructions/FollowUp: Follow up with Dr. Huber and Dr. Sandoval as directed. Follow up with Dr. Martinez FridayJanuary 15 at 1:20. Physician to follow Patient: Juan Discharge Diet for Home: Regular Diet Patient Data-Allergies,Ht & Wt Patient Allergies: Coded Allergies: No Known Drug Allergies (Unverified , 05/22/17) Height (Feet): 5 Height (Inches): 8.00 Weight (Pounds): 137 Weight (Ounces): 11.2 Home Health Need/Face to Face Date of Face to Face: Jan 05, 2019 Clinical Findings: Generalized weakness and fatigue I have seen Pt [id number]: Yes Discharged To: Home Diagnosis/Conditions: Malignant pleural effusion with Pleurex drain placement Patient is Homebound due to: Shortness of breath/distress Homebound Status Due to the above stated illness, injury or surgical procedure (medical condition or diagnosis) and associated clinical findings, the patient is homebound because of his/her inability to leave home except with aid of a supportive device and/or person AND leaving the home requires a considerable and taxing effort or is medically contraindicated. Pt req the following assistanc: Aid of another person Home Health Nursing Orders Home Health Services Order: Nursing Services Home Health Infusion Therapy Line Type: Brayan Certify Stmt I certify that this patient is under my care and that I, a nurse practitioner or a physician; a portfolio assistant working with me, had a face to face encounter that - meets the physician face to face encounter requirements with this patient as dated. MARCELINO BRAMBILA MD Jan 05, 2019 12:37
--- NOTE | 2019-01-05 15:11 | NUR ---
Dr. Jarquin ordered Home Health Care for follow. Pt chose [facility] to follow.Pt signed Choice form. Faxed information to [facility] for their follow-up.
--- NOTE | 2019-01-05 15:36 | NUR ---
[facility]ia [facility] stated they don't accept pt's [facility] insurance plan. They suggested I contact [facility] which was done and they can't give me a definite answer whether they can accept pt till in the morning.Will advise pt.
--- NOTE | 2019-01-05 16:49 | NUR ---
Pt learned prior to discharge that his [facility] Medicaid plan January 03. contacting [facility] for explanation and working with pt and family to arrange for home health care in the morning. [facility] through [facility].
--- NOTE | 2019-01-05 19:56 | Progress Note-Post Operative ---
Post-Operative Progess Note Surgeon (s)/Bargain Table Clerk (s) Surgeon KRISTINE SHARP DO Bargain Table Clerk: na Pre-Operative Diagnosis left maligant pleural effusion Post-Operative Diagnosis same Procedure & Operative Findings Date of Procedure 01/05/19 Procedure Performed/Findings pleur-x catheter placement left chest Anesthesia Type per galvanometer assembler Estimated Blood Loss Estimated blood loss (mL): min Specimens/Packing Specimens Removed na Packing: dictation number [id number] KRISTINE SHARP DO Jan 05, 2019 19:56
--- NOTE | 2019-01-06 04:11 | OPERATIVE REPORT ---
DATE OF SERVICE: 01/04/2019 PREOPERATIVE DIAGNOSIS: Left malignant pleural effusion. POSTOPERATIVE DIAGNOSIS: Left malignant pleural effusion. PROCEDURE: PleurX catheter placement, left chest. SURGEON: Kristine Escobar DO ANESTHESIA: Per SIDEROGRAPHER. ESTIMATED BLOOD LOSS: Minimal. COMPLICATIONS: None. INDICATIONS: The patient is a 63-year-old male with left pleural effusion. He understands risks and benefits of PleurX catheter placed due to continued drainage. The patient understands risks and benefits and wished to proceed. Consent was signed in the chart. DESCRIPTION OF PROCEDURE: The patient was taken to the operating suite, placed in supine position. Ultrasound was used to try to locate a pocket; however, there was no suitable pocket to be created. He had a chest tube in the left chest, which was then cut off and guidewire was inserted through the chest tube into the chest cavity and the chest tube was removed. A dilator sheath over a tract was then localized from this insertion point down along the left chest wall, which then a small incision was made and the PleurX catheter was tunneled from this incision to the wire. Dilator sheath was then advanced over the wire and the wire and dilator were removed. The catheter was inserted through the sheath and the sheath was then removed. Dilator sheath was then closed using 3-0 nylons. The catheter was then secured using 3-0 nylon. The PleurX catheter was then attached to the atrium. The area was washed and dried, sterile bandage was applied. The patient tolerated procedure well without any complications, taken to recovery room in stable condition. Chest x-ray pending. Job ID: [id number] DocumentID: [id number] Dictated Date: 01/05/2019 19:56:41 Origination Specialist Date: 01/06/2019 04:11:09 Dictated By: KRISTINE ESCOBAR DO
[2019-01-06] MEDS ORDERED: predniSONE 10 MG TAB PO SCH (09:00)
--- NOTE | 2019-01-07 09:03 | NUR ---
On 01/05.pt discharged home with Home Health to follow. Referral sent to [facility] and advised that pt currently self-pay but actively seeking [facility] determination to be reinstated. Georgi Gama [facility] Home Health Director actively working with family to ensure services and assist in their [facility] reinstatement.
== END 2019-01-05 16:45 | disposition home health service (06) | DRG 180 ==
LOC: EDUNIT# 08:46 → ER 08:47 → 4TH 12:04 → ICU 12:34 → 4TH 12-27 12:19
PROVIDERS: ADMIT Family Medicine; ATTEND Family Medicine
PROC: 0W9B30Z Drainage of Left Pleural Cavity with Drainage Device, Percutaneous Approach (ICD-10-PCS; principal; 2018-12-25)
DX: C34.32 Malignant neoplasm of lower lobe, left bronchus or lung (principal); J91.0 Malignant pleural effusion; C77.1 Secondary and unspecified malignant neoplasm of intrathoracic lymph nodes; J96.21 Acute and chronic respiratory failure with hypoxia; J96.22 Acute and chronic respiratory failure with hypercapnia; E22.2 Syndrome of inappropriate secretion of antidiuretic hormone; T82.868A Thrombosis due to vascular prosthetic devices, implants and grafts, initial encounter; J43.9 Emphysema, unspecified; G47.33 Obstructive sleep apnea (adult) (pediatric); Z87.891 Personal history of nicotine dependence; Z99.81 Dependence on supplemental oxygen; R60.0 Localized edema; K59.00 Constipation, unspecified
CPT/HCPCS: 32551; 36415; 71045; 71275; 80048; 80053; 82805; 83036; 83605; 83735; 83880; 84100; 84484; 85007; 85025; 85027; 85379; 85610; 85730; 87040; 87081; 87804; 88112; 88305; 93005; 94640; 94760; 96361; 96365; 96375; 96376

== ENCOUNTER → 2019-01-11 | Outpatient (CLI) | payer OTHER ==
[~2019-01-11] MED LIST changes: +ALBU2.5V4 NEB; +FLUT16SP22 NS; +ONDA8TAB12 PO; +PANT40TA3 PO; +POLY238P32 PO; +PRD10T PO
--- NOTE | 2019-01-11 11:56 | Diagnostic Imaging Report ---
EXAMINATION: CHEST (PA AND LATERAL) CLINICAL INDICATION: 63-year-old male, history of adenocarcinoma. COMPARISON: January 05, 2019. FINDINGS: Stable positioning of right-sided port catheter with tip overlying the upper SVC. There is nonspecific airspace consolidation in the left mid and lower lung zones with a small left pleural effusion. There is a nodule overlying the right lower lobe which measures 2.1 cm in size. This is not seen on previous exam. This could relate to a nipple shadow. There does appear to be a left-sided chest tube. IMPRESSION: 1. Unchanged nonspecific airspace consolidation in the left mid and lower lung zones with small left pleural effusion. 2. Nodule overlying the right lower lobe which could relate to a nipple shadow although indeterminate. There is no correlate pulmonary nodule on prior CT chest December 25, 2018. Dictated by: Dictated on workstation # [id number]
== END ==
LOC: RAD 10:54
PROVIDERS: ATTEND Internal Medicine Hematology & Oncology
DX: C34.32 Malignant neoplasm of lower lobe, left bronchus or lung (principal); J18.1 Lobar pneumonia, unspecified organism; J90 Pleural effusion, not elsewhere classified; R91.1 Solitary pulmonary nodule
CPT/HCPCS: 71046

== ENCOUNTER 2019-01-14 10:03 | Outpatient (RCR) | payer MEDICAID ==
[2018-10-19 10:51] LABS: BASOPHILS # (AUTO) 0.1 10^3/uL (0.0-0.1); BASOPHILS % (AUTO) 1 % (0-10); EOSINOPHILS % (AUTO) 0 % (0-10); HEMATOCRIT 39 % (40-54); HEMOGLOBIN 13.6 G/DL (13.3-17.7); LYMPHOCYTES # (AUTO) 1.2 X 10^3 (1.0-4.0); LYMPHOCYTES % (AUTO) 16 % (12-44); MEAN CORPUSCULAR HEMOGLOBIN 33 PG (25-34); MEAN CORPUSCULAR HGB CONC 35 G/DL (32-36); MEAN CORPUSCULAR VOLUME 96 FL (80-99); MEAN PLATELET VOLUME 8.2 FL (7.4-10.4); MONOCYTES # (AUTO) 0.6 X 10^3 (0.0-1.0); MONOCYTES % (AUTO) 8 % (0-12); NEUTROPHILS # (AUTO) 5.7 X 10^3 (1.8-7.8); NEUTROPHILS % (AUTO) 75 % (42-75); PLATELET COUNT 328 10^3/uL (130-400); RED CELL DISTRIBUTION WIDTH 12.6 % (10.0-14.5); WHITE BLOOD COUNT 7.6 10^3/uL (4.3-11.0)
[2018-10-19 11:07] LABS: ALANINE AMINOTRANSFERASE 18 U/L (0-55); ALBUMIN 3.9 GM/DL (3.2-4.5); ALKALINE PHOSPHATASE 87 U/L (40-136); BILIRUBIN,TOTAL 0.4 MG/DL (0.1-1.0); BUN/CREATININE RATIO 7; CALCIUM 9.1 MG/DL (8.5-10.1); CARBON DIOXIDE 26 MMOL/L (21-32); CHLORIDE 95 MMOL/L (98-107); GFR ESTIMATED > 60; GLUCOSE 114 MG/DL (70-105); POTASSIUM 4.2 MMOL/L (3.6-5.0); SODIUM 132 MMOL/L (135-145); TOTAL PROTEIN 6.8 GM/DL (6.4-8.2)
[2018-11-30 11:00] LABS: BASOPHILS % (AUTO) 0 % (0-10); EOSINOPHILS % (AUTO) 0 % (0-10); HEMATOCRIT 39 % (40-54); HEMOGLOBIN 13.2 G/DL (13.3-17.7); LYMPHOCYTES # (AUTO) 0.3 X 10^3 (1.0-4.0); LYMPHOCYTES % (AUTO) 6 % (12-44); MEAN CORPUSCULAR HEMOGLOBIN 32 PG (25-34); MEAN CORPUSCULAR HGB CONC 34 G/DL (32-36); MEAN CORPUSCULAR VOLUME 94 FL (80-99); MEAN PLATELET VOLUME 8.2 FL (7.4-10.4); MONOCYTES # (AUTO) 0.1 X 10^3 (0.0-1.0); MONOCYTES % (AUTO) 2 % (0-12); NEUTROPHILS # (AUTO) 3.7 X 10^3 (1.8-7.8); NEUTROPHILS % (AUTO) 92 % (42-75); PLATELET COUNT 433 10^3/uL (130-400); RED CELL DISTRIBUTION WIDTH 11.7 % (10.0-14.5)
[2018-11-30 11:34] LABS: ALANINE AMINOTRANSFERASE 9 U/L (0-55); ALBUMIN 3.5 GM/DL (3.2-4.5); ALKALINE PHOSPHATASE 99 U/L (40-136); BILIRUBIN,TOTAL 0.3 MG/DL (0.1-1.0); BUN/CREATININE RATIO 10; CALCIUM 9.3 MG/DL (8.5-10.1); CARBON DIOXIDE 24 MMOL/L (21-32); CHLORIDE 93 MMOL/L (98-107); CREATININE SERUM 0.68 MG/DL (0.60-1.30); GFR ESTIMATED > 60; GLUCOSE 193 MG/DL (70-105); MAGNESIUM 2.1 MG/DL (1.8-2.4); POTASSIUM 4.3 MMOL/L (3.6-5.0); SODIUM 128 MMOL/L (135-145); TOTAL PROTEIN 6.8 GM/DL (6.4-8.2)
[2018-12-07 10:09] LABS: BASOPHILS % (AUTO) 0 % (0-10); EOSINOPHILS % (AUTO) 0 % (0-10); HEMATOCRIT 39 % (40-54); HEMOGLOBIN 13.2 G/DL (13.3-17.7); LYMPHOCYTES # (AUTO) 0.1 X 10^3 (1.0-4.0); LYMPHOCYTES % (AUTO) 2 % (12-44); MEAN CORPUSCULAR HEMOGLOBIN 31 PG (25-34); MEAN CORPUSCULAR HGB CONC 34 G/DL (32-36); MEAN CORPUSCULAR VOLUME 92 FL (80-99); MEAN PLATELET VOLUME 8.3 FL (7.4-10.4); MONOCYTES # (AUTO) 0.1 X 10^3 (0.0-1.0); MONOCYTES % (AUTO) 1 % (0-12); NEUTROPHILS # (AUTO) 4.8 X 10^3 (1.8-7.8); NEUTROPHILS % (AUTO) 96 % (42-75); PLATELET COUNT 441 10^3/uL (130-400); RED CELL DISTRIBUTION WIDTH 11.4 % (10.0-14.5)
[2018-12-07 10:24] LABS: BUN/CREATININE RATIO 13; CALCIUM 9.3 MG/DL (8.5-10.1); CARBON DIOXIDE 25 MMOL/L (21-32); CHLORIDE 91 MMOL/L (98-107); CREATININE SERUM 0.67 MG/DL (0.60-1.30); GFR ESTIMATED > 60; GLUCOSE 217 MG/DL (70-105); POTASSIUM 4.5 MMOL/L (3.6-5.0); SODIUM 126 MMOL/L (135-145)
[2018-12-14 09:55] LABS: BASOPHILS # (AUTO) 0.1 10^3/uL (0.0-0.1); BASOPHILS % (AUTO) 1 % (0-10); EOSINOPHILS # (AUTO) 0.1 10^3/uL (0.0-0.3); EOSINOPHILS % (AUTO) 1 % (0-10); HEMATOCRIT 36 % (40-54); HEMOGLOBIN 12.1 G/DL (13.3-17.7); LYMPHOCYTES # (AUTO) 0.4 X 10^3 (1.0-4.0); LYMPHOCYTES % (AUTO) 8 % (12-44); MEAN CORPUSCULAR HEMOGLOBIN 32 PG (25-34); MEAN CORPUSCULAR HGB CONC 33 G/DL (32-36); MEAN CORPUSCULAR VOLUME 96 FL (80-99); MONOCYTES # (AUTO) 0.5 X 10^3 (0.0-1.0); MONOCYTES % (AUTO) 9 % (0-12); NEUTROPHILS # (AUTO) 4.3 X 10^3 (1.8-7.8); NEUTROPHILS % (AUTO) 82 % (42-75); PLATELET COUNT 238 10^3/uL (130-400); RED CELL DISTRIBUTION WIDTH 12.2 % (10.0-14.5); WHITE BLOOD COUNT 5.3 10^3/uL (4.3-11.0)
[2018-12-14 10:15] LABS: BUN/CREATININE RATIO 10; CALCIUM 8.4 MG/DL (8.5-10.1); CARBON DIOXIDE 28 MMOL/L (21-32); CHLORIDE 95 MMOL/L (98-107); CREATININE SERUM 0.62 MG/DL (0.60-1.30); GFR ESTIMATED > 60; GLUCOSE 113 MG/DL (70-105); MAGNESIUM 1.9 MG/DL (1.8-2.4); POTASSIUM 4.2 MMOL/L (3.6-5.0); SODIUM 134 MMOL/L (135-145)
[2018-12-21 09:46] LABS: BASOPHILS % (AUTO) 0 % (0-10); EOSINOPHILS % (AUTO) 0 % (0-10); HEMATOCRIT 38 % (40-54); HEMOGLOBIN 12.4 G/DL (13.3-17.7); LYMPHOCYTES # (AUTO) 0.1 X 10^3 (1.0-4.0); LYMPHOCYTES % (AUTO) 1 % (12-44); MEAN CORPUSCULAR HEMOGLOBIN 31 PG (25-34); MEAN CORPUSCULAR HGB CONC 33 G/DL (32-36); MEAN CORPUSCULAR VOLUME 97 FL (80-99); MEAN PLATELET VOLUME 8.1 FL (7.4-10.4); MONOCYTES # (AUTO) 0.1 X 10^3 (0.0-1.0); MONOCYTES % (AUTO) 1 % (0-12); NEUTROPHILS # (AUTO) 7.4 X 10^3 (1.8-7.8); NEUTROPHILS % (AUTO) 98 % (42-75); PLATELET COUNT 232 10^3/uL (130-400); RED CELL DISTRIBUTION WIDTH 12.5 % (10.0-14.5); WHITE BLOOD COUNT 7.5 10^3/uL (4.3-11.0)
[2018-12-21 10:08] LABS: ALANINE AMINOTRANSFERASE 10 U/L (0-55); ALBUMIN 3.5 GM/DL (3.2-4.5); ALKALINE PHOSPHATASE 89 U/L (40-136); BILIRUBIN,TOTAL 0.4 MG/DL (0.1-1.0); BUN/CREATININE RATIO 11; CARBON DIOXIDE 29 MMOL/L (21-32); CHLORIDE 90 MMOL/L (98-107); CREATININE SERUM 0.65 MG/DL (0.60-1.30); GFR ESTIMATED > 60; GLUCOSE 169 MG/DL (70-105); POTASSIUM 4.5 MMOL/L (3.6-5.0); SODIUM 130 MMOL/L (135-145); TOTAL PROTEIN 6.5 GM/DL (6.4-8.2)
[~2019-01-14] VITALS: Ht 172.7 cm; Wt 78.0 kg
[~2019-01-14 10:03] MED LIST changes: +ALTEPLASE 2 MG (CATHFLO) CANCER CENTER IV ONE; +CARBOPLATIN IV SCH; +D5W IV SCH; +FAMOTIDINE 20MG/2ML IV (CANCER CTR) IV SCH; +FOSAPREPITANT DIMEGLUMINE 150 MG in NS (IVPB) CANCER CENTER ONLY 150 ML IV SCH; +NORMAL SALINE IV SCH; +NS IV 1000 ML (CANCER CTR) IV SCH; +PACLITAXEL IV SCH; +PALONOSETRON HCL 0.25 MG, DEXAMETHASONE INJECTION 10 MG in NS (IVPB) CANCER CENTER 50 ML IV SCH; +diphenhydrAMINE 25 MG TAB (BENADRYL) CANCER CENTER PO SCH; +diphenhydrAMINE 50 MG/ML INJ (CANCER CENTER) ONE
== END 2019-01-17 | disposition home or self-care (01) ==
LOC: ONC 10:03
PROVIDERS: ATTEND Internal Medicine Hematology & Oncology
DX: Z51.11 Encounter for antineoplastic chemotherapy (principal); Z51.0 Encounter for antineoplastic radiation therapy; C34.32 Malignant neoplasm of lower lobe, left bronchus or lung; C77.1 Secondary and unspecified malignant neoplasm of intrathoracic lymph nodes; I82.C11 Acute embolism and thrombosis of right internal jugular vein; R09.02 Hypoxemia; J43.8 Other emphysema; J45.909 Unspecified asthma, uncomplicated; I25.10 Atherosclerotic heart disease of native coronary artery without angina pectoris; G47.10 Hypersomnia, unspecified; Z79.82 Long term (current) use of aspirin; Z79.899 Other long term (current) drug therapy; Z87.891 Personal history of nicotine dependence
CPT/HCPCS: 36415; 36591; 77290; 77295; 77300; 77334; 77336; 77417; 77470; 80048; 80053; 82378; 83735; 85025; 96375; 96413; 96417; 99204; 99213; 99214

== ENCOUNTER → 2019-01-18 | Outpatient (CLI) | payer MEDICAID, OTHER ==
[~2019-01-18] MED LIST changes: -ALTEPLASE 2 MG (CATHFLO) CANCER CENTER IV ONE; -CARBOPLATIN IV SCH; -D5W IV SCH; -FAMOTIDINE 20MG/2ML IV (CANCER CTR) IV SCH; -FOSAPREPITANT DIMEGLUMINE 150 MG in NS (IVPB) CANCER CENTER ONLY 150 ML IV SCH; +HOLD METFORMIN - RECEIVED CONTRAST 20 ML VIAL IV SCH; +IOHEXOL 350 MG/ML 150 ML (OMNIPAQUE 350) VIAL IV ONE; -NORMAL SALINE IV SCH; -NS IV 1000 ML (CANCER CTR) IV SCH; -PACLITAXEL IV SCH; -PALONOSETRON HCL 0.25 MG, DEXAMETHASONE INJECTION 10 MG in NS (IVPB) CANCER CENTER 50 ML IV SCH; -diphenhydrAMINE 25 MG TAB (BENADRYL) CANCER CENTER PO SCH; -diphenhydrAMINE 50 MG/ML INJ (CANCER CENTER) ONE
--- NOTE | 2019-01-18 15:05 | Diagnostic Imaging Report ---
PROCEDURE: CT angiography of the chest with contrast. TECHNIQUE: Multiple contiguous axial images were obtained through the chest after uneventful bolus administration of intravenous contrast. 2D reconstructed CTA MIP acquisitions were also performed. Auto Exposure Controls were utilized during the CT exam to meet ALARA standards for radiation dose reduction. INDICATION: COPD, lung carcinoma. Studies are performed to evaluate for previously noted thrombus about the patient's right chest wall port tip. COMPARISON: Correlation is made with recent CT angiogram of the chest from 12/25/2018. FINDINGS: Right chest wall port remains in place. Area of filling defect in the lower right jugular vein appears to be much less prominent than prior exam consistent with improving thrombus. No definite central pulmonary arterial filling defects are seen. Aorta is normal in caliber. There is no dissection. No axillary lymphadenopathy is detected. Previously noted complete opacification of the left hemithorax has improved. There has been significant reduction in left-sided pleural effusion since prior exam. There are small loculations of fluid on the left side remaining. The larger loculation is in the medial left posterior lower pleural space. Small loculation anteriorly is also noted in the left base. The degree of atelectasis has significantly improved. There is some residual consolidation in the left lower lobe. There appears to be some atelectasis or infiltrate in the right middle lobe as well. Diffuse centrilobular emphysematous changes are noted. Upper abdomen is unremarkable. IMPRESSION: 1. Improvement in filling defect in the distal right jugular vein around the patient's catheter tip when compared with study from 12/25/2018. There may be minimal thrombus remaining. No pulmonary embolism is identified. 2. Improved aeration to left lung since prior exam. There has been significant reduction in left-sided pleural fluid. There are several small loculations remaining in the left chest as well as some moderate left lower lobe parenchymal consolidation. Dictated by: Dictated on workstation # [id number]
== END ==
LOC: RAD 13:54
PROVIDERS: ATTEND Internal Medicine Hematology & Oncology
DX: C34.32 Malignant neoplasm of lower lobe, left bronchus or lung (principal); J18.1 Lobar pneumonia, unspecified organism; I99.8 Other disorder of circulatory system; J44.9 Chronic obstructive pulmonary disease, unspecified; Z95.828 Presence of other vascular implants and grafts
CPT/HCPCS: 71275

== ENCOUNTER 2019-02-02 05:46 | Outpatient (CLI) | payer MEDICAID ==
[~2019-02-02] VITALS: Ht 172.7 cm; Wt 62.1 kg
[~2019-02-02 05:46] MED LIST changes: -HOLD METFORMIN - RECEIVED CONTRAST 20 ML VIAL IV SCH; -IOHEXOL 350 MG/ML 150 ML (OMNIPAQUE 350) VIAL IV ONE
== END 2019-02-02 14:54 | disposition home or self-care (01) ==
LOC: PREOP 05:46
PROVIDERS: ATTEND Surgery
DX: Z01.818 Encounter for other preprocedural examination (principal)

== ENCOUNTER 2019-02-04 07:29 | Day surgery (SDC) | payer MEDICAID, OTHER ==
[2019-02-04] VITALS (9 sets, daily range): BP systolic 100–120; BP diastolic 72–88
[~2019-02-04] VITALS: Ht 172.7 cm; Wt 62.1 kg
[2019-02-04] MEDS ORDERED: LACTATED RINGERS 1,000 ML IV PRN (07:34)
[2019-02-04] MEDS ORDERED: ceFAZolin 2 GM IV Premixed 50 ML IV ONE (07:45)
[2019-02-04] MEDS ORDERED: BUP/EPI 0.5% 1:200,000 (SENSORCAINE) 30 ML VIAL ONE (07:57)
[2019-02-04] MEDS ORDERED: LIDOCAINE 1% INJ 20 ML 20 ML VIAL ONE (07:57)
--- NOTE | 2019-02-04 08:02 | Progress Note-Pre Operative ---
Pre-Operative Progress Note H&P Reviewed The H&P was reviewed, patient examined and no changes noted. Date Seen by Provider: February 04, 2019 Time Seen by Provider: 08:02 Date H&P Reviewed: February 04, 2019 Time H&P Reviewed: 08:02 Pre-Operative Diagnosis: left malignant pleural effusion KRISTINE SHARP DO February 04, 2019 08:02
[2019-02-04] MEDS ORDERED: proPOfol 200 MG/20 ML (DIPRIVAN) VIAL IV ONE (08:03)
[2019-02-04] MEDS ORDERED: MIDAZOLAM 2 MG/2 ML (VERSED) VIAL ONE (08:04)
--- NOTE | 2019-02-04 09:46 | Progress Note-Post Operative ---
Post-Operative Progess Note Surgeon (s)/Online Marketing Specialist (s) Surgeon KRISTINE SHARP DO Online Marketing Specialist: na Pre-Operative Diagnosis left malignant pleural effusion Post-Operative Diagnosis same Procedure & Operative Findings Date of Procedure 02/04/19 Procedure Performed/Findings removal left pleur-x catheter Anesthesia Type gen Estimated Blood Loss Estimated blood loss (mL): min Specimens/Packing Specimens Removed na KRISTINE SHARP DO February 04, 2019 09:46
[2019-02-04] MEDS ORDERED: HYDROmorphone 2 MG/ML VIAL (DILAUDID) ONE (09:49)
--- NOTE | 2019-02-04 09:49 | Discharge Inst-Simple/Standard ---
Discharge Inst-Standard Patient Instructions/Follow Up Plan of Care/Instructions/FU: 2 weeks ania Activity as Tolerated: Yes Discharge Diet: Regular Diet Other Inst to Patient Follow up Appt: Make appointment for 2 week. Instructions: No lifting greater than 10 pounds. No strenuous activity. May shower in 24 hours, no tub bath or soaking. Use incentive spirometer at home as directed. No Smoking Skin/Wound Care: May remove bandages in 48 hrs. Keep area clean and dry. Symptoms to Report: Appetite Changes, Extremity Discoloration, Numbness/Tingling, Swelling Increased , Bleeding Excessive, Eyesight Changes, Pain Increased, Urine Color Change, Constipation(Persistent), Fever over 101 degree F, Pain/Pressure in chest, Urinating Difficulty, Cough Up/Vomit Blood, Heart Beat Irreg/Pounding, Pain/ Pressure in jaw, Vaginal Bleeding Increase, Cramps in feet or legs, Lightheadedness, Pain/Pressure in shoulder, Diarrhea(Persistent), Memory Changes Suddenly, Questions/Concerns, Weight gain consecutive days, Dizziness/ Fainting, Nausea/Vomiting, Shortness of Breath, Weight gain over 2 pounds If questions or concerns contact your physician Or seek help at emergency department. KRISTINE SHARP DO February 04, 2019 09:49
[2019-02-04] MEDS ORDERED: HYDROmorphone 2 MG/ML VIAL (DILAUDID) IV ONE (10:00)
[2019-02-04] MEDS ORDERED: ONDANSETRON 4 MG/2 ML (SDV) Z0FRAN IVP PRN (10:00)
--- NOTE | 2019-02-04 12:12 | Anesthesia-General Post-Op ---
General Patient Condition Mental Status/LOC: Same as Preop Cardiovascular: Satisfactory Nausea/Vomiting: Absent Respiratory: Satisfactory Pain: Controlled Complications: Absent Post Op Complications Complications None Follow Up Care/Instructions Patient Instructions None needed. Anesthesia/Patient Condition Patient Condition Patient is doing well, no complaints, stable vital signs, no apparent adverse anesthesia problems. No complications reported per nursing. BLOSSOM PAEZ CRNA February 04, 2019 12:12
--- NOTE | 2019-02-04 14:33 | OPERATIVE REPORT ---
DATE OF SERVICE: 02/04/2019 PREOPERATIVE DIAGNOSIS: Malignant left pleural effusion. POSTOPERATIVE DIAGNOSIS: Malignant left pleural effusion. PROCEDURE: Removal of PleurX catheter. SURGEON: Kristine Escobar DO ANESTHESIA: MAC with local. ESTIMATED BLOOD LOSS: Minimal. COMPLICATIONS: None. INDICATIONS: The patient is a 63-year-old male who had a malignant pleural effusion. has requested that the PleurX catheter be removed. He understands risks and benefits of procedure and wished to proceed with procedure. Consent was signed in the chart. DESCRIPTION OF PROCEDURE: The patient was taken to the operating suite, was prepped and draped in sterile fashion. Surgical pause was performed. Local anesthetic was infiltrated along the tract of the PleurX catheter. Sutures were removed, hold it in place. A tonsil was then used to dissect along the tract of the catheter until freed. Then, the catheter had a little bit of traction placed on it and the catheter was removed in its entirety. The area was then washed and dried. Vaseline gauze was then placed with Tegaderm over it. The patient on for 48 hours and then removed. The patient will follow up in 2 weeks. Any issues before that, will be seen at that time. The patient tolerated procedure well without complications and taken to recovery room in stable condition. Job ID: [id number] DocumentID: [id number] Dictated Date: 02/04/2019 09:51:36 Sap Business Analyst Date: 02/04/2019 14:32:38 Dictated By: KRISTINE ESCOBAR DO
== END 2019-02-04 11:20 | disposition home or self-care (01) ==
LOC: SDC 07:29
PROVIDERS: ATTEND Surgery
DX: C80.1 Malignant (primary) neoplasm, unspecified (principal); J91.0 Malignant pleural effusion; I25.10 Atherosclerotic heart disease of native coronary artery without angina pectoris; J43.9 Emphysema, unspecified; K21.9 Gastro-esophageal reflux disease without esophagitis; G47.10 Hypersomnia, unspecified; Z87.891 Personal history of nicotine dependence; Z79.82 Long term (current) use of aspirin; Z79.899 Other long term (current) drug therapy
CPT/HCPCS: 87081

== ENCOUNTER → 2019-03-02 | Outpatient (CLI) | payer SELFPAY ==
--- NOTE | 2019-03-02 12:31 | Diagnostic Imaging Report ---
INDICATION: Increased shortness of breath. History of lung carcinoma.. TECHNIQUE: Two view chest 11:34 AM CORRELATION STUDY: 01/11/2019 FINDINGS: Increasing patchy consolidation through large portion of the left lung is present. This remains most pronounced in the of the central and basilar aspect. Left pleural effusion is also increased. Right lung somewhat hyperinflated. Suggestion of some infiltrate at the right lung base with right pleural effusion. Heart size enlarged, relatively stable. Fullness hilar structures appears more prominent with increase in vascular congestion. Right IJ Dykhkn-n-Xlcy catheter is again demonstrated with a loop over the apex. Tip unchanged in its position. IMPRESSION: 1. Increasing solid appearance as well as a pleural effusion over the left lung field. Small amount of infiltrate in the right lung base. 2. Component of vascular congestion is somewhat suspect. Fullness of the hilar structures indeterminate between edema versus infiltrate and or perhaps adenopathy/mass. Dictated by: Dictated on workstation # [id number]
== END ==
LOC: RAD 11:10
PROVIDERS: ATTEND Nurse Practitioner Family
DX: J90 Pleural effusion, not elsewhere classified (principal); J44.9 Chronic obstructive pulmonary disease, unspecified; G47.10 Hypersomnia, unspecified; J91.8 Pleural effusion in other conditions classified elsewhere; C80.1 Malignant (primary) neoplasm, unspecified; Z95.828 Presence of other vascular implants and grafts; Z87.891 Personal history of nicotine dependence; Z85.118 Personal history of other malignant neoplasm of bronchus and lung
CPT/HCPCS: 71046

== ENCOUNTER 2019-04-12 12:39 | Outpatient (RCR) | payer MEDICAID, OTHER ==
[2019-03-15 13:18] LABS: BASOPHILS # (AUTO) 0.1 10^3/uL (0.0-0.1); BASOPHILS % (AUTO) 1 % (0-10); EOSINOPHILS # (AUTO) 0.1 10^3/uL (0.0-0.3); EOSINOPHILS % (AUTO) 2 % (0-10); HEMATOCRIT 35 % (40-54); HEMOGLOBIN 11.1 G/DL (13.3-17.7); LYMPHOCYTES # (AUTO) 1.7 X 10^3 (1.0-4.0); LYMPHOCYTES % (AUTO) 19 % (12-44); MEAN CORPUSCULAR HEMOGLOBIN 29 PG (25-34); MEAN CORPUSCULAR HGB CONC 31 G/DL (32-36); MEAN CORPUSCULAR VOLUME 92 FL (80-99); MEAN PLATELET VOLUME 8.2 FL (7.4-10.4); MONOCYTES # (AUTO) 0.7 X 10^3 (0.0-1.0); MONOCYTES % (AUTO) 8 % (0-12); NEUTROPHILS % (AUTO) 70 % (42-75); PLATELET COUNT 395 10^3/uL (130-400); RED CELL DISTRIBUTION WIDTH 15.2 % (10.0-14.5); WHITE BLOOD COUNT 8.5 10^3/uL (4.3-11.0)
[2019-03-15 13:35] LABS: ALANINE AMINOTRANSFERASE 10 U/L (0-55); ALBUMIN 3.5 GM/DL (3.2-4.5); ALKALINE PHOSPHATASE 91 U/L (40-136); BILIRUBIN,TOTAL 0.3 MG/DL (0.1-1.0); BUN/CREATININE RATIO 7; CARBON DIOXIDE 28 MMOL/L (21-32); CHLORIDE 93 MMOL/L (98-107); CREATININE SERUM 0.58 MG/DL (0.60-1.30); GFR ESTIMATED > 60; GLUCOSE 117 MG/DL (70-105); POTASSIUM 4.1 MMOL/L (3.6-5.0); SODIUM 131 MMOL/L (135-145); TOTAL PROTEIN 6.5 GM/DL (6.4-8.2)
[~2019-04-12] VITALS: Ht 172.7 cm; Wt 72.1 kg
[~2019-04-12 12:39] MED LIST changes: +NIVOLUMAB 480 MG in NS (IVPB) CANCER CENTER 100 ML IV SCH; +NS (IVPB) CANCER CENTER 250 ML IV SCH; +NS IV 500 ML (CANCER CENTER) IV SCH
[2019-04-12 13:32] LABS: BASOPHILS # (AUTO) 0.1 10^3/uL (0.0-0.1); BASOPHILS % (AUTO) 1 % (0-10); EOSINOPHILS # (AUTO) 0.2 10^3/uL (0.0-0.3); EOSINOPHILS % (AUTO) 4 % (0-10); HEMATOCRIT 39 % (40-54); HEMOGLOBIN 12.3 G/DL (13.3-17.7); LYMPHOCYTES # (AUTO) 1.4 X 10^3 (1.0-4.0); LYMPHOCYTES % (AUTO) 22 % (12-44); MEAN CORPUSCULAR HEMOGLOBIN 29 PG (25-34); MEAN CORPUSCULAR HGB CONC 32 G/DL (32-36); MEAN CORPUSCULAR VOLUME 90 FL (80-99); MONOCYTES # (AUTO) 0.5 X 10^3 (0.0-1.0); MONOCYTES % (AUTO) 9 % (0-12); NEUTROPHILS % (AUTO) 64 % (42-75); PLATELET COUNT 294 10^3/uL (130-400); RED CELL DISTRIBUTION WIDTH 15.8 % (10.0-14.5); WHITE BLOOD COUNT 6.3 10^3/uL (4.3-11.0)
[2019-04-12 13:52] LABS: ALANINE AMINOTRANSFERASE 25 U/L (0-55); ALBUMIN 3.6 GM/DL (3.2-4.5); ALKALINE PHOSPHATASE 126 U/L (40-136); BILIRUBIN,TOTAL 0.3 MG/DL (0.1-1.0); BUN/CREATININE RATIO 7; CARBON DIOXIDE 31 MMOL/L (21-32); CHLORIDE 90 MMOL/L (98-107); CREATININE SERUM 0.59 MG/DL (0.60-1.30); GFR ESTIMATED > 60; GLUCOSE 110 MG/DL (70-105); POTASSIUM 4.3 MMOL/L (3.6-5.0); SODIUM 130 MMOL/L (135-145); TOTAL PROTEIN 6.6 GM/DL (6.4-8.2)
== END 2019-04-21 | disposition home or self-care (01) ==
LOC: ONC 12:39
PROVIDERS: ATTEND Internal Medicine Hematology & Oncology
DX: Z51.11 Encounter for antineoplastic chemotherapy (principal); C34.32 Malignant neoplasm of lower lobe, left bronchus or lung; C77.1 Secondary and unspecified malignant neoplasm of intrathoracic lymph nodes; J43.8 Other emphysema; J45.909 Unspecified asthma, uncomplicated; I25.10 Atherosclerotic heart disease of native coronary artery without angina pectoris; G47.10 Hypersomnia, unspecified; Z79.82 Long term (current) use of aspirin; Z79.899 Other long term (current) drug therapy; Z87.891 Personal history of nicotine dependence
CPT/HCPCS: 36591; 80053; 84443; 85025; 96413; 99213

== ENCOUNTER 2019-06-08 13:59 | Outpatient (RCR) | payer MEDICAID ==
[2019-05-10 14:10] LABS: BASOPHILS # (AUTO) 0.1 10^3/uL (0.0-0.1); BASOPHILS % (AUTO) 1 % (0-10); EOSINOPHILS # (AUTO) 0.2 10^3/uL (0.0-0.3); EOSINOPHILS % (AUTO) 2 % (0-10); HEMATOCRIT 41 % (40-54); LYMPHOCYTES # (AUTO) 1.1 X 10^3 (1.0-4.0); LYMPHOCYTES % (AUTO) 15 % (12-44); MEAN CORPUSCULAR HEMOGLOBIN 30 PG (25-34); MEAN CORPUSCULAR HGB CONC 32 G/DL (32-36); MEAN CORPUSCULAR VOLUME 93 FL (80-99); MEAN PLATELET VOLUME 8.6 FL (7.4-10.4); MONOCYTES # (AUTO) 0.6 X 10^3 (0.0-1.0); MONOCYTES % (AUTO) 9 % (0-12); NEUTROPHILS # (AUTO) 5.1 X 10^3 (1.8-7.8); NEUTROPHILS % (AUTO) 73 % (42-75); PLATELET COUNT 362 10^3/uL (130-400); RED CELL DISTRIBUTION WIDTH 16.4 % (10.0-14.5); WHITE BLOOD COUNT 7.1 10^3/uL (4.3-11.0)
[2019-05-10 14:30] LABS: ALANINE AMINOTRANSFERASE 26 U/L (0-55); ALBUMIN 3.5 GM/DL (3.2-4.5); ALKALINE PHOSPHATASE 148 U/L (40-136); BILIRUBIN,TOTAL 0.5 MG/DL (0.1-1.0); BUN/CREATININE RATIO 11; CALCIUM 9.3 MG/DL (8.5-10.1); CARBON DIOXIDE 28 MMOL/L (21-32); CHLORIDE 89 MMOL/L (98-107); CREATININE SERUM 0.53 MG/DL (0.60-1.30); GFR ESTIMATED > 60; GLUCOSE 105 MG/DL (70-105); POTASSIUM 5.1 MMOL/L (3.6-5.0); SODIUM 129 MMOL/L (135-145); TOTAL PROTEIN 6.7 GM/DL (6.4-8.2)
[2019-06-08 14:15] LABS: BASOPHILS % (AUTO) 0 % (0-10); EOSINOPHILS % (AUTO) 0 % (0-10); HEMATOCRIT 39 % (40-54); HEMOGLOBIN 12.9 G/DL (13.3-17.7); LYMPHOCYTES # (AUTO) 0.9 X 10^3 (1.0-4.0); LYMPHOCYTES % (AUTO) 8 % (12-44); MEAN CORPUSCULAR HEMOGLOBIN 31 PG (25-34); MEAN CORPUSCULAR HGB CONC 33 G/DL (32-36); MEAN CORPUSCULAR VOLUME 94 FL (80-99); MEAN PLATELET VOLUME 8.3 FL (7.4-10.4); MONOCYTES # (AUTO) 0.2 X 10^3 (0.0-1.0); MONOCYTES % (AUTO) 2 % (0-12); NEUTROPHILS # (AUTO) 10.3 X 10^3 (1.8-7.8); NEUTROPHILS % (AUTO) 90 % (42-75); PLATELET COUNT 373 10^3/uL (130-400); RED CELL DISTRIBUTION WIDTH 13.9 % (10.0-14.5); WHITE BLOOD COUNT 11.5 10^3/uL (4.3-11.0)
[2019-06-08 14:35] LABS: ALANINE AMINOTRANSFERASE 16 U/L (0-55); ALBUMIN 3.7 GM/DL (3.2-4.5); ALKALINE PHOSPHATASE 95 U/L (40-136); BILIRUBIN,TOTAL 0.4 MG/DL (0.1-1.0); BUN/CREATININE RATIO 10; CALCIUM 8.8 MG/DL (8.5-10.1); CARBON DIOXIDE 28 MMOL/L (21-32); CHLORIDE 94 MMOL/L (98-107); GFR ESTIMATED > 60; GLUCOSE 123 MG/DL (70-105); POTASSIUM 4.3 MMOL/L (3.6-5.0); SODIUM 130 MMOL/L (135-145); TOTAL PROTEIN 6.7 GM/DL (6.4-8.2)
== END 2019-06-15 11:54 | disposition home or self-care (01) ==
LOC: ONC 13:59
PROVIDERS: ATTEND Internal Medicine Hematology & Oncology
DX: Z51.11 Encounter for antineoplastic chemotherapy (principal); C34.32 Malignant neoplasm of lower lobe, left bronchus or lung; C77.1 Secondary and unspecified malignant neoplasm of intrathoracic lymph nodes; J43.8 Other emphysema; J45.909 Unspecified asthma, uncomplicated; I25.10 Atherosclerotic heart disease of native coronary artery without angina pectoris; G47.10 Hypersomnia, unspecified; Z79.82 Long term (current) use of aspirin; Z79.899 Other long term (current) drug therapy; Z87.891 Personal history of nicotine dependence
CPT/HCPCS: 36415; 36591; 80053; 84443; 85025; 96413

== ENCOUNTER 2019-06-29 05:58 | Observation (INO) | payer MEDICAID, OTHER ==
[~2019-06-29] VITALS: Ht 172 cm; Wt 72.8 kg
[~2019-06-29 05:58] MED LIST changes: -NIVOLUMAB 480 MG in NS (IVPB) CANCER CENTER 100 ML IV SCH; -NS (IVPB) CANCER CENTER 250 ML IV SCH; -NS IV 500 ML (CANCER CENTER) IV SCH; +RT-ALBUTEROL SULF 2.5 MG/3 ML PRE-MIX VIAL ONE; +RT-IPRATROPIUM (ATROVENT) 0.5MG/2.5ML AMP IH ONE
[2019-06-29] MEDS ORDERED: RT-ALBUTEROL SULF 2.5 MG/3 ML PRE-MIX VIAL INH STA (06:07)
[2019-06-29] MEDS ORDERED: NS IV 1000 ML 1,000 ML IV ONE (06:12)
[2019-06-29] MEDS ORDERED: RT-ALBUTEROL/IPRATROPIUM 3 ML (DUONEB) VIAL INH ONE (06:15)
[2019-06-29] MEDS ORDERED: methylPREDNISolone 125 MG (Solu-MEDROL) VIAL IVP ONE (06:15)
[2019-06-29 06:18] LABS: BASOPHILS # (AUTO) 0.1 10^3/uL (0.0-0.1); BASOPHILS % (AUTO) 1 % (0-10); EOSINOPHILS # (AUTO) 0.6 10^3/uL (0.0-0.3); EOSINOPHILS % (AUTO) 6 % (0-10); HEMATOCRIT 45 % (40-54); HEMOGLOBIN 14.2 G/DL (13.3-17.7); LYMPHOCYTES # (AUTO) 0.9 X 10^3 (1.0-4.0); LYMPHOCYTES % (AUTO) 8 % (12-44); MEAN CORPUSCULAR HEMOGLOBIN 31 PG (25-34); MEAN CORPUSCULAR HGB CONC 32 G/DL (32-36); MEAN CORPUSCULAR VOLUME 99 FL (80-99); MEAN PLATELET VOLUME 8.4 FL (7.4-10.4); MONOCYTES # (AUTO) 0.6 X 10^3 (0.0-1.0); MONOCYTES % (AUTO) 5 % (0-12); NEUTROPHILS # (AUTO) 8.8 X 10^3 (1.8-7.8); NEUTROPHILS % (AUTO) 80 % (42-75); PLATELET COUNT 402 10^3/uL (130-400); WHITE BLOOD COUNT 10.9 10^3/uL (4.3-11.0)
[2019-06-29 06:19] LABS: ABG BASE EXCESS 6.1 MMOL/L (-2.5-2.5); ABG OXYGEN SATURATION 97 % (94-100); ABG PCO2 58 MMHG (35-45); ABG PH 7.35 (7.37-7.43); ABG PO2 101 MMHG (79-93); ABG TCO2 33.7 MMOL/L (21.0-31.0)
[2019-06-29 06:21] LABS: ALLENS TEST YES-POS; INSPIRED O2 4L; PATIENT TEMP 35.5; VENTILATOR NO
[2019-06-29 06:38] LABS: ALANINE AMINOTRANSFERASE 9 U/L (0-55); ALBUMIN 4.1 GM/DL (3.2-4.5); ALKALINE PHOSPHATASE 143 U/L (40-136); BILIRUBIN,TOTAL 0.5 MG/DL (0.1-1.0); BUN/CREATININE RATIO 6; CALCIUM 9.3 MG/DL (8.5-10.1); CARBON DIOXIDE 34 MMOL/L (21-32); CHLORIDE 92 MMOL/L (98-107); CREATININE SERUM 0.63 MG/DL (0.60-1.30); GFR ESTIMATED > 60; GLUCOSE 149 MG/DL (70-105); POTASSIUM 4.4 MMOL/L (3.6-5.0); SODIUM 137 MMOL/L (135-145); TOTAL PROTEIN 7.6 GM/DL (6.4-8.2)
[2019-06-29] MEDS ORDERED: KETOROLAC 30 MG/ML VIAL IVP ONE (06:45)
--- NOTE | 2019-06-29 07:00 | ED Respiratory ---
General Chief Complaint: Respiratory Problems Stated Complaint: SOB Nursing Triage Note: PT ARRIVES VIA EMS TO ROOM 7, REPORTS SOB THAT BEGAN LAST NIGHT AND WORSENED THROUGHOUT THE MORNING. PT VERBALIZES A LONG HX OF COPD, LUNG CA, AND EMPHYSEMA. PT STATES HE USED HIS HOME BREATHING TXT AROUND ONE HOUR [employer], CONTINUED TO HAVE SOB, EMS CONTACTED, BT ADMINISTERED EN ROUTE. Source: patient Exam Limitations: no limitations History of Present Illness Date Seen by Provider: Jun 29, 2019 Time Seen by Provider: 06:00 Initial Comments This 63-year-old gentleman with stage IV lung cancer presents to the emergency room via [facility] with hypoxia, wheezing, and shortness of breath. He does have history of COPD and uses nebulizer treatments every 4 hours on a scheduled. EMS administered a DuoNeb treatment with good improvement. Oxygen saturation was 80 percent on 4 L by mask as administered at home by the patient and his . He is currently under active cancer treatment by Dr. Sandoval with immunotherapy. He reports failing chemotherapy and radiation. He presently does not smoke. He denies any cough or fever. He does have a headache. He has mild chest pain that he characterizes as a tightness. He reports his shortness of breath and wheezing started yesterday and worsened in the night. Allergies and Home Medications Allergies Coded Allergies: No Known Drug Allergies (Unverified , 05/22/17) Home Medications Albuterol Sulfate 1 Puff Puff, 2 PUFF IH QID PRN for SHORTNESS OF BREATH, (Reported) Albuterol Sulfate 2.5 Mg/3 Ml Vial.neb, 2.5 MG NEB Q4H PRN for SHORTNESS OF BREATH, (Reported) Aspirin 81 Mg Tablet.dr, 81 MG PO DAILY, (Reported) Cetirizine HCl 10 Mg Tablet, 10 MG PO DAILY PRN for ALLERGIES, (Reported) Fluticasone Propionate 16 Gm [place].susp, 1 SPRAY NS DAILY PRN for CONGESTION, (Reported) Hydrocodone/Acetaminophen 1 Each Tablet, 2 TAB PO Q6H PRN for PAIN-MODERATE, (Reported) Montelukast Sodium 10 Mg Tablet, 10 MG PO HS PRN for ALLERGIES, (Reported) Ondansetron HCl 8 Mg Tablet, 8 MG PO TID PRN for NAUSEA/VOMITING-1ST LINE, (Reported) Pantoprazole Sodium 40 Mg Tablet.dr, 40 MG PO DAILY PRN for INDIGESTION, (Reported) Polyethylene Glycol 3350 238 Gm Powder, 17 GM PO DAILY PRN for CONSTIPATION-2ND LINE, (Reported) Patient Home Medication List Home Medication List Reviewed: Yes Review of Systems Review of Systems Constitutional: no symptoms reported EENTM: no symptoms reported Respiratory: see HPI Cardiovascular: see HPI Gastrointestinal: no symptoms reported Genitourinary: no symptoms reported Musculoskeletal: no symptoms reported Skin: no symptoms reported Psychiatric/Neurological: No Symptoms Reported Hematologic/Lymphatic: See HPI Immunological/Allergic: see HPI Past Gliekja-Eomgmd-Uhwexe Hx Past Med/Social Hx: Reviewed and Corrections made Patient Social History Alcohol Use: Occasionally Uses Number of Drinks Today: AA Alcohol Beverage of Choice: Beer Recreational Drug Use: No Smoking Status: Former Smoker Type Used: Cigarettes Former Smoker, Quit: Jun 17, 2002 2nd Hand Smoke Exposure: No Recent Foreign Travel: No Contact w/Someone Who Travel: No Recent Infectious Disease Expo: No Recent Hopitalizations: No Physical Abuse: No Sexual Abuse: No Mistreated: No Fear: No Immunizations Up To Date Tetanus Booster (TDap): Unknown PED Vaccines UTD: Yes Seasonal Allergies Seasonal Allergies: No Past Medical History Surgeries: Yes (rt wrist-, port placement, PLUERIX CATH) Orthopedic Respiratory: Yes (wears oxygen prn, lung cancer) Asthma, COPD, Emphysema Currently Using CPAP: No Currently Using BIPAP: No Cardiac: No Neurological: No Reproductive Disorders: No Sexually Transmitted Disease: No HIV/AIDS: No Genitourinary: No Gastrointestinal: No Musculoskeletal: Yes Fractures (Right wrist fracture with surgical repair in ) Endocrine: No HEENT: No Loss of Vision: Denies Hearing Impairment: Denies Cancer: Yes Lung Did You Recieve Any Treatments: Yes (Currently under immunotherapy) What Type of Treatment Did You: Chemotherapy, Radiation Psychosocial: No Integumentary: No Blood Disorders: No Adverse Reaction/Blood Tranf: No Family Medical History Cardiovascular disease 19 FATHER, Onset:Unknown No Pertinent Family Hx Physical Exam Vital Signs - First Documented 06/29/19 06:00 Temp 35.5 Pulse 126 Resp 24 B/P (MAP) 102/80 (87) Pulse Ox 96 O2 Delivery OxyMask O2 Flow Rate 10.00 Capillary Refill : Less Than 3 Seconds Height: 5'8.00" Weight: 137lbs. 0.0oz. 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, no motor/sensory deficits, alert, normal mood/affect, oriented x 3 Skin: normal color, warm/dry Progress/Results/Core Measures Suspected Sepsis Recent Fever Within 48 Hours: No Infection Criteria Present: Suspected New Infection New/Unexplained Altered Menta: No Sepsis Screen: Possible Sepsis Risk SIRS Temperature: Pulse: 126 Respiratory Rate: 24 Laboratory Tests 06/29/19 06:05: White Blood Count 10.9 Blood Pressure 102 /80 Mean: 87 Laboratory Tests 06/29/19 06:05: Creatinine 0.63, Platelet Count 402H, Total Bilirubin 0.5 Results/Orders Lab Results Laboratory Tests Test 06/29/19 06:05 06/29/19 06:11 Range/Units White Blood Count 10.9 4.3-11.0 10^3/uL Red Blood Count 4.52 4.35-5.85 10^6/uL Hemoglobin 14.2 13.3-17.7 G/DL Hematocrit 45 40-54 % Mean Corpuscular Volume 99 80-99 FL Mean Corpuscular Hemoglobin 31 25-34 PG Mean Corpuscular Hemoglobin Concent 32 32-36 G/DL Red Cell Distribution Width 14.0 10.0-14.5 % Platelet Count 402 H 130-400 10^3/uL Mean Platelet Volume 8.4 7.4-10.4 FL Neutrophils (%) (Auto) 80 H 42-75 % Lymphocytes (%) (Auto) 8 L 12-44 % Monocytes (%) (Auto) 5 0-12 % Eosinophils (%) (Auto) 6 0-10 % Basophils (%) (Auto) 1 0-10 % Neutrophils # (Auto) 8.8 H 1.8-7.8 X 10^3 Lymphocytes # (Auto) 0.9 L 1.0-4.0 X 10^3 Monocytes # (Auto) 0.6 0.0-1.0 X 10^3 Eosinophils # (Auto) 0.6 H 0.0-0.3 10^3/uL Basophils # (Auto) 0.1 0.0-0.1 10^3/uL D-Dimer 0.78 H 0.00-0.49 UG/ML Sodium Level 137 135-145 MMOL/L Potassium Level 4.4 3.6-5.0 MMOL/L Chloride Level 92 L 98-107 MMOL/L Carbon Dioxide Level 34 H 21-32 MMOL/L Anion Gap 11 5-14 MMOL/L Blood Urea Nitrogen 4 L 7-18 MG/DL Creatinine 0.63 0.60-1.30 MG/DL Estimat Glomerular Filtration Rate > 60 BUN/Creatinine Ratio 6 Glucose Level 149 H 70-105 MG/DL Calcium Level 9.3 8.5-10.1 MG/DL Corrected Calcium 9.2 8.5-10.1 MG/DL Total Bilirubin 0.5 0.1-1.0 MG/DL Aspartate Amino Transf (AST/SGOT) 15 5-34 U/L Alanine Aminotransferase (ALT/SGPT) 9 0-55 U/L Alkaline Phosphatase 143 H 40-136 U/L Troponin I < 0.028 <0.028 NG/ML Total Protein 7.6 6.4-8.2 GM/DL Albumin 4.1 3.2-4.5 GM/DL Blood Gas Puncture Site LEFT RADIAL Blood Gas Patient Temperature 35.5 Arterial Blood pH 7.35 L 7.37-7.43 Arterial Blood Partial Pressure CO2 58 H 35-45 MMHG Arterial Blood Partial Pressure O2 101 H 79-93 MMHG Arterial Blood HCO3 32 H 23-27 MMOL/L Arterial Blood Total CO2 33.7 H 21.0-31.0 MMOL/L Arterial Blood Oxygen Saturation 97 94-100 % Arterial Blood Base Excess 6.1 H -2.5-2.5 MMOL/L Sada Test YES-POS Blood Gas Ventilator Setting NO Blood Gas Inspired Oxygen 4L Micro Results Microbiology 06/29/19 Influenza Types A,B Antigen (KYLE) - Final, Complete My Orders Orders - LUKE ARCOS MD Chest 1 View, Ap/Pa Only (06/29/19 06:07) Cbc With Automated Diff (06/29/19 06:07) Comprehensive Metabolic Panel (06/29/19 06:07) Troponin I (06/29/19 06:07) Ed Iv/Invasive Line Start (06/29/19 06:07) Methylprednisolone Sod Succ (Solu-Medrol (06/29/19 06:15) Albuterol Pre-Mix Nebs (Rt) (Proventil (06/29/19 06:07) Albuterol/Ipra Inhalation Soln (Duoneb I (06/29/19 06:15) Svn Small Volume Nebulizer (06/29/19 06:07) Svn Small Volume Nebulizer (06/29/19 06:07) Ekg Tracing (06/29/19 06:07) Monitor-Rhythm Ecg Trace Only (06/29/19 06:07) Fibrin Degradation Products (06/29/19 06:12) Ed Iv/Invasive Line Start (06/29/19 06:12) Ns Iv 1000 Ml (Sodium Chloride 0.9%) (06/29/19 06:12) Arterial Blood Gas (06/29/19 06:11) Influenza A And B Antigens (06/29/19 06:13) Arterial Blood Draw (06/29/19 ) Ketorolac Injection (Toradol Injection) (06/29/19 06:45) Ct Angio Chest W (06/29/19 07:15) Iohexol Injection (Omnipaque 350 Mg/Ml 1 (06/29/19 07:45) Received Contrast (Hold Metformin- Contr (06/29/19 07:45) Ns (Ivpb) (Sodium Chloride 0.9% Ivpb Bag (06/29/19 07:45) Medications Given in ED Current Medications Medications Dose Ordered Sig/Blanca Route Start Time Stop Time Status Last Admin Dose Admin Iohexol 100 ml ONCE ONCE IV 06/29/19 07:45 06/29/19 07:46 DC 06/29/19 08:05 90 ML Ipratropium [place] 0.5 mg STK-MED ONCE IH 06/29/19 05:56 06/29/19 06:05 DC 06/29/19 06:15 0.5 MG Ketorolac Tromethamine 30 mg ONCE ONCE IVP 06/29/19 06:45 06/29/19 06:46 DC 06/29/19 06:54 30 MG Methylprednisolone Sodium Succinate 125 mg ONCE ONCE IVP 06/29/19 06:15 06/29/19 06:16 DC 06/29/19 06:16 125 MG Sodium Chloride 100 ml ONCE ONCE IV 06/29/19 07:45 06/29/19 07:46 DC 06/29/19 08:05 80 ML Sodium Chloride 1,000 ml @ 0 mls/hr Q0M ONCE IV 06/29/19 06:12 06/29/19 06:14 DC 06/29/19 06:16 1,000 MLS/HR Vital Signs/I&O 06/29/19 06/29/19 06:00 06:16 Temp 35.5 Pulse 126 Resp 24 B/P (MAP) 102/80 (87) Pulse Ox 96 97 O2 Delivery OxyMask OxyMask O2 Flow Rate 10.00 4.00 Capillary Refill : Less Than 3 Seconds Blood Pressure Mean: 87 Progress Note #1: Time: 07:33 Progress Note Patient received a partial hour-long treatment. Some of the solution spilled. He is still wheezing but improved. Oxygen saturation is in the 90s on 4 L by nasal cannula. He received Solu-Medrol 125 mg by IV route. Chest x-ray report is pending. D-dimer was elevated. CT angiogram is pending. Toradol was given for headache. Progress Note #2: Time: 08:[address] angiogram was negative for PE, pneumonia, or other acute changes. There were some subtle changes to his chronic cancer-related findings. He remained stable on nasal cannula. Case was discussed with Dr. Madison and Dr. Huber. He will be admitted for observation and treatment of COPD exacerbation. ECG Initial ECG Impression Date: Jun 29, 2019 Initial ECG Impression Time: 06:17 Initial ECG Rate: 114 Initial ECG Rhythm: S.Tach Initial ECG Intervals: Normal Comment Sinus tachycardia with no ST elevation or depression. No abnormal intervals or axis deviation. Diagnostic Imaging Diagonstic Imaging: Xray Plain Films/CT/US/NM/MRI: chest Comments Chest x-ray viewed by me and report reviewed. See report below: NAME: OZ VALLE JR [facility] REC#: [id number] PT STATUS: REG ER : 1955 PHYSICIAN: LUKE ARCOS MD ADMIT DATE: 06/29/19/ER Draft Date of Exam:06/29/19 CHEST 1 VIEW, AP/PA ONLY Indication: Shortness of breath. Lung cancer. Comparison made with prior examination from 03/02/2019. Findings: There is cardiomegaly and some venous congestion. There is some scarring in the left lung base. Abnormal soft tissue prominence about the left hilum. There is minimal scarring in the right lung base. There is no pneumothorax. The mediastinum is unremarkable. [id number] catheter overlies the right hemithorax. Impression: Persistent abnormal soft tissue about the left hilum presumably sequela of treated lung cancer. Residual or recurrent neoplasm certainly cannot be excluded. There is also some volume loss probable small left pleural effusion. Cardiomegaly and minimal venous congestion. Dictated on workstation # [id number] Dict: 06/29/19 0644 Trans: 06/29/19 0730 [facility] [id number] Interpreted by: PAVAN SAUNDERS MD Diagonstic Imaging: CT Plain Films/CT/US/NM/MRI: chest Comments CT angiogram of the chest viewed by me and report reviewed. See report below: NAME: OZ VALLE [facility] REC#: [id number] PT STATUS: REG ER : 1955 PHYSICIAN: LUKE ARCOS MD ADMIT DATE: 06/29/19/ER Draft Date of Exam:06/29/19 CT ANGIO CHEST W PROCEDURE: CT angiography of the chest with contrast. TECHNIQUE: Multiple contiguous axial images were obtained through the chest after uneventful bolus administration of intravenous contrast. 3D reconstructed CTA MIP acquisitions were also performed. Auto Exposure Controls were utilized during the CT exam to meet ALARA standards for radiation dose reduction. INDICATION: Difficulty breathing Exam compared to 01/18/2019 No identifiable venous thrombus or pulmonary arterial embolus found. Chronic left lung volume loss. Areas of pleural-parenchymal scarring and interval reduction in left sided pleural fluid without definite loculation on followup. Background COPD chronic. The aorta is patent and nonaneurysmal. No acute chest wall pathology. No pneumothorax. Some calcified hilar and mediastinal lymph nodes stable. Noncalcified nae mass. No destructive bony lesion. The some thickening and nodularity of the left adrenal gland as a new finding indeterminate. Partially visualized liver and upper abdomen appeared nonacute. Impression: No identifiable venous thrombus or PE. Further improvements in left lung aeration with reduction in left pleural fluid volume. Chronic areas of scarring and COPD stable. Indeterminate mild nodular thickening of the left adrenal gland reflects a change from prior. Dictated on workstation # [id number] Dict: 06/29/19 0811 Trans: 06/29/19 0832 [facility] [id number] Interpreted by: TASHA MANDUJANO Departure Communication (Admissions) Time/Spoke to Admitting Phy: 08:41 Dr. Madison Time/Spoke to Consulting Phy: 08:41 Dr. Huber Impression Primary Impression: COPD exacerbation Additional Impression: Lung cancer Qualified Codes: C34.92 - Malignant neoplasm of unspecified part of left bronchus or lung Disposition: ADMITTED INPATIENT Condition: Improved Admissions Decision to Admit Reason: Admit from ER (General) Decision to Admit/Date: Jun 29, 2019 Time/Decision to Admit Time: 06:05 Departure-Patient Inst. Referrals: [facility] (PCP) Primary Care Physician JEFERSON GUAJARDO [employer] (Family) Primary Care Physician LUKE ARCOS MD Jun 29, 2019 06:59
--- NOTE | 2019-06-29 07:03 | NUR ---
REPORT GIVEN TO GRETTA RN
--- NOTE | 2019-06-29 07:31 | Diagnostic Imaging Report ---
Indication: Shortness of breath. Lung cancer. Comparison made with prior examination from 03/02/2019. Findings: There is cardiomegaly and some venous congestion. There is some scarring in the left lung base. Abnormal soft tissue prominence about the left hilum. There is minimal scarring in the right lung base. There is no pneumothorax. The mediastinum is unremarkable. [id number] catheter overlies the right hemithorax. Impression: Persistent abnormal soft tissue about the left hilum presumably sequela of treated lung cancer. Residual or recurrent neoplasm certainly cannot be excluded. There is also some volume loss probable small left pleural effusion. Cardiomegaly and minimal venous congestion. Dictated by: Dictated on workstation # [id number]
[2019-06-29] MEDS ORDERED: IOHEXOL 350 MG/ML 100 ML (OMNIPAQUE 350) VIAL IV ONE (07:45)
[2019-06-29] MEDS ORDERED: NS 100 ML (IVPB) BAG IV ONE (07:45)
[2019-06-29] MEDS ORDERED: HOLD METFORMIN - RECEIVED CONTRAST 20 ML VIAL IV SCH (07:45)
--- NOTE | 2019-06-29 08:25 | NUR ---
NO CHANGE MONITOR SR.
--- NOTE | 2019-06-29 08:32 | Diagnostic Imaging Report ---
PROCEDURE: CT angiography of the chest with contrast. TECHNIQUE: Multiple contiguous axial images were obtained through the chest after uneventful bolus administration of intravenous contrast. 3D reconstructed CTA MIP acquisitions were also performed. Auto Exposure Controls were utilized during the CT exam to meet ALARA standards for radiation dose reduction. INDICATION: Difficulty breathing Exam compared to 01/18/2019 No identifiable venous thrombus or pulmonary arterial embolus found. Chronic left lung volume loss. Areas of pleural-parenchymal scarring and interval reduction in left sided pleural fluid without definite loculation on followup. Background COPD chronic. The aorta is patent and nonaneurysmal. No acute chest wall pathology. No pneumothorax. Some calcified hilar and mediastinal lymph nodes stable. Noncalcified nae mass. No destructive bony lesion. The some thickening and nodularity of the left adrenal gland as a new finding indeterminate. Partially visualized liver and upper abdomen appeared nonacute. Impression: No identifiable venous thrombus or PE. Further improvements in left lung aeration with reduction in left pleural fluid volume. Chronic areas of scarring and COPD stable. Indeterminate mild nodular thickening of the left adrenal gland reflects a change from prior. Dictated by: Dictated on workstation # [id number]
[2019-06-29 09:39] VITALS: BP 121/79
[2019-06-29] MEDS ORDERED: RT-ALBUTEROL SULF 2.5 MG/3 ML PRE-MIX VIAL IH PRN (09:45)
[2019-06-29] MEDS: RT-ALBUTEROL/IPRATROPIUM 3 ML (DUONEB) VIAL IH SCH ×4 (10:48→22:14)
--- NOTE | 2019-06-29 11:00 | NUR ---
OZ VALLE JR admitted to room 413-1, with an admitting diagnosis of COPD exacerbation, on 06/29/19 from ED via wheelchair, accompanied by staff and family. OZ VALLE JR introduced to surroundings, call light, bed controls, phone, TV, temperature control, lights, meal times, smoking policy, visitor policy, side rail policy, bathrooms and showers. Patient Rights given to patient in the handbook. OZ VALLE JR verbalizes understanding that [facility] is not responsible for the loss or damage to any personal effects or valuables that are kept in the patients possession during their hospitalization. The following Patient Care Plans were discussed with the patient and family: Discharge Planning, pain management ,dehydration, and medications. OZ VALLE JR verbalizes understanding of Interdisciplinary Patient Education. Patient and/or family were informed about the Rapid Response Team and its purpose.
--- NOTE | 2019-06-29 11:15 | Pulmonary Consultation ---
COURTNEY ALBARADO,MED STUDENT 06/29/19 1114: History of Present Illness History of Present Illness Date of Consultation 06/29/19 11:00 Time Seen by Provider: 11:05 Reason for Visit: AE COPD History of Present Illness Patient is a 63 y/o male with stage IV lung cancer and COPD that was brought to [facility] by [facility] with a cc of hypoxia, wheezing and SOB that started yesterday and worsened over the night. He says that the he was treated at [facility] in [place] 1month ago for SOB and passing out while on his way home from [place]. According to patient [facility] told him to increase his home oxygen from 2L to 4L. He has a history of COPD managed by Dr. Huber, and uses his nebulizer treatments every 4 hours per schedule. He received a DuoNeb treatment by EMS and improved. Oxygen saturation was 80% on 4L at home via mask. He is currently on 3L with SpO2 >90% and comfortable. Patient says that he becomes SOB with exertion even with 4L at portable home O2. He is currently under active cancer treatment by Dr. Sandoval with immunotherapy. He reports failure chemotherapy and radiation. He presently does not smoke but has >30yr ppd hx and quit 17yrs ago. ROS admits to SOB on exertion, productive cough >2yrs denies: fever, chills, Nausea, vomiting, headache, chest pain, abdominal pain, numbness, tingling, and malaise. Allergies and Home Medications Allergies Coded Allergies: No Known Drug Allergies (Unverified , 05/22/17) Home Medications Albuterol Sulfate 1 Puff Puff, 2 PUFF IH QID PRN for SHORTNESS OF BREATH, (Reported) Albuterol Sulfate 2.5 Mg/3 Ml Vial.neb, 2.5 MG NEB Q4H PRN for SHORTNESS OF BREATH, (Reported) Aspirin 81 Mg Tablet.dr, 81 MG PO DAILY, (Reported) Cetirizine HCl 10 Mg Tablet, 10 MG PO DAILY PRN for ALLERGIES, (Reported) Fluticasone Propionate 16 Gm [place].susp, 1 SPRAY NS DAILY PRN for CONGESTION, (Reported) Hydrocodone/Acetaminophen 1 Each Tablet, 2 TAB PO Q6H PRN for PAIN-MODERATE, (Reported) Montelukast Sodium 10 Mg Tablet, 10 MG PO HS PRN for ALLERGIES, (Reported) Ondansetron HCl 8 Mg Tablet, 8 MG PO TID PRN for NAUSEA/VOMITING-1ST LINE, (Reported) Pantoprazole Sodium 40 Mg Tablet.dr, 40 MG PO DAILY PRN for INDIGESTION, (Reported) Polyethylene Glycol 3350 238 Gm Powder, 17 GM PO DAILY PRN for CONSTIPATION-2ND LINE, (Reported) Past Liwyrtk-Rrwwfu-Jmpbcu Hx Past Med/Social Hx: Reviewed and Corrections made Patient Social History Alcohol Use: Occasionally Uses Number of Drinks Today: AA Alcohol Beverage of Choice: Beer Recreational Drug Use: No Smoking Status: Former Smoker Type Used: Cigarettes Former Smoker, Quit: Jun 17, 2002 2nd Hand Smoke Exposure: No Recent Foreign Travel: No Contact w/Someone Who Travel: No Recent Infectious Disease Expo: No Recent Hopitalizations: No Physical Abuse: No Sexual Abuse: No Mistreated: No Fear: No Immunizations Up To Date Tetanus Booster (TDap): Unknown PED Vaccines UTD: Yes Seasonal Allergies Seasonal Allergies: No Past Medical History Surgeries: Yes (rt wrist-, port placement, PLUERIX CATH) Orthopedic Respiratory: Yes (wears oxygen prn, lung cancer) Asthma, COPD, Emphysema Currently Using CPAP: No Currently Using BIPAP: No Cardiac: No Neurological: No Reproductive Disorders: No Sexually Transmitted Disease: No HIV/AIDS: No Genitourinary: No Gastrointestinal: No Musculoskeletal: Yes Fractures (Right wrist fracture with surgical repair in ) Endocrine: No HEENT: No Loss of Vision: Denies Hearing Impairment: Denies Cancer: Yes Lung Did You Recieve Any Treatments: Yes (Currently under immunotherapy) What Type of Treatment Did You: Chemotherapy, Radiation Psychosocial: No Integumentary: No Blood Disorders: No Adverse Reaction/Blood Tranf: No Family Medical History Cardiovascular disease 19 FATHER, Onset:Unknown No Pertinent Family Hx Sepsis Event Evaluation Height, Weight, BMI Height: 5'8.00" Weight: 137lbs. 0.0oz. 62.565260yy; 22.74 BMI Method:Stated Exam Exam Vital Signs Date Time Temp Pulse Resp B/P (MAP) Pulse Ox O2 Delivery O2 Flow Rate FiO2 06/29/19 10:48 97 Nasal Cannula 3.00 06/29/19 09:39 36.4 99 22 121/79 96 Nasal Cannula 3.00 4.00 06/29/19 06:16 97 OxyMask 4.00 06/29/19 06:00 35.5 126 24 102/80 (87) 96 OxyMask 10.00 Height & Weight Height: 5'8.00" Weight: 137lbs. 0.0oz. 62.551217tw; 22.74 BMI Method:Stated General Appearance: No Apparent Distress, WD/WN, Chronically ill Respiratory: Chest Non Tender, No Accessory Muscle Use, No Respiratory Distress, Expiration, Inspiration, Wheezing Cardiovascular: Regular Rate, Rhythm, No Edema, No Gallop, No JVD, No Murmur, Normal Peripheral Pulses Capillary Refill: Less Than 3 Seconds Peripheral Pulses: 2+ Dorsalis Pedis (R), 2+ Left Dors-Pedis (L), 2+ Radial Pulses (R), 2+ Radial Pulses (L) Gastrointestinal: normal bowel sounds, non tender, soft Neurologic/Psychiatric: Alert, Oriented x3, No Motor/Sensory Deficits, Normal Mood/Affect Skin: Normal Color, Warm/Dry Lymphatic: No Adenopathy Results Lab Laboratory Tests 06/29/19 06:05 Assessment/Plan Assessment/Plan AECOPD with respiratory acidosis - breathing tx Q 4hrs - IS - oxygen @ 3L - follow as outpatient to evaluate progression of COPD Stage IV lung cancer - managed by Dr. Sandoval hypochloremia - elevated D-dimer and platelets - indicate acute inflammatory response likely d/t cancer and acute exacerbation FENGiPPX management per primary SIMONE HUBER DO 06/29/19 1218: Allergies and Home Medications Allergies Coded Allergies: No Known Drug Allergies (Unverified , 05/22/17) Home Medications Albuterol Sulfate 1 Puff Puff, 2 PUFF IH QID PRN for SHORTNESS OF BREATH, (Reported) Albuterol Sulfate 2.5 Mg/3 Ml Vial.neb, 2.5 MG NEB Q4H PRN for SHORTNESS OF BREATH, (Reported) Aspirin 81 Mg Tablet.dr, 81 MG PO DAILY, (Reported) Cetirizine HCl 10 Mg Tablet, 10 MG PO DAILY PRN for ALLERGIES, (Reported) Fluticasone Propionate 16 Gm [place].susp, 1 SPRAY NS DAILY PRN for CONGESTION, (Reported) Hydrocodone/Acetaminophen 1 Each Tablet, 2 TAB PO Q6H PRN for PAIN-MODERATE, (Reported) Montelukast Sodium 10 Mg Tablet, 10 MG PO HS PRN for ALLERGIES, (Reported) Ondansetron HCl 8 Mg Tablet, 8 MG PO TID PRN for NAUSEA/VOMITING-1ST LINE, (Reported) Pantoprazole Sodium 40 Mg Tablet.dr, 40 MG PO DAILY PRN for INDIGESTION, (Reported) Polyethylene Glycol 3350 238 Gm Powder, 17 GM PO DAILY PRN for CONSTIPATION-2ND LINE, (Reported) Past Bghmohr-Oyalfk-Obhaqk Hx Family Medical History Cardiovascular disease 19 FATHER, Onset:Unknown Assessment/Plan Assessment/Plan Acute on chronic respiratory failure AECOPD with hx of severe COPD -ABG shows acute on chronic respiratory acidosis - Duoneb Q 4hrs -Currently requiring 4 liters NC. Home pt requires 2 liters/min HX Stage IV lung cancer - managed by COURTNEY Maharaj,MED STUDENT Jun 29, 2019 11:14 SIMONE HUBER DO Jun 29, 2019 12:18
[2019-06-29] MEDS: ENOXAPARIN 40 MG/0.4 ML (LOVENOX) SYR SC SCH (11:48)
[2019-06-29] MEDS: methylPREDNISolone 40 MG/ML (Solu-MEDROL) VIAL IV SCH ×2 (11:49→18:35)
[2019-06-29 11:55] VITALS: BP 111/72
[2019-06-29] MEDS: HYDROcodone/APAP 5 MG/325 MG (LORTAB) TAB PO PRN ×2 (11:57→18:39)
--- NOTE | 2019-06-29 12:41 | NUR ---
RD ASSESSMENT Pt was awake and pleasant during consult for MST score. Pt states current appetite is pretty good and had been for the past several weeks. Pt states no current issues with n/v/c/d at this time, and states last BM was 06/28. Pt states recent wt loss d/t CA diagnosis, but cannot recall amount lost. Note unable to determine recent wt hx, per chart review. Note pt does not meet criteria for malnutrition, per ASPEN guidelines. PES Statement: Estimated inadequate protein intake related to increased protein needs as evidenced by COPD / CA (lung - stage IV) Est. kcal needs: 4533-0982 kcal (30-35 kcal/kg) Est. Pro needs: 80-100 g Pro (1.2-1.5 g Pro/kg) INTERVENTION: Continue with current diet order of general/regular diet. Add Ensure Enlive (chocolate) to meals BID. Provides 350 kcal and 20 g Pro per serving. MONITOR/EVALUATE: Weight PO Intake Supplement Tolerance Labs Hydration Status Lang Oliveros, MS, RD [phone]
[2019-06-29] MEDS ORDERED: IBUPROFEN 600 MG (MOTRIN) TAB PO PRN (13:00)
[2019-06-29] MEDS ORDERED: MORP-34 PO (13:05)
[2019-06-29] MEDS ORDERED: HYDR-3820 PO (13:05)
[2019-06-29] MEDS ORDERED: ADVAIR (13:10)
--- NOTE | 2019-06-29 13:47 | Oncology Consultation ---
Visit Information Visit Information Date of Admission Jun 29, 2019 at 08:51 Attending Physician Jessica Madison DO Admitting Physician [place] Chief Complaint "I just could not breath." Interval History Mr. Chery is a 63 year old white man known to me at the cancer center with stage IV lung cancer under immunotherapy Opdivo treatment, last treatment 3 weeks ago. He experienced sudden onset of increasing SOB last night, not responding to the nebulizer treatment at home. He called ambulance and at ER his O2 sat was 80%. He responded to steroid treatment at ER and he is feeling better now. He had CT angio at ER which was negative for PE. He does have COPD and cardiomegaly on CXR. He had similar episode a few months ago when he was at the [facility]. CT scan showed stable lung cancer at that time. I consulted the patient on: 06/29/19 13:42 Time Seen by Provider: 13:42 Review of Systems Constitutional: weakness Respiratory: dyspnea on exertion, short of breath Cardiovascular: chest pain, palpitations Gastrointestinal: no symptoms reported Genitourinary: no symptoms reported Musculoskeletal: no symptoms reported Health Status Allergies Coded Allergies: No Known Drug Allergies (Unverified , 05/22/17) Home Medications Albuterol Sulfate (Albuterol Sulfate) 2.5 Mg/3 Ml Vial.neb, 2.5 MG NEB Q4H PRN for SHORTNESS OF BREATH, (Reported) Aspirin (Aspir 81) 81 Mg Tablet.dr, 81 MG PO DAILY, (Reported) Fluticasone Propionate (Fluticasone Propionate) 16 Gm [place].susp, 1 SPRAY NS DAILY PRN for CONGESTION, (Reported) Hydrocodone/Acetaminophen (Hydrocodon-Acetaminophn 10-325) 1 Each Tablet, 1 TAB PO Q6H PRN for PAIN-MODERATE, (Reported) Morphine Sulfate (Morphine Sulfate ER) 30 Mg Tablet.er, 30 MG PO Q8H, (Reported) Polyethylene Glycol 3350 ([id number]) 238 Gm Powder, 17 GM PO DAILY PRN for CONSTIPATION-2ND LINE, (Reported) [Advair] , (Reported) UOJ-Uigdiw-Mkkwfi Hx Patient Social History Alcohol Use: Occasionally Uses Recreational Drug Use: No Smoking Status: Former Smoker Type Used: Cigarettes 2nd Hand Smoke Exposure: No Recent Foreign Travel: No Contact w/other who traveled: No Recent Infectious Disease Expo: No Recent Hopitalizations: No Immunizations Up To Date Tetanus Booster (TDap): Unknown Family Medical History Significant Family History: No Pertinent Family Hx Family History: Cardiovascular disease 19 FATHER, Onset:Unknown Physical Exam Vital Signs Vital Signs - First Documented 06/29/19 06:00 Temp 35.5 Pulse 126 Resp 24 B/P (MAP) 102/80 (87) Pulse Ox 96 O2 Delivery OxyMask O2 Flow Rate 10.00 Capillary Refill : Less Than 3 Seconds Height, Weight, BMI Height: 5'8.00" Weight: 137lbs. 0.0oz. 62.022316ig; 22.74 BMI Method:Stated General Appearance: No Apparent Distress HEENT: PERRL/EOMI Neck: Non Tender, Supple Respiratory: No Accessory Muscle Use, No Respiratory Distress, Wheezing Cardiovascular: Regular Rate, Rhythm, No Murmur Gastrointestinal: Non Tender, Soft Extremity: Non Tender, No Calf Tenderness, No Pedal Edema Neurologic/Psychiatric: Alert, Oriented x3 Data Review Labs Laboratory Tests 06/29/19 06:05 Laboratory Tests 06/29/19 06:05: Platelet Count 402H, Neutrophils (%) (Auto) 80H, Lymphocytes (%) (Auto) 8L, Neutrophils # (Auto) 8.8H, Lymphocytes # (Auto) 0.9L, Eosinophils # (Auto) 0.6H, D-Dimer 0.78H, Chloride Level 92L, Carbon Dioxide Level 34H, Blood Urea Nitrogen 4L, Glucose Level 149H, Alkaline Phosphatase 143H 06/29/19 06:11: Arterial Blood pH 7.35L, Arterial Blood Partial Pressure CO2 58H, Arterial Blood Partial Pressure O2 101H, Arterial Blood HCO3 32H, Arterial Blood Total CO2 33.7H, Arterial Blood Base Excess 6.1H Impression & Plan Impression & Plan A/P: 1. COPD exacerbation on IV steroid and breathing treatment. Pt is feeling much better now. 2. Stage IV lung caner on immunotherapy. CT scan at ER showed stable disease. Minimal pleural effusion. I will see him at the cancer center next week as previously scheduled to decide his next immunotherapy for the lung cancer. 3. Cardiomegaly on CXR. Pt may need cardiology evaluation about this at some point. 4. Dr. Huber or PCP to decide the steroid course and taper schedule. Thank you for the consultation. Please call if you need more help. CARRINGTON MEDINA MD Jun 29, 2019 13:47
--- NOTE | 2019-06-29 15:58 | NUR ---
SPOKE WITH THE PATIENT ABOUT HIS MEDICATIONS. HE STATES HE HAS BEEN OUT OF SOME OF HIS MEDICATIONS SINCE HE IS UNABLE TO AFFORD THEM. HE TAKES THE FOLLOWING OTC: ASPIRIN 81MG DAILY MIRALAX PRN HE STATES HE USES FLONASE NEEDED. HE HAS ALBUTEROL NEBULIZER SOLUTIONS, HE HAS BEEN USING HIS SONS MEDICATION. HE STATES HE RECEIVED A SAMPLE OF ADVAIR FROM DR. TATE'S OFFICE HOWEVER HE IS UNSURE OF THE STRENGTH. I CALLED AND LEFT A MESSAGE AT THEIR OFFICE TO VERIFY BUT HAVE NOT RECEIVED A CALL BACK AT THIS TIME. I WILL UPDATE WHEN I DO. Addendum: 06/30/19 at 1009 by LUZ MATHEWS [facility] DR. TATE'S OFFICE VERIFIED THEY SAW HIM IN [facility] AND THEY WOULD GIVE ADVAIR 250/50.
[2019-06-29 16:00] VITALS: BP 102/68
--- NOTE | 2019-06-29 16:17 | History & Physical-Hospitalist ---
History of Present Illness HPI/Chief Complaint Chief complaint: Dyspnea HPI: This is a 63yoWM clinic Pt of Dino Bolden at [facility] and Dr. Cobian Oncology for lung cancer and Dr. Huber pulmonology who is an oxygen dependent COPD Pt undergoing treatment, who presented with acute exacerbation of COPD with hypoxia, 88% on his normal oxygen supplementation and considering high risk for decompensation since being actively treated for lung cancer, he was admitted for IV steroids and pulmonology consultation. Pt and family wanting an update from Dr. Cobian on the progression of his cancer and that will be initiated. Hydrocodone of will be restarted home medication. Source: patient, RN/MD, old records Exam Limitations: no limitations Date Seen 06/29/19 Time Seen by a Provider: 10:15 Attending Physician Jessica Vila DO [facility] Referring Physician Date of Admission Jun 29, 2019 at 08:51 Home Medications & Allergies Home Medications Reviewed patient Home Medication Reconciliation performed by pharmacy medication reconciliations voice and data technician and/or nursing. Patients Allergies have been reviewed. Allergies Allergies Coded Allergies No Known Drug Allergies (Unverified05/22/17) Past Lensyiz-Ckiuve-Aopswp Hx Past Med/Social Hx: Reviewed Nursing Past Med/Soc Hx, Reviewed and Corrections made Patient Social History Marrital Status: single Employed/Student: unemployed Alcohol Use: Occasionally Uses Number of Drinks Today: AA Alcohol Beverage of Choice: Beer Recreational Drug Use: No Smoking Status: Former Smoker Former Smoker, Quit: Jun 17, 2002 Type Used: Cigarettes 2nd Hand Smoke Exposure: No Recent Foreign Travel: No Contact w/other who traveled: No Recent Hopitalizations: No Recent Infectious Disease Expo: No Immunizations Up To Date Tetanus Booster (TDap): Unknown Pediatric: Yes Seasonal Allergies Seasonal Allergies: No Past Medical History Surgeries: Orthopedic Respiratory: COPD Currently Using CPAP: No Currently Using BIPAP: No Reproductive: No Sexually Transmitted Disease: No HIV/AIDS: No Musculoskeletal: Fractures (Right wrist fracture with surgical repair in ) Loss of Vision: Denies Hearing Impairment: Denies Cancer: Lung Did You Recieve Any Treatments: Yes (Currently under immunotherapy) What Type of Treatment Did You: Chemotherapy, Radiation History of Blood Disorders: No Adverse Reaction to Blood Park: No Family History Cardiovascular disease 19 FATHER, Onset:Unknown No Pertinent Family Hx Review of Systems Constitutional: see HPI, malaise, weakness Respiratory: cough, dyspnea on exertion, short of breath, wheezing Musculoskeletal: back pain Physical Exam Physical Exam Vital Signs Vital Signs - First Documented 06/29/19 06:00 Temp 35.5 Pulse 126 Resp 24 B/P (MAP) 102/80 (87) Pulse Ox 96 O2 Delivery OxyMask O2 Flow Rate 10.00 Capillary Refill : Less Than 3 Seconds Height, Weight, BMI Height: 5'8.00" Weight: 137lbs. 0.0oz. 62.343204sa; 22.74 BMI Method:Stated General Appearance: No Apparent Distress, WD/WN, Chronically ill, Thin Eyes: Right Eye Normal Inspection, Right Eye PERRL HEENT: PERRL/EOMI, Normal ENT Inspection, Pharynx Normal, Moist Mucous Membranes Neck: Full Range of Motion, Normal Inspection, Non Tender Respiratory: Chest Non Tender, No Accessory Muscle Use, No Respiratory Distress, Crackles, Decreased Breath Sounds, Wheezing Cardiovascular: Regular Rate, Rhythm, No Edema, No Gallop, No JVD, No Murmur, Normal Peripheral Pulses Gastrointestinal: Normal Bowel Sounds, No Organomegaly, No Pulsatile Mass, Non Tender, Soft Back: Normal Inspection, No CVA Tenderness, No Vertebral Tenderness Extremity: Normal Capillary Refill, Normal Inspection, Normal Range of Motion, Non Tender, No Calf Tenderness, No Pedal Edema Neurologic/Psychiatric: Alert, Oriented x3, No Motor/Sensory Deficits, Normal Mood/Affect Skin: Normal Color, Warm/Dry Lymphatic: No Adenopathy Results Results/Procedures Labs Laboratory Tests 06/29/19 06:05 Patient resulted labs reviewed. Assessment/Plan Admission Diagnosis Assessment: AECOPD Lung cancer undergoing aggressive treatment by Dr Sandoval Former smoker Chronic pain syndrome Plan: Restart home meds including pain meds Nebs Steroids Dr Sandoval consultation DVT PPx Admission Status: Inpatient Order (span 2 midnights) Reason for Inpatient Admission: Severe COPD with lung cancer Diagnosis/Problems Diagnosis/Problems (1) COPD exacerbation Status: Acute (2) Lung cancer Status: Chronic Qualifiers: Laterality: left Lung location: unspecified part of lung Qualified Codes: C34.92 - Malignant neoplasm of unspecified part of left bronchus or lung (3) DVT prophylaxis Status: Acute (4) Coronary artery calcification seen on CAT scan Status: Chronic (5) Respiratory failure with hypoxia and hypercapnia Status: Chronic Qualifiers: Chronicity: acute on chronic Qualified Codes: J96.21 - Acute and chronic respiratory failure with hypoxia; J96.22 - Acute and chronic respiratory failure with hypercapnia Clinical Quality Measures DVT/VTE Risk/Contraindication: Risk Factor Score Per Nursin RFS Level Per Nursing on Admit: 3=High JESSICA VILA DO Jun 29, 2019 16:17
[2019-06-29] MEDS: RT-ADVAIR HFA 115/21 MCG PER PUFF IH SCH (18:33)
[2019-06-29 19:30] VITALS: BP 118/73
[2019-06-29] MEDS: morphine ER 30 MG (MS CONTIN) TAB PO SCH (19:59)
[2019-06-29] MEDS ORDERED: POLYETHYLENE GLYCOL 17 GM (MIRALAX) PACK PO PRN (20:00)
[2019-06-29] MEDS ORDERED: POLYETHYLENE GLYCOL 17 GM PO PRN (20:00)
[2019-06-29] MEDS ORDERED: FLUTICASONE NASAL SPRAY (FLONASE) 16 GM BTL NS PRN (20:00)
[2019-06-30 00:25] VITALS: BP 134/78
[2019-06-30] MEDS: methylPREDNISolone 40 MG/ML (Solu-MEDROL) VIAL IV SCH ×4 (00:41→18:25)
[2019-06-30] MEDS: HYDROcodone/APAP 5 MG/325 MG (LORTAB) TAB PO PRN ×4 (00:41→19:32)
[2019-06-30] MEDS: RT-ALBUTEROL/IPRATROPIUM 3 ML (DUONEB) VIAL IH SCH ×6 (02:11→22:08)
[2019-06-30] MEDS: morphine ER 30 MG (MS CONTIN) TAB PO SCH ×3 (03:24→19:32)
[2019-06-30 04:00] VITALS: BP 105/64
[2019-06-30 06:18] LABS: BASOPHILS % (AUTO) 0 % (0-10); EOSINOPHILS % (AUTO) 0 % (0-10); HEMATOCRIT 38 % (40-54); HEMOGLOBIN 12.4 G/DL (13.3-17.7); LYMPHOCYTES # (AUTO) 0.5 X 10^3 (1.0-4.0); LYMPHOCYTES % (AUTO) 7 % (12-44); MEAN CORPUSCULAR HEMOGLOBIN 32 PG (25-34); MEAN CORPUSCULAR HGB CONC 33 G/DL (32-36); MEAN CORPUSCULAR VOLUME 96 FL (80-99); MEAN PLATELET VOLUME 8.8 FL (7.4-10.4); MONOCYTES # (AUTO) 0.3 X 10^3 (0.0-1.0); MONOCYTES % (AUTO) 3 % (0-12); NEUTROPHILS # (AUTO) 6.8 X 10^3 (1.8-7.8); NEUTROPHILS % (AUTO) 90 % (42-75); PLATELET COUNT 393 10^3/uL (130-400); RED CELL DISTRIBUTION WIDTH 13.4 % (10.0-14.5); WHITE BLOOD COUNT 7.5 10^3/uL (4.3-11.0)
[2019-06-30] MEDS: RT-ADVAIR HFA 115/21 MCG PER PUFF IH SCH ×2 (06:32→22:09)
[2019-06-30 06:43] LABS: ALANINE AMINOTRANSFERASE 11 U/L (0-55); ALBUMIN 3.5 GM/DL (3.2-4.5); ALKALINE PHOSPHATASE 85 U/L (40-136); BILIRUBIN,TOTAL 0.3 MG/DL (0.1-1.0); BUN/CREATININE RATIO 16; CALCIUM 8.9 MG/DL (8.5-10.1); CARBON DIOXIDE 30 MMOL/L (21-32); CHLORIDE 97 MMOL/L (98-107); CREATININE SERUM 0.56 MG/DL (0.60-1.30); GFR ESTIMATED > 60; GLUCOSE 154 MG/DL (70-105); POTASSIUM 4.2 MMOL/L (3.6-5.0); SODIUM 135 MMOL/L (135-145); TOTAL PROTEIN 6.1 GM/DL (6.4-8.2)
[2019-06-30 08:00] VITALS: BP 101/63
[2019-06-30] MEDS: ASPIRIN E.C. 81 MG (ECOTRIN) TAB PO SCH (08:13)
[2019-06-30] MEDS ORDERED: NON-FORMULARY MEDICATION 1 EA EA (Aspirin (Aspir 81) 81 MG) PO SCH (09:00)
--- NOTE | 2019-06-30 09:14 | Pulmonary Progress Note ---
Sepsis Event Evaluation Height, Weight, BMI Height: 5'8.00" Weight: 137lbs. 0.0oz. 62.629725td; 22.74 BMI Method:Stated Exam Exam Vital Signs Date Time Temp Pulse Resp B/P (MAP) Pulse Ox O2 Delivery O2 Flow Rate FiO2 06/30/19 08:00 36.6 96 18 101/63 (76) 96 Room Air 06/30/19 06:38 Nasal Cannula 2.50 06/30/19 06:32 96 Nasal Cannula 2.50 06/30/19 04:00 36.9 97 20 105/64 (78) 94 Nasal Cannula 2.50 06/30/19 02:12 92 Nasal Cannula 2.50 06/30/19 00:25 36.6 111 20 134/78 (96) 94 Nasal Cannula 2.50 06/29/19 22:14 95 Nasal Cannula 2.50 06/29/19 20:23 Nasal Cannula 3.00 06/29/19 19:30 36.8 112 20 118/73 (88) 93 Nasal Cannula 2.50 06/29/19 18:40 Nasal Cannula 2.50 06/29/19 18:33 94 Nasal Cannula 2.50 06/29/19 16:00 36.9 107 18 102/68 (79) 95 Nasal Cannula 3.00 06/29/19 13:56 96 Nasal Cannula 3.00 06/29/19 11:55 36.4 102 18 111/72 (85) 96 Nasal Cannula 3.00 06/29/19 10:48 97 Nasal Cannula 3.00 06/29/19 09:50 96 Nasal Cannula 3.00 06/29/19 09:39 36.4 99 22 121/79 96 Nasal Cannula 3.00 4.00 06/29/19 09:21 98 18 106/92 97 Nasal Cannula 3.00 I & O 06/30/19 07:00 Intake Total 2514 ml Output Total 1125 ml Balance 1389 ml Height & Weight Height: 5'8.00" Weight: 137lbs. 0.0oz. 62.333007xk; 22.74 BMI Method:Stated General Appearance: No Apparent Distress, WD/WN, Chronically ill, Thin HEENT: PERRL/EOMI, Normal ENT Inspection, Pharynx Normal, Moist Mucous Membranes Neck: Full Range of Motion, Normal Inspection, Non Tender Respiratory: Chest Non Tender, No Accessory Muscle Use, No Respiratory Distress, Crackles, Decreased Breath Sounds, Wheezing Cardiovascular: Regular Rate, Rhythm, No Edema, No Gallop, No JVD, No Murmur, Normal Peripheral Pulses Capillary Refill: Less Than 3 Seconds Peripheral Pulses: 2+ Dorsalis Pedis (R), 2+ Left Dors-Pedis (L), 2+ Radial Pulses (R), 2+ Radial Pulses (L) Gastrointestinal: normal bowel sounds, non tender, soft Extremity: Normal Capillary Refill, Normal Inspection, Normal Range of Motion, Non Tender, No Calf Tenderness, No Pedal Edema Neurologic/Psychiatric: Alert, Oriented x3, No Motor/Sensory Deficits, Normal Mood/Affect Skin: Normal Color, Warm/Dry Lymphatic: No Adenopathy Results Lab Laboratory Tests 06/29/19 06:05 06/30/19 05:50 Assessment/Plan Assessment/Plan Acute on chronic respiratory failure AECOPD with hx of severe COPD - Duoneb Q 4hrs -Titrate oxygen as tolerated -Currently on Solumedrol 40 Q 6 -Will change to Prednisone HX Stage IV lung cancer - managed by SIMONE Aldrich DO Jun 30, 2019 09:14
[2019-06-30] MEDS ORDERED: FLUT1DIS26 IH (10:06)
--- NOTE | 2019-06-30 10:16 | Progress Note - Hospitalist ---
Subjective HPI/CC On Admission Date Seen by Provider: Jun 30, 2019 Time Seen by Provider: 09:15 Chief complaint: Dyspnea HPI: This is a 63yoWM clinic Pt of Dino Bolden at [facility] and Dr. Cobian Oncology for lung cancer and Dr. Huber pulmonology who is an oxygen dependent COPD Pt undergoing treatment, who presented with acute exacerbation of COPD with hypoxia, 88% on his normal oxygen supplementation and considering high risk for decompensation since being actively treated for lung cancer, he was admitted for IV steroids and pulmonology consultation. Pt and family wanting an update from Dr. Cobian on the progression of his cancer and that will be initiated. Hydrocodone of will be restarted home medication. Subjective/Events-last exam Pt doing well Labs are normal Asking for refreshed tears Wheezing still is a problem and he does not appear to be a whole lot improved from yesterday No BM so will initiate Senna two twice a day first dose now Dr. Huber is appreciated along with Dr. Sandoval CT scan was reviewed by Dr. Sandoval showing no progression of the tumor but no regression either but that is good news that it is not continuing to grow with the lung cancer Review of Systems Pulmonary: Dyspnea, Cough Objective Exam Vital Signs Vital Signs Date Time Temp Pulse Resp B/P (MAP) Pulse Ox O2 Delivery O2 Flow Rate FiO2 06/30/19 18:23 98 Nasal Cannula 2.50 06/30/19 16:25 37.2 101 20 106/63 (77) Capillary Refill : Less Than 3 Seconds General Appearance: No Apparent Distress, WD/WN, Chronically ill, Cachetic Respiratory: No Accessory Muscle Use, No Respiratory Distress, Crackles, Rales, Wheezing Cardiovascular: Regular Rate, Rhythm, No Edema, No Gallop, No JVD, No Murmur, Normal Peripheral Pulses Neurologic/Psychiatric: Alert, Oriented x3, No Motor/Sensory Deficits, Normal Mood/Affect Results/Procedures Lab Laboratory Tests 06/30/19 05:50 Patient resulted labs reviewed. Assessment/Plan Assessment and Plan Assess & Plan/Chief Complaint Assessment: AECOPD Lung cancer undergoing aggressive treatment by Dr Sandoval Former smoker Chronic pain syndrome Plan: Restart home meds including pain meds Nebs Steroids Dr Sandoval consultation DVT PPx Diagnosis/Problems Diagnosis/Problems (1) COPD exacerbation Status: Acute (2) Lung cancer Status: Chronic Qualifiers: Laterality: left Lung location: unspecified part of lung Qualified Codes: C34.92 - Malignant neoplasm of unspecified part of left bronchus or lung (3) DVT prophylaxis Status: Acute (4) Coronary artery calcification seen on CAT scan Status: Chronic (5) Respiratory failure with hypoxia and hypercapnia Status: Chronic Qualifiers: Chronicity: acute on chronic Qualified Codes: J96.21 - Acute and chronic respiratory failure with hypoxia; J96.22 - Acute and chronic respiratory failure with hypercapnia Clinical Quality Measures DVT/VTE Risk/Contraindication: Risk Factor Score Per Nursin RFS Level Per Nursing on Admit: 3=High VEL VILA DO Jun 30, 2019 10:16
[2019-06-30] MEDS: SENNA W/DOCUSATE (SENOKOT S) TABLET PO SCH ×2 (11:09→19:32)
[2019-06-30] MEDS: ENOXAPARIN 40 MG/0.4 ML (LOVENOX) SYR SC SCH (11:15)
[2019-06-30] MEDS: ARTIFICAL TEARS 0.4 ML UNIT DOSE (REFRESH PLUS) OU PRN ×2 (11:16→20:08)
[2019-06-30 12:00] VITALS: BP 109/66
--- NOTE | 2019-06-30 13:03 | NUR ---
MICH/LINO spoke with patient to see if there were any needs at this time. The patient needs to speak to LINO Shah to discuss the spin down for Medicaid. MICH/LINO Shah told this worker she will stop by the patients room later to see him. Patient denied having any other needs at this time. Will continue to follow. Addendum: 06/30/19 at 1647 by RIVKA HUYNH Approved by Rivka Ruiz [facility]
--- NOTE | 2019-06-30 13:22 | Oncology Progress Note ---
Subjective Date Seen by a Provider: Jun 30, 2019 Time Seen by a Provider: 13:18 Subjective/Events-last exam Pt is feeling much better today. I told him his cancer condition today again and also gave him a copy of his most recent scan report which showed stable disease. From Hem/Onc point of view, patient can be discharged. He has a f/u appointment with me already scheduled for next week. Dr Huber or Dr. Madison to decide his steroid taper for the COPD exacerbation. Data Review Labs Laboratory Tests 06/30/19 05:50 Laboratory Tests 06/29/19 06:05: Platelet Count 402H, Neutrophils (%) (Auto) 80H, Lymphocytes (%) (Auto) 8L, Neutrophils # (Auto) 8.8H, Lymphocytes # (Auto) 0.9L, Eosinophils # (Auto) 0.6H, D-Dimer 0.78H, Chloride Level 92L, Carbon Dioxide Level 34H, Blood Urea Nitrogen 4L, Glucose Level 149H, Alkaline Phosphatase 143H 06/29/19 06:11: Arterial Blood pH 7.35L, Arterial Blood Partial Pressure CO2 58H, Arterial Blood Partial Pressure O2 101H, Arterial Blood HCO3 32H, Arterial Blood Total CO2 33.7H, Arterial Blood Base Excess 6.1H 06/30/19 05:50: Neutrophils (%) (Auto) 90H, Lymphocytes (%) (Auto) 7L, Lymphocytes # (Auto) 0.5L , Chloride Level 97L, Glucose Level 154H, Red Blood Count 3.90L, Hemoglobin 12.4L, Hematocrit 38L, Creatinine 0.56L, Total Protein 6.1L Physical Exam Vital Signs Vital Signs - First Documented 06/29/19 06:00 Temp 35.5 Pulse 126 Resp 24 B/P (MAP) 102/80 (87) Pulse Ox 96 O2 Delivery OxyMask O2 Flow Rate 10.00 Capillary Refill : Less Than 3 Seconds Height, Weight, BMI Height: 5'8.00" Weight: 137lbs. 0.0oz. 62.398206wj; 22.74 BMI Method:Stated General Appearance: No Apparent Distress HEENT: PERRL/EOMI Respiratory: Lungs Clear, No Accessory Muscle Use, No Respiratory Distress Cardiovascular: Regular Rate, Rhythm Gastrointestinal: Non Tender, Soft Extremity: Non Tender, No Calf Tenderness, No Pedal Edema Neurologic/Psychiatric: Alert, Oriented x3 Impression & Plan Impression & Plan A/P: 1. COPD exacerbation on IV steroid and breathing treatment. Pt is feeling much better now. 2. Stage IV lung caner on immunotherapy. CT scan at ER showed stable disease. Minimal pleural effusion. I will see him at the cancer center next week as previously scheduled to decide his next immunotherapy for the lung cancer. 3. Cardiomegaly on CXR. Pt may need cardiology evaluation about this at some point. 4. Dr. Huber or PCP to decide the steroid course and taper schedule. Thank you for the consultation. Please call if you need more help. Clinical Quality Measures DVT/VTE Risk/Contraindication: Risk Factor Score Per Nursin RFS Level Per Nursing on Admit: 3=High CARRINGTON MEDINA MD Jun 30, 2019 13:22
--- NOTE | 2019-06-30 15:03 | NUR ---
On this date, pr remains on [employer] Medicaid spenddown which means medicaid not active till spenddown is met. We have contacted his insurance [employer] several times and the [facility] to correct the problem. Currently have again contacted the [facility] for their assistance. Pt unable to afford his medication and will assist with prescription program if his Medicaid remains pending, Will follow and assist.
[2019-06-30 16:25] VITALS: BP 106/63
--- NOTE | 2019-06-30 18:26 | NUR ---
MIGUEL ANGEL HAN PRECEPTOR FOR YAMILE HAN ON THIS PT. CHARTING REVIEWED.
[2019-06-30 20:05] VITALS: BP 105/66
[2019-07-01] VITALS (7 sets, daily range): BP systolic 108–127; BP diastolic 70–79
[2019-07-01] MEDS: methylPREDNISolone 40 MG/ML (Solu-MEDROL) VIAL IV SCH ×2 (00:36→06:29)
[2019-07-01] MEDS: HYDROcodone/APAP 5 MG/325 MG (LORTAB) TAB PO PRN ×4 (00:37→18:54)
[2019-07-01] MEDS: RT-ALBUTEROL/IPRATROPIUM 3 ML (DUONEB) VIAL IH SCH ×6 (03:08→22:05)
[2019-07-01] MEDS: morphine ER 30 MG (MS CONTIN) TAB PO SCH ×3 (03:28→19:37)
[2019-07-01 04:59] LABS: BASOPHILS % (AUTO) 0 % (0-10); EOSINOPHILS % (AUTO) 0 % (0-10); HEMATOCRIT 35 % (40-54); HEMOGLOBIN 11.3 G/DL (13.3-17.7); LYMPHOCYTES # (AUTO) 0.5 X 10^3 (1.0-4.0); LYMPHOCYTES % (AUTO) 5 % (12-44); MEAN CORPUSCULAR HEMOGLOBIN 31 PG (25-34); MEAN CORPUSCULAR HGB CONC 32 G/DL (32-36); MEAN CORPUSCULAR VOLUME 97 FL (80-99); MEAN PLATELET VOLUME 8.7 FL (7.4-10.4); MONOCYTES # (AUTO) 0.2 X 10^3 (0.0-1.0); MONOCYTES % (AUTO) 3 % (0-12); NEUTROPHILS # (AUTO) 8.2 X 10^3 (1.8-7.8); NEUTROPHILS % (AUTO) 92 % (42-75); PLATELET COUNT 387 10^3/uL (130-400); RED CELL DISTRIBUTION WIDTH 14.3 % (10.0-14.5); WHITE BLOOD COUNT 8.9 10^3/uL (4.3-11.0)
[2019-07-01 05:24] LABS: ALANINE AMINOTRANSFERASE 8 U/L (0-55); ALBUMIN 3.2 GM/DL (3.2-4.5); ALKALINE PHOSPHATASE 81 U/L (40-136); BILIRUBIN,TOTAL 0.2 MG/DL (0.1-1.0); BUN/CREATININE RATIO 15; CALCIUM 8.3 MG/DL (8.5-10.1); CARBON DIOXIDE 28 MMOL/L (21-32); CHLORIDE 97 MMOL/L (98-107); CREATININE SERUM 0.59 MG/DL (0.60-1.30); GFR ESTIMATED > 60; GLUCOSE 172 MG/DL (70-105); POTASSIUM 3.9 MMOL/L (3.6-5.0); SODIUM 133 MMOL/L (135-145); TOTAL PROTEIN 5.6 GM/DL (6.4-8.2)
[2019-07-01] MEDS: RT-ADVAIR HFA 115/21 MCG PER PUFF IH SCH ×2 (06:32→18:29)
--- NOTE | 2019-07-01 06:42 | NUR ---
PATIENT WEARS 3 - 4 L NC AT HOME; WHEN RT ENTERED THE PATIENTS ROOM HE WAS ON 2.5 L AND SATTING 94% SO RT LEFT HIM ON 2.5 L SINCE O2 ORDER IS TKS GREATER THAN 94% 4-6 L
--- NOTE | 2019-07-01 07:17 | Pulmonary Progress Note ---
Sepsis Event Evaluation Height, Weight, BMI Height: 5'8.00" Weight: 137lbs. 0.0oz. 62.673357mx; 22.74 BMI Method:Stated Exam Exam Vital Signs Date Time Temp Pulse Resp B/P (MAP) Pulse Ox O2 Delivery O2 Flow Rate FiO2 07/01/19 06:42 Nasal Cannula 2.50 07/01/19 06:32 94 Nasal Cannula 2.50 07/01/19 04:10 37.1 101 20 113/70 (84) 96 Nasal Cannula 2.50 07/01/19 03:09 94 Nasal Cannula 2.50 07/01/19 00:00 37.4 116 18 118/71 (87) 97 Nasal Cannula 2.50 06/30/19 22:20 92 Nasal Cannula 2.50 06/30/19 22:10 92 Nasal Cannula 2.50 06/30/19 22:02 Nasal Cannula 3.00 06/30/19 20:05 37.3 106 22 105/66 (79) 96 Nasal Cannula 2.50 06/30/19 20:00 Nasal Cannula 3.00 06/30/19 18:23 98 Nasal Cannula 2.50 06/30/19 16:25 37.2 101 20 106/63 (77) 97 Nasal Cannula 2.50 06/30/19 13:37 93 Nasal Cannula 2.50 06/30/19 12:56 3.00 06/30/19 12:00 36.9 99 18 109/66 (80) 96 Nasal Cannula 2.50 06/30/19 11:10 94 Nasal Cannula 2.50 06/30/19 08:00 3.00 06/30/19 08:00 36.6 96 18 101/63 (76) 96 Room Air I & O 07/01/19 07:00 Intake Total 1930 ml Output Total 1000 ml Balance 930 ml Height & Weight Height: 5'8.00" Weight: 137lbs. 0.0oz. 62.240085eh; 22.74 BMI Method:Stated General Appearance: No Apparent Distress, WD/WN, Chronically ill, Cachetic HEENT: PERRL/EOMI Neck: Full Range of Motion, Normal Inspection, Non Tender Respiratory: No Accessory Muscle Use, No Respiratory Distress, Crackles, Rales, Wheezing Cardiovascular: Regular Rate, Rhythm, No Edema, No Gallop, No JVD, No Murmur, Normal Peripheral Pulses Capillary Refill: Less Than 3 Seconds Peripheral Pulses: 2+ Dorsalis Pedis (R), 2+ Left Dors-Pedis (L), 2+ Radial Pulses (R), 2+ Radial Pulses (L) Gastrointestinal: normal bowel sounds, non tender, soft Extremity: Non Tender, No Calf Tenderness, No Pedal Edema Neurologic/Psychiatric: Alert, Oriented x3, No Motor/Sensory Deficits, Normal Mood/Affect Skin: Normal Color, Warm/Dry Lymphatic: No Adenopathy Results Lab Laboratory Tests 06/30/19 05:50 07/01/19 04:25 Assessment/Plan Assessment/Plan Acute on chronic respiratory failure AECOPD with hx of severe COPD - Duoneb Q 4hrs -Titrate oxygen as tolerated -Currently on Solumedrol 40 Q 6 - Change to Prednisone taper HX Stage IV lung cancer - managed by SIMONE Aldrich DO Jul 01, 2019 07:17
[2019-07-01] MEDS: ASPIRIN E.C. 81 MG (ECOTRIN) TAB PO SCH (09:04)
[2019-07-01] MEDS: SENNA W/DOCUSATE (SENOKOT S) TABLET PO SCH ×2 (09:04→19:37)
[2019-07-01] MEDS: ARTIFICAL TEARS 0.4 ML UNIT DOSE (REFRESH PLUS) OU PRN ×2 (09:06→23:38)
--- NOTE | 2019-07-01 10:18 | Progress Note - Hospitalist ---
Subjective HPI/CC On Admission Date Seen by Provider: Jul 01, 2019 Time Seen by Provider: 09:30 Chief complaint: Dyspnea HPI: This is a 63yoWM clinic Pt of Dino Bolden at [facility] and Dr. Cobian Oncology for lung cancer and Dr. Huber pulmonology who is an oxygen dependent COPD Pt undergoing treatment, who presented with acute exacerbation of COPD with hypoxia, 88% on his normal oxygen supplementation and considering high risk for decompensation since being actively treated for lung cancer, he was admitted for IV steroids and pulmonology consultation. Pt and family wanting an update from Dr. Cobian on the progression of his cancer and that will be initiated. Hydrocodone of will be restarted home medication. Subjective/Events-last exam Pt feeling much better. PT and OT will be ordered. Wheezing much improved and by tomorrow he will likely be able to go home. Dr. Sandoval saw the Pt yesterday. All labs normal. Review of Systems Pulmonary: Dyspnea Objective Exam Vital Signs Vital Signs Date Time Temp Pulse Resp B/P (MAP) Pulse Ox O2 Delivery O2 Flow Rate FiO2 07/01/19 15:57 36.9 102 18 116/74 (88) 97 Nasal Cannula 3.00 Capillary Refill : Less Than 3 Seconds General Appearance: No Apparent Distress, WD/WN, Chronically ill Respiratory: No Accessory Muscle Use, No Respiratory Distress, Decreased Breath Sounds, Wheezing Neurologic/Psychiatric: Alert, Oriented x3, No Motor/Sensory Deficits, Normal Mood/Affect Results/Procedures Lab Laboratory Tests 07/01/19 04:25 Patient resulted labs reviewed. Assessment/Plan Assessment and Plan Assess & Plan/Chief Complaint Assessment: AECOPD Lung cancer undergoing aggressive treatment by Dr Sandoval Former smoker Chronic pain syndrome Plan: Restart home meds including pain meds Nebs Steroids Dr Sandoval consultation DVT PPx DC tomorrow Diagnosis/Problems Diagnosis/Problems (1) COPD exacerbation Status: Acute (2) Lung cancer Status: Chronic Qualifiers: Laterality: left Lung location: unspecified part of lung Qualified Codes: C34.92 - Malignant neoplasm of unspecified part of left bronchus or lung (3) DVT prophylaxis Status: Acute (4) Coronary artery calcification seen on CAT scan Status: Chronic (5) Respiratory failure with hypoxia and hypercapnia Status: Chronic Qualifiers: Chronicity: acute on chronic Qualified Codes: J96.21 - Acute and chronic respiratory failure with hypoxia; J96.22 - Acute and chronic respiratory failure with hypercapnia Clinical Quality Measures DVT/VTE Risk/Contraindication: Risk Factor Score Per Nursin RFS Level Per Nursing on Admit: 3=High VEL VILA DO Jul 01, 2019 10:18
--- NOTE | 2019-07-01 10:59 | Occupational Therapy Eval ---
OT Evaluation-General/PLF Medical Diagnosis Admission Date Jun 29, 2019 at 08:51 Medical Diagnosis: weakness Onset Date: Jul 01, 2019 Therapy Diagnosis Therapy Diagnosis: SOB, decreased functional mobility Height/Weight Height (Feet): 5 Height (Inches): 8.00 Weight (Pounds): 137 Weight (Ounces): 0.0 Precautions Precautions/Isolations: Standard Precautions Safety Interventions: None Weight Bear Status Weight Bearing Restriction: Weight Bearing/Tolerated Referral Physician: Dr Jessica Madison Referral Reason: Activity Tolerance, Self Care, Evaluation/Treatment, Strengthening/ROM Medical History Pertinent Medical History: COPD Additional Medical History Lung Ca, 02 dependent Current History Per H&P:" This is a 63yoWM clinic Pt of Dino Bolden at [facility] and Dr. Cobian Oncology for lung cancer and Dr. Huber pulmonology who is an oxygen dependent COPD Pt undergoing treatment, who presented with acute exacerbation of COPD with hypoxia, 88% on his normal oxygen supplementation and considering high risk for decompensation since being actively treated for lung cancer, he was admitted for IV steroids and pulmonology consultation. Pt and family wanting an update from Dr. Cobian on the progression of his cancer and that will be initiated. Hydrocodone of will be restarted home medication" Reviewed History: Yes Social History Home: Single Level Current Living Status: Spouse ( and son) Entry Into Home: Stairs With Railing Steps Into Home: 5 Steps Inside Home: 0 ADL-Prior Level of Function Therapy Code Descriptions/Definitions Functional [place] Measure: 0=Not Assessed/NA 4=Minimal Assistance 1=Total Assistance 5=Supervision or Setup 2=Maximal Assistance 6=Modified [place] 3=Moderate Assistance 7=Complete [place] Therapy Quality Codes: 6 Independent with activity with or without an assistive device 5 Patient requires set up or clean up by helper. Patient completes activity by themselves 4 Supervision or touching assist (CGA). [place] provide cues , steadying assist 3 The helper provides less than half the effort to complete the activity 2 The helper provides more than half the effort to complete the activity 1 Dependent. The helper does all the effort to complete an activity 7 Patient refused to complete or attempt activity 9 The patient did not perform the activity before the current illness or injury 88 Not attempted due to Medical conditions or safety concerns Functional Abilities and Goals: Independent: Patient completed the activities by him/herself, with or without an assistive device, with no assistance from a helper. Needed Some Help: Patient needed partial assistance from another person to complete activities. Dependent: A helper completed the activities for the patient. Unknown: Not Applicable: Self Care: Independent Functional Cognition: Independent DME/Equipment Comments Pt was IND with all I/ADLs Occupation: unemployed Drive Self: Yes OT Current Status Subjective Pt seen in bed, states minimal pain in back and shoulders due to inactivity. Pt agreeable to OT evaluation. Mental Status/Objective Patient Orientation: Person, Place, Time, Situation, Normal For Age Attachments: Oxygen Current Glasses/Contacts: Yes Hearing Aids: No Dentures/Partials: No Hand Dominance: Right Upper Extremity ROM WFL Upper Extremity Coordination WFL Upper Extremity Sensation WFL Upper Extremity Strength WFL Edema: none noted ADL-Treatment Therapy Code Descriptions/Definitions Functional [place] Measure: 0=Not Assessed/NA 4=Minimal Assistance 1=Total Assistance 5=Supervision or Setup 2=Maximal Assistance 6=Modified [place] 3=Moderate Assistance 7=Complete [place] Therapy Quality Codes: 6 Independent with activity with or without an assistive device 5 Patient requires set up or clean up by helper. Patient completes activity by themselves 4 Supervision or touching assist (CGA). [place] provide cues , steadying assist 3 The helper provides less than half the effort to complete the activity 2 The helper provides more than half the effort to complete the activity 1 Dependent. The helper does all the effort to complete an activity 7 Patient refused to complete or attempt activity 9 The patient did not perform the activity before the current illness or injury 88 Not attempted due to Medical conditions or safety concerns Eating (FIM): 7 Lower Body Dressing (FIM): 7 (Pt completed sitting EOB, good dynamic sitting balance.) Shower Transfer (FIM): 7 Other Treatments Pt completed OT evaluation, Ox4. Pt states some pain in back/ shoulders due to inactivity. Pt states IND with all I/ADLs previously, uses 2-3 L of 02 at home. Pt states he took shower previous night with "no problem." Pt completes activities with good dynamic balance and no SOB noted within the room. Pt 02 levels monitored (EOB: 95%, sitting after ambulating ~15 feet: 93%, standing for 30 seconds: 92%). Pt states he is able to dress self and does not think he needs assistance with I/ADL activities. Pt left in room with call light in reach, all needs met. Education OT Patient Education: Energy conservation, Purpose of tx/functional activities, Rehab process Teaching Recipient: Patient Teaching Methods: Demonstration, Discussion Response to Teaching: Verbalize Understanding, Return Demonstration OT Short Term Goals Short Term Goals 1=Demonstrate adherence to instructed precautions during ADL tasks. 2=Patient will verbalize/demonstrate understanding of assistive devices/ modifications for ADL. 3=Patient will improve strength/tolerance for activity to enable patient to perform ADL's. OT Timers Inspector Goals Long-Term Goals 1=Demonstrate adherence to instructed precautions during ADL tasks. 2=Patient will verbalize/demonstrate understanding of assistive devices/modifications for ADL. 3=Patient will improve strength/tolerance for activity to enable patient to perform ADL's. OT Education/Plan Problem List/Assessment Assessment: No Skilled OT Needs ID'd Discharge Recommendations Plan/Recommendations: Discontinue OT Treatment Plan/Plan of Care Treatment,Training & Education: Yes Patient would benefit from OT for education, treatment and training to promote independence in ADL's, mobility, safety and/or upper extremity function for ADL's. Frequency: 1 time per week (eval only) Estimated Hrs Per Day: Other (eval only) Agreement: Yes Time/GCodes Start Time: 10:45 Stop Time: 10:53 Total Time Billed (hr/min): 8 Billed Treatment Time 1, SELINA (8) TATIANA LYNNE OTR Jul 01, 2019 10:59
--- NOTE | 2019-07-01 11:06 | NUR ---
PATIENT IS STILL ON 2.5 L; PT INFORMED RT THAT ON EXERTION PATIENT WAS ON 4 L AND O2 SAT WAS 96%, RT LET PT KNOW THAT PATIENT CAN USE 3 L NC ON EXERTION
--- NOTE | 2019-07-01 11:10 | Physical Therapy Evaluation ---
PT Evaluation-General Medical Diagnosis Admission Date Jun 29, 2019 at 08:51 Medical Diagnosis: COPD exacerbation/lung cancer Onset Date: Jun 29, 2019 Therapy Diagnosis Therapy Diagnosis: debility/weakness Height/Weight Height (Feet): 5 Height (Inches): 8.00 Weight (Pounds): 137 Weight (Ounces): 0.0 Precautions Precautions/Isolations: Standard Precautions Referral Physician: Dr Jessica Madison Reason for Referral: Evaluation/Treatment Medical History Pertinent Medical History: COPD Additional Medical History lung cancer Current History EMS secondary to hypoxia/SOB Reviewed History: Yes Social History Home: Single Level Current Living Status: Spouse ( and son) Entry Into Home: Stairs With Railing PT Steps Into Home: 5 PT Steps Inside Home: 0 Prior/Core FIM Prior Level of Function Therapy Code Descriptions/Definitions Functional [place] Measure: 0=Not Assessed/NA 4=Minimal Assistance 1=Total Assistance 5=Supervision or Setup 2=Maximal Assistance 6=Modified [place] 3=Moderate Assistance 7=Complete [place] Therapy Quality Codes: 6 Independent with activity with or without an assistive device 5 Patient requires set up or clean up by helper. Patient completes activity by themselves 4 Supervision or touching assist (CGA). [place] provide cues , steadying assist 3 The helper provides less than half the effort to complete the activity 2 The helper provides more than half the effort to complete the activity 1 Dependent. The helper does all the effort to complete an activity 7 Patient refused to complete or attempt activity 9 The patient did not perform the activity before the current illness or injury 88 Not attempted due to Medical conditions or safety concerns Functional Abilities and Goals: Independent: Patient completed the activities by him/herself, with or without an assistive device, with no assistance from a helper. Needed Some Help: Patient needed partial assistance from another person to c omplete activities. Dependent: A helper completed the activities for the patient. Unknown: Not Applicable: Bed Mobility: 7 Transfers (B,C,W/C) (FIM): 7 Gait: 7 Stairs: 7 Indoor Mobility (Ambulation): Independent Stairs: Independent Prior Devices Use: None PT Evaluation-Current Subjective Patient agrees to PT. He reports he is up independently in room. Pain Numeric Pain Scale: 0-No Pain Location: No Pain Reported Objective Patient Orientation: Normal For Age Problem Solving: Good Attachments: Oxygen (3-4L NC continuous) ROM/Strength ROM Lower Extremities bilateral LE WFL Strength Lower Extremities 5/5 grossly bilateral LE Integumentary/Posture Integumentary refer to nursing notes Bowel Incontinence: No Bladder Incontinence: No Posture WFL Neuromuscular (Tone, Coordination, Reflexes) grossly intact Sensory Vision: Wears Glasses Hearing: Functional Hand Dominance: Right Sensation Right Lower Extremit: Intact Sensation Left Lower Extremity: Intact Transfers Therapy Code Descriptions/Definitions Functional [place] Measure: 0=Not Assessed/NA 4=Minimal Assistance 1=Total Assistance 5=Supervision or Setup 2=Maximal Assistance 6=Modified [place] 3=Moderate Assistance 7=Complete [place] Transfers (B, C, W/C) (FIM): 7 Scootin Rollin Supine to/from Sit: 7 Sit to/from Stand: 7 Gait Mode of Locomotion: Walk Anticipated Mode of Locomotion: Walk Gait (FIM): 7 Distance (FIM): 3=150 ft Distance: >500' Gait Level of Assist: 7 Gait Assistive Device: None Comments/Gait Description safe and functional with no deviation Balance Sitting Static: Normal Sitting Dynamic: Normal Standing Static: Normal Standing Dynamic: Normal Assessment/Needs 63 y.o. male, is currently at [facility] with all gross motor skills and does not require skilled therapy intervention. Thank you for this referral. Rehab Potential: Fair Post Rehab Potential-Barriers: lung cancer PT Plan Treatment/Plan Treatment Plan: Continue Plan of Care Treatment Plan: Other Treatment Duration: Jul 01, 2019 Frequency: 1 time per week Estimated Hrs Per Day: .25 hour per day Patient and/or Family Agrees t: Yes Time/GCodes Time In: 1055 Time Out: 1105 Total Billed Treatment Time: 10 Total Billed Treatment 1 visit EVLowC 10 min TOMMIE SIMENTAL PT Jul 01, 2019 11:10
[2019-07-01] MEDS: ENOXAPARIN 40 MG/0.4 ML (LOVENOX) SYR SC SCH (12:52)
[2019-07-01] MEDS: predniSONE 10 MG TAB PO SCH (12:53)
--- NOTE | 2019-07-01 13:00 | NUR ---
LORTAB 2 PO FOR PAIN.
[2019-07-02] MEDS: HYDROcodone/APAP 5 MG/325 MG (LORTAB) TAB PO PRN ×2 (00:53→06:46)
[2019-07-02] MEDS: RT-ALBUTEROL/IPRATROPIUM 3 ML (DUONEB) VIAL IH SCH ×2 (02:02→07:14)
[2019-07-02] MEDS: morphine ER 30 MG (MS CONTIN) TAB PO SCH (03:29)
[2019-07-02] MEDS: predniSONE 10 MG TAB PO SCH (06:46)
[2019-07-02] MEDS: RT-ADVAIR HFA 115/21 MCG PER PUFF IH SCH (07:17)
[2019-07-02] MEDS: SENNA W/DOCUSATE (SENOKOT S) TABLET PO SCH (07:49)
[2019-07-02] MEDS: ASPIRIN E.C. 81 MG (ECOTRIN) TAB PO SCH (07:49)
--- NOTE | 2019-07-02 07:57 | Pulmonary Progress Note ---
Subjective Time Seen by a Provider: 08:36 Subjective/Events-last exam No complications noted. Sepsis Event Evaluation Height, Weight, BMI Height: 5'8.00" Weight: 137lbs. 0.0oz. 62.197435pb; 22.74 BMI Method:Stated Exam Exam Vital Signs Date Time Temp Pulse Resp B/P (MAP) Pulse Ox O2 Delivery O2 Flow Rate FiO2 07/02/19 07:14 97 Nasal Cannula 2.50 07/02/19 02:02 96 Nasal Cannula 2.50 07/01/19 23:57 36.8 110 20 114/74 (87) 98 Nasal Cannula 3.00 07/01/19 22:05 96 Nasal Cannula 3.00 07/01/19 20:32 Nasal Cannula 3.00 07/01/19 19:52 37.0 103 20 127/79 (95) 98 Nasal Cannula 3.00 07/01/19 18:29 Nasal Cannula 2.50 07/01/19 18:29 96 Nasal Cannula 2.50 07/01/19 15:57 36.9 102 18 116/74 (88) 97 Nasal Cannula 3.00 07/01/19 15:07 97 Nasal Cannula 2.50 07/01/19 12:07 37.4 100 18 114/77 (89) 99 Nasal Cannula 3.00 07/01/19 11:03 96 Nasal Cannula 2.50 07/01/19 08:00 36.6 97 18 108/72 (84) 98 Nasal Cannula 3.00 07/01/19 08:00 Nasal Cannula 3.00 I & O 07/02/19 07:00 Intake Total 2350 ml Balance 2350 ml Height & Weight Height: 5'8.00" Weight: 137lbs. 0.0oz. 62.948088lv; 22.74 BMI Method:Stated General Appearance: No Apparent Distress, WD/WN, Chronically ill HEENT: PERRL/EOMI Neck: Full Range of Motion, Normal Inspection, Non Tender Respiratory: No Accessory Muscle Use, No Respiratory Distress, Decreased Breath Sounds Cardiovascular: Regular Rate, Rhythm, No Edema, No Gallop, No JVD, No Murmur, Normal Peripheral Pulses Capillary Refill: Less Than 3 Seconds Peripheral Pulses: 2+ Dorsalis Pedis (R), 2+ Left Dors-Pedis (L), 2+ Radial Pulses (R), 2+ Radial Pulses (L) Gastrointestinal: normal bowel sounds, non tender, soft Extremity: Non Tender, No Calf Tenderness, No Pedal Edema Neurologic/Psychiatric: Alert, Oriented x3, No Motor/Sensory Deficits, Normal Mood/Affect Skin: Normal Color, Warm/Dry Lymphatic: No Adenopathy Results Lab Laboratory Tests 07/01/19 04:25 Assessment/Plan Assessment/Plan Acute on chronic respiratory failure AECOPD with hx of severe COPD - Duoneb Q 4hrs -Titrate oxygen as tolerated - Prednisone taper HX Stage IV lung cancer -oncology following Pt is ok for discharge from pulmonary standpoint with prednisone taper. Pt already has home oxygen. I will follow up with him in 1-2 wks. SIMONE TATE DO Jul 02, 2019 07:57
[2019-07-02 08:22] VITALS: BP 122/73
[2019-07-02] MEDS ORDERED: PRED10TA22 PO (09:39)
--- NOTE | 2019-07-02 09:40 | Discharge Summary ---
Discharge Summary Hospital Course Was the Problem List Reviewed?: Yes Problems/Dx: (1) COPD exacerbation Status: Acute (2) Lung cancer Status: Chronic Qualifiers: Qualified Codes: C34.92 - Malignant neoplasm of unspecified part of left bronchus or lung (3) DVT prophylaxis Status: Acute (4) Coronary artery calcification seen on CAT scan Status: Chronic (5) Respiratory failure with hypoxia and hypercapnia Status: Chronic Qualifiers: Qualified Codes: J96.21 - Acute and chronic respiratory failure with hypoxia; J96.22 - Acute and chronic respiratory failure with hypercapnia Hospital Course Date of Admission: Jun 29, 2019 at 08:51 Admission Diagnosis : Family Physician/Provider: Michael Owens [employer]ridge [employer]er Date of Discharge: 07/02/19 Discharge Diagnosis: AECOPD, Lung cancer Hospital Course: Hospital course: Pt had an uncomplicated four day hospital course after being admitted for COPD exacerbation with lung cancer undergoing aggressive treatment. He required aggressive IV steroids, Dr. Huber was consulted, Pt was required to remain inpatient because of the severe wheezing and high risk for respiratory failure because of lung cancer, COPD, and oxygen dependency at home. Pt ultimately recovered, lungs were clear, and pt was deemed stable for DC and he will be in agreement. Labs and Pending Lab Test: Microbiology 06/29/19 Influenza Types A,B Antigen (KYLE) - Final, Complete Home Meds Active Prednisone 10 Mg Tab.ds.pk 10 Mg PO DAILY Take 6 tabs(60mg)daily,decrease by 1 tab(10MG)daily. Reported Advair 250-50 Diskus (Fluticasone/Salmeterol) 1 Each Blst.w.dev 1 Puff IH BID Hydrocodon-Acetaminophn 10-325 (Hydrocodone/Acetaminophen) 1 Each Tablet 1 Tab PO Q6H PRN Morphine Sulfate ER (Morphine Sulfate) 30 Mg Tablet.er 30 Mg PO Q8H Fluticasone Propionate 16 Gm [place].susp 1 [place] NS DAILY PRN Albuterol Sulfate 2.5 Mg/3 Ml Vial.neb 2.5 Mg NEB Q4H PRN [id number] (Polyethylene Glycol 3350) 238 Gm Powder 17 Gm PO DAILY PRN Aspir 81 (Aspirin) 81 Mg Tablet.dr 81 Mg PO DAILY Assessment/Pt Instructions PCP 1 week Discharge Planning: <30 minutes discharge planning Discharge Instructions Discharge Diet: No Restrictions Discharge Physical Examination Vital Signs Vital Signs Date Time Temp Pulse Resp B/P (MAP) Pulse Ox O2 Delivery O2 Flow Rate FiO2 07/02/19 08:22 37.3 90 20 122/73 (89) 99 Nasal Cannula 3.00 General Appearance: No Apparent Distress, WD/WN Respiratory: Chest Non Tender, Lungs Clear, Normal Breath Sounds, No Accessory Muscle Use, No Respiratory Distress Cardiovascular: Regular Rate, Rhythm, No Edema, No Gallop, No JVD, No Murmur, Normal Peripheral Pulses Neurologic/Psychiatric: Alert, Oriented x3, No Motor/Sensory Deficits, Normal Mood/Affect Allergies: Coded Allergies: No Known Drug Allergies (Unverified , 05/22/17) Discharge Summary Date of Admission Jun 29, 2019 at 08:51 Date of Discharge Discharge Date: Jul 02, 2019 Admission Diagnosis Assessment: AECOPD Lung cancer undergoing aggressive treatment by Dr Sandoval Former smoker Chronic pain syndrome Plan: Restart home meds including pain meds Nebs Steroids Dr Sandoval consultation DVT PPx Discharge Diagnosis Assessment: AECOPD Lung cancer undergoing aggressive treatment by Dr Sandoval Former smoker Chronic pain syndrome Plan: Restart home meds including pain meds Nebs Steroids Dr Sandoval consultation DVT PPx DC tomorrow (1) COPD exacerbation Status: Acute (2) Lung cancer Status: Chronic Qualifiers: Qualified Codes: C34.92 - Malignant neoplasm of unspecified part of left bronchus or lung (3) DVT prophylaxis Status: Acute (4) Coronary artery calcification seen on CAT scan Status: Chronic (5) Respiratory failure with hypoxia and hypercapnia Status: Chronic Qualifiers: Qualified Codes: J96.21 - Acute and chronic respiratory failure with hypoxia; J96.22 - Acute and chronic respiratory failure with hypercapnia Clinical Quality Measures DVT/VTE Risk/Contraindication: Risk Factor Score Per Nursin RFS Level Per Nursing on Admit: 3=High VEL VILA DO Jul 02, 2019 09:40
[2019-07-02] MEDS ORDERED: FLUT1DIS26 IH (10:04)
[2019-07-02] MEDS ORDERED: FLUT16SP22 NS (10:04)
[2019-07-02] MEDS ORDERED: ALBU2.5V4 NEB (10:04)
[2019-07-02] MEDS ORDERED: IPRA3AMP31 IH (10:04)
--- NOTE | 2019-07-05 09:12 | NUR ---
On 07/02/19, pt discharged home. [facility] agreed to fill all of pt's prescriptions pending his Medicaid approval.
== END 2019-07-02 09:37 | disposition home or self-care (01) ==
LOC: EDUNIT# 05:58 → ER 06:00 → UNDOADMOB 08:51 → 4TH 08:51 → UNDODISOB 07-02 10:59
PROVIDERS: ADMIT Internal Medicine; ATTEND Internal Medicine
DX: J44.1 Chronic obstructive pulmonary disease with (acute) exacerbation (principal); J96.21 Acute and chronic respiratory failure with hypoxia; J96.22 Acute and chronic respiratory failure with hypercapnia; C34.92 Malignant neoplasm of unspecified part of left bronchus or lung; E87.2 Acidosis; I82.409 Acute embolism and thrombosis of unspecified deep veins of unspecified lower extremity; I25.10 Atherosclerotic heart disease of native coronary artery without angina pectoris; Z79.891 Long term (current) use of opiate analgesic; Z79.899 Other long term (current) drug therapy; Z87.891 Personal history of nicotine dependence; Z79.82 Long term (current) use of aspirin
CPT/HCPCS: 36415; 36600; 71045; 71275; 80053; 82805; 84484; 85025; 85379; 87804; 93005; 93041; 94640; 94644; 94760; 96361; 96374; 96375; G0378

== ENCOUNTER → 2019-08-25 | Outpatient (CLI) | payer MEDICAID ==
[~2019-08-25] MED LIST changes: +ADVAIR; +FLUT1DIS26 IH; +HOLD METFORMIN - RECEIVED CONTRAST 20 ML VIAL IV SCH; +HYDR-3820 PO; +IOHEXOL 350 MG/ML 100 ML (OMNIPAQUE 350) VIAL IV ONE; +IPRA3AMP31 IH; +MORP-34 PO; +NS 100 ML (IVPB) BAG IV ONE; -RT-ALBUTEROL SULF 2.5 MG/3 ML PRE-MIX VIAL ONE; -RT-IPRATROPIUM (ATROVENT) 0.5MG/2.5ML AMP IH ONE
--- NOTE | 2019-08-25 09:28 | Diagnostic Imaging Report ---
PROCEDURE: CT chest with contrast only. TECHNIQUE: Multiple contiguous axial images were obtained through the chest after administration of intravenous contrast. Auto Exposure Controls were utilized during the CT exam to meet ALARA standards for radiation dose reduction. INDICATION: Lung cancer. COMPARISON: June 29, 2019, January 18, 2019, and May 23, 2017. FINDINGS: Right-sided Port-A-Cath is again noted. An enlarged left axillary lymph node is present measuring 1.9 x 1.7 cm, slightly more prominent than the prior examination. Additionally, peripherally enhancing soft tissue mass lesions are noted within the left lateral chest wall near the level of the inferior aspect of the scapula. This measures 7.0 x 2.5 cm, more prominent than the prior exam. Multiple calcified mediastinal and hilar lymph nodes are present. Surgical changes associated with the left lung. No additional definite new adenopathy within chest. Diffuse mural thickening of the esophagus. Scattered vascular calcifications. No aneurysmal dilatation of the thoracic aorta. No significant pericardial effusion. No right-sided pleural effusion. Small-sized left pleural effusion is again identified, appearing relatively similar to the prior exam. No pneumothorax. Advanced background emphysematous changes. Extensive reticular opacities consistent with scarring and atelectasis again noted within the left lung. 0.7 cm nodular density within the left lower lobe, series 4, image 97 appears slightly more prominent than the prior examination. Innumerable calcified granulomata noted within the bilateral lungs, particularly within the left lung. Interval development of a 1.9 cm irregular nodular density within the right lower lobe, axial image 91. 0.9 cm right middle lobe pleural-based pulmonary nodule has not significantly changed from the prior exam. Increased prominence of nodularity associated with the left adrenal gland, measuring 1.8 x 4.1 cm, increased since the prior examination. The visualized upper abdomen is otherwise unremarkable. Superior endplate compression deformities within the upper thoracic spine are again identified and stable. Chronic sternal fracture and bilateral rib fractures are again noted. No acute osseous abnormality. IMPRESSION: Findings concerning for interval progression of malignancy. In particular, developing soft tissue mass lesions are now noted within the left lateral chest wall. Additionally, a left axillary lymph node has increased in size since the prior exam concerning for metastatic disease. The left adrenal gland has also increased in size and nodularity since the prior examination. 0.7 cm left basilar pulmonary nodule, having slightly increased in size from the prior examination. Although this could relate to scarring at this location, residual malignancy may be present. Advanced background emphysematous changes. Multiple stable compression deformities within the thoracic spine, the one within T4 appears stable from the prior exam though new since January 2019. Diffuse mural thickening of the esophagus, which could relate to esophagitis or post radiation changes. Additional stable findings as described above, including small left pleural effusion and evidence of chronic granulomatous disease. Dictated by: Dictated on workstation # [id number]
== END ==
LOC: RAD 08:28
PROVIDERS: ATTEND Internal Medicine Hematology & Oncology
DX: C34.32 Malignant neoplasm of lower lobe, left bronchus or lung (principal); E27.8 Other specified disorders of adrenal gland; J43.9 Emphysema, unspecified; M43.8X4 Other specified deforming dorsopathies, thoracic region; K22.8 Other specified diseases of esophagus; J90 Pleural effusion, not elsewhere classified; J84.10 Pulmonary fibrosis, unspecified; M84.48XA Pathological fracture, other site, initial encounter for fracture; R22.2 Localized swelling, mass and lump, trunk; Z95.828 Presence of other vascular implants and grafts
CPT/HCPCS: 71260

== ENCOUNTER 2019-08-30 13:43 | Outpatient (RCR) | payer MEDICAID, OTHER ==
[2019-07-05 13:21] LABS: BASOPHILS % (AUTO) 0 % (0-10); EOSINOPHILS % (AUTO) 0 % (0-10); HEMATOCRIT 39 % (40-54); HEMOGLOBIN 12.4 G/DL (13.3-17.7); LYMPHOCYTES # (AUTO) 0.4 X 10^3 (1.0-4.0); LYMPHOCYTES % (AUTO) 5 % (12-44); MEAN CORPUSCULAR HGB CONC 32 G/DL (32-36); MEAN CORPUSCULAR VOLUME 99 FL (80-99); MEAN PLATELET VOLUME 8.6 FL (7.4-10.4); MONOCYTES # (AUTO) 0.3 X 10^3 (0.0-1.0); MONOCYTES % (AUTO) 3 % (0-12); NEUTROPHILS # (AUTO) 8.1 X 10^3 (1.8-7.8); NEUTROPHILS % (AUTO) 92 % (42-75); PLATELET COUNT 381 10^3/uL (130-400); RED CELL DISTRIBUTION WIDTH 13.9 % (10.0-14.5); WHITE BLOOD COUNT 8.8 10^3/uL (4.3-11.0)
[2019-07-05 13:23] LABS: MEAN CORPUSCULAR HEMOGLOBIN 31 PG (25-34)
[2019-07-05 13:41] LABS: ALANINE AMINOTRANSFERASE 14 U/L (0-55); ALBUMIN 3.3 GM/DL (3.2-4.5); ALKALINE PHOSPHATASE 63 U/L (40-136); BILIRUBIN,TOTAL 0.4 MG/DL (0.1-1.0); BUN/CREATININE RATIO 18; CALCIUM 8.3 MG/DL (8.5-10.1); CARBON DIOXIDE 30 MMOL/L (21-32); CHLORIDE 97 MMOL/L (98-107); GFR ESTIMATED > 60; GLUCOSE 171 MG/DL (70-105); POTASSIUM 3.9 MMOL/L (3.6-5.0); SODIUM 136 MMOL/L (135-145); TOTAL PROTEIN 6.5 GM/DL (6.4-8.2)
[2019-08-02 14:11] LABS: BASOPHILS # (AUTO) 0.1 10^3/uL (0.0-0.1); BASOPHILS % (AUTO) 1 % (0-10); EOSINOPHILS # (AUTO) 0.1 10^3/uL (0.0-0.3); EOSINOPHILS % (AUTO) 2 % (0-10); HEMATOCRIT 39 % (40-54); HEMOGLOBIN 12.5 G/DL (13.3-17.7); LYMPHOCYTES % (AUTO) 14 % (12-44); MEAN CORPUSCULAR HEMOGLOBIN 32 PG (25-34); MEAN CORPUSCULAR HGB CONC 32 G/DL (32-36); MEAN CORPUSCULAR VOLUME 99 FL (80-99); MEAN PLATELET VOLUME 8.1 FL (7.4-10.4); MONOCYTES # (AUTO) 0.7 X 10^3 (0.0-1.0); MONOCYTES % (AUTO) 9 % (0-12); NEUTROPHILS # (AUTO) 5.3 X 10^3 (1.8-7.8); NEUTROPHILS % (AUTO) 75 % (42-75); PLATELET COUNT 427 10^3/uL (130-400); RED CELL DISTRIBUTION WIDTH 13.5 % (10.0-14.5); WHITE BLOOD COUNT 7.1 10^3/uL (4.3-11.0)
[2019-08-02 14:38] LABS: ALANINE AMINOTRANSFERASE 12 U/L (0-55); ALBUMIN 3.5 GM/DL (3.2-4.5); ALKALINE PHOSPHATASE 189 U/L (40-136); BILIRUBIN,TOTAL 0.4 MG/DL (0.1-1.0); BUN/CREATININE RATIO 7; CALCIUM 8.8 MG/DL (8.5-10.1); CARBON DIOXIDE 25 MMOL/L (21-32); CHLORIDE 90 MMOL/L (98-107); CREATININE SERUM 0.54 MG/DL (0.60-1.30); GFR ESTIMATED > 60; GLUCOSE 124 MG/DL (70-105); POTASSIUM 4.3 MMOL/L (3.6-5.0); SODIUM 130 MMOL/L (135-145); TOTAL PROTEIN 6.5 GM/DL (6.4-8.2)
[~2019-08-30 13:43] MED LIST changes: -HOLD METFORMIN - RECEIVED CONTRAST 20 ML VIAL IV SCH; -IOHEXOL 350 MG/ML 100 ML (OMNIPAQUE 350) VIAL IV ONE; +NIVOLUMAB 480 MG in NS (IVPB) CANCER CENTER 100 ML IV SCH; +NS (IVPB) CANCER CENTER 250 ML IV SCH; -NS 100 ML (IVPB) BAG IV ONE; +NS IV 500 ML (CANCER CENTER) IV SCH
[2019-08-30 14:02] LABS: BASOPHILS # (AUTO) 0.1 10^3/uL (0.0-0.1); BASOPHILS % (AUTO) 1 % (0-10); EOSINOPHILS # (AUTO) 1.1 10^3/uL (0.0-0.3); EOSINOPHILS % (AUTO) 11 % (0-10); HEMATOCRIT 37 % (40-54); HEMOGLOBIN 12.1 G/DL (13.3-17.7); LYMPHOCYTES # (AUTO) 1.6 X 10^3 (1.0-4.0); LYMPHOCYTES % (AUTO) 16 % (12-44); MEAN CORPUSCULAR HEMOGLOBIN 31 PG (25-34); MEAN CORPUSCULAR HGB CONC 33 G/DL (32-36); MEAN CORPUSCULAR VOLUME 96 FL (80-99); MEAN PLATELET VOLUME 8.7 FL (7.4-10.4); MONOCYTES # (AUTO) 0.8 X 10^3 (0.0-1.0); MONOCYTES % (AUTO) 7 % (0-12); NEUTROPHILS # (AUTO) 6.5 X 10^3 (1.8-7.8); NEUTROPHILS % (AUTO) 65 % (42-75); PLATELET COUNT 402 10^3/uL (130-400); RED CELL DISTRIBUTION WIDTH 11.5 % (10.0-14.5); WHITE BLOOD COUNT 10.1 10^3/uL (4.3-11.0)
[2019-08-30 14:26] LABS: ALANINE AMINOTRANSFERASE 11 U/L (0-55); ALBUMIN 3.7 GM/DL (3.2-4.5); ALKALINE PHOSPHATASE 105 U/L (40-136); BILIRUBIN,TOTAL 0.3 MG/DL (0.1-1.0); BUN/CREATININE RATIO 9; CALCIUM 9.1 MG/DL (8.5-10.1); CARBON DIOXIDE 29 MMOL/L (21-32); CHLORIDE 91 MMOL/L (98-107); CREATININE SERUM 0.53 MG/DL (0.60-1.30); GFR ESTIMATED > 60; GLUCOSE 102 MG/DL (70-105); POTASSIUM 4.2 MMOL/L (3.6-5.0); SODIUM 131 MMOL/L (135-145); TOTAL PROTEIN 7.2 GM/DL (6.4-8.2)
== END 2019-10-03 | disposition home or self-care (01) ==
LOC: ONC 13:43
PROVIDERS: ATTEND Internal Medicine Hematology & Oncology
DX: Z51.11 Encounter for antineoplastic chemotherapy (principal); C34.32 Malignant neoplasm of lower lobe, left bronchus or lung; C77.1 Secondary and unspecified malignant neoplasm of intrathoracic lymph nodes; J43.8 Other emphysema; J45.909 Unspecified asthma, uncomplicated; I25.10 Atherosclerotic heart disease of native coronary artery without angina pectoris; G47.10 Hypersomnia, unspecified; Z79.82 Long term (current) use of aspirin; Z79.899 Other long term (current) drug therapy; Z87.891 Personal history of nicotine dependence
CPT/HCPCS: 36591; 80053; 83615; 84443; 85025; 96413; 99213